=== PATIENT | male | born 1945 | race Caucasian/White ===

== ENCOUNTER 2020-04-29 19:42 | Inpatient (IN) | payer OTHER, MEDICAID ==
--- NOTE | 2020-04-29 20:47 | RAD REPORT ---
EXAM DESCRIPTION: RAD - Chest Single View - 04/29/2020 8:36 pm CLINICAL HISTORY: CHEST PAIN COMPARISON: None TECHNIQUE: AP portable chest image was obtained 04/29/2020 8:36 pm . FINDINGS: No acute lung parenchymal process seen. Patient has significant right hemidiaphragm elevat ion. No failure or volume overload suspected. Heart and vasculature are normal. No measurable pleural effusion and no pneumothorax. No acute bony abnormality seen. No acute aortic findings suspected. IMPRESSION: No acute cardiopulmonary process.
[2020-04-29 21:00] LABS: Protime INR 1.03
[2020-04-29 21:04] LABS: Absolute Lymphocytes (CBC) 0.9 K/uL (0.7-4.9); Basophils % 0.4 % (0-1.3); Hematocrit 44.2 % (39.6-49.0); Lymphocytes % 11.5 % (15.3-44.8); MPV 7.9 fL (7.6-11.3); RBC Red Blood Cell Count 4.42 M/uL (4.33-5.43)
[2020-04-29 21:16] LABS: ALT/SGPT 15 U/L (12-78); AST/SGOT 10 U/L (15-37); Albumin 3.2 g/dL (3.4-5.0); Alkaline Phosphatase 81 U/L (45-117); BUN Blood Urea Nitrogen 17 mg/dL (7-18); Bicarbonate 32 mmol/L (21-32); Bilirubin Direct < 0.1 mg/dL (0-0.2); Bilirubin Total 0.3 mg/dL (0.2-1.0); Glucose Level 199 mg/dL (74-106); Magnesium 1.6 mg/dL (1.8-2.4); NT PRO-BNP 208 pg/mL (<125); Potassium 3.8 mmol/L (3.5-5.1); Protein, Total 7.7 g/dL (6.4-8.2); Sodium Level 138 mmol/L (136-145); Troponin (Emerg Dept Use Only) 0.05 ng/mL (0.0-0.045)
--- NOTE | 2020-04-29 21:39 | ER ---
Nurse's Notes [facility] Name: Hany Marcano Age: 75 yrs Sex: Male : 1945 Arrival Date: 04/29/2020 Time: 19:44 Bed 27 Private MD: Diagnosis: Chest pain, unspecified Presentation: 04/29 19:42 Chief complaint: EMS states: that he was watching a porn movie and started to have fc chest pain. Once show was over he became anxious. Then approx 10 minutes later the pain was gone. Denies any shortness of breath, nausea or vomiting. Was given Nitro x 3 by nurse at [facility]. Currently having no pain to chest. Does having chronic pain to right hip due to arthritis. Coronavirus screen: Client denies travel out of the [place] in the last 14 days. Ebola Screen: Patient negative for fever greater than or equal to 101.5 degrees Fahrenheit, and additional compatible Ebola Virus Disease symptoms Patient denies exposure to infectious person. Patient denies travel to an Ebola-affected area in the 21 days before illness onset. Initial Sepsis Screen: Does the patient meet any 2 criteria? HR > 90 bpm. No. Patient's initial sepsis screen is negative. Does the patient have a suspected source of infection? No. Patient's initial sepsis screen is negative. Risk Assessment: Do you want to hurt yourself or someone else? Patient reports no desire to harm self or others. Onset of symptoms was April 29, 2020 at 18:30. Care prior to arrival: Medication(s) given: ASA, 81 mg, x 4, IV initiated. 20 GA, in the left hand. 19:42 Method Of Arrival: EMS: [facility] 19:42 Acuity: BREANNA 3 fc Historical: - Allergies: 20:26 No Known Allergies; fc - Home Meds: 20:39 allopurinol 100 mg Oral tab 1 tab once daily [Active]; amlodipine 10 mg tab 1 tab once fc daily [Active]; aspirin 81 mg Oral TbEC 1 tab once daily [Active]; calcium with Vitamin D [Active]; cyanocobalamin (vitamin B-12) 1,000 mcg/mL injection soln 1 mL q 2 weeks [Active]; Humalog Sub-Q Sliding scale ac and hs [Active]; isosorbide mononitrate 120 mg Oral Tb24 1 tab once daily [Active]; Lantus 100 unit/mL Sub-Q soln 24 unit nightly [Active]; Lasix 40 mg Oral tab 1 tab once daily [Active]; lisinopril 40 mg Oral tab 1 tab nightly [Active]; lovastatin 40 mg Oral tab 1 tab nightly [Active]; magnesium oxide 400 mg Oral cap twice a day [Active]; metformin 1,000 mg Oral TG24 1 tab 2 times per day [Active]; metoprolol tartrate 25 mg Oral tab 1 tab 2 times per day [Active]; MVI daily [Active]; nitroglycerin 0.4 mg SL subl 1 tab every 5 minutes [Active]; omeprazole 40 mg Oral cpDR 1 cap once daily [Active]; pioglitazone 30 mg oral tab 1 tab once daily [Active]; Plavix 75 mg Oral tab 1 tab once daily [Active]; Silvadene 1 % Topical crea once daily [Active]; trazodone 50 mg Oral tab 1 tab nightly [Active]; Vitamin D Oral 50,000 unit weekly [Active]; - PMHx: 20:26 CHF; Diabetes - IDDM; allergic rhinitis; GERD; Dementia; chest pain; CAD; Angina; fc insomnia; Gout; Hyperlipidemia; Depression; - PSHx: 20:26 left fem pop; fc - Immunization history:: Last tetanus immunization: unknown, Flu vaccine is not up to date. - Social history:: Smoking status: Patient/guardian denies using tobacco, but has a distant history of tobacco abuse, Patient/guardian denies using alcohol, street drugs. Screenin:42 Abuse screen: Denies threats or abuse. Nutritional screening: No deficits noted. fc Tuberculosis screening: No symptoms or risk factors identified. Fall Risk No fall in past 12 months (0 pts). Secondary diagnosis (15 points) impaired mobility, IV access (20 points). Ambulatory Aid- None/Bed Rest/Nurse Assist (0 pts). Gait- Impaired (20 pts.). Mental Status- Overestimates/Forgets Limitations (15 pts.). Total Peoples Fall Scale indicates High Risk Score (45 or more points). Fall prevention measures have been instituted. Side Rails Up X 2 Placed Close to Nursing Station Frequent Obs/Assessments Occuring As available patient and family educated on Fall Prevention Program and Strategies. Assessment: 20:00 General: Appears in no apparent distress. comfortable, Behavior is calm, cooperative, ss Denies fever, feeling ill, fatigue, chills. Pain: Complains of pain in R hip Pain does not radiate. Pain currently is 5 out of 10 on a pain scale. Quality of pain is described as aching, Pain began years ago. Is continuous, chronic, Aggravated by laying flat. Neuro: Level of Consciousness is awake, alert, obeys commands, Oriented to person, place, time, situation, Project Controls Specialist are equal bilaterally Speech is normal. Cardiovascular: Capillary refill is sluggish in bilateral toes. Respiratory: Airway is patent Respiratory effort is even, unlabored. GI: Patient currently denies diarrhea, nausea, vomiting. : No signs and/or symptoms were reported regarding the genitourinary system. EENT: Nares are clear Oral mucosa is moist. Derm: dry, hard scaly skin noted to bilateral lower extremities. Musculoskeletal: Range of motion: limited in left wrist, left hip, left knee, left ankle, right hip, right knee and right ankle PT reports that limited ROM is due to polio and arthritis. 21:00 Reassessment: Patient appears in no apparent distress at this time. Patient and/or ss family updated on plan of care and expected duration. Pain level reassessed. Patient is alert, oriented x 3, equal unlabored respirations, skin warm/dry/pink. 22:10 Reassessment: Patient appears in no apparent distress at this time. Pt cleaned of ss urinary incontinence with total assist. Sacral decubitus noted. Pt reports he has been battling this wound for some time. Patient denies pain at this time. 22:26 Reassessment: Report given to TYE Easley. Vital Signs: 19:42 BP 154 / 83; Pulse 105; Resp 20; Temp 97.8; Pulse Ox 97% ; Weight 145.15 kg; Height 6 fc ft. 5 in. (195.58 cm); Pain 5/10; 22:11 BP 164 / 84; Pulse 104; Resp 18; Pulse Ox 98% on R/A; Pain 0/10; ss 19:42 Body Mass Index 37.95 (145.15 kg, 195.58 cm) ED Course: 19:42 Arm band placed on Patient placed in an exam room, on a stretcher. fc 19:42 Patient has correct armband on for positive identification. Bed in low position. Call fc light in reach. Side rails up X2. mine wedge sawyer on. Pulse ox on. NIBP on. 19:42 Maintain EMS IV. Dressing intact. Good blood return noted. Site clean \T\ dry. Gauge \T\ fc site: 20 gauge to left hand. 19:44 Patient arrived in ED. cl3 19:50 Sebastián Randle PA is PHCP. cp 19:50 Kolton Rouse MD is Attending Physician. cp 20:16 Triage completed. fc 20:36 XRAY Chest (1 view) In Process Unspecified. EDMS 20:40 Yudy Caro, TYE is Primary Nurse. ss 21:38 Kalyan Adkins PA is Hospitalizing Provider. cp 22:10 No provider procedures requiring assistance completed. Patient admitted, IV remains in ss place. Patient maintains SpO2 saturation greater than 95% on room air. Administered Medications: 22:09 Drug: Metoprolol 25 mg Route: PO; ss 23:20 Follow up: Response: No adverse reaction ss 22:09 Drug: Lovenox 120 mg {Note: 80 mg to RL abdomen and 40 mg to LL abd.} Route: Sub-Q; Site: abdomen; 23:20 Follow up: Response: No adverse reaction ss 22:09 Drug: Magnesium Sulfate 1 grams Route: IVPB; Infused Over: 1 hrs; Site: left hand; ss 22:09 Follow up: IV Status: Infusion continued upon admission ss Outcome: 21:00 Admitted to [facility] accompanied by [facility], via stretcher, with chart, Report called to TYE Easley 21:39 Decision to Hospitalize by Provider. cp 22:10 Condition: good ss 22:10 Instructed on the need for admit. 23:20 Patient left the ED. Signatures: Dispatcher [employer] EDWA Veronica Dave RN RN Yudy Caro RN RN Sebastián Randle PA PA cp Lewis, Charde cl3 Corrections: (The following items were deleted from the chart) 20:20 19:42 Care prior to arrival: Medication(s) given: ASA, 81 mg, x 2, IV initiated. 20 GA, fc in the left hand,
--- NOTE | 2020-04-29 21:39 | EDPHYS ---
Physician Documentation [facility] Name: Hany Marcano Age: 75 yrs Sex: Male : 1945 Arrival Date: 04/29/2020 Time: 19:44 Bed 27 Private MD: ED Physician Kolton Rouse HPI: 04/29 19:55 This 75 yrs old Male presents to ER via Unassigned with complaints of Chest Pain. cp 19:55 The patient or guardian reports chest pain that is located primarily in the anterior cp chest wall. 19:55 Onset: suddenly. The pain does not radiate. cp 19:55 Duration: The patient or guardian reports a single episode, that is now resolved. cp Patient reports he was watching an adult movie with roommate when he had sudden onset chest pain. Patient was given nitro times 3 and aspirin by EMS. Patient reports chest pain is now resolved. Historical: - Allergies: 20:26 No Known Allergies; fc - Home Meds: 20:39 allopurinol 100 mg Oral tab 1 tab once daily [Active]; amlodipine 10 mg tab 1 tab once fc daily [Active]; aspirin 81 mg Oral TbEC 1 tab once daily [Active]; calcium with Vitamin D [Active]; cyanocobalamin (vitamin B-12) 1,000 mcg/mL injection soln 1 mL q 2 weeks [Active]; Humalog Sub-Q Sliding scale ac and hs [Active]; isosorbide mononitrate 120 mg Oral Tb24 1 tab once daily [Active]; Lantus 100 unit/mL Sub-Q soln 24 unit nightly [Active]; Lasix 40 mg Oral tab 1 tab once daily [Active]; lisinopril 40 mg Oral tab 1 tab nightly [Active]; lovastatin 40 mg Oral tab 1 tab nightly [Active]; magnesium oxide 400 mg Oral cap twice a day [Active]; metformin 1,000 mg Oral TG24 1 tab 2 times per day [Active]; metoprolol tartrate 25 mg Oral tab 1 tab 2 times per day [Active]; MVI daily [Active]; nitroglycerin 0.4 mg SL subl 1 tab every 5 minutes [Active]; omeprazole 40 mg Oral cpDR 1 cap once daily [Active]; pioglitazone 30 mg oral tab 1 tab once daily [Active]; Plavix 75 mg Oral tab 1 tab once daily [Active]; Silvadene 1 % Topical crea once daily [Active]; trazodone 50 mg Oral tab 1 tab nightly [Active]; Vitamin D Oral 50,000 unit weekly [Active]; - PMHx: 20:26 CHF; Diabetes - IDDM; allergic rhinitis; GERD; Dementia; chest pain; CAD; Angina; fc insomnia; Gout; Hyperlipidemia; Depression; - PSHx: 20:26 left fem pop; fc - Immunization history:: Last tetanus immunization: unknown, Flu vaccine is not up to date. - Social history:: Smoking status: Patient/guardian denies using tobacco, but has a distant history of tobacco abuse, Patient/guardian denies using alcohol, street drugs. ROS: 20:05 Cardiovascular: Positive for chest pain, edema. cp 20:05 Eyes: Negative for injury, pain, redness, and discharge. cp 20:05 Constitutional: Negative for body aches, fever, poor PO intake. 20:05 Neck: Negative for pain with movement, pain at rest, stiffness. 20:05 Respiratory: Negative for cough, shortness of breath, wheezing. 20:05 Abdomen/GI: Negative for abdominal pain, nausea, vomiting, and diarrhea. 20:05 Back: Negative for radiated pain. 20:05 Neuro: Negative for altered mental status, headache, syncope, weakness. 20:05 All other systems are negative. Exam: 20:10 Constitutional: The patient appears in no acute distress, alert, awake, comfortable, cp non-diaphoretic, non-toxic, well developed, well nourished, obese. 20:10 Head/Face: Normocephalic, atraumatic. cp 20:10 Eyes: Periorbital structures: appear normal, Pupils: equal, round, and reactive to light and accomodation, Extraocular movements: intact throughout, Conjunctiva: normal, no exudate, no injection, Sclera: no appreciated abnormality, Lids and lashes: appear normal, bilaterally. 20:10 ENT: External ear(s): are unremarkable, Nose: is normal, Mouth: Lips: moist, Oral mucosa: moist, Posterior pharynx: Airway: no evidence of obstruction, patent. 20:10 Neck: ROM/movement: is normal, is supple, without pain, no range of motions limitations. 20:10 Chest/axilla: Inspection: normal, Palpation: is normal, no crepitus, no tenderness. 20:10 Cardiovascular: Rate: tachycardic, Rhythm: regular, JVD: is not appreciated. 20:10 Respiratory: the patient does not display signs of respiratory distress, Respirations: normal, no use of accessory muscles, no retractions, labored breathing, is not present, Breath sounds: are clear throughout, no decreased breath sounds. 20:10 Abdomen/GI: Inspection: abdomen appears normal, Palpation: abdomen is soft and non-tender, in all quadrants. 20:10 Back: pain, is absent, ROM is normal. 20:10 Neuro: Orientation: to person, place \T\ time. Mentation: is normal, Cerebellar function: is grossly normal, Motor: moves all fours, strength is normal. 20:15 ECG was reviewed by the Attending Physician. Vital Signs: 19:42 BP 154 / 83; Pulse 105; Resp 20; Temp 97.8; Pulse Ox 97% ; Weight 145.15 kg; Height 6 fc ft. 5 in. (195.58 cm); Pain 5/10; 22:11 BP 164 / 84; Pulse 104; Resp 18; Pulse Ox 98% on R/A; Pain 0/10; ss 19:42 Body Mass Index 37.95 (145.15 kg, 195.58 cm) fc MDM: 19:54 Patient medically screened. cp 21:34 The patient was not given aspirin in the Emergency Department. Administered by EMS. cp Data reviewed: vital signs, nurses notes, lab test result(s), EKG, radiologic studies, plain films, I have discussed the patient's presentation/case with the attending Emergency Department Physician;. Test interpretation: by ED physician or midlevel provider: ECG, chest xray negative for infiltrates. 21:35 Physician consultation: Kalyan FARLEY was called at 21:36, was contacted at 21:36, regarding admission, to the telemetry unit. patient's condition, and will see patient in ED, shortly. 04/29 19:55 Order name: Basic Metabolic Panel; Complete Time: 21:26 04/29 19:55 Order name: CBC with Diff; Complete Time: 21:10 cp 04/29 21:11 Interpretation: Normal except: RDW 15.9; JUAN FRANCISCO% 81.3; LYM% 11.5. cp 10/06 19:55 Order name: LFT's; Complete Time: 21:26 cp 04/29 19:55 Order name: Magnesium; Complete Time: 21:26 cp 04/29 21:26 Interpretation: Abnormal: MG 1.6. cp 04/29 19:55 Order name: NT PRO-BNP; Complete Time: 21:26 cp 04/29 19:55 Order name: PT-INR; Complete Time: 21:10 cp 04/29 19:55 Order name: Troponin (emerg Dept Use Only); Complete Time: 21:26 cp 04/29 19:55 Order name: XRAY Chest (1 view); Complete Time: 21:10 cp 04/29 19:55 Order name: EKG; Complete Time: 19:56 cp 04/29 19:55 Order name: Cardiac monitoring; Complete Time: 20:30 cp 04/29 22:03 Order name: CONS Physician Consult EDMS 04/29 19:55 Order name: EKG - Nurse/Tech; Complete Time: 20:31 cp 04/29 19:55 Order name: IV Saline Lock; Complete Time: 20:31 cp 04/29 19:55 Order name: Labs collected and sent; Complete Time: 20:40 cp 04/29 19:55 Order name: O2 Per Protocol; Complete Time: 20:31 cp 04/29 19:55 Order name: O2 Sat Monitoring; Complete Time: 20:31 cp EC:15 Rate is 105 beats/min. Rhythm is regular. LA interval is prolonged at 174 msec. QRS cp interval is prolonged at 144 msec. QT interval is normal. T waves are Inverted in leads aVR, V2. Interpreted by me. Reviewed by me. Administered Medications: 22:09 Drug: Metoprolol 25 mg Route: PO; ss 23:20 Follow up: Response: No adverse reaction ss 22:09 Drug: Lovenox 120 mg {Note: 80 mg to RL abdomen and 40 mg to LL abd.} Route: Sub-Q; ss Site: abdomen; 23:20 Follow up: Response: No adverse reaction ss 22:09 Drug: Magnesium Sulfate 1 grams Route: IVPB; Infused Over: 1 hrs; Site: left hand; ss 22:09 Follow up: IV Status: Infusion continued upon admission ss Disposition: 04/30 00:41 Co-signature as Attending Physician, Kolton Rouse MD. pkl Disposition: 04/29/20 21:39 Hospitalization ordered by Kalyan Adkins for Observation. Preliminary diagnosis is Chest pain, unspecified. - Bed requested for Telemetry/MedSurg (observation). - Status is Observation. ss - Condition is Stable. - Problem is new. - Symptoms are resolved. Signatures: Dispatcher [employer] EDMS Kolton Rouse MD MD pkl Chretien, Felicia, RN RN Yudy Caro RN RN Sebastián Randle PA PA cp Garcia, Cindy, RN RN cg Corrections: (The following items were deleted from the chart) 04/29 22:07 21:39 Hospitalization Ordered by Kalyan AFRLEY for Observation. Preliminary cg diagnosis is Chest pain, unspecified. Bed requested for Telemetry/MedSurg (observation). Status is Observation. Condition is Stable. Problem is new. Symptoms are resolved. cp 23:20 22:07 04/29/2020 21:39 Hospitalization Ordered by Kalyan FARLEY for Observation. ss Preliminary diagnosis is Chest pain, unspecified. Bed requested for Telemetry/MedSurg (observation). Status is Observation. Condition is Stable. Problem is new. Symptoms are resolved. cg
[2020-04-29] MEDS ORDERED: METOPROLOL TAR 25 MG TAB ONE (22:05)
[2020-04-29] MEDS ORDERED: ENOXAPARIN 80 MG/0.8 ML SQ ONE (22:06)
[2020-04-29] MEDS ORDERED: MAGNESIUM SULFATE 1 gm IVPB 1 GM/100 ML BAG IV ONE (22:06)
[2020-04-29] MEDS ORDERED: ENOXAPARIN 40 MG/0.4 ML SQ ONE (22:06)
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
[2020-04-29 23:48] VITALS: BMI 38.7
[2020-04-30] MEDS: NA CHLORIDE 0.9% 1,000 ML IV SCH ×2 (00:36→19:00)
[2020-04-30 01:18] LABS: Urine Appearance CLEAR; Urine Bilirubin NEGATIVE (NEG); Urine Blood NEGATIVE (NEG); Urine Color YELLOW; Urine Glucose 1+ (NEG); Urine Microscopic Reflex NO UMIC; Urine Protein NEGATIVE (NEG); Urine Urobilinogen 0.2 mg/dL (0.2-1.0)
[2020-04-30 03:52] LABS: Protime INR 1.1
[2020-04-30 03:53] LABS: Absolute Lymphocytes (CBC) 1.3 K/uL (0.7-4.9); Basophils % 0.6 % (0-1.3); Hematocrit 40.6 % (39.6-49.0); Lymphocytes % 16.8 % (15.3-44.8); MPV 8.1 fL (7.6-11.3); RBC Red Blood Cell Count 4.05 M/uL (4.33-5.43)
[2020-04-30 04:04] LABS: BUN Blood Urea Nitrogen 15 mg/dL (7-18); Bicarbonate 31 mmol/L (21-32); Glucose Level 152 mg/dL (74-106); HDL Cholesterol 44 mg/dL (40-60); LDL Cholesterol, Calculated 80 (<130); Magnesium 1.8 mg/dL (1.8-2.4); Potassium 3.8 mmol/L (3.5-5.1); Sodium Level 138 mmol/L (136-145)
[2020-04-30] MEDS ORDERED: MAGNESIUM SULFATE 1 gm IVPB 1 GM/100 ML BAG IV ONE (05:20)
[2020-04-30] MEDS: INSULIN -REGULAR HUMAN 50 UNIT/0.5 ML ML SQ SCH ×4 (07:30→21:00)
[2020-04-30] MEDS ORDERED: PNEUMOCOCCAL VACCINE 0.5 ML IMVAC ONE (09:00)
[2020-04-30] MEDS ORDERED: KCL 20 MEQ/100 mL IVPB 20 MEQ/100 ML BAG IV SCH (09:00)
[2020-04-30] MEDS ORDERED: INFLUENZA VACCINE (for 3y+) 0.5 ML DOSE IMVAC ONE (09:00)
[2020-04-30] MEDS: CLOPIDOGREL 75 MG TABLET PO SCH (09:42)
[2020-04-30] MEDS: Enoxaparin 120 MG/0.8 ML SYR SQ SCH ×2 (09:42→20:40)
[2020-04-30] MEDS: ASPIRIN 81 MG CHEWABLE TABLET PO SCH (09:42)
[2020-04-30] MEDS: HYDRALAZINE HCL 20 MG/ML VIAL IV PRN (12:43)
[2020-05-01] MEDS ORDERED: MELATONIN 5 MG TABLET PO ONE (00:17)
--- NOTE | 2020-05-01 05:30 | EKG ---
Test Date: 2020-04-29 Test Time: 20:02:46 Computer Security Coordinator: WILLIAM MEASUREMENT RESULTS: Intervals: Rate: 105 LA: 174 QRSD: 144 QT: 384 QTc: 507 [place]: P: 63 LA: 174 QRS: 51 T: 34 INTERPRETIVE STATEMENTS: Sinus tachycardia with premature atrial complexes Right bundle branch block Abnormal ECG No previous ECG available for comparison Electronically Signed On 05-01-20 05:28:50 CDT by [place]
[2020-05-01] MEDS: CLOPIDOGREL 75 MG TABLET PO SCH (06:08)
[2020-05-01] MEDS: ASPIRIN 81 MG CHEWABLE TABLET PO SCH (06:09)
[2020-05-01 07:09] LABS: BUN Blood Urea Nitrogen 15 mg/dL (7-18); Bicarbonate 30 mmol/L (21-32); Glucose Level 145 mg/dL (74-106); Potassium 3.9 mmol/L (3.5-5.1); Sodium Level 136 mmol/L (136-145)
[2020-05-01] MEDS: INSULIN -REGULAR HUMAN 50 UNIT/0.5 ML ML SQ SCH ×4 (07:30→20:28)
--- NOTE | 2020-05-01 07:33 | ECHO ---
HEIGHT: 6 ft 5 in WEIGHT: 327 lb 2 oz DATE OF STUDY: 04/30/[address]: Kalyan Adkins 2-DIMENSIONAL: YES M.MODE: YES DOPPLER: YES COLOR FLOW: YES TDS: PORTABLE: DEFINITY: BUBBLE STUDY: DIAGNOSIS: NON-ST ELEVATION MYOCARDIAL INFARCTION CARDIAC HISTORY: CATHERIZATION: SURGERY: PROSTHETIC VALVE: PACEMAKER: MEASUREMENTS (cm) DIASTOLIC (NORMALS) SYSTOLIC (NORMALS) IVSd 1.3 (0.6-1.2) LA Diam 4.2 (1.9-4.0) LVEF 64% LVIDd 4.0 (3.5-5.7) LVIDs 2.6 (2.0-3.5) %FS 34% LVPWd 13.3 (0.6-1.2) Ao Diam 3.1 (2.0-3.7) 2 DIMENSIONAL ASSESSMENT: RIGHT ATRIUM: NORMAL LEFT ATRIUM: DILATED RIGHT VENTRICLE: NORMAL LEFT VENTRICLE: NORMAL TRICUSPID VALVE: NORMAL MITRAL VALVE: NORMAL PULMONIC VALVE: NORMAL AORTIC VALVE: SCLEROSIS PERICARDIAL EFFUSION: NONE AORTIC ROOT: NORMAL LEFT VENTRICULAR WALL MOTION: NORMAL DOPPLER/COLOR FLOW: MILD MITRAL TRICUSPID REGURGITATION. COMMENTS: NORMAL LEFT VENTRICULAR SIZE AND FUNCTION. LEFT ATRIAL ENLARGEMENT. AORTIC SCLEROSIS. MILD TRICUPSID REGURGITATION. TECHNOLOGIST: HARI NEVES
[2020-05-01] MEDS: HYDRALAZINE HCL 20 MG/ML VIAL IV PRN (08:52)
--- NOTE | 2020-05-01 08:56 | P.PN ---
Subjective Date of Service: 04/30/20 HE PATIENT STATES HIS CHEST PAIN IS BETTER. STILL OCCURS OCCASIONALLY. SCHEDULE FOR HEART CATHETERIZATION IN THE MORNING. Review of Systems 10-point ROS is otherwise unremarkable Physical Examination - Vital Signs Temperature: 97.6 F Blood Pressure: 149/94 Pulse: 81 Respirations: 18 Pulse Ox (%): 98 - Physical Exam General: Alert, In no apparent distress, Oriented x3 Respiratory: Clear to auscultation bilaterally, Normal air movement Cardiovascular: Regular rate/rhythm, Normal S1 S2, Systolic murmur Gastrointestinal: Normal bowel sounds, Soft and benign, Non-distended, No tenderness Musculoskeletal: No clubbing, No swelling, No tenderness Neurological: Sensation intact, Cranial nerves 3-12 intact - Studies Laboratory Data (last 24 hrs) 04/30/20 09:35: Troponin I 0.12 H Microbiology Data (last 24 hrs): 04/30/20 00:30 Nasopharnyx Coronavirus COVID-19 PCR - Final Medications List Reviewed: Yes Assessment & Plan - Problems (Diagnosis) (1) Coronary artery disease Status: Acute (2) Non-STEMI (non-ST elevated myocardial infarction) Status: Acute (3) Angina at rest Status: Acute (4) Obesity (BMI 30-39.9) Status: Acute (5) Type 2 diabetes mellitus Status: Acute (6) Congestive heart failure Status: Acute (7) Peripheral arterial disease Status: Acute - Plan 1. Serial troponins and EKG reveals some mild elevation in troponins; EKG with right bundle branch block. No acute ST elevation changes 2. Cardiology consultation appreciated. Cardiac catheterization scheduled for in the morning 3. Echocardiogram in a.m. 4. Anti-platelet therapy, anti coagulation, beta-michelle, statin, and O2 as needed 5. IV morphine for pain 6. Nitro p.r.n. 7. Strict blood sugar control 8. GI and DVT prophylaxis Discharge Plan: Home Plan to discharge in: Greater than 2 days - Advance Directives Does patient have a Living Will: No Does patient have a Durable POA for Healthcare: No - Code Status/Comfort Care Code Status Assessed: Yes Code Status: Full Code Critical Care: No Time Spent Managing PTS Care (In Minutes): 35
--- NOTE | 2020-05-01 08:56 | P.PN ---
Subjective Date of Service: 05/01/20 Chief Complaint: NSTEMI With patient's heart catheterization required angioplasty and stent of the left circumflex. Patient is doing well. If he does well tonight then discharge to long term in a.m. Review of Systems 10-point ROS is otherwise unremarkable Physical Examination - Vital Signs Temperature: 97.6 F Blood Pressure: 149/94 Pulse: 81 Respirations: 18 Pulse Ox (%): 98 - Physical Exam General: Alert, In no apparent distress, Oriented x2 Respiratory: Clear to auscultation bilaterally, Normal air movement Cardiovascular: Regular rate/rhythm, Normal S1 S2, Systolic murmur Gastrointestinal: Normal bowel sounds, Soft and benign, Non-distended, No tenderness Musculoskeletal: No clubbing, No swelling, No tenderness Neurological: Sensation intact, Cranial nerves 3-12 intact - Studies Laboratory Data (last 24 hrs) 04/30/20 09:35: Troponin I 0.12 H Microbiology Data (last 24 hrs): 04/30/20 00:30 Nasopharnyx Coronavirus COVID-19 PCR - Final Medications List Reviewed: Yes Assessment & Plan - Problems (Diagnosis) (1) Coronary artery disease Status: Acute (2) Non-STEMI (non-ST elevated myocardial infarction) Status: Acute (3) Angina at rest Status: Acute (4) Obesity (BMI 30-39.9) Status: Acute (5) Type 2 diabetes mellitus Status: Acute (6) Congestive heart failure Status: Acute (7) Peripheral arterial disease Status: Acute - Plan 1. Status post stent placement. Continue with anti-platelet therapy. Outpatient Cardiology follow-up. 2. Cardiology consultation appreciated. 3. Echocardiogram was unremarkable 4. Anti-platelet therapy, anti coagulation, beta-michelle, statin, and O2 as needed 5. IV morphine for pain 6. Nitro p.r.n. 7. Strict blood sugar control 8. GI and DVT prophylaxis Anticipate discharge to long term in a.m. Discharge Plan: Shelter Plan to discharge in: 24 Hours - Advance Directives Does patient have a Living Will: No Does patient have a Durable POA for Healthcare: No - Code Status/Comfort Care Code Status Assessed: Yes Code Status: Full Code Critical Care: No Time Spent Managing PTS Care (In Minutes): 35
--- NOTE | 2020-05-01 10:40 | CON ---
Date of Consultation: 04/30/2020 Reason For Consultation: Admitted on 04/30/[address] Ramos for non-ST elevation myocardial infarcti on. I saw the patient on 04/30/2020. History Of Present Illness: Mr. Marcano is a 75-year-old white male. He has a past medical history of congestive heart failure, diabetes, gastroesophageal reflux disease, dementia, coronary artery dis ease, gout, hyperlipidemia, depression, peripheral arterial disease, status post left femoral-poplite al. He came in with chest pain and ruled in for non-ST elevation myocardial infarction. The patient did not have any chest pain when I saw him. His chest pain was substernal, pressure, but did not ra diate. He denied PND, orthopnea, pedal edema, palpitations, syncope. Denied fever or chills. Past Medical History: As stated earlier. Allergies: NONE. Review of Systems: Negative. Social History: Negative. Family History: Noncontributory. Medications: At home include allopurinol, amlodipine, aspirin, insulin, Imdur, Lasix, lisinopril, lo vastatin, metformin, metoprolol, and Prilosec. Physical Examination: Vital Signs: Blood pressure was 154/83, his pulse was 100, afebrile, respiratory rate sinus rhythm. HEENT: Negative. Neck: Supple with no bruit, lymphadenopathy, JVD, or thyromegaly. Chest: Clear to auscultation and percussion. Cardiac: Revealed a regular rhythm and rate without any murmurs, gallops, or rubs. Abdomen: Benign. Extremities: Revealed no clubbing, cyanosis, or edema. Diagnostic Data: Showed a creatinine of 0.68. His CBC was normal. His troponin was 0.10 and 0.22. Impression And Plan: This is a patient with history of previous coronary artery disease with symptom s suggestive of coronary artery disease worsening with a positive troponin consistent with non-ST cristal vation myocardial infarction. We will plan a left heart catheterization tomorrow with possible inter vention. The patient understands the risk and the benefits of the procedure and he agrees to proceed . His other problems include diabetes, hypertension, history of congestive heart failure. An echoca rdiogram is pending. His other problems include slight dementia, gastroesophageal reflux disease, de pression, gout, insomnia, and allergic rhinitis. He also has a history of peripheral arterial diseas e, status post left femoral-popliteal. He is not having any claudication at this point. We will see what the catheterization shows and follow him after that. XAVIER/EVERETT Voice ID: [id number] Report ID: [id number]
[2020-05-01] MEDS ORDERED: HEPA 1000U/500MLS 2,000 UNIT/1,000 ML BAG IV ONE (14:12)
[2020-05-01] MEDS ORDERED: NICARDIPINE HCL 25 MG/10 ML IV ONE (14:13)
[2020-05-01] MEDS ORDERED: ATROPINE SULF 1 MG/10 ML SYR IV ONE (14:13)
[2020-05-01] MEDS ORDERED: NITROGLYCERIN 100 MCG/ML SYR (for cath lab use only) IV ONE (14:13)
[2020-05-01] MEDS ORDERED: HEPARIN 5000 UNIT/ML 1 ML VIAL ONE (14:13)
[2020-05-01] MEDS ORDERED: FENTANYL CITR 100 MCG/2 ML ONE (14:13)
[2020-05-01] MEDS ORDERED: MIDAZOLAM HCL 2 MG/2 ML INJ ONE (14:13)
[2020-05-01] MEDS ORDERED: NA CHLORIDE 0.9% 500 ML ONE (14:31)
[2020-05-01] MEDS: NA CHLORIDE 0.9% 1,000 ML IV SCH (15:00)
[2020-05-01] MEDS ORDERED: METOPROLOL TARTRATE 5 MG/5 ML INJ IV ONE (15:06)
[2020-05-01] MEDS ORDERED: HEPARIN 10,000 UNIT/10 ML VIAL IV ONE ×2 (15:17→15:19)
[2020-05-01] MEDS ORDERED: CLOPIDOGREL 75 MG TABLET ONE (16:06)
--- OUTSIDE RECORDS SUMMARY | 2020-05-01 17:00 | XMS REPORT | Continuity of Care Document ---
:1945 Author Organization [facility] t Address [address] [place] [address] Care Team Providers Name Role Phone Echo CESAR Primary Care Physician Unavailable ADRIAN HENRY M.D. Attending Clinician Unavailable ADRIAN HENRY M.D. Admitting Clinician Unavailable Advance Directives Directive Decision Effective Date Termination Date Comments Sour ce Yes N/A [facility] Problems Condition Condition Condition Status Onset Resolution Last Treating Co mments Source Name Details Category Date Date Treatment Clinician Date Problem Condition NURA U [facility] Chest pain Problem M[facility]INA TU S - [facility] Obesity Problem [facility] - [facility] Hypertensi Problem MIGUELINA TU on S - [facility] Diabetes Problem [facility] mellitus S - [facility] Chest wall Problem MIGUELINA TU pain S - [facility] Allergies, Adverse Reactions, Alerts Allergy Allergy Status Severity Reaction(s) Onset Inactive Treating Comm ents Source Name Type Date Date Clinician NO KNOWN Allergy Active [facility] th Social History Social Habit Start Date Stop Date Quantity Comments Source Sex Assigned At [birth year] Male [facility] 00:00:00 00:00:00 [place] Smoking Status Start Date Stop Date Source Ex-smoker (finding) 2019-09-12 11:40:00 2019-09-12 11:40:[facility] Medications Ordered Filled Start Stop Current Ordering Indication Dosage Frequency Signature Comments Components Source Medication Medication Date Date Medication? Clinician (SIG) Name Name Ibuprofen 2020-0 No 800mg CHRISTU (Motrin) 2-18 S - [facility] 800 Mg TAB 18:39: Lynette 00 Acetaminoph No 650mg [facility]STU en S - St. (Tylenol) Elizabe 325 Mg TAB th Allopurinol No 300mg [facility]RI[facility] (Zyloprim) S - St. 300 Mg TAB Elizabe th Amlodipine No 10mg [facility] Besylate S - St. (Norvasc) Elizabe 10 Mg TAB th Artificial No 2[drp] [facility]STU Tears S - St. (Refresh Elizabe Tears Oph th Soln) 15 Ml DROPS Aspirin No 81mg [facility]STU (Aspirin S - St. Chewable) Elizabe 81 Mg CHEW th Benzonatate No 100mg CH[facility]U (Tessalon) S - St. 100 Mg CAP Elizabe th Calcium/Vit No 600mg CHRISTU hill D S - St. (Calcium Elizabe 600 + Vit D th 400 Tablet) 600 [place] [address] [facility]RISTU angelina S - St. (Vitamin Elizabe D3) th (Vitamin D (D3)) 5,000 Units CAP Clopidogrel No 75mg [facility]U Bisulfate S - St. (Plavix) 75 Elizabe Mg TAB th Cyanocobala No 1000 [facility]RI[facility]U min S - St[facility] (Vitamin Elizabe B-12 Inj) th 1,000 Mcg/Ml SOLN Fluticasone No 1 [facility] Propionate S - St. (Flonase Elizabe 0.05% John th Spr) 16 Gm INHA Furosemide No 60mg CHRISTU (Lasix) 20 S - St. Mg TAB Elizabe th Furosemide No 40mg CHRISTU (Lasix) 40 S - St. Mg TABLET Elizabe th Insulin No 28 CH[facility]U Glargine S - St. (Lantus Elizabe U-100) 100 th Unit/1 Ml SOLN Insulin No 1 [facility] Lispro S - St. (Humalog Elizabe Kwikpen th U-100) 100 Unit/1 Ml INSULN.PEN Isosorbide No 240mg CH[facility]STU Mononitrate S - St. (Imdur) 120 Elizabe Mg TABCR th Lisinopril No 40mg [facility] (Zestril) S - St. 40 Mg TAB Elizabe th Lovastatin No 40mg [facility] (Altoprev) S - St. 40 Mg TABSR Elizabe th Magnesium No 500mg [facility] Oxide S - [facility] Metformin No 1000mg [facility]U Hcl S - St. (Glucophage Elizabe ) 1,000 Mg th TAB Metoprolol No 50mg [facility]U Tartrate S - St. (Lopressor) Elizabe 50 Mg TAB th Multivitami No 1 CHRISTU ns S - [facility] Therapeutic Elizabe (Theragener th ix, Theragran) 1 Tab TAB Nitroglycer No .4mg CHRISTU in S - St. (Nitrostat) Elizabe 0.4 Mg SUBL th Omeprazole No 20mg [facility] (Prilosec) S - St. 20 Mg CPDR Elizabe th Ondansetron No 4mg CHRISTU Hcl S - St. (Zofran) 4 Elizabe Mg TAB th Pioglitazon No 30mg CHRISTU e Hcl S - St. (Actos) 30 Elizabe Mg TAB th Polyethylen No 1 CH[facility]ST[facility] e Glycol S - St. 3350 Elizabe (Miralax) th 17 Gm POWD.PACK Trazodone No 50mg CHRISTU Hcl S - St. (Desyrel) Elizabe 50 Mg TAB th Vital Signs Vital Name Observation Time Observation Value Comments Source Body Temperature 2019-09-12 11:32:00 98.3 [degF] [facility] Heart Rate 2019-09-12 11:32:00 80 /min [facility] Respiratory rate 2019-09-12 11:32:00 18 /min [facility] BP Systolic 2019-09-12 11:32:00 164 mm[Hg] [facility] BP Diastolic 2019-09-12 11:32:00 78 mm[Hg] [facility] Weight 2019-09-12 00:15:00 335 [lb_av] [facility] BMI (Body Mass 2019-09-12 00:15:00 39.7 kg/m2 [facility] Index) [place] Body Temperature 2019-09-11 21:35:00 98.0 [degF] [facility] Heart Rate 2019-09-11 21:35:00 90 /min [facility] [place] Respiratory rate 2019-09-11 21:35:00 20 /min [facility] [place] BP Systolic 2019-09-11 21:35:00 160 mm[Hg] [facility] [place] BP Diastolic 2019-09-11 21:35:00 70 mm[Hg] [facility] [place] Heart Rate 2019-09-11 20:42:00 90 /min [facility] Respiratory rate 2019-09-11 20:42:00 20 /min [facility] BP Systolic 2019-09-11 20:42:00 160 mm[Hg] [facility] BP Diastolic 2019-09-11 20:42:00 70 mm[Hg] [facility]. Mary Procedures Procedure Date / Time Performed Performing Clinician [facility] e X-ray of chest, [facility] 2019-09-12 00:00:00 [facility] [place]my ECG 2019-09-12 00:00:00 [facility] - S t. (electrocardiogram) Delmy ECG 2019-09-11 00:00:00 [facility] - S t. (electrocardiogram) Delmy X-ray of chest, [facility] 2019-09-11 00:00:00 [facility] Plan of Care Planned Activity Planned Date Details Comments Source Goal Patient referral [code = [facility] [id number] ] Instructions Chest Pain That Is Not [facility] Caused by the Heart (DC) Instructions Heart Healthy Diet [facility] Elizabeth Instructions Preventing Falls in the [facility] Older Adult Delmy Instructions High Blood Pressure (DC) [facility] Elizabeth Instructions Heart Disease in [facility] Diabetics (DC) Delmy Instructions Going Home on Blood [facility] Delmy Encounters Start End Encounter Admission Attending Care Care Encounter Source Date/Time Date/Time Type Type Clinicians Facility Department ID 2019-09-11 2019-09-12 Discharged BETTIE RYAN [id number] [facility] 23:29:00 17:26:[address] [facility] (obs) Delmy murdock 2019-09-11 2019-09-11 Departed BETTIE RYAN [id number] [place] 17:34:00 22:45:00 Emergency TELIZ [facility] [address] Room [place] 2017-10-14 2017-10-14 Emergency E [facility] [id number] Medical 02:47:00 02:47:00 [facility] 2017-09-01 2017-09-01 Inpatient E [facility] [id number] Medical 23:54:00 23:54:00 [facility] Results Test Description Test Time Test Comments Results Result Comments Source Morphology 2020-01-07 13:18:33 Test Item Value Reference Range Interpretation Comme nts RBC Morph (test code = RBC Morph) As Indicated Normal A Anisocyte (test code = Anisocyte) 1+ A Hypochromia (test code = Hypochromia) 1+ A Microcyte (test code = Microcyte) 2+ A Differential Comment (test code = Differential See Comment Slide reviewed Comment) Plt Estimation (test code = Plt Estimation) Decreased Normal A XR Chest 1 View [id number] 11:25:11Patient: NITO MCKEON Date/Time01/07/2020 11:00 CDTReason for ExamCoughReportClinical dictation: Chest pain, cough and congestionX-ray chest one view frontalIn comparison to prior chest x-ray dated 09/20/2019 the heart remains within normal limits in size. Pulmonary vascularity is normal. There are no pulmonary consolidations or pleural effusions. Asymmetrically elevated right hemidiaphragm and left lung base scarring/atelectasis is again noted. Overlying cardiac monitoring leads are again identified.IMPRESSION:1. No active cardiopulmonary process. No significant interval change Final Dictated by: MD Hooks Gustavo MDictatedDT/TM: 01/07/2020 11:24 amSigned by: MD Hooks Gustavo MSigned (Electronic Signature): 01/07/2020 11:25 amComprehensive Metabolic [id number] 11:14:08 Test Item Value Reference Range Interpretation Comments Sodium Level (test code = 137 mmol/L 136-145 Sodium Level) Potassium Level (test code = 3.8 mmol/L 3.5-5.1 Potassium Level) Chloride Level (test code = 101 mmol/L 98-107 Chloride Level) CO2 (test code = CO2) 30 mmol/L 21-32 Anion Gap (test code = Anion 6 mmol/L 7-16 L Gap) BUN (test code = BUN) 15 mg/dL 7-18 Creatinine Level (test code = 0.8 mg/dL 0.7-1.3 Creatinine Level) Glucose Level (test code = 184 mg/dL 74-106 H Glucose Level) Calcium Level (test code = 9.3 mg/dL 8.5-10.1 Calcium Level) Alk Phos (test code = Alk Phos) 76 IntlUnit/L 45-122 Bilirubin Total (test code = 0.4 mg/dL 0.2-1.0 Bilirubin Total) Albumin Level (test code = 3.3 g/dL 3.4-5.0 L Albumin Level) Protein Total (test code = 7.5 g/dL 6.4-8.2 Protein Total) ALT (test code = ALT) 14 IntlUnit/L 12-78 AST (test code = AST) 14 IntlUnit/L 10-34 Comprehensive Metabolic [id number] 11:14:08 Test Item Value Reference Range Interpretation Comments Sodium Level (test code = 137 mmol/L 136-145 Sodium Level) Potassium Level (test code 3.8 mmol/L 3.5-5.1 = Potassium Level) Chloride Level (test code 101 mmol/L 98-107 = Chloride Level) CO2 (test code = CO2) 30 mmol/L 21-32 Anion Gap (test code = 6 mmol/L 7-16 L Anion Gap) BUN (test code = BUN) 15 mg/dL 7-18 Creatinine Level (test 0.8 mg/dL 0.7-1.3 code = Creatinine Level) Glucose Level (test code = 184 mg/dL 74-106 H Glucose Level) Calcium Level (test code = 9.3 mg/dL 8.5-10.1 Calcium Level) Alk Phos (test code = Alk 76 IntlUnit/L 45-122 Phos) Bilirubin Total (test code 0.4 mg/dL 0.2-1.0 = Bilirubin Total) Albumin Level (test code = 3.3 g/dL 3.4-5.0 L Albumin Level) Protein Total (test code = 7.5 g/dL 6.4-8.2 Protein Total) ALT (test code = ALT) 14 IntlUnit/L 12-78 AST (test code = AST) 14 IntlUnit/L 10-34 eGFR AA (test code = eGFR >60 mL/min/1.73 m2 N AA) Comprehensive Metabolic [id number] 11:14:08 Test Item Value Reference Range Interpretation Comments Sodium Level (test code = 137 mmol/L 136-145 Sodium Level) Potassium Level (test code 3.8 mmol/L 3.5-5.1 = Potassium Level) Chloride Level (test code 101 mmol/L 98-107 = Chloride Level) CO2 (test code = CO2) 30 mmol/L 21-32 Anion Gap (test code = 6 mmol/L 7-16 L Anion Gap) BUN (test code = BUN) 15 mg/dL 7-18 Creatinine Level (test 0.8 mg/dL 0.7-1.3 code = Creatinine Level) Glucose Level (test code = 184 mg/dL 74-106 H Glucose Level) Calcium Level (test code = 9.3 mg/dL 8.5-10.1 Calcium Level) Alk Phos (test code = Alk 76 IntlUnit/L 45-122 Phos) Bilirubin Total (test code 0.4 mg/dL 0.2-1.0 = Bilirubin Total) Albumin Level (test code = 3.3 g/dL 3.4-5.0 L Albumin Level) Protein Total (test code = 7.5 g/dL 6.4-8.2 Protein Total) ALT (test code = ALT) 14 IntlUnit/L 12-78 AST (test code = AST) 14 IntlUnit/L 10-34 eGFR AA (test code = eGFR >60 mL/min/1.73 m2 N AA) eGFR Non-AA (test code = >60 mL/min/1.73 m2 N eGFR Non-AA) POC Troponin [id number] 10:50:29 Test Item Value Reference Range Interpretation Comments Troponin I, POC 0.00 ng/mL 0.00-0.08 0.6-1.9 ng/m l may indicate (test code = Myocardial Whit ge2.0 ng/ml Troponin I, POC) is the diag nostic cutoff for Myocardial Damage. When diagnosing AMI, look for the serial rise and fall of Troponi Fina conditions resu lting in myocardial cell damage can potentiallyincr ease cardiac Troponin I leve ls. These conditions incl ude, butare not limited to: angina, unstable angina , congestive heart faillure, myocarditis, cardiac surgery , or invasive testin g.Serial sampling as jeanine ropriate is recommended to detect the temporalrise an d fall of troponin levels .For diagnostic purp oses, the Troponin I resu lts should be used inconju nction with other informati on such as EKG, CKMB, clinicalobserva tions, symptons, etc. Complete Blood Count with [id number] 10:47:17 Test Item Value Reference Range Interpretation Comments WBC (test code = WBC) 8.5 x10 4.8-10.8 RBC (test code = RBC) 3.68 x10 4.60-6.20 L Hgb (test code = Hgb) 12.4 g/dL 14.0-18.0 L Hct (test code = Hct) 38.6 % 38.0-52.0 MCV (test code = MCV) 104.9 fL 80.0-95.0 H RDW (test code = RDW) 14.9 % 11.5-14.5 N MCHC (test code = MCHC) 32.1 g/dL 31.0-36.0 MCH (test code = MCH) 33.7 pg 26.0-32.0 H Platelets (test code = 133 x10 140-440 L Platelets) MPV (test code = MPV) 10.9 fL 7.5-11.2 Slide Review (test code Smear N Resu lt created by = Slide Review) GL_SET_SLIDE _REVIEW_A UTO GL_JVH_XN_R FLX GL_JVH_XN_RFLX Pos Count XN (test code A N = Pos Count XN) Automated [id number] 10:47:17 Test Item Value Reference Range Interpretation Comments Neutro Auto (test code = Neutro Auto) 82.7 % N Lymph Auto (test code = Lymph Auto) 10.5 % N Becker Auto (test code = Becker Auto) 4.9 % N Eos, Auto (test code = Eos, Auto) 1.1 % N Basophil Auto (test code = Basophil 0.4 % N Auto) Neutro Absolute (test code = Neutro 7.0 x10 2.7-7.3 Absolute) Lymph Absolute (test code = Lymph 0.9 x10 0.8-3.5 Absolute) Becker Absolute (test code = Becker 0.4 x10 0.3-0.9 Absolute) Eos Absolute (test code = Eos 0.1 x10 0.0-0.3 Absolute) Baso Absolute (test code = Baso 0.0 x10 0.0-0.1 Absolute) IG [id number] 10:47:17 Test Item Value Reference Range Interpretation Comments IG (test code = IG) 0 % 0-5 IG Abs (test code = IG Abs) 0 x10 N POC [id number] 11:45:11 Test Item Value Reference Range Interpretation Comments Glucose POC (test 171 mg/dL 74-106 H POC Glucos e used on code = Glucose POC) critical ly ill patients is considered " off-label use" and has no t been cleared or appr rosa elena by the FDA. Altern ative testing methods should be considered i f the patient is crit ically ill. POC [id number] 06:07:12 Test Item Value Reference Range Interpretation Comments Glucose POC (test 114 mg/dL 74-106 H POC Glucos e used on code = Glucose POC) critical ly ill patients is considered " off-label use" and has no t been cleared or appr rosa elena by the FDA. Altern ative testing methods should be considered i f the patient is crit ically ill. POC [id number] 20:17:26 Test Item Value Reference Range Interpretation Comments Glucose POC (test 166 mg/dL 74-106 H POC Glucos e used on code = Glucose POC) critical ly ill patients is considered " off-label use" and has no t been cleared or appr rosa elena by the FDA. Altern ative testing methods should be considered i f the patient is crit ically ill. POC [id number] 16:41:29 Test Item Value Reference Range Interpretation Comments Glucose POC (test 134 mg/dL 74-106 H POC Glucos e used on code = Glucose POC) critical ly ill patients is considered " off-label use" and has no t been cleared or appr rosa elena by the FDA. Altern ative testing methods should be considered i f the patient is crit ically ill. POC [id number] 16:14:59 Test Item Value Reference Range Interpretation Comments Glucose POC (test 111 mg/dL 74-106 H POC Glucos e used on code = Glucose POC) critical ly ill patients is considered " off-label use" and has no t been cleared or appr rosa elena by the FDA. Altern ative testing methods should be considered i f the patient is crit ically ill. POC [id number] 06:02:12 Test Item Value Reference Range Interpretation Comments Glucose POC (test 113 mg/dL 74-106 H POC Glucos e used on code = Glucose POC) critical ly ill patients is considered " off-label use" and has no t been cleared or appr rosa elena by the FDA. Altern ative testing methods should be considered i f the patient is crit ically ill. POC [id number] 19:50:12 Test Item Value Reference Range Interpretation Comments Glucose POC (test 196 mg/dL 74-106 H POC Glucos e used on code = Glucose POC) critical ly ill patients is considered " off-label use" and has no t been cleared or appr rosa elena by the FDA. Altern ative testing methods should be considered i f the patient is crit ically ill. POC [id number] 17:11:12 Test Item Value Reference Range Interpretation Comments Glucose POC (test 141 mg/dL 74-106 H POC Glucos e used on code = Glucose POC) critical ly ill patients is considered " off-label use" and has no t been cleared or appr rosa elena by the FDA. Altern ative testing methods should be considered i f the patient is crit ically ill. POC [id number] 14:17:31 Test Item Value Reference Range Interpretation Comments Glucose POC (test 123 mg/dL 74-106 H POC Glucos e used on code = Glucose POC) critical ly ill patients is considered " off-label use" and has no t been cleared or appr rosa elena by the FDA. Altern ative testing methods should be considered i f the patient is crit ically ill. XR Chest 1 View [id number] 07:16:53Patient: NITO MCKEON Date/Time09/20/2019 20:05 CSTReason for ExamChest painReportChest single viewHISTORY: Mid chest painCOMPARISON: 08/31/2019TECHNIQUE: Portable AP view providedFINDINGS: Heart size and vascular markings within normal limits.Asymmetric elevation of the right hemidiaphragm unchanged. Linear atelectasis suspected in the left lung base. Bony thorax unchanged where visualized.IMPRESSION: No active cardiopulmonary process. Final Dictated by: MD Joana, Sheridanctated DT/TM: 09/21/2019 7:16 amSigned by: MD Joana, Nan (Electronic Signature): 09/21/2019 7:16 am Troponin [id number] 04:24:36 Test Item Value Reference Range Interpretation Comments Troponin-I (test 6.540 ng/mL 0.010-0.040 ctrb chip v an code = Troponin-I) 09/21/19 04:24:30 MANAGING JEWELER/lrj Magnesium [id number] 04:12:15 Test Item Value Reference Range Interpretation Comments Magnesium Level (test code = 1.3 mg/dL 1.6-2.6 L Magnesium Level) Troponin [id number] 03:12:34 Test Item Value Reference Range Interpretation Comments Troponin-I (test 5.590 ng/mL 0.010-0.040 ctrb chip v an code = Troponin-I) 09/21/19 03:12:28 MANAGING JEWELER/lrj Troponin [id number] 01:01:50 Test Item Value Reference Range Interpretation Comments Troponin-I (test 2.490 ng/mL 0.010-0.040 cteb chip v an code = Troponin-I) 09/21/19 01:01:44 MANAGING JEWELER/lrj Troponin [id number] 21:34:15 Test Item Value Reference Range Interpretation Comments Troponin-I (test 0.133 ng/mL 0.010-0.040 ctrb chip v an code = Troponin-I) 09/20/19 21:34:09 MANAGING JEWELER/lrj Comprehensive Metabolic [id number] 21:11:01 Test Item Value Reference Range Interpretation Comments Sodium Level (test code = 136 mmol/L 136-145 Sodium Level) Potassium Level (test code = 4.1 mmol/L 3.5-5.1 Potassium Level) Chloride Level (test code = 99 mmol/L 98-107 Chloride Level) CO2 (test code = CO2) 28 mmol/L 21-32 Anion Gap (test code = Anion 9 mmol/L 7-16 Gap) BUN (test code = BUN) 20 mg/dL 7-18 H Creatinine Level (test code = 0.8 mg/dL 0.7-1.3 Creatinine Level) Glucose Level (test code = 170 mg/dL 74-106 H Glucose Level) Calcium Level (test code = 8.8 mg/dL 8.5-10.1 Calcium Level) Alk Phos (test code = Alk Phos) 75 IntlUnit/L 45-122 Bilirubin Total (test code = 0.3 mg/dL 0.2-1.0 Bilirubin Total) Albumin Level (test code = 3.5 g/dL 3.4-5.0 Albumin Level) Protein Total (test code = 7.7 g/dL 6.4-8.2 Protein Total) ALT (test code = ALT) 16 IntlUnit/L 12-78 AST (test code = AST) 15 IntlUnit/L 10-34 Creatine [id number] 21:11:01 Test Item Value Reference Range Interpretation Comments CK (test code = CK) 66 IntlUnit/L 39-308 Comprehensive Metabolic [id number] 21:11:01 Test Item Value Reference Range Interpretation Comments Sodium Level (test code = 136 mmol/L 136-145 Sodium Level) Potassium Level (test code 4.1 mmol/L 3.5-5.1 = Potassium Level) Chloride Level (test code 99 mmol/L 98-107 = Chloride Level) CO2 (test code = CO2) 28 mmol/L 21-32 Anion Gap (test code = 9 mmol/L 7-16 Anion Gap) BUN (test code = BUN) 20 mg/dL 7-18 H Creatinine Level (test 0.8 mg/dL 0.7-1.3 code = Creatinine Level) Glucose Level (test code = 170 mg/dL 74-106 H Glucose Level) Calcium Level (test code = 8.8 mg/dL 8.5-10.1 Calcium Level) Alk Phos (test code = Alk 75 IntlUnit/L 45-122 Phos) Bilirubin Total (test code 0.3 mg/dL 0.2-1.0 = Bilirubin Total) Albumin Level (test code = 3.5 g/dL 3.4-5.0 Albumin Level) Protein Total (test code = 7.7 g/dL 6.4-8.2 Protein Total) ALT (test code = ALT) 16 IntlUnit/L 12-78 AST (test code = AST) 15 IntlUnit/L 10-34 eGFR AA (test code = eGFR >60 mL/min/1.73 m2 N AA) Pro B Natriuretic [id number] 21:11:01 Test Item Value Reference Range Interpretation Comments NT-proBNP (test 237 pg/mL 0-125 H < 300 pg/ml - heart code = NT-proBNP) failure un likelyAge less than 50 years, > 450 pg/ml - heart f ailure lilkelyAge 50 - 75 years, > 900 pg/ml - h eart failure likelyA ge greater than 75 years, > 1800 pg/ml - heart f ailure likely Comprehensive Metabolic [id number] 21:11:01 Test Item Value Reference Range Interpretation Comments Sodium Level (test code = 136 mmol/L 136-145 Sodium Level) Potassium Level (test code 4.1 mmol/L 3.5-5.1 = Potassium Level) Chloride Level (test code 99 mmol/L 98-107 = Chloride Level) CO2 (test code = CO2) 28 mmol/L 21-32 Anion Gap (test code = 9 mmol/L 7-16 Anion Gap) BUN (test code = BUN) 20 mg/dL 7-18 H Creatinine Level (test 0.8 mg/dL 0.7-1.3 code = Creatinine Level) Glucose Level (test code = 170 mg/dL 74-106 H Glucose Level) Calcium Level (test code = 8.8 mg/dL 8.5-10.1 Calcium Level) Alk Phos (test code = Alk 75 IntlUnit/L 45-122 Phos) Bilirubin Total (test code 0.3 mg/dL 0.2-1.0 = Bilirubin Total) Albumin Level (test code = 3.5 g/dL 3.4-5.0 Albumin Level) Protein Total (test code = 7.7 g/dL 6.4-8.2 Protein Total) ALT (test code = ALT) 16 IntlUnit/L 12-78 AST (test code = AST) 15 IntlUnit/L 10-34 eGFR AA (test code = eGFR >60 mL/min/1.73 m2 N AA) eGFR Non-AA (test code = >60 mL/min/1.73 m2 N eGFR Non-AA) Prothrombin Time and [id number] 20:56:02 Test Item Value Reference Range Interpretation Comments Prothrombin Time (test code = 10.5 seconds 9.2-12.0 Prothrombin Time) INR (test code = INR) 1.0 ratio 0.9-1.2 D-Dimer [id number] 20:56:02 Test Item Value Reference Range Interpretation Comments D Dimer, 2.16 mg/L FEU .19-.50 H The D-Dimer as say is (Quant.) (test intended for use as an code = D Dimer, aid in the d iagnosis of (Quant.)) Deep Vein Thrombosis(DVT) or Pulmonary Embol ism(PE) except in patie nts with the following: *Therapeutic do se anticoagulant t herapy for >24 hours *Fibrinolytic t herapy within previous 7 days *Trauma or perry rgery within previous 4 weeks *Disseminate d malignancies *Aortic aneurysm *S epsis, severe infectio ns, pneumonia, javier re skin infections *Cirrhosis * A cu t-off value of <0.5 m g/L FEU makes a diagnos is of DVT or PEunlikely. Urinalysis [id number] 20:50:42 Test Item Value Reference Range Interpretation Comments UA WBC (test code = UA WBC) 0-5 /HPF 0-5 UA RBC (test code = UA RBC) 0-4 /HPF 0-4 UA Bacteria (test code = UA Negative /HPF Negative Bacteria) UA Squam Epithelial (test code 0-20 /LPF 0-20 = UA Squam Epithelial) UA Hyal Cast (test code = UA 1-6 /LPF 1-6 Hyal Cast) Urinalysis with Culture, if [id number] 20:50:42 Test Item Value Reference Range Interpretation Comments UA Color (test code = UA Yellow Yellow Color) UA Appear (test code = Cloudy Clear A UA Appear) UA pH (test code = UA 8.0 pH) UA Spec Grav (test code 1.011 SGU 1.005-1.030 = UA Spec Grav) UA Glucose (test code = 1+ Negative A UA Glucose) UA Bili (test code = UA Negative Negative Bili) UA Ketones (test code = Trace Negative A UA Ketones) UA Blood (test code = UA Negative Negative Blood) UA Protein (test code = Negative Negative UA Protein) UA Urobilinogen (test 0.2 EU/dL >0.2 code = UA Urobilinogen) UA Nitrite (test code = Negative Negative UA Nitrite) UA Leuk Est (test code = Negative Negative UA Leuk Est) UA Micro Ind? (test code Indicated Not Indicated A Re sult created by = UA Micro Ind?) rule GL_SET_UA_MICRO _IND Complete Blood Count with [id number] 20:42:05 Test Item Value Reference Range Interpretation Comments WBC (test code = WBC) 7.9 x10 4.8-10.8 RBC (test code = RBC) 3.64 x10 4.60-6.20 L Hgb (test code = Hgb) 12.7 g/dL 14.0-18.0 L Hct (test code = Hct) 40.0 % 38.0-52.0 MCV (test code = MCV) 109.8 fL 80.0-95.0 H RDW (test code = RDW) 16.0 % 11.5-14.5 H MCHC (test code = MCHC) 31.7 g/dL 31.0-36.0 MCH (test code = MCH) 34.8 pg 26.0-32.0 H Platelets (test code = Platelets) 255 x10 140-440 MPV (test code = MPV) 7.7 fL 7.5-11.2 Slide Review (test code = Slide Auto Review) Automated Cwggszezqwrz9058-70-59 20:42:05 Test Item Value Reference Range Interpretation Comments Neutro Auto (test code = Neutro Auto) 87.4 % N Lymph Auto (test code = Lymph Auto) 7.4 % N Becker Auto (test code = Becker Auto) 4.1 % N Eos, Auto (test code = Eos, Auto) 0.4 % N Basophil Auto (test code = Basophil 0.7 % N Auto) Neutro Absolute (test code = Neutro 6.9 x10 2.7-7.3 Absolute) Lymph Absolute (test code = Lymph 0.6 x10 0.8-3.5 L Absolute) Becker Absolute (test code = Becker 0.3 x10 0.3-0.9 Absolute) Eos Absolute (test code = Eos 0.0 x10 0.0-0.3 Absolute) Baso Absolute (test code = Baso 0.1 x10 0.0-0.1 Absolute) Capillary whole blood glucose measurement by glucometer (mass/volume)2019-09-12 16:54:00 Test Item Value Reference Range Interpretation Comments Bedside Glucose (test code = 130 mg/dL 96400-1) [facility] ElizabethAutomated blood leukocyte count (number/volume) 2019-09-12 06:05:00 Test Item Value Reference Range Interpretation Comments White Blood Count (test code = 6.4 10*3/uL 6690-2) [facility]. ElizabethBlood erythrocytes automated count (number/volume) 2019-09-12 06:05:00 Test Item Value Reference Range Interpretation Comments Red Blood Count (test code = 3.40 10*6/uL 789-8) [facility] ElizabethBlood hemoglobin measurement (mass/volume)2019-09-12 06:05:00 Test Item Value Reference Range Interpretation Comments Hemoglobin (test code = 718-7) 11.4 g/dL [facility] ElizabethAutomated blood hematocrit (volume fraction)2019-09-12 06:05:00 Test Item Value Reference Range Interpretation Comments Hematocrit (test code = 4544-3) 37.2 % [facility] - . ElizabethAutomated erythrocyte mean corpuscular volume (MCV) vtdbfmilhjq2159-58-55 06:05:00 Test Item Value Reference Range Interpretation Comments Mean Corpuscular Volume (test code = 109 fL 787-2) [facility]. ElizabethAutomated erythrocyte mean corpuscular hemoglobin (mass per erythrocyte)2019-09-12 06:05:00 Test Item Value Reference Range Interpretation Comments Mean Corpuscular Hemoglobin (test 33.5 pg code = 785-6) [facility]. ElizabethAutomated erythrocyte mean corpuscular hemoglobin concentration measurement (mass/qqr1006-20-84 06:05:00 Test Item Value Reference Range Interpretation Comments Mean Corpuscular Hemoglobin Concent 30.6 g/dL (test code = 786-4) [facility]. ElizabethAutomated erythrocyte distribution width kiwle3378-58-70 06:05:00 Test Item Value Reference Range Interpretation Comments Red Cell Distribution Width (test code 14.5 % = 788-0) [facility]. ElizabethAutomated blood platelet count (count/volume)2019-09-12 06:05:00 Test Item Value Reference Range Interpretation Comments Platelet Count (test code = 232 10*3/uL 777-3) [facility]. ElizabethAutomated blood platelet mean volume measurement 2019-09-12 06:05:00 Test Item Value Reference Range Interpretation Comments Mean Platelet Volume (test code = 9.6 07800-7) [facility]. ElizabethAutomated blood neutrophil count as percentage of total rozwtwspkb7171-98-37 06:05:00 Test Item Value Reference Range Interpretation Comments Neutrophils (%) (Auto) (test code = 70 % 770-8) [facility]. ElizabethAutomated blood immature granulocyte count as percentage of total ejpeuotxmc6046-30-37 06:05:00 Test Item Value Reference Range Interpretation Comments Immature Granulocyte % (Auto) (test 1 % code = 63487-2) [facility]. ElizabethAutomated blood lymphocyte count as percentage of total oplzsuhlcc4984-23-00 06:05:00 Test Item Value Reference Range Interpretation Comments Lymphocytes (%) (Auto) (test code = 18 % 736-9) [facility]. ElizabethAutomated blood monocyte count as percentage of total diaibeagbc5322-46-94 06:05:00 Test Item Value Reference Range Interpretation Comments Monocytes (%) (Auto) (test code = 9 % 5905-5) [facility]. ElizabethAutomated blood eosinophil count as percentage of total pfpuyvuofm1874-04-62 06:05:00 Test Item Value Reference Range Interpretation Comments Eosinophils (%) (Auto) (test code = 2 % 713-8) [facility] ElizabethAutomated blood basophil count as percentage of total qbxtynsuzf7132-99-49 06:05:00 Test Item Value Reference Range Interpretation Comments Basophils (%) (Auto) (test code = 1 % 706-2) [facility] ElizabethAutomated blood nucleated erythrocyte count as percentage of total ucqayekuay7381-66-23 06:05:00 Test Item Value Reference Range Interpretation Comments Nucleated Red Blood Cells % (test code 0.0 % = 50997-5) [facility] ElizabethAutomated blood neutrophil count (number/volume) 2019-09-12 06:05:00 Test Item Value Reference Range Interpretation Comments Neutrophils # (Auto) (test code = 4.5 10*3/uL 751-8) [facility]Autom[facility] blood immature granulocyte count as percentage of total atlyojjgcg6528-18-84 06:05:00 Test Item Value Reference Range Interpretation Comments Immature Granulocyte # (Auto) 0.0 10*3/uL (test code = 14222-3) [facility] ElizabethAutomated blood lymphocyte count (number/volume) 2019-09-12 06:05:00 Test Item Value Reference Range Interpretation Comments Lymphocytes # (Auto) (test code = 1.2 10*3/uL 731-0) [facility] count (number/volume) 2019-09-12 06:05:00 Test Item Value Reference Range Interpretation Comments Monocytes # (Auto) (test code = 0.6 10*3/uL 742-7) [facility] ElibethAutomated blood eosinophil yvqnh1090-41-38 06:05:00 Test Item Value Reference Range Interpretation Comments Eosinophils # (Auto) (test code = 0.1 10*3/uL 711-2) [facility]. ElizabethAutomated blood basophil count (number/volume)2019-09-12 06:05:00 Test Item Value Reference Range Interpretation Comments Basophils # (Auto) (test code = 0.0 10*3/uL 704-7) [facility] ElizabethAutomated blood nucleated erythrocyte count (count/volume)2019-09-12 06:05:00 Test Item Value Reference Range Interpretation Comments Nucleated Red Blood Cells # 0.00 10*3/uL (test code = 771-6) [facility] ElizabethService comment [id number] 06:05:00 Test Item Value Reference Range Interpretation Comments Manual Differential (test code Scan RBC Morph = 8265-1) [facility] ElizabethBlood anisocytosis detection by light microscopy 2019-09-12 06:05:00 Test Item Value Reference Range Interpretation Comments Anisocytosis (test code = 702-1) 2+ [facility] ElizabethBlood macrocytes detection by light kxcscvhbxq1670-29-35 06:05:00 Test Item Value Reference Range Interpretation Comments Macrocytosis (test code = 738-5) 2+ [facility] ElizabethSerum or plasma sodium measurement (moles/volume) 2019-09-12 06:05:00 Test Item Value Reference Range Interpretation Comments Sodium Level (test code = 2951-2) 137 mmol/L [facility] ElizabethSerum or plasma potassium measurement (moles/volume) 2019-09-12 06:05:00 Test Item Value Reference Range Interpretation Comments Potassium Level (test code = 4.1 mmol/L 2823-3) [facility] ElizabethSerum or plasma chloride measurement (moles/volume) 2019-09-12 06:05:00 Test Item Value Reference Range Interpretation Comments Chloride Level (test code = 2075-0) 99 mmol/L [facility] ElizabethSerum or plasma total carbon dioxide measurement (moles/volume)2019-09-12 06:05:00 Test Item Value Reference Range Interpretation Comments Carbon Dioxide Level (test code = 27 mmol/L 2027-9) [facility] ElizabethSerum or plasma anion gap determination (moles/volume) 2019-09-12 06:05:00 Test Item Value Reference Range Interpretation Comments Anion Gap (test code = 05051-2) 15 [facility] ElizabethSerum or plasma urea nitrogen measurement (mass/volume) 2019-09-12 06:05:00 Test Item Value Reference Range Interpretation Comments Blood Urea Nitrogen (test code = 17 mg/dL 3094-0) [facility] ElizabethSerum or plasma creatinine measurement (mass/volume) 2019-09-12 06:05:00 Test Item Value Reference Range Interpretation Comments Creatinine (test code = 2160-0) 0.7 mg/dL [facility] [id number] 06:05:00 Test Item Value Reference Range Interpretation Comments Estimat Glomerular Filtration Rate 118 (test code = 23163-3) [facility]. [facility] Island[facility]um or plasma glucose measurement (mass/volume) 2019-09-12 06:05:00 Test Item Value Reference Range Interpretation Comments Glucose Level (test code = 2345-7) 134 mg/dL [facility]. [facility]Mem[facility] Islanderum or plasma calcium measurement (mass/volume) 2019-09-12 06:05:00 Test Item Value Reference Range Interpretation Comments Calcium Level (test code = 78762-1) 8.8 mg/dL [facility]. [facility]ibeMem[facility] Islanderum or plasma total bilirubin measurement (mass/volume)2019-09-12 06:05:00 Test Item Value Reference Range Interpretation Comments Total Bilirubin (test code = 0.4 mg/dL 1975-2) [facility]. [facility] or plasma aspartate aminotransferase measurement (enzymatic activity/volume)2019-09-12 06:05:00 Test Item Value Reference Range Interpretation Comments Aspartate Amino Transf (AST/SGOT) (test 9 U/L code = 1920-8) [facility]. [facility] or plasma alanine aminotransferase measurement (enzymatic activity/volume)2019-09-12 06:05:00 Test Item Value Reference Range Interpretation Comments Alanine Aminotransferase (ALT/SGPT) 8 U/L (test code = 1742-6) [facility]. [facility]Mem[facility] Islanderum or plasma protein measurement (mass/volume) 2019-09-12 06:05:00 Test Item Value Reference Range Interpretation Comments Total Protein (test code = 2885-2) 6.8 g/dL [facility]. [facility]abeMem[facility] Islanderum or plasma albumin measurement (mass/volume) 2019-09-12 06:05:00 Test Item Value Reference Range Interpretation Comments Albumin (test code = 1751-7) 3.5 g/dL [facility]. [facility] Islanderum or plasma alkaline phosphatase measurement (enzymatic activity/volume)2019-09-12 06:05:00 Test Item Value Reference Range Interpretation Comments Alkaline Phosphatase (test code = 59 U/L 6768-6) [facility] plasma cardiac troponin I measurement (mass/volume)2019-09-12 06:05:00 Test Item Value Reference Range Interpretation Comments Troponin I (test code = 91671-0) 0.01 ng/mL [facility]Venous whole blood sodium measurement (moles/volume) 2019-09-11 18:12:00 Test Item Value Reference Range Interpretation Comments Bedside Sodium (test code = 136 mmol/L 10054-7) [facility] whole blood potassium measurement (moles/volume) 2019-09-11 18:12:00 Test Item Value Reference Range Interpretation Comments Bedside Potassium (test code = 4.5 mmol/L 50932-2) [facility] whole blood chloride measurement (moles/volume) 2019-09-11 18:12:00 Test Item Value Reference Range Interpretation Comments Bedside Chloride (test code = 99 mmol/L 17313-2) [facility] whole blood total carbon dioxide measurement (moles/volume)2019-09-11 18:12:00 Test Item Value Reference Range Interpretation Comments Bedside Total CO2 (test code = 32.0 mmol/L 2026-1) [facility] whole blood urea nitrogen (BUN) measurement (mass/volume)2019-09-11 18:12:00 Test Item Value Reference Range Interpretation Comments Bedside Blood Urea Nitrogen (test 18 mg/dL code = 48689-9) [facility] creatinine measurement (mass/volume)2019-09-11 18:12:00 Test Item Value Reference Range Interpretation Comments Bedside Creatinine (test code = 0.5 mg/dL 92226-9) [facility] whole blood glucose measurement (mass/volume) 2019-09-11 18:12:00 Test Item Value Reference Range Interpretation Comments Bedside Glucose (test code = 136 mg/dL 03124-0) [facility] blood ionized calcium measurement (moles/volume) 2019-09-11 18:12:00 Test Item Value Reference Range Interpretation Comments Bedside Whole Blood Ionized 0.99 mmol/L Calcium (test code = 1994-3) [facility] anion [id number] 18:12:00 Test Item Value Reference Range Interpretation Comments Bedside Anion Gap (test code = 46204-7) 10 [facility]. LynetteGFR estimate [id number] 18:12:00 Test Item Value Reference Range Interpretation Comments Estimat Glomerular Filtration Rate 174 (test code = 53430-0) [facility] (mass/volume)2019-09-11 18:12:00 Test Item Value Reference Range Interpretation Comments Bedside Hemoglobin (test code = 13.3 g/dL 31690-3) [facility] blood hematocrit (volume fraction)2019-09-11 18:12:00 Test Item Value Reference Range Interpretation Comments Bedside Hematocrit (test code = 39.0 % 83770-6) [facility] whole blood sodium measurement (moles/volume) 2019-09-11 18:12:00 Test Item Value Reference Range Interpretation Comments Bedside Sodium (test code = 136 mmol/L 35197-9) [facility] potassium measurement (moles/volume) 2019-09-11 18:12:00 Test Item Value Reference Range Interpretation Comments Bedside Potassium (test code = 4.5 mmol/L 18700-3) [facility] Centerous whole blood chloride measurement (moles/volume) 2019-09-11 18:12:00 Test Item Value Reference Range Interpretation Comments Bedside Chloride (test code = 99 mmol/L 25730-0) [facility] blood total carbon dioxide measurement (moles/volume)2019-09-11 18:12:00 Test Item Value Reference Range Interpretation Comments Bedside Total CO2 (test code = 32.0 mmol/L 7-1) [facility] ElizabeVenous whole blood urea nitrogen (BUN) measurement (mass/volume)2019-09-11 18:12:00 Test Item Value Reference Range Interpretation Comments Bedside Blood Urea Nitrogen (test 18 mg/dL code = 88144-8) [facility] (mass/volume)2019-09-11 18:12:00 Test Item Value Reference Range Interpretation Comments Bedside Creatinine (test code = 0.5 mg/dL 93418-2) [facility] glucose measurement (mass/volume) 2019-09-11 18:12:00 Test Item Value Reference Range Interpretation Comments Bedside Glucose (test code = 136 mg/dL 90201-8) [facility] ionized calcium measurement (moles/volume) 2019-09-11 18:12:00 Test Item Value Reference Range Interpretation Comments Bedside Whole Blood Ionized 0.99 mmol/L Calcium (test code = 1994-3) [facility] CenterBlood anion [id number] 18:12:00 Test Item Value Reference Range Interpretation Comments Bedside Anion Gap (test code = 81798-1) [address] [facility] [facility] HospitalthGFR estimate [id number] 18:12:00 Test Item Value Reference Range Interpretation Comments Estimat Glomerular Filtration Rate 174 (test code = 90873-3) [facility] blood hemoglobin measurement (mass/volume) 2019-09-11 18:12:00 Test Item Value Reference Range Interpretation Comments Bedside Hemoglobin (test code = 13.3 g/dL 83897-9) [facility] blood hematocrit (volume fraction)2019-09-11 18:12:00 Test Item Value Reference Range Interpretation Comments Bedside Hematocrit (test code = 39.0 % 74926-8) [facility] blood cardiac troponin I measurement (mass/volume) 2019-09-11 18:11:00 Test Item Value Reference Range Interpretation Comments Bedside Troponin I (test code = 0.01 ng/mL 91247-5) [facility] blood cardiac troponin I measurement (mass/volume) 2019-09-11 18:11:00 Test Item Value Reference Range Interpretation Comments Bedside Troponin I (test code = 0.01 ng/mL 46571-1) [facility] CenterAutom[facility] blood leukocyte count (number/volume) 2019-09-11 18:05:00 Test Item Value Reference Range Interpretation Comments White Blood Count (test code = 6.0 10*3/uL 6690-2) [facility] erythrocytes automated count (number/volume)2019-09-11 18:05:00 Test Item Value Reference Range Interpretation Comments Red Blood Count (test code = 3.56 10*6/uL 789-8) [facility] (mass/volume)2019-09-11 18:05:00 Test Item Value Reference Range Interpretation Comments Hemoglobin (test code = 718-7) 12.2 g/dL [facility] MaryAutomated blood hematocrit (volume fraction)2019-09-11 18:05:00 Test Item Value Reference Range Interpretation Comments Hematocrit (test code = 4544-3) 37.1 % [facility] MaryAutomated erythrocyte mean corpuscular volume (MCV) [id number] 18:05:00 Test Item Value Reference Range Interpretation Comments Mean Corpuscular Volume (test code = 104.2 fL 787-2) [facility] MaryAutomated erythrocyte mean corpuscular hemoglobin (mass per erythrocyte)2019-09-11 18:05:00 Test Item Value Reference Range Interpretation Comments Mean Corpuscular Hemoglobin (test 34.3 pg code = 785-6) [facility] MaryAutomated erythrocyte mean corpuscular hemoglobin concentration measurement (mass/[id number] 18:05:00 Test Item Value Reference Range Interpretation Comments Mean Corpuscular Hemoglobin Concent 32.9 g/dL (test code = 786-4) [facility] MaryAutomated erythrocyte distribution width [id number] 18:05:00 Test Item Value Reference Range Interpretation Comments Red Cell Distribution Width (test code 14.3 % = 788-0) [facility] blood platelet count (count/volume)2019-09-11 18:05:00 Test Item Value Reference Range Interpretation Comments Platelet Count (test code = 263 10*3/uL 777-3) [facility]Autom[facility] blood platelet mean volume [id number] 18:05:00 Test Item Value Reference Range Interpretation Comments Mean Platelet Volume (test code = 9.6 fL 41377-3) [facility]Autom[facility] blood neutrophil count as percentage of total jwnsrslczq1631-01-69 18:05:00 Test Item Value Reference Range Interpretation Comments Neutrophils (%) (Auto) (test code = 73 % 770-8) [facility]Autom[facility] blood lymphocyte count as percentage of total lyfxsndqcs4773-87-70 18:05:00 Test Item Value Reference Range Interpretation Comments Lymphocytes (%) (Auto) (test code = 18 % 736-9) [facility] monocyte count as percentage of total cphoupyvye2015-02-32 18:05:00 Test Item Value Reference Range Interpretation Comments Monocytes (%) (Auto) (test code = 7 % 5905-5) [facility] CenterAutom[facility] blood eosinophil count as percentage of total fttkjcmgnj0988-49-02 18:05:00 Test Item Value Reference Range Interpretation Comments Eosinophils (%) (Auto) (test code = 2 % 713-8) [facility] CenterAutom[facility] blood basophil count as percentage of total cwywgxbhnn2468-86-74 18:05:00 Test Item Value Reference Range Interpretation Comments Basophils (%) (Auto) (test code = 0 % 706-2) [facility] CenterAutom[facility] neutrophil count (number/volume)2019-09-11 18:05:00 Test Item Value Reference Range Interpretation Comments Neutrophils # (Auto) (test code = 4.4 10*3/uL 751-8) [facility] CenterAutom[facility] blood lymphocyte count (number/volume)2019-09-11 18:05:00 Test Item Value Reference Range Interpretation Comments Lymphocytes # (Auto) (test code = 1.1 10*3/uL 731-0) [facility] CenterBlood monocytes automated count (number/volume)2019-09-11 18:05:00 Test Item Value Reference Range Interpretation Comments Monocytes # (Auto) (test code = 0.4 10*3/uL 742-7) [facility] CenterAutom[facility] blood eosinophil [id number] 18:05:00 Test Item Value Reference Range Interpretation Comments Eosinophils # (Auto) (test code = 0.1 10*3/uL 711-2) [facility] CenterAutom[facility] blood basophil count (number/volume)2019-09-11 18:05:00 Test Item Value Reference Range Interpretation Comments Basophils # (Auto) (test code = 0.0 10*3/uL 704-7) [facility] CenterService comment [id number] 18:05:00 Test Item Value Reference Range Interpretation Comments Manual Differential (test code = Not Ind 8265-1) [facility] CenterRes[facility] Culture w/ Gram [id number] 12:11:08 Test Item Value Reference Range Interpretation Comments Final Report (test Normal Respiratory Pooja. code = Final Report) Gram Stain Report Gram Positive Cocci Rare (test code = Gram White Blood Cells Stain Report) POC [id number] 20:22:24 Test Item Value Reference Range Interpretation Comments Glucose POC (test 194 mg/dL 74-106 H POC Glucos e used on code = Glucose POC) critical ly ill patients is considered " off-label use" and has no t been cleared or appr rosa elena by the FDA. Altern ative testing methods should be considered i f the patient is crit ically ill. POC [id number] 17:03:13 Test Item Value Reference Range Interpretation Comments Glucose POC (test 219 mg/dL 74-106 H POC Glucos e used on code = Glucose POC) critical ly ill patients is considered " off-label use" and has no t been cleared or appr rosa elena by the FDA. Altern ative testing methods should be considered i f the patient is crit ically ill. XR Chest 1 View [id number] 15:13:52Patient: NITO MCKEON Date/Time08/31/201915:05 CSTReason for ExamHypoxiaReportEXAM: Chest, 1 View at 1453.TECHNIQUE: AP semiupright view.COMPARISON: Chest x-ray 08/30/2019HISTORY: HypoxiaFINDINGS: Cardiac size and pulmonary vascularity are within normal limits for AP technique. No infiltrate or pleural effusion is seen.IMPRESSION: No acute appearing cardiopulmonary changes are seen when compared with prior study 08/30/2019. Final Dicta giovana by: MD Savannah, SamerDictated DT/TM: 08/31/2019 3:13 pmSigned by: MD Savannah, SamerSigned (Electronic Signature): 08/31/2019 3:13 pmPOC Glucose 2019-08-31 14:09:47 Test Item Value Reference Range Interpretation Comments Glucose POC (test 324 mg/dL 74-106 H POC Glucos e used on code = Glucose POC) critical ly ill patients is considered " off-label use" and has no t been cleared or appr rosa elena by the FDA. Altern ative testing methods should be considered i f the patient is crit ically ill. Respiratory Culture w/ Gram [id number] 09:44:49Normal Respiratory Pooja.POC [id number] 06:13:35 Test Item Value Reference Range Interpretation Comments Glucose POC (test 129 mg/dL 74-106 H POC Glucos e used on code = Glucose POC) critical ly ill patients is considered " off-label use" and has no t been cleared or appr rosa elena by the FDA. Altern ative testing methods should be considered i f the patient is crit ically ill. POC [id number] 22:29:51 Test Item Value Reference Range Interpretation Comments Glucose POC (test 210 mg/dL 74-106 H POC Glucos e used on code = Glucose POC) critical ly ill patients is considered " off-label use" and has no t been cleared or appr rosa elena by the FDA. Altern ative testing methods should be considered i f the patient is crit ically ill. POC [id number] 13:35:41 Test Item Value Reference Range Interpretation Comments Glucose POC (test 162 mg/dL 74-106 H POC Glucos e used on code = Glucose POC) critical ly ill patients is considered " off-label use" and has no t been cleared or appr rosa elena by the FDA. Altern ative testing methods should be considered i f the patient is crit ically ill. XR Chest 1 View [id number] 07:25:12Patient: NITO MCKEON Date/Time08/30/201907:11 CSTReason for ExamCongestionReportClinical indication: Congestion, dyspneaChest one viewIn comparison to prior chest x-ray dated 08/26/2019 elevated right hemidiaphragm and mild compression atelectasis changes of the right lower lobe are again noted. The heart is within normal limits in size. Pulmonary vascularity is normal.IMPRESSION:1. Elevated right hemidiaphragm with mild compression atelectasis of the right lung base again noted. Final Dictated by: MD Hooks Gustavo MDictatedDT/TM: 08/30/2019 7:24 amSigned by: MD Hooks Gustavo MSigned (Electronic Signature): 08/30/20197:25 amPOC [id number] 05:48:11 Test Item Value Reference Range Interpretation Comments Glucose POC (test 128 mg/dL 74-106 H POC Glucos e used on code = Glucose POC) critical ly ill patients is considered " off-label use" and has no t been cleared or appr rosa elena by the FDA. Altern ative testing methods should be considered i f the patient is crit ically ill. POC [id number] 23:52:47 Test Item Value Reference Range Interpretation Comments Glucose POC (test 221 mg/dL 74-106 H POC Glucos e used on code = Glucose POC) critical ly ill patients is considered " off-label use" and has no t been cleared or appr rosa elena by the FDA. Altern ative testing methods should be considered i f the patient is crit ically ill. POC [id number] 17:28:32 Test Item Value Reference Range Interpretation Comments Glucose POC (test 151 mg/dL 74-106 H POC Glucos e used on code = Glucose POC) critical ly ill patients is considered " off-label use" and has no t been cleared or appr rosa elena by the FDA. Altern ative testing methods should be considered i f the patient is crit ically ill. POC [id number] 12:33:23 Test Item Value Reference Range Interpretation Comments Glucose POC (test 229 mg/dL 74-106 H POC Glucos e used on code = Glucose POC) critical ly ill patients is considered " off-label use" and has no t been cleared or appr rosa elena by the FDA. Altern ative testing methods should be considered i f the patient is crit ically ill. POC [id number] 06:54:08 Test Item Value Reference Range Interpretation Comments Glucose POC (test 157 mg/dL 74-106 H POC Glucos e used on code = Glucose POC) critical ly ill patients is considered " off-label use" and has no t been cleared or appr rosa elena by the FDA. Altern ative testing methods should be considered i f the patient is crit ically ill. POC [id number] 22:26:48 Test Item Value Reference Range Interpretation Comments Glucose POC (test 200 mg/dL 74-106 H POC Glucos e used on code = Glucose POC) critical ly ill patients is considered " off-label use" and has no t been cleared or appr rosa elena by the FDA. Altern ative testing methods should be considered i f the patient is crit ically ill. POC [id number] 17:44:30 Test Item Value Reference Range Interpretation Comments Glucose POC (test 179 mg/dL 74-106 H POC Glucos e used on code = Glucose POC) critical ly ill patients is considered " off-label use" and has no t been cleared or appr rosa elena by the FDA. Altern ative testing methods should be considered i f the patient is crit ically ill. POC [id number] 12:52:21 Test Item Value Reference Range Interpretation Comments Glucose POC (test 131 mg/dL 74-106 H POC Glucos e used on code = Glucose POC) critical ly ill patients is considered " off-label use" and has no t been cleared or appr rosa elena by the FDA. Altern ative testing methods should be considered i f the patient is crit ically ill. Basic Metabolic [id number] 07:13:09 Test Item Value Reference Range Interpretation Comments Sodium Level (test code = Sodium 135 mmol/L 136-145 L Level) Potassium Level (test code = 3.4 mmol/L 3.5-5.1 L Potassium Level) Chloride Level (test code = 96 mmol/L 98-107 L Chloride Level) CO2 (test code = CO2) 32 mmol/L 21-32 Anion Gap (test code = Anion Gap) 7 mmol/L 7-16 BUN (test code = BUN) 14 mg/dL 7-18 Creatinine Level (test code = 0.8 mg/dL 0.7-1.3 Creatinine Level) Glucose Level (test code = Glucose 118 mg/dL 74-106 H Level) Calcium Level (test code = Calcium 8.1 mg/dL 8.5-10.1 L Level) Basic Metabolic [id number] 07:13:09 Test Item Value Reference Range Interpretation Comments Sodium Level (test code = 135 mmol/L 136-145 L Sodium Level) Potassium Level (test code 3.4 mmol/L 3.5-5.1 L = Potassium Level) Chloride Level (test code 96 mmol/L 98-107 L = Chloride Level) CO2 (test code = CO2) 32 mmol/L 21-32 Anion Gap (test code = 7 mmol/L 7-16 Anion Gap) BUN (test code = BUN) 14 mg/dL 7-18 Creatinine Level (test 0.8 mg/dL 0.7-1.3 code = Creatinine Level) Glucose Level (test code = 118 mg/dL 74-106 H Glucose Level) Calcium Level (test code = 8.1 mg/dL 8.5-10.1 L Calcium Level) eGFR AA (test code = eGFR >60 mL/min/1.73 m2 N AA) Basic Metabolic [id number] 07:13:09 Test Item Value Reference Range Interpretation Comments Sodium Level (test code = 135 mmol/L 136-145 L Sodium Level) Potassium Level (test code 3.4 mmol/L 3.5-5.1 L = Potassium Level) Chloride Level (test code 96 mmol/L 98-107 L = Chloride Level) CO2 (test code = CO2) 32 mmol/L 21-32 Anion Gap (test code = 7 mmol/L 7-16 Anion Gap) BUN (test code = BUN) 14 mg/dL 7-18 Creatinine Level (test 0.8 mg/dL 0.7-1.3 code = Creatinine Level) Glucose Level (test code = 118 mg/dL 74-106 H Glucose Level) Calcium Level (test code = 8.1 mg/dL 8.5-10.1 L Calcium Level) eGFR AA (test code = eGFR >60 mL/min/1.73 m2 N AA) eGFR Non-AA (test code = >60 mL/min/1.73 m2 N eGFR Non-AA) Complete Blood Count with [id number] 06:56:57 Test Item Value Reference Range Interpretation Comments WBC (test code = WBC) 4.0 x10 4.8-10.8 L RBC (test code = RBC) 3.29 x10 4.60-6.20 L Hgb (test code = Hgb) 11.3 g/dL 14.0-18.0 L Hct (test code = Hct) 34.1 % 38.0-52.0 L MCV (test code = MCV) 103.8 fL 80.0-95.0 H RDW (test code = RDW) 15.4 % 11.5-14.5 H MCHC (test code = MCHC) 33.2 g/dL 31.0-36.0 MCH (test code = MCH) 34.5 pg 26.0-32.0 H Platelets (test code = 211 x10 140-440 Platelets) MPV (test code = MPV) 7.7 fL 7.5-11.2 Slide Review (test code Auto N Resu lt created by = Slide Review) GL_SET_SLIDE _REVIEW_A UTO Automated [id number] 06:56:57 Test Item Value Reference Range Interpretation Comments Neutro Auto (test code = Neutro Auto) 65.8 % N Lymph Auto (test code = Lymph Auto) 21.6 % N Becker Auto (test code = Becker Auto) 12.0 % N Eos, Auto (test code = Eos, Auto) 0.2 % N Basophil Auto (test code = Basophil 0.4 % N Auto) Neutro Absolute (test code = Neutro 2.6 x10 2.7-7.3 L Absolute) Lymph Absolute (test code = Lymph 0.9 x10 0.8-3.5 Absolute) Becker Absolute (test code = Becker 0.5 x10 0.3-0.9 Absolute) Eos Absolute (test code = Eos 0.0 x10 0.0-0.3 Absolute) Baso Absolute (test code = Baso 0.0 x10 0.0-0.1 Absolute) POC [id number] 05:55:21 Test Item Value Reference Range Interpretation Comments Glucose POC (test 118 mg/dL 74-106 H POC Glucos e used on code = Glucose POC) critical ly ill patients is considered " off-label use" and has no t been cleared or appr rosa elena by the FDA. Altern ative testing methods should be considered i f the patient is crit ically ill. POC [id number] 05:55:18 Test Item Value Reference Range Interpretation Comments Glucose POC (test 167 mg/dL 74-106 H POC Glucos e used on code = Glucose POC) critical ly ill patients is considered " off-label use" and has no t been cleared or appr rosa elena by the FDA. Altern ative testing methods should be considered i f the patient is crit ically ill. POC [id number] 12:26:55 Test Item Value Reference Range Interpretation Comments Glucose POC (test 163 mg/dL 74-106 H POC Glucos e used on code = Glucose POC) critical ly ill patients is considered " off-label use" and has no t been cleared or appr rosa elena by the FDA. Altern ative testing methods should be considered i f the patient is crit ically ill. POC [id number] 08:34:03 Test Item Value Reference Range Interpretation Comments Glucose POC (test 131 mg/dL 74-106 H POC Glucos e used on code = Glucose POC) critical ly ill patients is considered " off-label use" and has no t been cleared or appr rosa elena by the FDA. Altern ative testing methods should be considered i f the patient is crit ically ill. Throat Culture Strep [id number] 07:39:56Streptococcus Group A screen negativeLactic Acid, Plasma (Venous)2019-08-26 23:57:09 Test Item Value Reference Range Interpretation Comments Lactic Acid, Plasma (Venous) (test 1.5 mmol/L 0.4-2.0 code = Lactic Acid, Plasma (Venous)) CT Angio [id number] 18:37:21Patient: NITO MCKEON Date/Time08/26/201918:14 CSTReason for ExamDyspneaReportCTA CHEST WITH 3-D AND MULTIPLANAR ARE REFORMATS:CLINICAL HISTORY: Dyspnea. Cough. Chest pain for 2 days. Diabetes.Radiation dose lowering techniques were used withautomated exposure control, adjusting the mA according to patient's size.COMPARISON: Previous CTA chests dated April 20, 2019, and March 10, 2019. One view chest dated August 26, 2019.Serial images were started superior to the thoracic inlet and extended inferiorly below the diaphragm during therapid infusion of 100 mL of Omnipaque 350. No intraluminal filling defects were identified to suggest pulmonary emboli. Thoracic aorta is normal in caliber. There is no aneurysm or dissection. Small subcarinal lymph nodes are noted measuring less than 1 cm in diameter. There are prominent coronary artery calcifications. The right basilar atelectasis and or infiltrate with left basilar atelectasis. Elevation of the right hemidiaphragm is noted. There are no pleural effusions. There is hepatic steatosis. Adrenal glands are normal in contour.IMPRESSION:1. No pulmonary emboli.2. Right basilar atelectasis and or infiltrate with left basilar atelectasis.3. Prominent coronary artery calcifications. Final Dictated by: MD James Arthur LDictated DT/TM: 08/26/2019 6:26 pmSigned by: MD James Arthur LSigned (Electronic Signature): 08/26/2019 6:37 pmPOC G3+ [id number] 13:35:54 Test Item Value Reference Range Interpretation Comments pH Art (test code = pH Art) 7.43 pH units 7.35-7.45 pCO2 Art (test code = pCO2 Art) 52.2 mmHg 35.0-45.0 pO2 Art (test code = pO2 Art) 90.0 mmHg 85.0-100.0 O2 Sat Art (test code = O2 Sat 97.0 % 92.0-98.5 Art) HCO3 Art (test code = HCO3 Art) 34.9 mmol/L 22.0-26.0 H FIO2% (test code = FIO2%) 28.0 % N Base Excess Arterial (test code 11 mmol/L -2-2 H = Base Excess Arterial) Robert's Test (test code = Pass Pass Robert's Test) Del Sys (test code = Del Sys) Nasal Can N Flow (LPM) (test code = Flow 2.0 N (LPM)) Performing Site (test code = R Radial N Performing Site) Influenza A [id number] 12:53:57 Test Item Value Reference Range Interpretation Comments Influenza A Ag (test Positive Negative CTRB/PI PER LING code = Influenza A Ag) RN/08/26/2019 12:53:54 MANAGING JEWELER/STChildren tend to shed virus more abundantly and for longer period o f time than adults. Th erefore, testing specime ns from adults will oft en yield lower sensitivi ty than testing specime ns from children. Influenza B [id number] 12:53:57 Test Item Value Reference Range Interpretation Comments Influenza B Ag (test Negative Negative Childre n tend to shed code = Influenza B Ag) virus more abundantly and for longer period of time than ad ults. Therefore, test ing specimens from adults will often yiel d lower sensitivity tootie n testing specime ns from children. Streptococcus A Screen Rapid w/ Reflex [id number] 12:52:06 Test Item Value Reference Range Interpretation Comments Strep A Scn (test code = Strep A Negative Negative Scn) Prothrombin Time and [id number] 11:56:42 Test Item Value Reference Range Interpretation Comments Prothrombin Time (test code = 10.9 seconds 9.2-12.0 Prothrombin Time) INR (test code = INR) 1.0 ratio 0.9-1.2 Partial Thromboplastin [id number] 11:56:42 Test Item Value Reference Range Interpretation Comments Partial Thromboplastin 33.6 seconds 24.0-35.0 APTT Heparin Time (test code = Therapeuti c Range: Partial Thromboplastin 47.9- 80.4 seconds Time) D-Dimer [id number] 11:56:42 Test Item Value Reference Range Interpretation Comments D Dimer, .73 mg/L FEU .19-.50 H The D-Dimer ass ay is (Quant.) (test intended for use as an code = D Dimer, aid in the d iagnosis of (Quant.)) Deep Vein Throm bosis(DVT) or Pulmonary Em bolism(PE) except in patie nts with the following: *Therapeutic do se anticoagulant t herapy for >24 hours *Fibrinolytic t herapy within previous 7 days *Trauma or bassam wilfredo within previous 4 weeks *Disseminated malignancies *Aortic aneurysm *S epsis, severe infectio ns, pneumonia, javier re skin infections *Cirrhosis * A cut-off value of <0.5 m g/L FEU makes a diagnos is of DVT or PEunlikely. [id number] 11:55:52 Test Item Value Reference Range Interpretation Comments RBC Morph (test code = RBC As Indicated Normal A Morph) Anisocyte (test code = 1+ A Anisocyte) Hypochromia (test code = 1+ A Hypochromia) Macrocyte (test code = 2+ A Macrocyte) Differential Comment (test See Comment S lide reviewed code = Differential Comment) Plt Estimation (test code Normal Normal = Plt Estimation) Comprehensive Metabolic [id number] 11:46:11 Test Item Value Reference Range Interpretation Comments Sodium Level (test code = 134 mmol/L 136-145 L Sodium Level) Potassium Level (test code = 3.9 mmol/L 3.5-5.1 Potassium Level) Chloride Level (test code = 95 mmol/L 98-107 L Chloride Level) CO2 (test code = CO2) 34 mmol/L 21-32 H Anion Gap (test code = Anion 5 mmol/L 7-16 L Gap) BUN (test code = BUN) 16 mg/dL 7-18 Creatinine Level (test code = 0.7 mg/dL 0.7-1.3 Creatinine Level) Glucose Level (test code = 111 mg/dL 74-106 H Glucose Level) Calcium Level (test code = 8.5 mg/dL 8.5-10.1 Calcium Level) Alk Phos (test code = Alk Phos) 62 IntlUnit/L 45-122 Bilirubin Total (test code = 0.3 mg/dL 0.2-1.0 Bilirubin Total) Albumin Level (test code = 3.0 g/dL 3.4-5.0 L Albumin Level) Protein Total (test code = 6.8 g/dL 6.4-8.2 Protein Total) ALT (test code = ALT) 14 IntlUnit/L 12-78 AST (test code = AST) 18 IntlUnit/L 10-34 Pro B Natriuretic [id number] 11:46:11 Test Item Value Reference Range Interpretation Comments NT-proBNP (test 547 pg/mL 0-125 H < 300 pg/ml - heart code = NT-proBNP) failure un likelyAge less than 50 years, > 450 pg/ml - heart f ailure lilkelyAge 50 - 75 years, > 900 pg/ml - h eart failure likelyA ge greater than 75 years, > 1800 pg/ml - heart f ailure likely Comprehensive Metabolic [id number] 11:46:11 Test Item Value Reference Range Interpretation Comments Sodium Level (test code = 134 mmol/L 136-145 L Sodium Level) Potassium Level (test code 3.9 mmol/L 3.5-5.1 = Potassium Level) Chloride Level (test code 95 mmol/L 98-107 L = Chloride Level) CO2 (test code = CO2) 34 mmol/L 21-32 H Anion Gap (test code = 5 mmol/L 7-16 L Anion Gap) BUN (test code = BUN) 16 mg/dL 7-18 Creatinine Level (test 0.7 mg/dL 0.7-1.3 code = Creatinine Level) Glucose Level (test code = 111 mg/dL 74-106 H Glucose Level) Calcium Level (test code = 8.5 mg/dL 8.5-10.1 Calcium Level) Alk Phos (test code = Alk 62 IntlUnit/L 45-122 Phos) Bilirubin Total (test code 0.3 mg/dL 0.2-1.0 = Bilirubin Total) Albumin Level (test code = 3.0 g/dL 3.4-5.0 L Albumin Level) Protein Total (test code = 6.8 g/dL 6.4-8.2 Protein Total) ALT (test code = ALT) 14 IntlUnit/L 12-78 AST (test code = AST) 18 IntlUnit/L 10-34 eGFR AA (test code = eGFR >60 mL/min/1.73 m2 N AA) Comprehensive Metabolic [id number] 11:46:11 Test Item Value Reference Range Interpretation Comments Sodium Level (test code = 134 mmol/L 136-145 L Sodium Level) Potassium Level (test code 3.9 mmol/L 3.5-5.1 = Potassium Level) Chloride Level (test code 95 mmol/L 98-107 L = Chloride Level) CO2 (test code = CO2) 34 mmol/L 21-32 H Anion Gap (test code = 5 mmol/L 7-16 L Anion Gap) BUN (test code = BUN) 16 mg/dL 7-18 Creatinine Level (test 0.7 mg/dL 0.7-1.3 code = Creatinine Level) Glucose Level (test code = 111 mg/dL 74-106 H Glucose Level) Calcium Level (test code = 8.5 mg/dL 8.5-10.1 Calcium Level) Alk Phos (test code = Alk 62 IntlUnit/L 45-122 Phos) Bilirubin Total (test code 0.3 mg/dL 0.2-1.0 = Bilirubin Total) Albumin Level (test code = 3.0 g/dL 3.4-5.0 L Albumin Level) Protein Total (test code = 6.8 g/dL 6.4-8.2 Protein Total) ALT (test code = ALT) 14 IntlUnit/L 12-78 AST (test code = AST) 18 IntlUnit/L 10-34 eGFR AA (test code = eGFR >60 mL/min/1.73 m2 N AA) eGFR Non-AA (test code = >60 mL/min/1.73 m2 N eGFR Non-AA) Complete Blood Count with [id number] 11:36:29 Test Item Value Reference Range Interpretation Comments WBC (test code = WBC) 3.4 x10 4.8-10.8 L RBC (test code = RBC) 3.33 x10 4.60-6.20 L Hgb (test code = Hgb) 11.6 g/dL 14.0-18.0 L Hct (test code = Hct) 35.2 % 38.0-52.0 L MCV (test code = MCV) 105.9 fL 80.0-95.0 H MCHC (test code = MCHC) 33.0 g/dL 31.0-36.0 RDW (test code = RDW) 15.4 % 11.5-14.5 H MCH (test code = MCH) 34.9 pg 26.0-32.0 H Platelets (test code = Platelets) 220 x10 140-440 MPV (test code = MPV) 7.5 fL 7.5-11.2 Slide Review (test code = Slide Smear N Review) Automated [id number] 11:36:29 Test Item Value Reference Range Interpretation Comments Neutro Auto (test code = Neutro Auto) 68.0 % N Lymph Auto (test code = Lymph Auto) 19.0 % N Becker Auto (test code = Becker Auto) 12.1 % N Eos, Auto (test code = Eos, Auto) 0.2 % N Basophil Auto (test code = Basophil 0.7 % N Auto) Neutro Absolute (test code = Neutro 2.3 x10 2.7-7.3 L Absolute) Lymph Absolute (test code = Lymph 0.6 x10 0.8-3.5 L Absolute) Becker Absolute (test code = Becker 0.4 x10 0.3-0.9 Absolute) Eos Absolute (test code = Eos 0.0 x10 0.0-0.3 Absolute) Baso Absolute (test code = Baso 0.0 x10 0.0-0.1 Absolute) POC Troponin [id number] 11:26:15 Test Item Value Reference Range Interpretation Comments Troponin I, POC 0.00 ng/mL 0.00-0.08 0.6-1.9 ng/m l may indicate (test code = Myocardial Whit ge2.0 ng/ml Troponin I, POC) is the diag nostic cutoff for Myocardial Damage. When diagnosing AMI, look for the serial rise and fall of Troponi Fina conditions resu lting in myocardial cell damage can potentiallyincr ease cardiac Troponin I leve ls. These conditions incl ude, butare not limited to: angina, unstable angina , congestive heart faillure, myocarditis, cardiac surgery , or invasive testin g.Serial sampling as jeanine ropriate is recommended to detect the temporalrise an d fall of troponin levels .For diagnostic purp oses, the Troponin I resu lts should be used inconju nction with other informati on such as EKG, CKMB, clinicalobserva tions, symptons, etc. XR Chest 1 View [id number] 11:16:48Patient: NITO MCKEON Date/Time08/26/201910:56 CSTReason for ExamChest painReportCHEST SINGLE VIEW: 1051 HOURS.COMPARISON: 10 August 2019.CLINICAL INFORMATION: Chest pain. Hypertension. Shortness of breath. Cough.Cardiac size is top normal to mildly enlarged accentuated by hypoinflation of the lungs. No pleural fluid or pulmonary infiltrates are identified. Elevation right hemidiaphragm is noted. The bony architecture appears intact, where adequately seen.IMPRESSION:1. No radiographic findings of acute cardiopulmonary disease. FinalDictated by: MD James Arthur LDictated DT/TM: 08/26/2019 11:15 amSigned by: MD James Arthur LSigned (Electronic Signature): 08/26/2019 11:16 [id number] 02:38:32 Test Item Value Reference Range Interpretation Comments RBC Morph (test code = RBC As Indicated Normal A Morph) Anisocyte (test code = 1+ A Anisocyte) Plt Estimation (test code = Plt Normal Normal Estimation) Prothrombin Time and [id number] 00:36:47 Test Item Value Reference Range Interpretation Comments Prothrombin Time (test code = 11.1 seconds 9.2-12.0 Prothrombin Time) INR (test code = INR) 1.1 ratio 0.9-1.2 Partial Thromboplastin [id number] 00:36:47 Test Item Value Reference Range Interpretation Comments Partial Thromboplastin 29.0 seconds 24.0-35.0 APTT Heparin Time (test code = Therapeuti c Range: Partial Thromboplastin 47.9- 80.4 seconds Time) Complete Blood Count with [id number] 00:27:34 Test Item Value Reference Range Interpretation Comments WBC (test code = WBC) 9.0 x10 4.8-10.8 RBC (test code = RBC) 3.63 x10 4.60-6.20 L Hgb (test code = Hgb) 12.4 g/dL 14.0-18.0 L MCV (test code = MCV) 105.3 fL 80.0-95.0 H Hct (test code = Hct) 38.2 % 38.0-52.0 MCHC (test code = MCHC) 32.4 g/dL 31.0-36.0 RDW (test code = RDW) 15.6 % 11.5-14.5 H MCH (test code = MCH) 34.1 pg 26.0-32.0 H Platelets (test code = 290 x10 140-440 Platelets) MPV (test code = MPV) 7.6 fL 7.5-11.2 Slide Review (test code = Smear N Sl angel reviewed Slide Review) Automated [id number] 00:27:34 Test Item Value Reference Range Interpretation Comments Neutro Auto (test code = Neutro Auto) 71.1 % N Lymph Auto (test code = Lymph Auto) 16.1 % N Becker Auto (test code = Becker Auto) 11.2 % N Eos, Auto (test code = Eos, Auto) 0.9 % N Basophil Auto (test code = Basophil 0.7 % N Auto) Neutro Absolute (test code = Neutro 6.4 x10 2.7-7.3 Absolute) Lymph Absolute (test code = Lymph 1.4 x10 0.8-3.5 Absolute) Becker Absolute (test code = Becker 1.0 x10 0.3-0.9 H Absolute) Eos Absolute (test code = Eos 0.1 x10 0.0-0.3 Absolute) Baso Absolute (test code = Baso 0.1 x10 0.0-0.1 Absolute) POC [id number] 11:40:15 Test Item Value Reference Range Interpretation Comments Glucose POC (test 135 mg/dL 74-106 H POC Glucos e used on code = Glucose POC) critical ly ill patients is considered " off-label use" and has no t been cleared or appr rosa elena by the FDA. Altern ative testing methods should be considered i f the patient is crit ically ill. [id number] 09:29:49 Test Item Value Reference Range Interpretation Comments RBC Morph (test code = RBC As Indicated Normal A Morph) Anisocyte (test code = 1+ A Anisocyte) Hypochromia (test code = 1+ A Hypochromia) Macrocyte (test code = 1+ A Macrocyte) Differential Comment (test See Comment S lide reviewed code = Differential Comment) Plt Estimation (test code Normal Normal = Plt Estimation) Basic Metabolic [id number] 08:32:12 Test Item Value Reference Range Interpretation Comments Sodium Level (test code = 136 mmol/L 136-145 Sodium Level) Potassium Level (test code 4.2 mmol/L 3.5-5.1 = Potassium Level) Chloride Level (test code 101 mmol/L 98-107 = Chloride Level) CO2 (test code = CO2) 29 mmol/L 21-32 Anion Gap (test code = 6 mmol/L 7-16 L Anion Gap) BUN (test code = BUN) 27 mg/dL 7-18 H Creatinine Level (test 0.7 mg/dL 0.7-1.3 code = Creatinine Level) Glucose Level (test code = 133 mg/dL 74-106 H Glucose Level) Calcium Level (test code = 9.0 mg/dL 8.5-10.1 Calcium Level) eGFR AA (test code = eGFR >60 mL/min/1.73 m2 N AA) Basic Metabolic [id number] 08:32:12 Test Item Value Reference Range Interpretation Comments Sodium Level (test code = 136 mmol/L 136-145 Sodium Level) Potassium Level (test code 4.2 mmol/L 3.5-5.1 = Potassium Level) Chloride Level (test code 101 mmol/L 98-107 = Chloride Level) CO2 (test code = CO2) 29 mmol/L 21-32 Anion Gap (test code = 6 mmol/L 7-16 L Anion Gap) BUN (test code = BUN) 27 mg/dL 7-18 H Creatinine Level (test 0.7 mg/dL 0.7-1.3 code = Creatinine Level) Glucose Level (test code = 133 mg/dL 74-106 H Glucose Level) Calcium Level (test code = 9.0 mg/dL 8.5-10.1 Calcium Level) eGFR AA (test code = eGFR >60 mL/min/1.73 m2 N AA) eGFR Non-AA (test code = >60 mL/min/1.73 m2 N eGFR Non-AA) Basic Metabolic [id number] 08:32:12 Test Item Value Reference Range Interpretation Comments Sodium Level (test code = 136 mmol/L 136-145 Sodium Level) Potassium Level (test code 4.2 mmol/L 3.5-5.1 = Potassium Level) Chloride Level (test code 101 mmol/L 98-107 = Chloride Level) CO2 (test code = CO2) 29 mmol/L 21-32 Anion Gap (test code = 6 mmol/L 7-16 L Anion Gap) BUN (test code = BUN) 27 mg/dL 7-18 H Creatinine Level (test 0.7 mg/dL 0.7-1.3 code = Creatinine Level) Glucose Level (test code = 133 mg/dL 74-106 H Glucose Level) Calcium Level (test code = 9.0 mg/dL 8.5-10.1 Calcium Level) eGFR AA (test code = eGFR >60 mL/min/1.73 m2 N AA) eGFR Non-AA (test code = >60 mL/min/1.73 m2 N eGFR Non-AA) Complete Blood Count with [id number] 08:20:27 Test Item Value Reference Range Interpretation Comments WBC (test code = WBC) 7.2 x10 4.8-10.8 RBC (test code = RBC) 3.69 x10 4.60-6.20 L Hgb (test code = Hgb) 13.1 g/dL 14.0-18.0 L Hct (test code = Hct) 39.0 % 38.0-52.0 MCV (test code = MCV) 105.7 fL 80.0-95.0 H MCHC (test code = MCHC) 33.5 g/dL 31.0-36.0 RDW (test code = RDW) 15.1 % 11.5-14.5 H MCH (test code = MCH) 35.4 pg 26.0-32.0 H Platelets (test code = Platelets) 279 x10 140-440 MPV (test code = MPV) 8.0 fL 7.5-11.2 Slide Review (test code = Slide Smear N Review) Automated [id number] 08:20:27 Test Item Value Reference Range Interpretation Comments Neutro Auto (test code = Neutro Auto) 69.2 % N Lymph Auto (test code = Lymph Auto) 21.7 % N Becker Auto (test code = Becker Auto) 7.0 % N Eos, Auto (test code = Eos, Auto) 1.3 % N Basophil Auto (test code = Basophil 0.8 % N Auto) Neutro Absolute (test code = Neutro 5.0 x10 2.7-7.3 Absolute) Lymph Absolute (test code = Lymph 1.6 x10 0.8-3.5 Absolute) Becker Absolute (test code = Becker 0.5 x10 0.3-0.9 Absolute) Eos Absolute (test code = Eos 0.1 x10 0.0-0.3 Absolute) Baso Absolute (test code = Baso 0.1 x10 0.0-0.1 Absolute) POC [id number] 05:11:33 Test Item Value Reference Range Interpretation Comments Glucose POC (test 128 mg/dL 74-106 H POC Glucos e used on code = Glucose POC) critical ly ill patients is considered " off-label use" and has no t been cleared or appr rosa elena by the FDA. Altern ative testing methods should be considered i f the patient is crit ically ill. POC [id number] 21:57:36 Test Item Value Reference Range Interpretation Comments Glucose POC (test 135 mg/dL 74-106 H POC Glucos e used on code = Glucose POC) critical ly ill patients is considered " off-label use" and has no t been cleared or appr rosa elena by the FDA. Altern ative testing methods should be considered i f the patient is crit ically ill. POC [id number] 20:03:51 Test Item Value Reference Range Interpretation Comments Glucose POC (test 170 mg/dL 74-106 H POC Glucos e used on code = Glucose POC) critical ly ill patients is considered " off-label use" and has no t been cleared or appr rosa elena by the FDA. Altern ative testing methods should be considered i f the patient is crit ically ill. POC [id number] 11:56:43 Test Item Value Reference Range Interpretation Comments Glucose POC (test 167 mg/dL 74-106 H POC Glucos e used on code = Glucose POC) critical ly ill patients is considered " off-label use" and has no t been cleared or appr rosa elena by the FDA. Altern ative testing methods should be considered i f the patient is crit ically ill. POC [id number] 04:13:09 Test Item Value Reference Range Interpretation Comments Glucose POC (test 134 mg/dL 74-106 H POC Glucos e used on code = Glucose POC) critical ly ill patients is considered " off-label use" and has no t been cleared or appr rosa elena by the FDA. Altern ative testing methods should be considered i f the patient is crit ically ill. POC [id number] 20:37:07 Test Item Value Reference Range Interpretation Comments Glucose POC (test 165 mg/dL 74-106 H POC Glucos e used on code = Glucose POC) critical ly ill patients is considered " off-label use" and has no t been cleared or appr rosa elena by the FDA. Altern ative testing methods should be considered i f the patient is crit ically ill. POC [id number] 16:43:17 Test Item Value Reference Range Interpretation Comments Glucose POC (test 153 mg/dL 74-106 H POC Glucos e used on code = Glucose POC) critical ly ill patients is considered " off-label use" and has no t been cleared or appr rosa elena by the FDA. Altern ative testing methods should be considered i f the patient is crit ically ill. POC [id number] 11:49:57 Test Item Value Reference Range Interpretation Comments Glucose POC (test 153 mg/dL 74-106 H POC Glucos e used on code = Glucose POC) critical ly ill patients is considered " off-label use" and has no t been cleared or appr rosa elena by the FDA. Altern ative testing methods should be considered i f the patient is crit ically ill. POC [id number] 04:36:57 Test Item Value Reference Range Interpretation Comments Glucose POC (test 138 mg/dL 74-106 H POC Glucos e used on code = Glucose POC) critical ly ill patients is considered " off-label use" and has no t been cleared or appr rosa elena by the FDA. Altern ative testing methods should be considered i f the patient is crit ically ill. POC [id number] 21:01:31 Test Item Value Reference Range Interpretation Comments Glucose POC (test 192 mg/dL 74-106 H POC Glucos e used on code = Glucose POC) critical ly ill patients is considered " off-label use" and has no t been cleared or appr rosa elena by the FDA. Altern ative testing methods should be considered i f the patient is crit ically ill. POC Troponin [id number] 01:17:37 Test Item Value Reference Range Interpretation Comments Troponin I, POC 0.13 ng/mL 0.00-0.08 0.6-1.9 ng/m l may indicate (test code = Myocardial Whit ge2.0 ng/ml Troponin I, POC) is the diag nostic cutoff for Myocardial Damage. When diagnosing AMI, look for the serial rise and fall of Troponi Fina conditions resu lting in myocardial cell damage can potentiallyincr ease cardiac Troponin I leve ls. These conditions incl ude, butare not limited to: angina, unstable angina , congestive heart faillure, myocarditis, cardiac surgery , or invasive testin g.Serial sampling as jeanine ropriate is recommended to detect the temporalrise an d fall of troponin levels .For diagnostic purp oses, the Troponin I resu lts should be used inconju nction with other informati on such as EKG, CKMB, clinicalobserva tions, symptons, etc. Troponin [id number] 00:55:06 Test Item Value Reference Range Interpretation Comments Troponin-I (test 0.160 ng/mL 0.010-0.040 CTRB Manfred PENG,RN/ER code = Troponin-I) 08/11/2019 00:54:57 MANAGING [employer] BY JEANNE [id number] 20:35:23 Test Item Value Reference Range Interpretation Comments RBC Morph (test code = RBC As Indicated Normal A Morph) Anisocyte (test code = 1+ A Anisocyte) Plt Estimation (test code = Plt Normal Normal Estimation) Creatine [id number] 20:35:18 Test Item Value Reference Range Interpretation Comments CK (test code = CK) 44 IntlUnit/L 39-308 Creatine Kinase MB [id number] 20:35:18 Test Item Value Reference Range Interpretation Comments CKMB (test code = CKMB) <1.0 ng/mL 0.5-3.6 CKMB % (test code = CKMB %) <2.3 % 0.0-5.0 Comprehensive Metabolic [id number] 20:35:17 Test Item Value Reference Range Interpretation Comments Sodium Level (test code = 139 mmol/L 136-145 Sodium Level) Potassium Level (test code 3.8 mmol/L 3.5-5.1 = Potassium Level) Chloride Level (test code 100 mmol/L 98-107 = Chloride Level) CO2 (test code = CO2) 31 mmol/L 21-32 Anion Gap (test code = 8 mmol/L 7-16 Anion Gap) BUN (test code = BUN) 16 mg/dL 7-18 Creatinine Level (test 0.7 mg/dL 0.7-1.3 code = Creatinine Level) Glucose Level (test code = 166 mg/dL 74-106 H Glucose Level) Calcium Level (test code = 9.0 mg/dL 8.5-10.1 Calcium Level) Alk Phos (test code = Alk 90 IntlUnit/L 45-122 Phos) Bilirubin Total (test code 0.4 mg/dL 0.2-1.0 = Bilirubin Total) Albumin Level (test code = 3.5 g/dL 3.4-5.0 Albumin Level) Protein Total (test code = 7.8 g/dL 6.4-8.2 Protein Total) ALT (test code = ALT) 13 IntlUnit/L 12-78 AST (test code = AST) 9 IntlUnit/L 10-34 L eGFR AA (test code = eGFR >60 mL/min/1.73 m2 N AA) Comprehensive Metabolic [id number] 20:35:17 Test Item Value Reference Range Interpretation Comments Sodium Level (test code = 139 mmol/L 136-145 Sodium Level) Potassium Level (test code 3.8 mmol/L 3.5-5.1 = Potassium Level) Chloride Level (test code 100 mmol/L 98-107 = Chloride Level) CO2 (test code = CO2) 31 mmol/L 21-32 Anion Gap (test code = 8 mmol/L 7-16 Anion Gap) BUN (test code = BUN) 16 mg/dL 7-18 Creatinine Level (test 0.7 mg/dL 0.7-1.3 code = Creatinine Level) Glucose Level (test code = 166 mg/dL 74-106 H Glucose Level) Calcium Level (test code = 9.0 mg/dL 8.5-10.1 Calcium Level) Alk Phos (test code = Alk 90 IntlUnit/L 45-122 Phos) Bilirubin Total (test code 0.4 mg/dL 0.2-1.0 = Bilirubin Total) Albumin Level (test code = 3.5 g/dL 3.4-5.0 Albumin Level) Protein Total (test code = 7.8 g/dL 6.4-8.2 Protein Total) ALT (test code = ALT) 13 IntlUnit/L 12-78 AST (test code = AST) 9 IntlUnit/L 10-34 L eGFR AA (test code = eGFR >60 mL/min/1.73 m2 N AA) Comprehensive Metabolic [id number] 20:35:17 Test Item Value Reference Range Interpretation Comments Sodium Level (test code = 139 mmol/L 136-145 Sodium Level) Potassium Level (test code 3.8 mmol/L 3.5-5.1 = Potassium Level) Chloride Level (test code 100 mmol/L 98-107 = Chloride Level) CO2 (test code = CO2) 31 mmol/L 21-32 Anion Gap (test code = 8 mmol/L 7-16 Anion Gap) BUN (test code = BUN) 16 mg/dL 7-18 Creatinine Level (test 0.7 mg/dL 0.7-1.3 code = Creatinine Level) Glucose Level (test code = 166 mg/dL 74-106 H Glucose Level) Calcium Level (test code = 9.0 mg/dL 8.5-10.1 Calcium Level) Alk Phos (test code = Alk 90 IntlUnit/L 45-122 Phos) Bilirubin Total (test code 0.4 mg/dL 0.2-1.0 = Bilirubin Total) Albumin Level (test code = 3.5 g/dL 3.4-5.0 Albumin Level) Protein Total (test code = 7.8 g/dL 6.4-8.2 Protein Total) ALT (test code = ALT) 13 IntlUnit/L 12-78 AST (test code = AST) 9 IntlUnit/L 10-34 L eGFR AA (test code = eGFR >60 mL/min/1.73 m2 N AA) eGFR Non-AA (test code = >60 mL/min/1.73 m2 N eGFR Non-AA) Lipase [id number] 20:34:45 Test Item Value Reference Range Interpretation Comments Lipase Level (test code = 81 IntlUnit/L 73-393 Lipase Level) Complete Blood Count with [id number] 20:11:46 Test Item Value Reference Range Interpretation Comments WBC (test code = WBC) 7.6 x10 4.8-10.8 RBC (test code = RBC) 3.72 x10 4.60-6.20 L Hgb (test code = Hgb) 13.2 g/dL 14.0-18.0 L MCV (test code = MCV) 106.6 fL 80.0-95.0 H Hct (test code = Hct) 39.7 % 38.0-52.0 MCHC (test code = MCHC) 33.2 g/dL 31.0-36.0 RDW (test code = RDW) 15.4 % 11.5-14.5 H MCH (test code = MCH) 35.4 pg 26.0-32.0 H Platelets (test code = Platelets) 268 x10 140-440 MPV (test code = MPV) 7.7 fL 7.5-11.2 Slide Review (test code = Slide Smear N Review) Automated [id number] 20:11:46 Test Item Value Reference Range Interpretation Comments Neutro Auto (test code = Neutro Auto) 81.6 % N Lymph Auto (test code = Lymph Auto) 13.0 % N Becker Auto (test code = Becker Auto) 4.1 % N Eos, Auto (test code = Eos, Auto) 0.9 % N Basophil Auto (test code = Basophil 0.4 % N Auto) Neutro Absolute (test code = Neutro 6.2 x10 2.7-7.3 Absolute) Lymph Absolute (test code = Lymph 1.0 x10 0.8-3.5 Absolute) Becker Absolute (test code = Becker 0.3 x10 0.3-0.9 Absolute) Eos Absolute (test code = Eos 0.1 x10 0.0-0.3 Absolute) Baso Absolute (test code = Baso 0.0 x10 0.0-0.1 Absolute) POC Troponin [id number] 20:09:11 Test Item Value Reference Range Interpretation Comments Troponin I, POC 0.00 ng/mL 0.00-0.08 0.6-1.9 ng/m l may indicate (test code = Myocardial Whit ge2.0 ng/ml Troponin I, POC) is the diag nostic cutoff for Myocardial Damage. When diagnosing AMI, look for the serial rise and fall of Troponi Fina conditions resu lting in myocardial cell damage can potentiallyincr ease cardiac Troponin I leve ls. These conditions incl ude, butare not limited to: angina, unstable angina , congestive heart faillure, myocarditis, cardiac surgery , or invasive testin g.Serial sampling as jeanine ropriate is recommended to detect the temporalrise an d fall of troponin levels .For diagnostic purp oses, the Troponin I resu lts should be used inconju nction with other informati on such as EKG, CKMB, clinicalobserva tions, symptons, etc. XR Chest 1 View [id number] 19:51:28Patient: NITO MCKEON Date/Time08/10/2019 19:40 CSTReason for ExamChest painReportXR CHEST 1 VIEW FRONTALDIAGNOSIS: Chest painThe heart and mediastinum are stable. No consolidation or pleural fluid is evident. The right hemidiaphragm remains elevated.IMPRESSION: No active disease and no change since 04/20/2019. Final Dictated by:MD Ricky, Evan Alexandra DT/TM: 08/10/2019 7:50 pmSigned by: MD García Michael JackSigned(Electronic Signature): 08/10/2019 7:51 pmPOC [id number] 15:53:03 Test Item Value Reference Range Interpretation Comments Glucose POC (test 144 mg/dL 74-106 H POC Glucos e used on code = Glucose POC) critical ly ill patients is considered " off-label use" and has no t been cleared or appr rosa elena by the FDA. Altern ative testing methods should be considered i f the patient is crit ically ill. POC [id number] 11:06:10 Test Item Value Reference Range Interpretation Comments Glucose POC (test 167 mg/dL 74-106 H POC Glucos e used on code = Glucose POC) critical ly ill patients is considered " off-label use" and has no t been cleared or appr rosa elena by the FDA. Altern ative testing methods should be considered i f the patient is crit ically ill. POC [id number] 05:14:51 Test Item Value Reference Range Interpretation Comments Glucose POC (test 156 mg/dL 74-106 H POC Glucos e used on code = Glucose POC) critical ly ill patients is considered " off-label use" and has no t been cleared or appr rosa elena by the FDA. Altern ative testing methods should be considered i f the patient is crit ically ill. POC [id number] 21:48:46 Test Item Value Reference Range Interpretation Comments Glucose POC (test 203 mg/dL 74-106 H POC Glucos e used on code = Glucose POC) critical ly ill patients is considered " off-label use" and has no t been cleared or appr rosa elena by the FDA. Altern ative testing methods should be considered i f the patient is crit ically ill. POC [id number] 21:48:44 Test Item Value Reference Range Interpretation Comments Glucose POC (test 158 mg/dL 74-106 H POC Glucos e used on code = Glucose POC) critical ly ill patients is considered " off-label use" and has no t been cleared or appr rosa elena by the FDA. Altern ative testing methods should be considered i f the patient is crit ically ill. POC [id number] 21:48:40 Test Item Value Reference Range Interpretation Comments Glucose POC (test 139 mg/dL 74-106 H POC Glucos e used on code = Glucose POC) critical ly ill patients is considered " off-label use" and has no t been cleared or appr rosa elena by the FDA. Altern ative testing methods should be considered i f the patient is crit ically ill. Basic Metabolic [id number] 07:44:09 Test Item Value Reference Range Interpretation Comments Sodium Level (test code = Sodium 137 mmol/L 136-145 Level) Potassium Level (test code = 3.6 mmol/L 3.5-5.1 Potassium Level) Chloride Level (test code = 100 mmol/L 98-107 Chloride Level) CO2 (test code = CO2) 30 mmol/L 21-32 Anion Gap (test code = Anion Gap) 7 mmol/L 7-16 BUN (test code = BUN) 12 mg/dL 7-18 Creatinine Level (test code = 0.6 mg/dL 0.7-1.3 L Creatinine Level) Glucose Level (test code = Glucose 130 mg/dL 74-106 H Level) Calcium Level (test code = Calcium 8.5 mg/dL 8.5-10.1 Level) Basic Metabolic [id number] 07:44:09 Test Item Value Reference Range Interpretation Comments Sodium Level (test code = 137 mmol/L 136-145 Sodium Level) Potassium Level (test code 3.6 mmol/L 3.5-5.1 = Potassium Level) Chloride Level (test code 100 mmol/L 98-107 = Chloride Level) CO2 (test code = CO2) 30 mmol/L 21-32 Anion Gap (test code = 7 mmol/L 7-16 Anion Gap) BUN (test code = BUN) 12 mg/dL 7-18 Creatinine Level (test 0.6 mg/dL 0.7-1.3 L code = Creatinine Level) Glucose Level (test code = 130 mg/dL 74-106 H Glucose Level) Calcium Level (test code = 8.5 mg/dL 8.5-10.1 Calcium Level) eGFR AA (test code = eGFR >60 mL/min/1.73 m2 N AA) Basic Metabolic [id number] 07:44:09 Test Item Value Reference Range Interpretation Comments Sodium Level (test code = 137 mmol/L 136-145 Sodium Level) Potassium Level (test code 3.6 mmol/L 3.5-5.1 = Potassium Level) Chloride Level (test code 100 mmol/L 98-107 = Chloride Level) CO2 (test code = CO2) 30 mmol/L 21-32 Anion Gap (test code = 7 mmol/L 7-16 Anion Gap) BUN (test code = BUN) 12 mg/dL 7-18 Creatinine Level (test 0.6 mg/dL 0.7-1.3 L code = Creatinine Level) Glucose Level (test code = 130 mg/dL 74-106 H Glucose Level) Calcium Level (test code = 8.5 mg/dL 8.5-10.1 Calcium Level) eGFR AA (test code = eGFR >60 mL/min/1.73 m2 N AA) eGFR Non-AA (test code = >60 mL/min/1.73 m2 N eGFR Non-AA) Complete Blood Count with [id number] 07:03:53 Test Item Value Reference Range Interpretation Comments WBC (test code = WBC) 6.4 x10 4.8-10.8 RBC (test code = RBC) 4.00 x10 4.60-6.20 L Hgb (test code = Hgb) 13.1 g/dL 14.0-18.0 L Hct (test code = Hct) 40.1 % 38.0-52.0 MCV (test code = MCV) 100.3 fL 80.0-95.0 H RDW (test code = RDW) 17.2 % 11.5-14.5 H MCHC (test code = MCHC) 32.5 g/dL 31.0-36.0 MCH (test code = MCH) 32.7 pg 26.0-32.0 H Platelets (test code = 248 x10 140-440 Platelets) MPV (test code = MPV) 7.7 fL 7.5-11.2 Slide Review (test code Auto N Resu lt created by = Slide Review) GL_SET_SLIDE _REVIEW_A UTO Automated [id number] 07:03:53 Test Item Value Reference Range Interpretation Comments Neutro Auto (test code = Neutro Auto) 70.7 % N Lymph Auto (test code = Lymph Auto) 18.5 % N Becker Auto (test code = Becker Auto) 6.7 % N Eos, Auto (test code = Eos, Auto) 3.3 % N Basophil Auto (test code = Basophil 0.8 % N Auto) Neutro Absolute (test code = Neutro 4.5 x10 2.7-7.3 Absolute) Lymph Absolute (test code = Lymph 1.2 x10 0.8-3.5 Absolute) Becker Absolute (test code = Becker 0.4 x10 0.3-0.9 Absolute) Eos Absolute (test code = Eos 0.2 x10 0.0-0.3 Absolute) Baso Absolute (test code = Baso 0.0 x10 0.0-0.1 Absolute) POC [id number] 05:46:14 Test Item Value Reference Range Interpretation Comments Glucose POC (test 144 mg/dL 74-106 H POC Glucos e used on code = Glucose POC) critical ly ill patients is considered " off-label use" and has no t been cleared or appr rosa elena by the FDA. Altern ative testing methods should be considered i f the patient is crit ically ill. POC [id number] 22:56:56 Test Item Value Reference Range Interpretation Comments Glucose POC (test 198 mg/dL 74-106 H POC Glucos e used on code = Glucose POC) critical ly ill patients is considered " off-label use" and has no t been cleared or appr rosa elena by the FDA. Altern ative testing methods should be considered i f the patient is crit ically ill. POC [id number] 19:19:36 Test Item Value Reference Range Interpretation Comments Glucose POC (test 145 mg/dL 74-106 H POC Glucos e used on code = Glucose POC) critical ly ill patients is considered " off-label use" and has no t been cleared or appr rosa elena by the FDA. Altern ative testing methods should be considered i f the patient is crit ically ill. POC [id number] 19:19:24 Test Item Value Reference Range Interpretation Comments Glucose POC (test 228 mg/dL 74-106 H POC Glucos e used on code = Glucose POC) critical ly ill patients is considered " off-label use" and has no t been cleared or appr rosa elena by the FDA. Altern ative testing methods should be considered i f the patient is crit ically ill. POC [id number] 19:19:23 Test Item Value Reference Range Interpretation Comments Glucose POC (test 143 mg/dL 74-106 H POC Glucos e used on code = Glucose POC) critical ly ill patients is considered " off-label use" and has no t been cleared or appr rosa elena by the FDA. Altern ative testing methods should be considered i f the patient is crit ically ill. Comprehensive Metabolic [id number] 08:12:19 Test Item Value Reference Range Interpretation Comments Sodium Level (test code = 137 mmol/L 136-145 Sodium Level) Potassium Level (test code = 4.2 mmol/L 3.5-5.1 Potassium Level) Chloride Level (test code = 103 mmol/L 98-107 Chloride Level) CO2 (test code = CO2) 24 mmol/L 21-32 Anion Gap (test code = Anion 10 mmol/L 7-16 Gap) BUN (test code = BUN) 15 mg/dL 7-18 Creatinine Level (test code = 0.6 mg/dL 0.7-1.3 L Creatinine Level) Glucose Level (test code = 132 mg/dL 74-106 H Glucose Level) Calcium Level (test code = 8.5 mg/dL 8.5-10.1 Calcium Level) Alk Phos (test code = Alk Phos) 68 IntlUnit/L 45-122 Bilirubin Total (test code = 0.5 mg/dL 0.2-1.0 Bilirubin Total) Albumin Level (test code = 3.2 g/dL 3.4-5.0 L Albumin Level) Protein Total (test code = 6.8 g/dL 6.4-8.2 Protein Total) ALT (test code = ALT) 17 IntlUnit/L 12-78 AST (test code = AST) 23 IntlUnit/L 10-34 Comprehensive Metabolic [id number] 08:12:19 Test Item Value Reference Range Interpretation Comments Sodium Level (test code = 137 mmol/L 136-145 Sodium Level) Potassium Level (test code 4.2 mmol/L 3.5-5.1 = Potassium Level) Chloride Level (test code 103 mmol/L 98-107 = Chloride Level) CO2 (test code = CO2) 24 mmol/L 21-32 Anion Gap (test code = 10 mmol/L 7-16 Anion Gap) BUN (test code = BUN) 15 mg/dL 7-18 Creatinine Level (test 0.6 mg/dL 0.7-1.3 L code = Creatinine Level) Glucose Level (test code = 132 mg/dL 74-106 H Glucose Level) Calcium Level (test code = 8.5 mg/dL 8.5-10.1 Calcium Level) Alk Phos (test code = Alk 68 IntlUnit/L 45-122 Phos) Bilirubin Total (test code 0.5 mg/dL 0.2-1.0 = Bilirubin Total) Albumin Level (test code = 3.2 g/dL 3.4-5.0 L Albumin Level) Protein Total (test code = 6.8 g/dL 6.4-8.2 Protein Total) ALT (test code = ALT) 17 IntlUnit/L 12-78 AST (test code = AST) 23 IntlUnit/L 10-34 eGFR AA (test code = eGFR >60 mL/min/1.73 m2 N AA) Creatine [id number] 08:12:19 Test Item Value Reference Range Interpretation Comments CK (test code = CK) 81 IntlUnit/L 39-308 Comprehensive Metabolic [id number] 08:12:19 Test Item Value Reference Range Interpretation Comments Sodium Level (test code = 137 mmol/L 136-145 Sodium Level) Potassium Level (test code 4.2 mmol/L 3.5-5.1 = Potassium Level) Chloride Level (test code 103 mmol/L 98-107 = Chloride Level) CO2 (test code = CO2) 24 mmol/L 21-32 Anion Gap (test code = 10 mmol/L 7-16 Anion Gap) BUN (test code = BUN) 15 mg/dL 7-18 Creatinine Level (test 0.6 mg/dL 0.7-1.3 L code = Creatinine Level) Glucose Level (test code = 132 mg/dL 74-106 H Glucose Level) Calcium Level (test code = 8.5 mg/dL 8.5-10.1 Calcium Level) Alk Phos (test code = Alk 68 IntlUnit/L 45-122 Phos) Bilirubin Total (test code 0.5 mg/dL 0.2-1.0 = Bilirubin Total) Albumin Level (test code = 3.2 g/dL 3.4-5.0 L Albumin Level) Protein Total (test code = 6.8 g/dL 6.4-8.2 Protein Total) ALT (test code = ALT) 17 IntlUnit/L 12-78 AST (test code = AST) 23 IntlUnit/L 10-34 eGFR AA (test code = eGFR >60 mL/min/1.73 m2 N AA) eGFR Non-AA (test code = >60 mL/min/1.73 m2 N eGFR Non-AA) Complete Blood Count with [id number] 07:14:37 Test Item Value Reference Range Interpretation Comments WBC (test code = WBC) 8.3 x10 4.8-10.8 RBC (test code = RBC) 4.00 x10 4.60-6.20 L Hgb (test code = Hgb) 13.6 g/dL 14.0-18.0 L Hct (test code = Hct) 41.7 % 38.0-52.0 MCV (test code = MCV) 104.3 fL 80.0-95.0 H RDW (test code = RDW) 17.3 % 11.5-14.5 H MCHC (test code = MCHC) 32.6 g/dL 31.0-36.0 MCH (test code = MCH) 33.9 pg 26.0-32.0 H Platelets (test code = 200 x10 140-440 Platelets) MPV (test code = MPV) 8.3 fL 7.5-11.2 Slide Review (test code Auto N Resu lt created by = Slide Review) GL_SET_SLIDE _REVIEW_A UTO Automated [id number] 07:14:37 Test Item Value Reference Range Interpretation Comments Neutro Auto (test code = Neutro Auto) 71.0 % N Lymph Auto (test code = Lymph Auto) 17.5 % N Becker Auto (test code = Becker Auto) 7.8 % N Eos, Auto (test code = Eos, Auto) 3.0 % N Basophil Auto (test code = Basophil 0.7 % N Auto) Neutro Absolute (test code = Neutro 5.9 x10 2.7-7.3 Absolute) Lymph Absolute (test code = Lymph 1.4 x10 0.8-3.5 Absolute) Becker Absolute (test code = Becker 0.6 x10 0.3-0.9 Absolute) Eos Absolute (test code = Eos 0.2 x10 0.0-0.3 Absolute) Baso Absolute (test code = Baso 0.1 x10 0.0-0.1 Absolute) Troponin [id number] 22:56:40 Test Item Value Reference Range Interpretation Comments Troponin-I (test 0.302 ng/mL 0.010-0.040 CTRB KARLY V JIL,RN/ER code = Troponin-I) 04/20/2019 22:56:35 CDT BY JEANNE POC Troponin [id number] 15:54:28 Test Item Value Reference Range Interpretation Comments Troponin I, POC 0.22 ng/mL 0.00-0.08 0.6-1.9 ng/m l may indicate (test code = Myocardial Whit ge2.0 ng/ml Troponin I, POC) is the diag nostic cutoff for Myocardial Damage. When diagnosing AMI, look for the serial rise and fall of Troponi Fina conditions resu lting in myocardial cell damage can potentiallyincr ease cardiac Troponin I leve ls. These conditions incl ude, butare not limited to: angina, unstable angina , congestive heart faillure, myocarditis, cardiac surgery , or invasive testin g.Serial sampling as jeanine ropriate is recommended to detect the temporalrise an d fall of troponin levels .For diagnostic purp oses, the Troponin I resu lts should be used inconju nction with other informati on such as EKG, CKMB, clinicalobserva tions, symptons, etc. CT Angio [id number] 13:24:30Patient: NITO MCKEON Date/Time04/20/2019 12:40 CDTReason for ExamChest painReportCTA CHEST:HISTORY: Chest painCOMPARISON: CTA of 03/10/2019 an d chest x-ray done earlier todayMultiple thin sections were obtained through the chest during rapid intravenous administration of 100 mL of Omnipaque 350 contrast material. Two-dimensional and three-dimensional reconstructions were performed. Radiation dose reduction was achieved by automatic exposure control, adjusting the mA according to the patient's size.No filling defects are demonstrated in the pulmonary arteries. The thoracic aorta shows no significant abnormality. No evidence of an aortic dissection or aneurysm is observed.No masses or enlarged lymph nodes are seen in the mediastinum or the pulmonary danna.Mild atelectasis is again noted at the right lower lobe. No other infiltrates are seen in the lungs.IMPRESSION:1. No evidence of pulmonary emboli.2. Mild atelectasis at the right lower lobe. Final Dictated by: MD Josse, Simone Harris DT/TM: 04/20/2019 1:09 pmSignedby: MD Josse, Simone Bealigned (Electronic Signature): 04/20/2019 1:24 pmPOC Glucose 2019-04-20 13:05:50 Test Item Value Reference Range Interpretation Comments Glucose POC (test 128 mg/dL 74-106 H POC Glucos e used on code = Glucose POC) critical ly ill patients is considered " off-label use" and has no t been cleared or appr rosa elena by the FDA. Altern ative testing methods should be considered i f the patient is crit ically ill. [id number] 12:01:44 Test Item Value Reference Range Interpretation Comments RBC Morph (test code = RBC As Indicated Normal A Morph) Anisocyte (test code = 1+ A Anisocyte) Plt Estimation (test code = Plt Normal Normal Estimation) Complete Blood Count with [id number] 11:57:15 Test Item Value Reference Range Interpretation Comments WBC (test code = WBC) 9.9 x10 4.8-10.8 RBC (test code = RBC) 3.98 x10 4.60-6.20 L Hgb (test code = Hgb) 13.7 g/dL 14.0-18.0 L Hct (test code = Hct) 41.0 % 38.0-52.0 MCV (test code = MCV) 102.9 fL 80.0-95.0 H RDW (test code = RDW) 16.9 % 11.5-14.5 H MCHC (test code = MCHC) 33.4 g/dL 31.0-36.0 MCH (test code = MCH) 34.3 pg 26.0-32.0 H Platelets (test code = Platelets) 198 x10 140-440 MPV (test code = MPV) 8.2 fL 7.5-11.2 Slide Review (test code = Slide Smear N Review) Automated [id number] 11:57:15 Test Item Value Reference Range Interpretation Comments Neutro Auto (test code = Neutro Auto) 80.5 % N Lymph Auto (test code = Lymph Auto) 12.9 % N Becker Auto (test code = Becker Auto) 4.1 % N Eos, Auto (test code = Eos, Auto) 1.8 % N Basophil Auto (test code = Basophil 0.7 % N Auto) Neutro Absolute (test code = Neutro 8.0 x10 2.7-7.3 H Absolute) Lymph Absolute (test code = Lymph 1.3 x10 0.8-3.5 Absolute) Becker Absolute (test code = Becker 0.4 x10 0.3-0.9 Absolute) Eos Absolute (test code = Eos 0.2 x10 0.0-0.3 Absolute) Baso Absolute (test code = Baso 0.1 x10 0.0-0.1 Absolute) Pro B Natriuretic [id number] 10:14:38 Test Item Value Reference Range Interpretation Comments NT-proBNP (test 167 pg/mL 0-125 H < 300 pg/ml - heart code = NT-proBNP) failure un likelyAge less than 50 years, > 450 pg/ml - heart f ailure lilkelyAge 50 - 75 years, > 900 pg/ml - h eart failure likelyA ge greater than 75 years, > 1800 pg/ml - heart f ailure likely Creatine [id number] 10:14:13 Test Item Value Reference Range Interpretation Comments CK (test code = CK) 81 IntlUnit/L 39-308 Creatine Kinase MB [id number] 10:14:13 Test Item Value Reference Range Interpretation Comments CKMB (test code = CKMB) <1.0 ng/mL 0.5-3.6 CKMB % (test code = CKMB %) <1.2 % 0.0-5.0 Comprehensive Metabolic [id number] 10:10:18 Test Item Value Reference Range Interpretation Comments Sodium Level (test code 137 mmol/L 136-145 = Sodium Level) Potassium Level (test 4.4 mmol/L 3.5-5.1 SLIGHT HEMOLYSIS code = Potassium Level) Chloride Level (test 102 mmol/L 98-107 code = Chloride Level) CO2 (test code = CO2) 26 mmol/L 21-32 Anion Gap (test code = 9 mmol/L 7-16 Anion Gap) BUN (test code = BUN) 17 mg/dL 7-18 Creatinine Level (test 0.6 mg/dL 0.7-1.3 L code = Creatinine Level) Glucose Level (test 168 mg/dL 74-106 H code = Glucose Level) Calcium Level (test 8.7 mg/dL 8.5-10.1 code = Calcium Level) Alk Phos (test code = 70 IntlUnit/L 45-122 Alk Phos) Bilirubin Total (test 0.4 mg/dL 0.2-1.0 code = Bilirubin Total) Albumin Level (test 3.0 g/dL 3.4-5.0 L code = Albumin Level) Protein Total (test 6.5 g/dL 6.4-8.2 code = Protein Total) ALT (test code = ALT) 17 IntlUnit/L 12-78 AST (test code = AST) 24 IntlUnit/L 10-34 Comprehensive Metabolic [id number] 10:10:18 Test Item Value Reference Range Interpretation Comments Sodium Level (test 137 mmol/L 136-145 code = Sodium Level) Potassium Level (test 4.4 mmol/L 3.5-5.1 SLIGHT HEMOLYSIS code = Potassium Level) Chloride Level (test 102 mmol/L 98-107 code = Chloride Level) CO2 (test code = CO2) 26 mmol/L 21-32 Anion Gap (test code 9 mmol/L 7-16 = Anion Gap) BUN (test code = BUN) 17 mg/dL 7-18 Creatinine Level 0.6 mg/dL 0.7-1.3 L (test code = Creatinine Level) Glucose Level (test 168 mg/dL 74-106 H code = Glucose Level) Calcium Level (test 8.7 mg/dL 8.5-10.1 code = Calcium Level) Alk Phos (test code = 70 IntlUnit/L 45-122 Alk Phos) Bilirubin Total (test 0.4 mg/dL 0.2-1.0 code = Bilirubin Total) Albumin Level (test 3.0 g/dL 3.4-5.0 L code = Albumin Level) Protein Total (test 6.5 g/dL 6.4-8.2 code = Protein Total) ALT (test code = ALT) 17 IntlUnit/L 12-78 AST (test code = AST) 24 IntlUnit/L 10-34 eGFR AA (test code = >60 mL/min/1.73 N eGFR AA) m2 Comprehensive Metabolic [id number] 10:10:18 Test Item Value Reference Range Interpretation Comments Sodium Level (test 137 mmol/L 136-145 code = Sodium Level) Potassium Level (test 4.4 mmol/L 3.5-5.1 SLIGHT HEMOLYSIS code = Potassium Level) Chloride Level (test 102 mmol/L 98-107 code = Chloride Level) CO2 (test code = CO2) 26 mmol/L 21-32 Anion Gap (test code 9 mmol/L 7-16 = Anion Gap) BUN (test code = BUN) 17 mg/dL 7-18 Creatinine Level 0.6 mg/dL 0.7-1.3 L (test code = Creatinine Level) Glucose Level (test 168 mg/dL 74-106 H code = Glucose Level) Calcium Level (test 8.7 mg/dL 8.5-10.1 code = Calcium Level) Alk Phos (test code = 70 IntlUnit/L 45-122 Alk Phos) Bilirubin Total (test 0.4 mg/dL 0.2-1.0 code = Bilirubin Total) Albumin Level (test 3.0 g/dL 3.4-5.0 L code = Albumin Level) Protein Total (test 6.5 g/dL 6.4-8.2 code = Protein Total) ALT (test code = ALT) 17 IntlUnit/L 12-78 AST (test code = AST) 24 IntlUnit/L 10-34 eGFR AA (test code = >60 mL/min/1.73 N eGFR AA) m2 eGFR Non-AA (test >60 mL/min/1.73 N code = eGFR Non-AA) m2 POC Troponin [id number] 09:53:00 Test Item Value Reference Range Interpretation Comments Troponin I, POC 0.24 ng/mL 0.00-0.08 0.6-1.9 ng/m l may indicate (test code = Myocardial Whit ge2.0 ng/ml Troponin I, POC) is the diag nostic cutoff for Myocardial Damage. When diagnosing AMI, look for the serial rise and fall of Troponi Fina conditions resu lting in myocardial cell damage can potentiallyincr ease cardiac Troponin I matty ls. These conditions incl ude, butare not limited to: angina, unstable angina , congestive heart faillure, myocarditis, cardiac surgery , or invasive testin g.Serial sampling as jeanine ropriate is recommended to detect the temporalrise an d fall of troponin levels .For diagnostic purp oses, the Troponin I resu lts should be used inconju nction with other informati on such as EKG, CKMB, clinicalobserva tions, symptons, etc. Prothrombin Time and [id number] 09:52:09 Test Item Value Reference Range Interpretation Comments Prothrombin Time (test code = 10.6 seconds 9.2-12.0 Prothrombin Time) INR (test code = INR) 1.0 ratio 0.9-1.2 Partial Thromboplastin [id number] 09:52:09 Test Item Value Reference Range Interpretation Comments Partial Thromboplastin 22.0 seconds 24.0-35.0 L APTT Heparin Time (test code = Therapeuti c Range: Partial Thromboplastin 47.9- 80.4 seconds Time) D-Dimer [id number] 09:52:09 Test Item Value Reference Range Interpretation Comments D Dimer, 1.11 mg/L FEU .19-.50 H The D-Dimer as say is (Quant.) (test intended for use as an code = D Dimer, aid in the d iagnosis of (Quant.)) Deep Vein Thrombosis(DVT) or Pulmonary Embol ism(PE) except in patie nts with the following: *Therapeutic do se anticoagulant t herapy for >24 hours *Fibrinolytic t herapy within previous 7 days *Trauma or perry rgery within previous 4 weeks *Disseminate d malignancies *Aortic aneurysm *S epsis, severe infectio ns, pneumonia, javier re skin infections *Cirrhosis * A cu t-off value of <0.5 m g/L FEU makes a diagnos is of DVT or PEunlikely. XR Chest 1 View [id number] 08:59:22Patient: NITO MCKEON Date/Time04/20/2019 08:53 CDTReason for ExamChest painReportCHEST SINGLE VIEW:HISTORY: Chest pain, shortness of breathCOMPARISON: 03/10/2019The cardiomediastinal structures show no significant abnormality.No new infiltrates are seen in the lungs. There is elevation of the right hemidiaphragm. Subsegmental atelectasis is noted at the left costophrenic angle.The bony architecture appears intact, where adequately seen.IMPRESSION:1. Subsegmental atelectasis at the left lung base.2. Mild elevation of the right hemidiaphragm, unchanged. Final Dictated by: MD Loaiza Ramon JulioDictated DT/TM: 04/20/2019 8:58 amSigned by: MD Loaiza Ramon JulioSigned (Electronic Signature): 04/20/2019 8:59 amHemoglobin A1c [id number] 10:10:56 7.0 Prediabetes: 5.7 - 6.4 Diabetes: >6.4 Glycemic control for adults with diabetes: <7.0Performed At: [facility] [id number] MD Ph:[phone] Glucose 2019-03-12 13:46:07 Test Item Value Reference Range Interpretation Comments Glucose POC (test 173 mg/dL 74-106 H POC Glucos e used on code = Glucose POC) critical ly ill patients is considered " off-label use" and has no t been cleared or appr rosa elena by the FDA. Altern ative testing methods should be considered i f the patient is crit ically ill. Lipid [id number] 07:04:11 Test Item Value Reference Range Interpretation Comments Cholesterol Total (test code = 135 mg/dL 0-200 Cholesterol Total) Triglycerides (test code = 129 mg/dL 2-150 Triglycerides) HDL (test code = HDL) 40 mg/dL 45-65 L Chol/HDL (test code = Chol/HDL) 3 ratio 0-5 Lipid [id number] 07:04:11 Test Item Value Reference Range Interpretation Comments Cholesterol Total (test 135 mg/dL 0-200 code = Cholesterol Total) Triglycerides (test 129 mg/dL 2-150 code = Triglycerides) HDL (test code = HDL) 40 mg/dL 45-65 L LDL (test code = LDL) 69 mg/dL 1-99 The eq uation being used in this calculation is LDL = (Chol - HDL) - (Trig / 5) Chol/HDL (test code = 3 ratio 0-5 Chol/HDL) POC [id number] 05:56:59 Test Item Value Reference Range Interpretation Comments Glucose POC (test 140 mg/dL 74-106 H POC Glucos e used on code = Glucose POC) critical ly ill patients is considered " off-label use" and has no t been cleared or appr rosa elena by the FDA. Altern ative testing methods should be considered i f the patient is crit ically ill. POC [id number] 20:55:24 Test Item Value Reference Range Interpretation Comments Glucose POC (test 132 mg/dL 74-106 H POC Glucos e used on code = Glucose POC) critical ly ill patients is considered " off-label use" and has no t been cleared or appr rosa elena by the FDA. Altern ative testing methods should be considered i f the patient is crit ically ill. POC [id number] 16:08:50 Test Item Value Reference Range Interpretation Comments Glucose POC (test 168 mg/dL 74-106 H POC Glucos e used on code = Glucose POC) critical ly ill patients is considered " off-label use" and has no t been cleared or appr rosa elena by the FDA. Altern ative testing methods should be considered i f the patient is crit ically ill. POC [id number] 10:29:45 Test Item Value Reference Range Interpretation Comments Glucose POC (test 141 mg/dL 74-106 H POC Glucos e used on code = Glucose POC) critical ly ill patients is considered " off-label use" and has no t been cleared or appr rosa elena by the FDA. Altern ative testing methods should be considered i f the patient is crit ically ill. Urine [id number] 09:19:47 Test Item Value Reference Range Interpretation Comments ORGANISM (test code = Providencia stuartii ORGANISM) Amikacin (test code = S Amik) Ampicillin (test code = R Amp) Ampicillin/Sulbactam R (test code = Amp/Sul) Cefazolin (test code = R Cefaz) Cefepime (test code = S Cefep) Cefoxitin (test code = S Cefox) Ceftazidime (test code = S Ceftaz) Ceftriaxone (test code = S Ceftri) Ciprofloxacin (test code R = Cipro) Gentamicin (test code = R Gent) Levofloxacin (test code R = Levo) Meropenem (test code = S Rodrigue) Nitrofurantoin (test R code = Nitro) Piperacillin/Tazobactam S (test code = Pip/Raji) Tobramycin (test code = R Tobra) Trimethoprim/Sulfa (test S code = SXT) Final Report (test code >=100,000 cfu/ml = Final Report) Providencia stuartii C Urine Added by [id number]_RFLXComprehensive Metabolic [id number] 07:17:12 Test Item Value Reference Range Interpretation Comments Sodium Level (test code = 138 mmol/L 136-145 Sodium Level) Potassium Level (test code = 4.2 mmol/L 3.5-5.1 Potassium Level) Chloride Level (test code = 99 mmol/L 98-107 Chloride Level) CO2 (test code = CO2) 32 mmol/L 21-32 Anion Gap (test code = Anion 7 mmol/L 7-16 Gap) BUN (test code = BUN) 18 mg/dL 7-18 Creatinine Level (test code = 0.6 mg/dL 0.7-1.3 L Creatinine Level) Glucose Level (test code = 131 mg/dL 74-106 H Glucose Level) Calcium Level (test code = 8.2 mg/dL 8.5-10.1 L Calcium Level) Alk Phos (test code = Alk Phos) 62 IntlUnit/L 45-122 Bilirubin Total (test code = 0.3 mg/dL 0.2-1.0 Bilirubin Total) Albumin Level (test code = 2.7 g/dL 3.4-5.0 L Albumin Level) Protein Total (test code = 5.9 g/dL 6.4-8.2 L Protein Total) ALT (test code = ALT) 14 IntlUnit/L 12-78 AST (test code = AST) 10 IntlUnit/L 10-34 Comprehensive Metabolic [id number] 07:17:12 Test Item Value Reference Range Interpretation Comments Sodium Level (test code = 138 mmol/L 136-145 Sodium Level) Potassium Level (test code 4.2 mmol/L 3.5-5.1 = Potassium Level) Chloride Level (test code 99 mmol/L 98-107 = Chloride Level) CO2 (test code = CO2) 32 mmol/L 21-32 Anion Gap (test code = 7 mmol/L 7-16 Anion Gap) BUN (test code = BUN) 18 mg/dL 7-18 Creatinine Level (test 0.6 mg/dL 0.7-1.3 L code = Creatinine Level) Glucose Level (test code = 131 mg/dL 74-106 H Glucose Level) Calcium Level (test code = 8.2 mg/dL 8.5-10.1 L Calcium Level) Alk Phos (test code = Alk 62 IntlUnit/L 45-122 Phos) Bilirubin Total (test code 0.3 mg/dL 0.2-1.0 = Bilirubin Total) Albumin Level (test code = 2.7 g/dL 3.4-5.0 L Albumin Level) Protein Total (test code = 5.9 g/dL 6.4-8.2 L Protein Total) ALT (test code = ALT) 14 IntlUnit/L 12-78 AST (test code = AST) 10 IntlUnit/L 10-34 eGFR AA (test code = eGFR >60 mL/min/1.73 m2 N AA) Comprehensive Metabolic [id number] 07:17:12 Test Item Value Reference Range Interpretation Comments Sodium Level (test code = 138 mmol/L 136-145 Sodium Level) Potassium Level (test code 4.2 mmol/L 3.5-5.1 = Potassium Level) Chloride Level (test code 99 mmol/L 98-107 = Chloride Level) CO2 (test code = CO2) 32 mmol/L 21-32 Anion Gap (test code = 7 mmol/L 7-16 Anion Gap) BUN (test code = BUN) 18 mg/dL 7-18 Creatinine Level (test 0.6 mg/dL 0.7-1.3 L code = Creatinine Level) Glucose Level (test code = 131 mg/dL 74-106 H Glucose Level) Calcium Level (test code = 8.2 mg/dL 8.5-10.1 L Calcium Level) Alk Phos (test code = Alk 62 IntlUnit/L 45-122 Phos) Bilirubin Total (test code 0.3 mg/dL 0.2-1.0 = Bilirubin Total) Albumin Level (test code = 2.7 g/dL 3.4-5.0 L Albumin Level) Protein Total (test code = 5.9 g/dL 6.4-8.2 L Protein Total) ALT (test code = ALT) 14 IntlUnit/L 12-78 AST (test code = AST) 10 IntlUnit/L 10-34 eGFR AA (test code = eGFR >60 mL/min/1.73 m2 N AA) eGFR Non-AA (test code = >60 mL/min/1.73 m2 N eGFR Non-AA) Complete Blood Count with [id number] 06:44:43 Test Item Value Reference Range Interpretation Comments WBC (test code = WBC) 7.0 x10 4.8-10.8 RBC (test code = RBC) 3.84 x10 4.60-6.20 L Hgb (test code = Hgb) 12.6 g/dL 14.0-18.0 L Hct (test code = Hct) 38.4 % 38.0-52.0 MCV (test code = MCV) 99.9 fL 80.0-95.0 H MCHC (test code = MCHC) 32.9 g/dL 31.0-36.0 RDW (test code = RDW) 16.7 % 11.5-14.5 H MCH (test code = MCH) 32.9 pg 26.0-32.0 H Platelets (test code = 249 x10 140-440 Platelets) MPV (test code = MPV) 8.3 fL 7.5-11.2 Slide Review (test code Auto N Resu lt created by = Slide Review) GL_SET_SLIDE _REVIEW_A UTO Automated [id number] 06:44:43 Test Item Value Reference Range Interpretation Comments Neutro Auto (test code = Neutro Auto) 73.3 % N Lymph Auto (test code = Lymph Auto) 15.9 % N Becker Auto (test code = Becker Auto) 8.1 % N Eos, Auto (test code = Eos, Auto) 2.1 % N Basophil Auto (test code = Basophil 0.6 % N Auto) Neutro Absolute (test code = Neutro 5.1 x10 2.7-7.3 Absolute) Lymph Absolute (test code = Lymph 1.1 x10 0.8-3.5 Absolute) Becker Absolute (test code = Becker 0.6 x10 0.3-0.9 Absolute) Eos Absolute (test code = Eos 0.1 x10 0.0-0.3 Absolute) Baso Absolute (test code = Baso 0.0 x10 0.0-0.1 Absolute) POC [id number] 05:49:49 Test Item Value Reference Range Interpretation Comments Glucose POC (test 129 mg/dL 74-106 H POC Glucos e used on code = Glucose POC) critical ly ill patients is considered " off-label use" and has no t been cleared or appr rosa elena by the FDA. Altern ative testing methods should be considered i f the patient is crit ically ill. Troponin [id number] 16:59:39 Test Item Value Reference Range Interpretation Comments Troponin-I (test 0.467 ng/mL 0.010-0.040 DENILSONB/ERIN KILGORE code = Troponin-I) RN/2 019 16:59:35 CDT/ST CT Angio [id number] 15:03:22Patient: NITO MCKEON Date/Time03/10/2019 14:46 CDTReason for ExamChest painReportCTA CHEST WITH 3-D AND MULTIPLANAR REFORMATS:CLINICAL HISTOR Y: Chest pain.Radiation dose lowering techniques were used with automated exposure control, adjusting the mA according to patient's size.COMPARISON: One view chest dated March 10, 2019.Serial images were started superior to the thoracic inlet and extended inferiorly below the diaphragm during the rapid infusion of 100 mL of Omnipaque 300. Multiplanar are reformats were obtained. No intraluminal filling defects were identified to suggest pulmonary emboli. The thoracic aorta is normal in caliber. There is no aneurysm, or dissection. No abnormal size nodes are seen within the danna, or within the mediastinum. There are coronary artery calcifications. No pulmonary nodules are identified. Right basilaratelectasis is noted. Mild cardiac enlargement is identified. There are no pericardial effusions. Images were extended inferiorly below the diaphragm. Adrenal glands are normal in contour.IMPRESSION:1.No pulmonary emboli.2. Right basilar atelectasis.3. Coronary artery calcifications. Final Dictated by: MD James Arthur LDictated DT/TM: 03/10/2019 2:59 pmSigned by: MD James Arthur LSigned (Electronic Signature): 03/10/2019 3:03 pmPOC Troponin I 2019-03-10 14:06:15 Test Item Value Reference Range Interpretation Comments Troponin I, POC 0.31 ng/mL 0.00-0.08 0.6-1.9 ng/m l may indicate (test code = Myocardial Whit ge2.0 ng/ml Troponin I, POC) is the diag nostic cutoff for Myocardial Damage. When diagnosing AMI, look for the serial rise and fall of Troponi Fina conditions resu lting in myocardial cell damage can potentiallyincr ease cardiac Troponin I leve ls. These conditions incl ude, butare not limited to: angina, unstable angina , congestive heart faillure, myocarditis, cardiac surgery , or invasive testin g.Serial sampling as jeanine ropriate is recommended to detect the temporalrise an d fall of troponin levels .For diagnostic purp oses, the Troponin I resu lts should be used inconju nction with other informati on such as EKG, CKMB, clinicalobserva tions, symptons, etc. Lipase [id number] 11:47:20 Test Item Value Reference Range Interpretation Comments Lipase Level (test code = 95 IntlUnit/L 73-393 Lipase Level) Comprehensive Metabolic [id number] 11:46:17 Test Item Value Reference Range Interpretation Comments Sodium Level (test code = 137 mmol/L 136-145 Sodium Level) Potassium Level (test code = 4.1 mmol/L 3.5-5.1 Potassium Level) Chloride Level (test code = 98 mmol/L 98-107 Chloride Level) CO2 (test code = CO2) 31 mmol/L 21-32 Anion Gap (test code = Anion 8 mmol/L 7-16 Gap) BUN (test code = BUN) 16 mg/dL 7-18 Creatinine Level (test code = 0.6 mg/dL 0.7-1.3 L Creatinine Level) Glucose Level (test code = 185 mg/dL 74-106 H Glucose Level) Calcium Level (test code = 8.5 mg/dL 8.5-10.1 Calcium Level) Alk Phos (test code = Alk Phos) 69 IntlUnit/L 45-122 Bilirubin Total (test code = 0.2 mg/dL 0.2-1.0 Bilirubin Total) Albumin Level (test code = 2.9 g/dL 3.4-5.0 L Albumin Level) Protein Total (test code = 6.5 g/dL 6.4-8.2 Protein Total) ALT (test code = ALT) 15 IntlUnit/L 12-78 AST (test code = AST) 12 IntlUnit/L 10-34 Creatine [id number] 11:46:17 Test Item Value Reference Range Interpretation Comments CK (test code = CK) 34 IntlUnit/L 39-308 L Comprehensive Metabolic [id number] 11:46:17 Test Item Value Reference Range Interpretation Comments Sodium Level (test code = 137 mmol/L 136-145 Sodium Level) Potassium Level (test code 4.1 mmol/L 3.5-5.1 = Potassium Level) Chloride Level (test code 98 mmol/L 98-107 = Chloride Level) CO2 (test code = CO2) 31 mmol/L 21-32 Anion Gap (test code = 8 mmol/L 7-16 Anion Gap) BUN (test code = BUN) 16 mg/dL 7-18 Creatinine Level (test 0.6 mg/dL 0.7-1.3 L code = Creatinine Level) Glucose Level (test code = 185 mg/dL 74-106 H Glucose Level) Calcium Level (test code = 8.5 mg/dL 8.5-10.1 Calcium Level) Alk Phos (test code = Alk 69 IntlUnit/L 45-122 Phos) Bilirubin Total (test code 0.2 mg/dL 0.2-1.0 = Bilirubin Total) Albumin Level (test code = 2.9 g/dL 3.4-5.0 L Albumin Level) Protein Total (test code = 6.5 g/dL 6.4-8.2 Protein Total) ALT (test code = ALT) 15 IntlUnit/L 12-78 AST (test code = AST) 12 IntlUnit/L 10-34 eGFR AA (test code = eGFR >60 mL/min/1.73 m2 N AA) Creatine Kinase MB [id number] 11:46:17 Test Item Value Reference Range Interpretation Comments CKMB (test code = CKMB) <1.0 ng/mL 0.5-3.6 CKMB % (test code = CKMB %) <2.9 % 0.0-5.0 Comprehensive Metabolic [id number] 11:46:17 Test Item Value Reference Range Interpretation Comments Sodium Level (test code = 137 mmol/L 136-145 Sodium Level) Potassium Level (test code 4.1 mmol/L 3.5-5.1 = Potassium Level) Chloride Level (test code 98 mmol/L 98-107 = Chloride Level) CO2 (test code = CO2) 31 mmol/L 21-32 Anion Gap (test code = 8 mmol/L 7-16 Anion Gap) BUN (test code = BUN) 16 mg/dL 7-18 Creatinine Level (test 0.6 mg/dL 0.7-1.3 L code = Creatinine Level) Glucose Level (test code = 185 mg/dL 74-106 H Glucose Level) Calcium Level (test code = 8.5 mg/dL 8.5-10.1 Calcium Level) Alk Phos (test code = Alk 69 IntlUnit/L 45-122 Phos) Bilirubin Total (test code 0.2 mg/dL 0.2-1.0 = Bilirubin Total) Albumin Level (test code = 2.9 g/dL 3.4-5.0 L Albumin Level) Protein Total (test code = 6.5 g/dL 6.4-8.2 Protein Total) ALT (test code = ALT) 15 IntlUnit/L 12-78 AST (test code = AST) 12 IntlUnit/L 10-34 eGFR AA (test code = eGFR >60 mL/min/1.73 m2 N AA) eGFR Non-AA (test code = >60 mL/min/1.73 m2 N eGFR Non-AA) Pro B Natriuretic [id number] 11:43:17 Test Item Value Reference Range Interpretation Comments NT-proBNP (test 309 pg/mL 0-125 H < 300 pg/ml - heart code = NT-proBNP) failure un likelyAge less than 50 years, > 450 pg/ml - heart f ailure lilkelyAge 50 - 75 years, > 900 pg/ml - h eart failure likelyA ge greater than 75 years, > 1800 pg/ml - heart f ailure likely D-Dimer [id number] 11:26:15 Test Item Value Reference Range Interpretation Comments D Dimer, .96 mg/L FEU .19-.50 H The D-Dimer ass ay is (Quant.) (test intended for use as an code = D Dimer, aid in the d iagnosis of (Quant.)) Deep Vein Throm bosis(DVT) or Pulmonary Em bolism(PE) except in patie nts with the following: *Therapeutic do se anticoagulant t herapy for >24 hours *Fibrinolytic t herapy within previous 7 days *Trauma or bassam wilfredo within previous 4 weeks *Disseminated malignancies *Aortic aneurysm *S epsis, severe infectio ns, pneumonia, javier re skin infections *Cirrhosis * A cut-off value of <0.5 m g/L FEU makes a diagnos is of DVT or PEunlikely. Complete Blood Count with [id number] 11:20:22 Test Item Value Reference Range Interpretation Comments WBC (test code = WBC) 8.9 x10 4.8-10.8 RBC (test code = RBC) 4.13 x10 4.60-6.20 L Hgb (test code = Hgb) 13.8 g/dL 14.0-18.0 L Hct (test code = Hct) 41.4 % 38.0-52.0 MCV (test code = MCV) 100.3 fL 80.0-95.0 H MCHC (test code = MCHC) 33.3 g/dL 31.0-36.0 RDW (test code = RDW) 16.6 % 11.5-14.5 H MCH (test code = MCH) 33.4 pg 26.0-32.0 H Platelets (test code = 253 x10 140-440 Platelets) MPV (test code = MPV) 7.9 fL 7.5-11.2 Slide Review (test code Auto N Resu lt created by = Slide Review) GL_SET_SLIDE _REVIEW_A UTO Automated [id number] 11:20:22 Test Item Value Reference Range Interpretation Comments Neutro Auto (test code = Neutro Auto) 84.0 % N Lymph Auto (test code = Lymph Auto) 9.2 % N Becker Auto (test code = Becker Auto) 5.3 % N Eos, Auto (test code = Eos, Auto) 1.0 % N Basophil Auto (test code = Basophil 0.5 % N Auto) Neutro Absolute (test code = Neutro 7.5 x10 2.7-7.3 H Absolute) Lymph Absolute (test code = Lymph 0.8 x10 0.8-3.5 Absolute) Becker Absolute (test code = Becker 0.5 x10 0.3-0.9 Absolute) Eos Absolute (test code = Eos 0.1 x10 0.0-0.3 Absolute) Baso Absolute (test code = Baso 0.0 x10 0.0-0.1 Absolute) Urinalysis [id number] 11:18:53 Test Item Value Reference Range Interpretation Comments UA WBC (test code = UA WBC) >100 /HPF 0-5 A UA RBC (test code = UA RBC) 0-4 /HPF 0-4 UA Bacteria (test code = UA 3+ /HPF Negative A Bacteria) UA Squam Epithelial (test code = UA 0-20 /LPF 0-20 Squam Epithelial) UA Hyal Cast (test code = UA Hyal 1-6 /LPF 1-6 Cast) Urinalysis with Culture, if [id number] 11:18:52 Test Item Value Reference Range Interpretation Comments UA Color (test code = UA Yellow Yellow Color) UA Appear (test code = Cloudy Clear A UA Appear) UA pH (test code = UA 5.0 pH) UA Spec Grav (test code 1.018 SGU 1.005-1.030 = UA Spec Grav) UA Glucose (test code = 1+ Negative A UA Glucose) UA Bili (test code = UA Negative Negative Bili) UA Ketones (test code = Negative Negative UA Ketones) UA Blood (test code = UA Trace Negative A Blood) UA Protein (test code = Negative Negative UA Protein) UA Urobilinogen (test 0.2 EU/dL >0.2 code = UA Urobilinogen) UA Nitrite (test code = Positive Negative A UA Nitrite) UA Leuk Est (test code = 3+ Negative A UA Leuk Est) UA Micro Ind? (test code Indicated Not Indicated A Re sult created by = UA Micro Ind?) rule GL_SET_UA_MICRO _IND POC Troponin [id number] 10:53:21 Test Item Value Reference Range Interpretation Comments Troponin I, POC 0.15 ng/mL 0.00-0.08 0.6-1.9 ng/m l may indicate (test code = Myocardial Whit ge2.0 ng/ml Troponin I, POC) is the diag nostic cutoff for Myocardial Damage. When diagnosing AMI, look for the serial rise and fall of Troponi Fina conditions resu lting in myocardial cell damage can potentiallyincr ease cardiac Troponin I leve ls. These conditions incl ude, butare not limited to: angina, unstable angina , congestive heart faillure, myocarditis, cardiac surgery , or invasive testin g.Serial sampling as jeanine ropriate is recommended to detect the temporalrise an d fall of troponin levels .For diagnostic purp oses, the Troponin I resu lts should be used inconju nction with other informati on such as EKG, CKMB, clinicalobserva tions, symptons, etc. XR Chest 1 View [id number] 10:02:21Patient: NITO MCKEON Date/Time03/10/2019 09:51 CDTReason for ExamChest painReportPORTABLE AP CHEST: 0943 HOURS.CLINICAL HISTORY: Chest pain.Diabetes and hypertension. Shortness of breath.COMPARISON: February 16, 2019.The cardiac silhouette sizeand pulmonary vascularity are normal. No infiltrates and no pleural effusions are identified. Bibasilar atelectasis. Elevated right hemidiaphragm is noted unchanged. There are osteoarthritic changes within both shoulders.IMPRESSION:1. No radiographic findings of acute cardiopulmonary disease and no interval change is noted from February 16, 2019. Final Dictated by: MD James Arthur LDictated DT/TM: 03/10/2019 10:00 amSigned by: MD James Arthur LSigned (Electronic Signature): 03/10/201910:02 amWound Culture w/ Gram [id number] 19:48:51 Test Item Value Reference Range Interpretation Comments Final Report (test See culture # code = Final Report) [id number] Gram Stain Report Many Gram Negative (test code = Gram Bacilli Many Gram Stain Report) Positive Cocci POC [id number] 11:05:31 Test Item Value Reference Range Interpretation Comments Glucose POC (test 248 mg/dL 74-106 H POC Glucos e used on code = Glucose POC) critical ly ill patients is considered " off-label use" and has no t been cleared or appr rosa elena by the FDA. Altern ative testing methods should be considered i f the patient is crit ically ill. POC [id number] 05:48:38 Test Item Value Reference Range Interpretation Comments Glucose POC (test 195 mg/dL 74-106 H POC Glucos e used on code = Glucose POC) critical ly ill patients is considered " off-label use" and has no t been cleared or appr rosa elena by the FDA. Altern ative testing methods should be considered i f the patient is crit ically ill. POC [id number] 21:28:20 Test Item Value Reference Range Interpretation Comments Glucose POC (test 230 mg/dL 74-106 H POC Glucos e used on code = Glucose POC) critical ly ill patients is considered " off-label use" and has no t been cleared or appr rosa elena by the FDA. Altern ative testing methods should be considered i f the patient is crit ically ill. Clostridium difficile [id number] 18:18:24 Test Item Value Reference Range Interpretation Comments CDIFF PCR (test NEGATIVE Negative Error 5006 P ost-run code = CDIFF PCR) analysis e rror Error 5006: [Toxin B] probe check failed. Probe c heck value of 470 for read ing number 1 was above the m aximum of 282 [id number] 5006 Post-run a nalysis error Error 500 6: [Toxin B] probe check joel led. Probe check value of 503 for reading number 3 was above the maximum of 282 [id number] POC [id number] 17:00:07 Test Item Value Reference Range Interpretation Comments Glucose POC (test 192 mg/dL 74-106 H POC Glucos e used on code = Glucose POC) critical ly ill patients is considered " off-label use" and has no t been cleared or appr rosa elena by the FDA. Altern ative testing methods should be considered i f the patient is crit ically ill. Wound Culture w/ Gram [id number] 13:52:35 Test Item Value Reference Range Interpretation Comments ORGANISM (test code = Staphylococcus ORGANISM) simulans Ciprofloxacin (test code S = Cipro) Gentamicin (test code = S Gent) Levofloxacin (test code S = Levo) Nitrofurantoin (test S code = Nitro) Trimethoprim/Sulfa (test S code = SXT) Benzylpenicillin (test R code = Kishor) Clindamycin (test code = R Clinda) Erythromycin (test code I = Eryth) Linezolid (test code = S Linez) Moxifloxacin (test code S = Moxi) Oxacillin (test code = S Ox) Rifampin (test code = S Rif) Tetracycline (test code S = Tetra) Vancomycin (test code = S Vanc) ORGANISM (test code = Proteus mirabilis ORGANISM2) Amikacin (test code = S Amik) Ampicillin (test code = S Amp) Ampicillin/Sulbactam S (test code = Amp/Sul) Cefazolin (test code = S Cefaz) Cefepime (test code = S Cefep) Cefoxitin (test code = S Cefox) Ceftazidime (test code = S Ceftaz) Ceftriaxone (test code = S Ceftri) Ciprofloxacin (test code S = Cipro) Gentamicin (test code = S Gent) Levofloxacin (test code S = Levo) Meropenem (test code = S Rodrigue) Nitrofurantoin (test R code = Nitro) Piperacillin/Tazobactam S (test code = Pip/Raji) Tobramycin (test code = S Tobra) Trimethoprim/Sulfa (test S code = SXT) Final Report (test code Heavy growth = Final Report) Staphylococcus simulans Heavy growth Proteus mirabilis Gram Stain Report (test Many Gram Positive code = Gram Stain Cocci Many Gram Report) Negative Bacilli POC [id number] 12:56:36 Test Item Value Reference Range Interpretation Comments Glucose POC (test 196 mg/dL 74-106 H POC Glucos e used on code = Glucose POC) critical ly ill patients is considered " off-label use" and has no t been cleared or appr rosa elena by the FDA. Altern ative testing methods should be considered i f the patient is crit ically ill. POC [id number] 09:05:17 Test Item Value Reference Range Interpretation Comments Glucose POC (test 258 mg/dL 74-106 H POC Glucos e used on code = Glucose POC) critical ly ill patients is considered " off-label use" and has no t been cleared or appr rosa elena by the FDA. Altern ative testing methods should be considered i f the patient is crit ically ill. Vancomycin Level [id number] 07:12:17 Test Item Value Reference Range Interpretation Comments Vanco Tr (test code = Vanco Tr) 8.1 mcg/mL 10.0-20.0 L POC [id number] 00:54:01 Test Item Value Reference Range Interpretation Comments Glucose POC (test 227 mg/dL 74-106 H POC Glucos e used on code = Glucose POC) critical ly ill patients is considered " off-label use" and has no t been cleared or appr rosa elena by the FDA. Altern ative testing methods should be considered i f the patient is crit ically ill. Wound Culture w/ Gram [id number] 04:35:47 Test Item Value Reference Range Interpretation Comments ORGANISM (test code = Staphylococcus aureus ORGANISM) Ciprofloxacin (test code R = Cipro) Gentamicin (test code = S Gent) Levofloxacin (test code I = Levo) Nitrofurantoin (test S code = Nitro) Trimethoprim/Sulfa (test R code = SXT) Benzylpenicillin (test R code = Kishor) Clindamycin (test code = S Clinda) Erythromycin (test code R = Eryth) Linezolid (test code = S Linez) Moxifloxacin (test code S = Moxi) Oxacillin (test code = S Ox) Rifampin (test code = S Rif) Tetracycline (test code S = Tetra) Vancomycin (test code = S Vanc) Final Report (test code Heavy growth = Final Report) Staphylococcus aureus Gram Stain Report (test Many Gram Positive code = Gram Stain Cocci Report) RT CALFWound Culture w/ Gram [id number] 04:33:46 Test Item Value Reference Range Interpretation Comments ORGANISM (test code = Staphylococcus ORGANISM) simulans Ciprofloxacin (test code S = Cipro) Gentamicin (test code = S Gent) Levofloxacin (test code S = Levo) Nitrofurantoin (test S code = Nitro) Trimethoprim/Sulfa (test S code = SXT) Benzylpenicillin (test R code = Kishor) Clindamycin (test code = R Clinda) Erythromycin (test code I = Eryth) Linezolid (test code = S Linez) Moxifloxacin (test code S = Moxi) Oxacillin (test code = S Ox) Rifampin (test code = S Rif) Tetracycline (test code S = Tetra) Vancomycin (test code = S Vanc) ORGANISM (test code = Proteus mirabilis ORGANISM2) Amikacin (test code = S Amik) Ampicillin (test code = S Amp) Ampicillin/Sulbactam S (test code = Amp/Sul) Cefazolin (test code = S Cefaz) Cefepime (test code = S Cefep) Cefoxitin (test code = S Cefox) Ceftazidime (test code = S Ceftaz) Ceftriaxone (test code = S Ceftri) Ciprofloxacin (test code S = Cipro) Gentamicin (test code = S Gent) Levofloxacin (test code S = Levo) Meropenem (test code = S Rodrigue) Nitrofurantoin (test R code = Nitro) Piperacillin/Tazobactam S (test code = Pip/Raji) Tobramycin (test code = S Tobra) Trimethoprim/Sulfa (test S code = SXT) Final Report (test code Heavy growth = Final Report) Staphylococcus simulans Heavy growth Proteus mirabilis POC [id number] 21:25:36 Test Item Value Reference Range Interpretation Comments Glucose POC (test 275 mg/dL 74-106 H POC Glucos e used on code = Glucose POC) critical ly ill patients is considered " off-label use" and has no t been cleared or appr rosa elena by the FDA. Altern ative testing methods should be considered i f the patient is crit ically ill. Wound Culture w/ Gram [id number] 23:57:56See culture # [id number] Urinalysis with Culture, if [id number] 17:21:15 Test Item Value Reference Range Interpretation Comments UA Color (test code = Yellow Yellow UA Color) UA Appear (test code = Clear Clear UA Appear) UA pH (test code = UA 7.0 pH) UA Spec Grav (test 1.009 SGU 1.005-1.030 code = UA Spec Grav) UA Glucose (test code 3+ Negative A = UA Glucose) UA Bili (test code = Negative Negative UA Bili) UA Ketones (test code Trace Negative A = UA Ketones) UA Blood (test code = Negative Negative UA Blood) UA Protein (test code Negative Negative = UA Protein) UA Urobilinogen (test 0.2 EU/dL >0.2 code = UA Urobilinogen) UA Nitrite (test code Negative Negative = UA Nitrite) UA Leuk Est (test code Negative Negative = UA Leuk Est) UA Micro Ind? (test Not Indicated Not Indicated Result created by code = UA Micro Ind?) rule GL_SET_UA_MICRO _IN D Comprehensive Metabolic [id number] 11:25:10 Test Item Value Reference Range Interpretation Comments Sodium Level (test code = 133 mmol/L 136-145 L Sodium Level) Potassium Level (test code = 3.3 mmol/L 3.5-5.1 L Potassium Level) Chloride Level (test code = 98 mmol/L 98-107 Chloride Level) CO2 (test code = CO2) 27 mmol/L 21-32 Anion Gap (test code = Anion 8 mmol/L 7-16 Gap) BUN (test code = BUN) 14 mg/dL 7-18 Creatinine Level (test code = 0.7 mg/dL 0.7-1.3 Creatinine Level) Glucose Level (test code = 156 mg/dL 74-106 H Glucose Level) Calcium Level (test code = 8.9 mg/dL 8.5-10.1 Calcium Level) Alk Phos (test code = Alk Phos) 62 IntlUnit/L 45-122 Bilirubin Total (test code = 0.4 mg/dL 0.2-1.0 Bilirubin Total) Albumin Level (test code = 3.2 g/dL 3.4-5.0 L Albumin Level) Protein Total (test code = 7.7 g/dL 6.4-8.2 Protein Total) ALT (test code = ALT) 12 IntlUnit/L 12-78 AST (test code = AST) 16 IntlUnit/L 10-34 Comprehensive Metabolic [id number] 11:25:10 Test Item Value Reference Range Interpretation Comments Sodium Level (test code = 133 mmol/L 136-145 L Sodium Level) Potassium Level (test code 3.3 mmol/L 3.5-5.1 L = Potassium Level) Chloride Level (test code 98 mmol/L 98-107 = Chloride Level) CO2 (test code = CO2) 27 mmol/L 21-32 Anion Gap (test code = 8 mmol/L 7-16 Anion Gap) BUN (test code = BUN) 14 mg/dL 7-18 Creatinine Level (test 0.7 mg/dL 0.7-1.3 code = Creatinine Level) Glucose Level (test code = 156 mg/dL 74-106 H Glucose Level) Calcium Level (test code = 8.9 mg/dL 8.5-10.1 Calcium Level) Alk Phos (test code = Alk 62 IntlUnit/L 45-122 Phos) Bilirubin Total (test code 0.4 mg/dL 0.2-1.0 = Bilirubin Total) Albumin Level (test code = 3.2 g/dL 3.4-5.0 L Albumin Level) Protein Total (test code = 7.7 g/dL 6.4-8.2 Protein Total) ALT (test code = ALT) 12 IntlUnit/L 12-78 AST (test code = AST) 16 IntlUnit/L 10-34 eGFR AA (test code = eGFR >60 mL/min/1.73 m2 N AA) Comprehensive Metabolic [id number] 11:25:10 Test Item Value Reference Range Interpretation Comments Sodium Level (test code = 133 mmol/L 136-145 L Sodium Level) Potassium Level (test code 3.3 mmol/L 3.5-5.1 L = Potassium Level) Chloride Level (test code 98 mmol/L 98-107 = Chloride Level) CO2 (test code = CO2) 27 mmol/L 21-32 Anion Gap (test code = 8 mmol/L 7-16 Anion Gap) BUN (test code = BUN) 14 mg/dL 7-18 Creatinine Level (test 0.7 mg/dL 0.7-1.3 code = Creatinine Level) Glucose Level (test code = 156 mg/dL 74-106 H Glucose Level) Calcium Level (test code = 8.9 mg/dL 8.5-10.1 Calcium Level) Alk Phos (test code = Alk 62 IntlUnit/L 45-122 Phos) Bilirubin Total (test code 0.4 mg/dL 0.2-1.0 = Bilirubin Total) Albumin Level (test code = 3.2 g/dL 3.4-5.0 L Albumin Level) Protein Total (test code = 7.7 g/dL 6.4-8.2 Protein Total) ALT (test code = ALT) 12 IntlUnit/L 12-78 AST (test code = AST) 16 IntlUnit/L 10-34 eGFR AA (test code = eGFR >60 mL/min/1.73 m2 N AA) eGFR Non-AA (test code = >60 mL/min/1.73 m2 N eGFR Non-AA) Complete Blood Count with [id number] 11:02:24 Test Item Value Reference Range Interpretation Comments WBC (test code = WBC) 5.7 x10 4.8-10.8 RBC (test code = RBC) 4.25 x10 4.60-6.20 L Hgb (test code = Hgb) 13.9 g/dL 14.0-18.0 L Hct (test code = Hct) 42.5 % 38.0-52.0 MCV (test code = MCV) 99.9 fL 80.0-95.0 H RDW (test code = RDW) 15.4 % 11.5-14.5 H MCHC (test code = MCHC) 32.8 g/dL 31.0-36.0 MCH (test code = MCH) 32.7 pg 26.0-32.0 H Platelets (test code = Platelets) 267 x10 140-440 MPV (test code = MPV) 7.4 fL 7.5-11.2 L Slide Review (test code = Slide Auto Review) Automated [id number] 11:02:24 Test Item Value Reference Range Interpretation Comments Neutro Auto (test code = Neutro Auto) 71.7 % N Lymph Auto (test code = Lymph Auto) 16.8 % N Becker Auto (test code = Becker Auto) 10.2 % N Eos, Auto (test code = Eos, Auto) 0.7 % N Basophil Auto (test code = Basophil 0.6 % N Auto) Neutro Absolute (test code = Neutro 4.1 x10 2.7-7.3 Absolute) Lymph Absolute (test code = Lymph 1.0 x10 0.8-3.5 Absolute) Becker Absolute (test code = Becker 0.6 x10 0.3-0.9 Absolute) Eos Absolute (test code = Eos 0.0 x10 0.0-0.3 Absolute) Baso Absolute (test code = Baso 0.0 x10 0.0-0.1 Absolute) XR Chest 1 View [id number] 10:52:34Patient: NITO MCKEON Date/Time01/17/2019 10:42 CDTReason for ExamChest painReportCHEST SINGLE VIEW: 1034 hours.COMPARISON: October 14, 2017.CLINICAL INFORMATION: Chest pain. Cellulitis.Cardiomediastinal structures are within normal limits. Nopleural fluid or pulmonary infiltrates are identified. There is elevation of the right hemidiaphragm. Osteoarthritic changes are seen within both shoulders.IMPRESSION:1. No radiographic findings of acute cardiopulmonary disease. Final Dictated by: MD James Arthur LDictated DT/TM: 01/17/2019 10:51 amSigned by: MD James Arthur LSigned (Electronic Signature): 01/17/2019 10:52 amXR CHEST 1 [id number] 05:45:24XR CHEST 1 VIEWDIAGNOSIS: Cough and shortness of breathThe heart and mediastinum are stable. A possible left lower lobe opacityhas developed since 03/28/2013. This could represent atelectasis and/orpneumonia. The remainder the chest is clear.IMPRESSION: Possible left lower lobe opacity developing since 03/28/2013.CT SPINE, LUMBAR WO [id number] 07:21:51History: Fall 2 days ago with right hip pain and limited range of motionCT scan of the lumbar spineMultiplanar reformatted images of the lumbar spine were obtained.There is a mild to moderate rotatory levoscoliosis. Moderate tosignificant diffuse endplate osteophytic spurring is demonstrated withmultilevel bridging osteophytes. Moderate to significant multilevelintervertebral disc space narrowing with vacuum disc effects are noted.No acute subluxations or fractures are noted. Moderate to significantnarrowing, sclerosis and hypertrophic spurring of the interarticularfacets more pronounced from the L3 through the S1 levels isdemonstrated. Multilevel posterior central disc bulging, ligamentumflavum hy pertrophy and associated lateral recess stenosis and centralcanal stenosis is identified more pronounced at the L3-4 and the L4-5levels. Extensive atheromatous plaque formation noted throughout thevisualized abdominal aorta and iliac arteries.IMPRESSION:1. No gross evidence of acute trauma2. Moderate to severe spondyloarthropathy changes3. Mild to moderate rotatory levoscoliosis4. Multilevel posterior central disc bulging, foraminal stenosis andcentral canal stenosis more pronounced at the L3-4 and L4-5 levels.Recommendation: Follow-up MRI scan of the lumbar spine may be helpfulfor further evaluationThe preliminary findings were faxed to the emergency room by Dr. Young 2024 hours.Radiation dose lowering techniques were used with automated exposurecontrol, adjusting the mA according to patient's size.XR HIP 2+V, UNI.WTRUMSAK-[id number] 05:18:48 XR HIP 2+V, UNI.COMPLETE-RIGHTDIAGNOSIS: Right hip injury in a fallSevere osteoarthritis is present.No fracture or dislocation is seen.Vascular calcifications are evident.IMPRESSION: Osteoarthritis right hip.The radiographic findings were faxed to the ER at [address] Glaser.XR PELVIS 1-2 [id number] 05:17:44XR PELVIS 1-2 VIEWSDIAGNOSIS: Pelvic injury in a fallNo pelvic fracture is seen. Osteoarthritis is noted in each hip and thelumbar spine. Extensive vascular calcifications are evident.IMPRESSION: Osteoarthritis bilateral hips.CT SPINE, CERVICAL WO [id number] 19:48:14Information: Fall 2 days ago with neck painCT scan of the cervical spine without contrastMultiplanarreformatted images of the cervical spine were obtainedwithout intravenous contrastThere is a mild rotatory dextroscoliosis and straightening of thecervical lordosis. There are no acute fractures, masses or subluxations.There is moderate intervertebral disc space narrowing with endplateosteophytic spurring and sclerosis noted from the C3-7 levels. There ismild narrowing, sclerosis and hypertrophic spurring of theinterarticular facets. No intracanal lesions are noted. The paraspinalsoft tissues are unremarkable. Nodular density within the left maxillarysinus consistent with a retention cyst is demonstrated. Diffuse carotidartery calcifications are noted.IMPRESSION:1. No evidence of acute trauma2. Moderate spondyloarthropathy changes3. Dextroscoliosis and straightening of the cervical lordosis consistentwith musculoskeletal spasm.Radiation dose lowering techniques were used with automated exposurecontrol, adjusting the mA according to patient's size.CT HEAD OR BRAIN WO [id number] 19:46:10Information: Fall 2 days ago with complaints of neck pain, headache.CT scan of the brain without contrastMultiplanar reformatted images of the head were obtained withoutintravenous contrastNo acute intracranial hemorrhage, gross masses, mass effects, midlineshifts or extra-axial collections are noted.There is mild diffuseprominence of the cortical sulci and the ventricular system. There areno focal bony calvarial abnormalities. Nodular density within the leftmaxillary sinus consistent with a retention cyst is noted.IMPRESSION:1. No evidence of acute intracranial trauma2. Mild age-appropriate generalized atrophy3. Left maxillary sinus retention cystRadiation dose lowering techniques were used accor ding to Li.
[2020-05-02] MEDS: INSULIN -REGULAR HUMAN 50 UNIT/0.5 ML ML SQ SCH ×2 (07:30→12:06)
[2020-05-02] MEDS: CLOPIDOGREL 75 MG TABLET PO SCH (08:14)
[2020-05-02] MEDS: ASPIRIN 81 MG CHEWABLE TABLET PO SCH (08:14)
[2020-05-02] MEDS ORDERED: MEDIHONEY 44 ML TOPICAL TUBE TOP SCH (09:00)
[2020-05-02] MEDS ORDERED: Enoxaparin 120 MG/0.8 ML SYR SQ SCH (09:00)
[2020-05-02] MEDS: NA CHLORIDE 0.9% 1,000 ML IV SCH (11:00)
[2020-05-02 14:01] VITALS: O2SAT 97
--- NOTE | 2020-05-03 21:16 | PN ---
Subjective: Mr. Marcano had an angioplasty and stent yesterday of the circumflex by Dr. Harrison. He had come in with a non-ST elevation myocardial infarction. He was found to have a completely occlude d LAD with collaterals from the RCA and the circumflex system. Overnight, he did very well. He delmar ined in sinus rhythm. Has no chest pain. No specific complaint. Objective: His examination revealed an adequate radial pulse without any hematoma after the catheter ization insertion site. Chest: Clear. Cardiac: Normal. Abdomen: Benign. Extremities: Revealed no clubbing, cyanosis, or edema. Assessment/plan: Mr. Marcano is status post circumflex stent, significant coronary artery disease. He can go home today with his home medication that does include aspirin, Lipitor, beta-michelle, and P lavix. We will see him in the office in 2 weeks. XAVIER/EVERETT Voice ID: [id number] Report ID: [id number]
[2020-05-04 14:51] VITALS: BP 149/94; TEMP 97.6
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
== END 2020-05-02 14:51 | DRG 246 ==
LOC: ER 19:42 → ERHOLD 22:01 → 2ND 22:27 → OBSVTOIN 04-30 10:45
PROVIDERS: ADMIT Hospitalist; ATTEND Hospitalist
PROC: 027034Z Dilation of Coronary Artery, One Artery with Drug-eluting Intraluminal Device, Percutaneous Approach (ICD-10-PCS; principal; 2020-05-01)
PROC: 4A023N7 Measurement of Cardiac Sampling and Pressure, Left Heart, Percutaneous Approach (ICD-10-PCS; 2020-05-01)
PROC: B2111ZZ Fluoroscopy of Multiple Coronary Arteries using Low Osmolar Contrast (ICD-10-PCS; 2020-05-01)
DX: I21.4 Non-ST elevation (NSTEMI) myocardial infarction (principal); I50.33 Acute on chronic diastolic (congestive) heart failure; K21.9 Gastro-esophageal reflux disease without esophagitis; E78.5 Hyperlipidemia, unspecified; I25.119 Atherosclerotic heart disease of native coronary artery with unspecified angina pectoris; E11.51 Type 2 diabetes mellitus with diabetic peripheral angiopathy without gangrene; E11.65 Type 2 diabetes mellitus with hyperglycemia; I11.0 Hypertensive heart disease with heart failure; E66.9 Obesity, unspecified; Z68.38 Body mass index [BMI] 38.0-38.9, adult; Z79.899 Other long term (current) drug therapy; Z79.4 Long term (current) use of insulin; Z79.02 Long term (current) use of antithrombotics/antiplatelets; Z79.82 Long term (current) use of aspirin; Z20.828 Contact with and (suspected) exposure to other viral communicable diseases
CPT/HCPCS: 36415; 71045; 80048; 80061; 80076; 81003; 82947; 83735; 83880; 84484; 85025; 85347; 85610; 85730; 93005; 93306; 93454; 96372; 96374; 99251; 99285; C1725; C1893; C9600; G0378; J0360; J1644; J1650; J2250; J3010; J3475; J3480; J7030; J7040; U0002; U0003

== ENCOUNTER 2021-01-11 13:33 | Observation (INO) | payer OTHER, MEDICAID ==
--- OUTSIDE RECORDS SUMMARY | 2021-01-11 13:39 | XMS REPORT | Continuity of Care Document ---
:1945 Author Organization [facility] t Address [address] [place] [address] Care Team Providers Name Role Phone Echo CESAR Primary Care Physician Unavailable ADRIAN HENRY M.D. Attending Clinician Unavailable ADRIAN HENRY M.D. Admitting Clinician Unavailable Advance Directives Directive Decision Effective Date Termination Date Comments Sour ce Yes N/A [facility] deedee Problems Condition Condition Condition Status Onset Resolution Last Treating Co mments Source Name Details Category Date Date Treatment Clinician Date Problem Condition NURA U S - [place] Chest pain Problem [facility] Obesity Problem [facility] Hypertensi Problem MIGUELINA TU on S [facility] Diabetes Problem [facility] mellitus S [facility] Chest wall Problem MIGUELINA TU pain S [facility] [place] Allergies, Adverse Reactions, Alerts Allergy Allergy Status Severity Reaction(s) Onset Inactive Treating Comm ents Source Name Type Date Date Clinician NO KNOWN Allergy Active [facility] ALLERGY to 2-[address] [facility] 00:00: Elizabe e 00 th Social History Social Habit Start Date Stop Date Quantity Comments Source Sex Assigned At 1945 [address] 00:00:00 00:00:00 [place] Smoking Status Start Date Stop Date Source Ex-smoker (finding) 2019-09-12 11:40:00 2019-09-12 11:40:00 [facility] [place] Medications Ordered Filled Start Stop Current Ordering Indication Dosage Frequency Signature Comments Components Source Medication Medication Date Date Medication? Clinician (SIG) Name Name Ibuprofen No 800mg CHRISTU (Motrin) 2-18 S - [facility] 800 Mg TAB 18:39: Lynette 00 Acetaminoph No 650mg [facility] en S St[facility] (Tylenol) Eliz[place] 325 Mg TAB th Allopurinol No 300mg [facility]RISTU (Zyloprim) S St. 300 Mg TAB Elizabe th Amlodipine No 10mg [facility] Besylate S St. (Norvasc) Elizabe 10 Mg TAB th Artificial No 2[drp] [facility] Tears S St. (Refresh Elizabe Tears Oph th Soln) 15 Ml DROPS Aspirin No 81mg CHRISTU (Aspirin S St. Chewable) Elizabe 81 Mg CHEW th Benzonatate No 100mg CHRISTU (Tessalon) S St. 100 Mg CAP Elizabe th Calcium/Vit No 600mg [facility]RI[facility]U hill D S St. (Calcium Elizabe 600 + Vit D th 400 Tablet) 600 [place] [address] (Vitamin Elizabe D3) th (Vitamin D (D3)) 5,000 Units CAP Clopidogrel No 75mg [facility] Bisulfate S St[facility] (Plavix) 75 Elizabe Mg TAB th Cyanocobala No [address] (Vitamin Elizabe B-12 Inj) th 1,000 Mcg/Ml SOLN Fluticasone No [address] (Flonase Elizabe 0.05% John th Spr) 16 Gm INHA Furosemide No 60mg [facility]U (Lasix) [address] Mg TAB Eliz[place] th Furosemide No 40mg [facility] (Lasix) [address] Mg TABLET Elizabe th Insulin No [address] (Lantus Elizabe U-100) 100 th Unit/1 Ml SOLN Insulin No [address] (Humalog Elizabe Kwikpen th U-100) 100 Unit/1 Ml INSULN.PEN Isosorbide No 240mg [facility] Mononitrate S St. (Imdur) 120 Elizabe Mg TABCR th Lisinopril No 40mg [facility]U (Zestril) S St. 40 Mg TAB Eliz[place] th Lovastatin No 40mg [facility]ST[facility] (Altoprev) S St. 40 Mg TABSR Elizabe th Magnesium No 500mg [facility] Oxide S [facility] [place] th Metformin No 1000mg [facility] Hcl S [facility]. (Glucophage Elizabe ) 1,000 Mg th TAB Metoprolol No 50mg [facility] Tartrate S St. (Lopressor) Elizabe 50 Mg TAB th Multivitami No [address] Therapeutic Elizabe (Theragener th ix, Theragran) 1 Tab TAB Nitroglycer No .4mg [facility]RI[facility] in S St[facility] (Nitrostat) Elizabe 0.4 Mg SUBL th Omeprazole No 20mg [facility]RI[facility]U (Prilosec) S St. 20 Mg CPDR Elizabe th Ondansetron No 4mg [facility] Hcl S St[facility] (Zofran) 4 Elizabe Mg TAB th Pioglitazon No 30mg [facility]U e Hcl S St. (Actos) 30 Elizabe Mg TAB th Polyethylen No [address] 3350 Eliz[place] (Miralax) th 17 Gm POWD.PACK Trazodone No 50mg [facility] Hcl S St[facility] (Desyrel) Elizabe 50 Mg TAB th Vital Signs Vital Name Observation Time Observation Value Comments Source Body Temperature 2019-09-12 11:32:00 98.3 [degF] [facility] Heart Rate 2019-09-12 11:32:00 80 /min [facility] Respiratory rate 2019-09-12 11:32:00 18 /min [facility] BP Systolic 2019-09-12 11:32:00 164 mm[Hg] [facility] BP Diastolic 2019-09-12 11:32:00 78 mm[Hg] [facility] Weight 2019-09-12 00:15:00 335 [lb_av] [facility] BMI (Body Mass 2019-09-12 00:15:00 39.7 kg/m2 [facility] [place] Body Temperature 2019-09-11 21:35:00 98.0 [degF] [facility] Heart Rate 2019-09-11 21:35:00 90 /min [facility] Respiratory rate 2019-09-11 21:35:00 20 /min [facility] [place] BP Systolic 2019-09-11 21:35:00 160 mm[Hg] [facility] [place] BP Diastolic 2019-09-11 21:35:00 70 mm[Hg] [facility] [place] Heart Rate 2019-09-11 20:42:00 90 /min [facility] [place] Respiratory rate 2019-09-11 20:42:00 20 /min [facility] [place] BP Systolic 2019-09-11 20:42:00 160 mm[Hg] [facility] [place] BP Diastolic 2019-09-11 20:42:00 70 mm[Hg] [facility] [place] Procedures Procedure Date / Time Performed Performing Clinician [facility] e X-ray of chest, single 2019-09-12 00:00:[address] [facility] [address] view [place] ECG 2019-09-12 00:00:[address] (electrocardiogram) [place] ECG 2019-09-11 00:00:[address] (electrocardiogram) [place] X-ray of chest, [facility] 2019-09-11 00:00:[address] [facility] [address] [facility] [place] Plan of Care Planned Activity Planned Date Details Comments Source Goal Patient referral [code = [facility] [place] [id number] ] Instructions Chest Pain That Is Not [facility] [place] Caused by the Heart (DC) Instructions Heart Healthy Diet [facility] Instructions Preventing Falls in the [facility] Older Adult Instructions High Blood Pressure (DC) [facility] Instructions Heart Disease in [facility] Diabetics (DC) Instructions [facility] Encounters Start End Encounter Admission Attending Care Care Encounter Source Date/Time Date/Time Type Type Clinicians Facility Department ID 2019-09-11 2019-09-12 Discharged BETTIE RYAN [id number] [facility] 23:29:00 17:26:[address] (obs) [place] Elizab e 2019-09-11 2019-09-11 Departed BETTIE RYAN [id number] [facility] 17:34:00 22:45:00 Emergency T[facility] [place] [address] Room Elizabe 2017-10-14 2017-10-14 Emergency E [facility] [id number] Medical 02:47:00 02:47:00 [facility] 2017-09-01 2017-09-01 Inpatient E [facility] [id number] Medical 23:54:00 23:54:00 [facility] Results Test Description Test Time Test Comments [...] Decreased Normal A XR Chest 1 View [id number] 11:25:11Patient: NITO MCKEON Date/Time01/07/2020 11:00 CDTReason for [...] MSigned (Electronic Signature): 01/07/2020 11:25 amComprehensive Metabolic [id number] 11:14:08 Test Item Value Reference Range Interpretation [...] = AST) 14 IntlUnit/L 10-34 Comprehensive Metabolic [id number] 11:14:08 Test Item Value Reference Range Interpretation [...] >60 mL/min/1.73 m2 N AA) Comprehensive Metabolic [id number] 11:14:08 Test Item Value Reference Range Interpretation [...] mL/min/1.73 m2 N eGFR Non-AA) POC Troponin [id number] 10:50:29 Test Item Value Reference Range Interpretation [...] tions, symptons, etc. Complete Blood Count with [id number] 10:47:17 Test Item Value Reference Range Interpretation [...] A N = Pos Count XN) Automated [id number] 10:47:17 Test Item Value Reference Range Interpretation Comments Neutro Auto (test code = Neutro Auto) 82.7 % N Lymph Auto (test code = Lymph Auto) 10.5 % N Walker Auto (test code = Walker Auto) 4.9 % N Eos, Auto (test code = Eos, Auto) 1.1 % N Basophil Auto (test code = Basophil 0.4 % N Auto) Neutro Absolute (test code = Neutro 7.0 x10 2.7-7.3 Absolute) Lymph Absolute (test code = Lymph 0.9 x10 0.8-3.5 Absolute) Walker Absolute (test code = Walker 0.4 x10 0.3-0.9 Absolute) Eos Absolute (test code = Eos 0.1 x10 0.0-0.3 Absolute) Baso Absolute (test code = Baso 0.0 x10 0.0-0.1 Absolute) IG [id number] 10:47:17 Test Item Value Reference Range Interpretation Comments IG (test code = IG) 0 % 0-5 IG Abs (test code = IG Abs) 0 x10 N POC [id number] 11:45:11 Test Item Value Reference Range Interpretation Comments Glucose POC (test 171 mg/dL 74-106 H POC Glucos e used on code = Glucose POC) critical ly ill patients is considered " off-label use" and has no t been cleared or appr rosa elena by the FDA. Altern ative testing methods should be considered i f the patient is crit ically ill. POC [id number] 06:07:12 Test Item Value Reference Range Interpretation Comments Glucose POC (test 114 mg/dL 74-106 H POC Glucos e used on code = Glucose POC) critical ly ill patients is considered " off-label use" and has no t been cleared or appr rosa elena by the FDA. Altern ative testing methods should be considered i f the patient is crit ically ill. POC [id number] 20:17:26 Test Item Value Reference Range Interpretation Comments Glucose POC (test 166 mg/dL 74-106 H POC Glucos e used on code = Glucose POC) critical ly ill patients is considered " off-label use" and has no t been cleared or appr rosa elena by the FDA. Altern ative testing methods should be considered i f the patient is crit ically ill. POC [id number] 16:41:29 Test Item Value Reference Range Interpretation Comments Glucose POC (test 134 mg/dL 74-106 H POC Glucos e used on code = Glucose POC) critical ly ill patients is considered " off-label use" and has no t been cleared or appr rosa elena by the FDA. Altern ative testing methods should be considered i f the patient is crit ically ill. POC [id number] 16:14:59 Test Item Value Reference Range Interpretation Comments Glucose POC (test 111 mg/dL 74-106 H POC Glucos e used on code = Glucose POC) critical ly ill patients is considered " off-label use" and has no t been cleared or appr rosa elena by the FDA. Altern ative testing methods should be considered i f the patient is crit ically ill. POC [id number] 06:02:12 Test Item Value Reference Range Interpretation Comments Glucose POC (test 113 mg/dL 74-106 H POC Glucos e used on code = Glucose POC) critical ly ill patients is considered " off-label use" and has no t been cleared or appr rosa elena by the FDA. Altern ative testing methods should be considered i f the patient is crit ically ill. POC [id number] 19:50:12 Test Item Value Reference Range Interpretation Comments Glucose POC (test 196 mg/dL 74-106 H POC Glucos e used on code = Glucose POC) critical ly ill patients is considered " off-label use" and has no t been cleared or appr rosa elena by the FDA. Altern ative testing methods should be considered i f the patient is crit ically ill. POC [id number] 17:11:12 Test Item Value Reference Range Interpretation Comments Glucose POC (test 141 mg/dL 74-106 H POC Glucos e used on code = Glucose POC) critical ly ill patients is considered " off-label use" and has no t been cleared or appr rosa elena by the FDA. Altern ative testing methods should be considered i f the patient is crit ically ill. POC [id number] 14:17:31 Test Item Value Reference Range Interpretation [...] crit ically ill. XR Chest 1 View [id number] 07:16:53Patient: NITO MCKEON Date/Time09/20/2019 20:05 CSTReason for ExamChest painReportChest single viewHISTORY: Mid chest painCOMPARISON: 08/31/2019TECHNIQUE: Portable AP view providedFINDINGS: Heart size and vascular markings within normal limits.Asymmetric elevation of the right hemidiaphragm unchanged. Linear atelectasis suspected in the left lung base. Bony thorax unchanged where visualized.IMPRESSION: No active cardiopulmonary process. Final Dictated by: MD Joana, Renay DT/TM: 09/21/2019 7:16 amSigned by: MD Joana, Nan (Electronic Signature): 09/21/2019 7:16 am Troponin [id number] 04:24:36 Test Item Value Reference Range Interpretation Comments Troponin-I (test 6.540 ng/mL 0.010-0.040 ctrb chip v an code = Troponin-I) 09/21/19 04:24:30 DENTIST/lrj Magnesium [id number] 04:12:15 Test Item Value Reference Range Interpretation Comments Magnesium Level (test code = 1.3 mg/dL 1.6-2.6 L Magnesium Level) Troponin [id number] 03:12:34 Test Item Value Reference Range Interpretation Comments Troponin-I (test 5.590 ng/mL 0.010-0.040 ctrb chip v an code = Troponin-I) 09/21/19 03:12:28 DENTIST/lrj Troponin [id number] 01:01:50 Test Item Value Reference Range Interpretation Comments Troponin-I (test 2.490 ng/mL 0.010-0.040 cteb chip v an code = Troponin-I) 09/21/19 01:01:44 DENTIST/lrj Troponin [id number] 21:34:15 Test Item Value Reference Range Interpretation Comments Troponin-I (test 0.133 ng/mL 0.010-0.040 ctrb chip v an code = Troponin-I) 09/20/19 21:34:09 DENTIST/lrj Comprehensive Metabolic [id number] 21:11:01 Test Item Value Reference Range Interpretation [...] code = AST) 15 IntlUnit/L 10-34 Creatine [id number] 21:11:01 Test Item Value Reference Range Interpretation Comments CK (test code = CK) 66 IntlUnit/L 39-308 Comprehensive Metabolic [id number] 21:11:01 Test Item Value Reference Range Interpretation [...] mL/min/1.73 m2 N AA) Pro B Natriuretic [id number] 21:11:01 Test Item Value Reference Range Interpretation [...] - heart f ailure likely Comprehensive Metabolic [id number] 21:11:01 Test Item Value Reference Range Interpretation [...] m2 N eGFR Non-AA) Prothrombin Time and [id number] 20:56:02 Test Item Value Reference Range Interpretation Comments Prothrombin Time (test code = 10.5 seconds 9.2-12.0 Prothrombin Time) INR (test code = INR) 1.0 ratio 0.9-1.2 D-Dimer [id number] 20:56:02 Test Item Value Reference Range Interpretation [...] diagnos is of DVT or PEunlikely. Urinalysis [id number] 20:50:42 Test Item Value Reference Range Interpretation [...] 1-6 Hyal Cast) Urinalysis with Culture, if [id number] 20:50:42 Test Item Value Reference Range Interpretation [...] rule GL_SET_UA_MICRO _IND Complete Blood Count with [id number] 20:42:05 Test Item Value Reference Range Interpretation [...] (test code = Slide Auto Review) Automated [id number] 20:42:05 Test Item Value Reference Range Interpretation Comments Neutro Auto (test code = Neutro Auto) 87.4 % N Lymph Auto (test code = Lymph Auto) 7.4 % N Walker Auto (test code = Walker Auto) 4.1 % N Eos, Auto (test code = Eos, Auto) 0.4 % N Basophil Auto (test code = Basophil 0.7 % N Auto) Neutro Absolute (test code = Neutro 6.9 x10 2.7-7.3 Absolute) Lymph Absolute (test code = Lymph 0.6 x10 0.8-3.5 L Absolute) Walker Absolute (test code = Walker 0.3 x10 0.3-0.9 Absolute) Eos Absolute (test code = Eos 0.0 x10 0.0-0.3 Absolute) Baso Absolute (test code = Baso 0.1 x10 0.0-0.1 Absolute) Capillary whole blood glucose measurement by glucometer (mass/volume)2019-09-12 16:54:00 Test Item Value Reference Range Interpretation Comments Bedside Glucose (test code = 130 mg/dL 28653-9) [facility] or plasma aspartate aminotransferase measurement (enzymatic activity/volume)2019-09-12 06:05:00 Test Item Value Reference Range Interpretation Comments Aspartate Amino Transf (AST/SGOT) (test 9 U/L code = 1920-8) [facility]abe[facility] Hospital[facility] or plasma alanine aminotransferase measurement (enzymatic activity/volume)2019-09-12 06:05:00 Test Item Value Reference Range Interpretation Comments Alanine Aminotransferase (ALT/SGPT) 8 U/L (test code = 1742-6) [facility] ElizabethSerum or plasma protein measurement (mass/volume) 2019-09-12 06:05:00 Test Item Value Reference Range Interpretation Comments Total Protein (test code = 2885-2) 6.8 g/dL [facility]abe[facility] Hospitalerum or plasma albumin measurement (mass/volume) 2019-09-12 06:05:00 Test Item Value Reference Range Interpretation Comments Albumin (test code = 1751-7) 3.5 g/dL [facility] or plasma alkaline phosphatase measurement (enzymatic activity/volume)2019-09-12 06:05:00 Test Item Value Reference Range Interpretation Comments Alkaline Phosphatase (test code = 59 U/L 6768-6) [facility]sburg[facility] Hospitalerum or plasma cardiac troponin I measurement (mass/volume)2019-09-12 06:05:00 Test Item Value Reference Range Interpretation Comments Troponin I (test code = 86553-4) 0.01 ng/mL [facility] leukocyte count (number/volume)2019-09-12 06:05:00 Test Item Value Reference Range Interpretation Comments White Blood Count (test code = 6.4 10*3/uL 6690-2) [facility] erythrocytes automated count (number/volume) 2019-09-12 06:05:00 Test Item Value Reference Range Interpretation Comments Red Blood Count (test code = 3.40 10*6/uL 789-8) [facility] hemoglobin measurement (mass/volume)2019-09-12 06:05:00 Test Item Value Reference Range Interpretation Comments Hemoglobin (test code = 718-7) 11.4 g/dL [facility] ElizabethAutom[facility] blood hematocrit (volume fraction)2019-09-12 06:05:00 Test Item Value Reference Range Interpretation Comments Hematocrit (test code = 4544-3) 37.2 % [facility] Elizabeth[facility] erythrocyte mean corpuscular volume (MCV) [id number] 06:05:00 Test Item Value Reference Range Interpretation Comments Mean Corpuscular Volume (test code = 109 fL 787-2) [facility] Elizabeth[facility] erythrocyte mean corpuscular hemoglobin (mass per erythrocyte)2019-09-12 06:05:00 Test Item Value Reference Range Interpretation Comments Mean Corpuscular Hemoglobin (test 33.5 pg code = 785-6) [facility] Elizabeth[facility] erythrocyte mean corpuscular hemoglobin concentration measurement (mass/wvh1486-14-39 06:05:00 Test Item Value Reference Range Interpretation Comments Mean Corpuscular Hemoglobin Concent 30.6 g/dL (test code = 786-4) [facility] Elizabeth[facility] erythrocyte distribution width [id number] 06:05:00 Test Item Value Reference Range Interpretation Comments Red Cell Distribution Width (test code 14.5 % = 788-0) [facility] ElizabethAutom[facility] blood platelet count (count/volume)2019-09-12 06:05:00 Test Item Value Reference Range Interpretation Comments Platelet Count (test code = 232 10*3/uL 777-3) [facility] ElizabethAutom[facility] blood platelet mean volume [id number] 06:05:00 Test Item Value Reference Range Interpretation Comments Mean Platelet Volume (test code = 9.6 46390-4) [facility] ElizabethAutom[facility] blood neutrophil count as percentage of total cnjolvxfyb4785-56-86 06:05:00 Test Item Value Reference Range Interpretation Comments Neutrophils (%) (Auto) (test code = 70 % 770-8) [facility] ElizabethAutom[facility] blood immature granulocyte count as percentage of total pmovxhbzwo9655-99-05 06:05:00 Test Item Value Reference Range Interpretation Comments Immature Granulocyte % (Auto) (test 1 % code = 36739-7) [facility] ElizabethAutom[facility] blood lymphocyte count as percentage of total rtaatycwzd3045-88-84 06:05:00 Test Item Value Reference Range Interpretation Comments Lymphocytes (%) (Auto) (test code = 18 % 736-9) [facility] ElizabethAutom[facility] blood monocyte count as percentage of total awhkiegwqn0125-56-92 06:05:00 Test Item Value Reference Range Interpretation Comments Monocytes (%) (Auto) (test code = 9 % 5905-5) [facility] ElizabethAutom[facility] blood eosinophil count as percentage of total btqugbjjrl5164-90-03 06:05:00 Test Item Value Reference Range Interpretation Comments Eosinophils (%) (Auto) (test code = 2 % 713-8) [facility] ElizabethAutom[facility] blood basophil count as percentage of total amlanafcex8632-30-24 06:05:00 Test Item Value Reference Range Interpretation Comments Basophils (%) (Auto) (test code = 1 % 706-2) [facility] ElizabethAutomated blood nucleated erythrocyte count as percentage of total qdplepomks6013-45-22 06:05:00 Test Item Value Reference Range Interpretation Comments Nucleated Red Blood Cells % (test code 0.0 % = 50276-9) [facility] ElizabethAutom[facility] blood neutrophil count (number/volume)2019-09-12 06:05:00 Test Item Value Reference Range Interpretation Comments Neutrophils # (Auto) (test code = 4.5 10*3/uL 751-8) [facility] ElizabethAutomated blood immature granulocyte count as percentage of total ktoakartue4097-61-13 06:05:00 Test Item Value Reference Range Interpretation Comments Immature Granulocyte # (Auto) 0.0 10*3/uL (test code = 17549-4) [facility] ElizabethAutomated blood lymphocyte count (number/volume)2019-09-12 06:05:00 Test Item Value Reference Range Interpretation Comments Lymphocytes # (Auto) (test code = 1.2 10*3/uL 731-0) [facility] ElizabethBlood monocytes automated count (number/volume)2019-09-12 06:05:00 Test Item Value Reference Range Interpretation Comments Monocytes # (Auto) (test code = 0.6 10*3/uL 742-7) [facility] ElizabethAutomated blood eosinophil [id number] 06:05:00 Test Item Value Reference Range Interpretation Comments Eosinophils # (Auto) (test code = 0.1 10*3/uL 711-2) [facility] ElizabethAutomated blood basophil count (number/volume)2019-09-12 06:05:00 Test Item Value Reference Range Interpretation Comments Basophils # (Auto) (test code = 0.0 10*3/uL 704-7) [facility] ElicarolinebethAutomated blood nucleated erythrocyte count (count/volume) 2019-09-12 06:05:00 Test Item Value Reference Range Interpretation Comments Nucleated Red Blood Cells # 0.00 10*3/uL (test code = 771-6) [facility] ElizabethService comment [id number] 06:05:00 Test Item Value Reference Range Interpretation Comments Manual Differential (test code Scan RBC Morph = 8265-1) [facility] ElizabethBlood anisocytosis detection by light [id number] 06:05:00 Test Item Value Reference Range Interpretation Comments Anisocytosis (test code = 702-1) 2+ [facility] ElizabethBlood macrocytes detection by light nhrojcegvy5644-54-99 06:05:00 Test Item Value Reference Range Interpretation Comments Macrocytosis (test code = 738-5) 2+ [facility] ElizabethSerum or plasma sodium measurement (moles/volume) 2019-09-12 06:05:00 Test Item Value Reference Range Interpretation Comments Sodium Level (test code = 2951-2) 137 mmol/L [facility] ElizabethSerum or plasma potassium measurement (moles/volume) 2019-09-12 06:05:00 Test Item Value Reference Range Interpretation Comments Potassium Level (test code = 4.1 mmol/L 2823-3) [facility] ElicarolinebethSerum or plasma chloride measurement (moles/volume) 2019-09-12 06:05:00 Test Item Value Reference Range Interpretation Comments Chloride Level (test code = 2075-0) 99 mmol/L [facility] ElizabethSerum or plasma total carbon dioxide measurement (moles/volume)2019-09-12 06:05:00 Test Item Value Reference Range Interpretation Comments Carbon Dioxide Level (test code = 27 mmol/L 2028-03) [facility] Elizabeth[facility]um or plasma anion gap determination (moles/volume) 2019-09-12 06:05:00 Test Item Value Reference Range Interpretation Comments Anion Gap (test code = 96011-6) [address] [facility] [address] ElizabethSerum or plasma urea nitrogen measurement (mass/volume) 2019-09-12 06:05:00 Test Item Value Reference Range Interpretation Comments Blood Urea Nitrogen (test code = 17 mg/dL 3094-0) [facility]ynbeC[facility] Hospitalerum or plasma creatinine measurement (mass/volume) 2019-09-12 06:05:00 Test Item Value Reference Range Interpretation Comments Creatinine (test code = 2160-0) 0.7 mg/dL [facility]. [facility]GFR estimate [id number] 06:05:00 Test Item Value Reference Range Interpretation Comments Estimat Glomerular Filtration Rate 118 (test code = 36854-8) [facility] DaysizabethSerum or plasma glucose measurement (mass/volume) 2019-09-12 06:05:00 Test Item Value Reference Range Interpretation Comments Glucose Level (test code = 2345-7) 134 mg/dL [facility] CarolynbethSerum or plasma calcium measurement (mass/volume) 2019-09-12 06:05:00 Test Item Value Reference Range Interpretation Comments Calcium Level (test code = 84856-3) 8.8 mg/dL [facility] ElizabethSerum or plasma total bilirubin measurement (mass/volume) 2019-09-12 06:05:00 Test Item Value Reference Range Interpretation Comments Total Bilirubin (test code = 0.4 mg/dL 1974-) [facility] DaysizabethVenous whole blood sodium measurement (moles/volume) 2019-09-11 18:12:00 Test Item Value Reference Range Interpretation Comments Bedside Sodium (test code = 136 mmol/L 76707-8) [facility] CarolynbeVenous whole blood potassium measurement (moles/volume) 2019-09-11 18:12:00 Test Item Value Reference Range Interpretation Comments Bedside Potassium (test code = 4.5 mmol/L 75342-9) [facility] ElizabeVenous whole blood chloride measurement (moles/volume) 2019-09-11 18:12:00 Test Item Value Reference Range Interpretation Comments Bedside Chloride (test code = 99 mmol/L 01958-6) [facility]abeVenous whole blood total carbon dioxide measurement (moles/volume)2019-09-11 18:12:00 Test Item Value Reference Range Interpretation Comments Bedside Total CO2 (test code = 32.0 mmol/L 2026-1) [facility] CitieszabeVenous whole blood urea nitrogen (BUN) measurement (mass/volume)2019-09-11 18:12:00 Test Item Value Reference Range Interpretation Comments Bedside Blood Urea Nitrogen (test 18 mg/dL code = 45578-5) [facility]. PernellBlood creatinine measurement (mass/volume)2019-09-11 18:12:00 Test Item Value Reference Range Interpretation Comments Bedside Creatinine (test code = 0.5 mg/dL 34719-5) [facility] CitiesharperVenous whole blood glucose measurement (mass/volume) 2019-09-11 18:12:00 Test Item Value Reference Range Interpretation Comments Bedside Glucose (test code = 136 mg/dL 34500-7) [facility]. [facility] blood ionized calcium measurement (moles/volume) 2019-09-11 18:12:00 Test Item Value Reference Range Interpretation Comments Bedside Whole Blood Ionized 0.99 mmol/L Calcium (test code = 1994-3) [facility]. PernellBlood anion [id number] 18:12:00 Test Item Value Reference Range Interpretation Comments Bedside Anion Gap (test code = 71037-0) [address] [facility] [address] [facility] for childrenGFR estimate [id number] 18:12:00 Test Item Value Reference Range Interpretation Comments Estimat Glomerular Filtration Rate 174 (test code = 17724-2) [facility]. [place]sburgbeVenous blood hemoglobin measurement (mass/volume) 2019-09-11 18:12:00 Test Item Value Reference Range Interpretation Comments Bedside Hemoglobin (test code = 13.3 g/dL 31097-8) [facility] blood hematocrit (volume fraction)2019-09-11 18:12:00 Test Item Value Reference Range Interpretation Comments Bedside Hematocrit (test code = 39.0 % 06731-7) [facility] whole blood sodium measurement (moles/volume) 2019-09-11 18:12:00 Test Item Value Reference Range Interpretation Comments Bedside Sodium (test code = 136 mmol/L 22836-0) [facility] whole blood potassium measurement (moles/volume) 2019-09-11 18:12:00 Test Item Value Reference Range Interpretation Comments Bedside Potassium (test code = 4.5 mmol/L 73744-5) [facility] whole blood chloride measurement (moles/volume) 2019-09-11 18:12:00 Test Item Value Reference Range Interpretation Comments Bedside Chloride (test code = 99 mmol/L 60208-6) [facility] whole blood total carbon dioxide measurement (moles/volume)2019-09-11 18:12:00 Test Item Value Reference Range Interpretation Comments Bedside Total CO2 (test code = 32.0 mmol/L 2026-1) [facility] whole blood urea nitrogen (BUN) measurement (mass/volume)2019-09-11 18:12:00 Test Item Value Reference Range Interpretation Comments Bedside Blood Urea Nitrogen (test 18 mg/dL code = 96144-7) [facility] (mass/volume)2019-09-11 18:12:00 Test Item Value Reference Range Interpretation Comments Bedside Creatinine (test code = 0.5 mg/dL 62572-0) [facility] whole blood glucose measurement (mass/volume) 2019-09-11 18:12:00 Test Item Value Reference Range Interpretation Comments Bedside Glucose (test code = 136 mg/dL 40456-4) [facility] blood ionized calcium measurement (moles/volume) 2019-09-11 18:12:00 Test Item Value Reference Range Interpretation Comments Bedside Whole Blood Ionized 0.99 mmol/L Calcium (test code = 1994-3) [facility] LynetteBlood anion [id number] 18:12:00 Test Item Value Reference Range Interpretation Comments Bedside Anion Gap (test code = 14736-6) 10 [facility] - . MaryGFR estimate [id number] 18:12:00 Test Item Value Reference Range Interpretation Comments Estimat Glomerular Filtration Rate 174 (test code = 25804-4) [facility]. [facility] HospitalVen[facility] blood hemoglobin measurement (mass/volume)2019-09-11 18:12:00 Test Item Value Reference Range Interpretation Comments Bedside Hemoglobin (test code = 13.3 g/dL 80163-1) [facility] - . [facility] HospitalVenous blood hematocrit (volume fraction)2019-09-11 18:12:00 Test Item Value Reference Range Interpretation Comments Bedside Hematocrit (test code = 39.0 % 77672-5) [facility]. [facility] cardiac troponin I measurement (mass/volume) 2019-09-11 18:11:00 Test Item Value Reference Range Interpretation Comments Bedside Troponin I (test code = 0.01 ng/mL 29119-9) [facility]. Elizabethole blood cardiac troponin I measurement (mass/volume) 2019-09-11 18:11:00 Test Item Value Reference Range Interpretation Comments Bedside Troponin I (test code = 0.01 ng/mL 08444-1) [facility] leukocyte count (number/volume)2019-09-11 18:05:00 Test Item Value Reference Range Interpretation Comments White Blood Count (test code = 6.0 10*3/uL 6690-2) [facility]. [facility] automated count (number/volume)2019-09-11 18:05:00 Test Item Value Reference Range Interpretation Comments Red Blood Count (test code = 3.56 10*6/uL 789-8) [facility] - . [facility] HospitalBlood hemoglobin measurement (mass/volume)2019-09-11 18:05:00 Test Item Value Reference Range Interpretation Comments Hemoglobin (test code = 718-7) 12.2 g/dL [facility]. [facility] HospitalAutomated blood hematocrit (volume fraction)2019-09-11 18:05:00 Test Item Value Reference Range Interpretation Comments Hematocrit (test code = 4544-3) 37.1 % [facility] - . [facility] HospitalAutomated erythrocyte mean corpuscular volume (MCV) [id number] 18:05:00 Test Item Value Reference Range Interpretation Comments Mean Corpuscular Volume (test code = 104.2 fL 787-2) [facility] - . MaryAutomated erythrocyte mean corpuscular hemoglobin (mass per erythrocyte)2019-09-11 18:05:00 Test Item Value Reference Range Interpretation Comments Mean Corpuscular Hemoglobin (test 34.3 pg code = 785-6) [facility] - . MaryAutomated erythrocyte mean corpuscular hemoglobin concentration measurement (mass/[id number] 18:05:00 Test Item Value Reference Range Interpretation Comments Mean Corpuscular Hemoglobin Concent 32.9 g/dL (test code = 786-4) [facility] - . [facility] HospitalAutomated erythrocyte distribution width [id number] 18:05:00 Test Item Value Reference Range Interpretation Comments Red Cell Distribution Width (test code 14.3 % = 788-0) [facility] - [place] blood platelet count (count/volume)2019-09-11 18:05:00 Test Item Value Reference Range Interpretation Comments Platelet Count (test code = 263 10*3/uL 777-3) [facility] - . [facility] HospitalAutomated blood platelet mean volume [id number] 18:05:00 Test Item Value Reference Range Interpretation Comments Mean Platelet Volume (test code = 9.6 fL 19744-3) [facility] - . [facility] HospitalAutomated blood neutrophil count as percentage of total juaegkfmfh0243-33-53 18:05:00 Test Item Value Reference Range Interpretation Comments Neutrophils (%) (Auto) (test code = 73 % 770-8) [facility] - . [facility] HospitalAutomated blood lymphocyte count as percentage of total ywxlfmfzbd5699-10-05 18:05:00 Test Item Value Reference Range Interpretation Comments Lymphocytes (%) (Auto) (test code = 18 % 736-9) [facility] - . [facility] HospitalAutomated blood monocyte count as percentage of total kwqyyuczhq3221-11-81 18:05:00 Test Item Value Reference Range Interpretation Comments Monocytes (%) (Auto) (test code = 7 % 5905-5) [facility] - . [facility] HospitalAutomated blood eosinophil count as percentage of total ghkptlrcqe2032-94-69 18:05:00 Test Item Value Reference Range Interpretation Comments Eosinophils (%) (Auto) (test code = 2 % 713-8) [facility] bas[facility] count as percentage of total korfdtsnoe8094-39-71 18:05:00 Test Item Value Reference Range Interpretation Comments Basophils (%) (Auto) (test code = 0 % 706-2) [facility] neutrophil count (number/volume)2019-09-11 18:05:00 Test Item Value Reference Range Interpretation Comments Neutrophils # (Auto) (test code = 4.4 10*3/uL 751-8) [facility] count (number/volume)2019-09-11 18:05:00 Test Item Value Reference Range Interpretation Comments Lymphocytes # (Auto) (test code = 1.1 10*3/uL 731-0) [facility] Center[facility] monocytes automated count (number/volume)2019-09-11 18:05:00 Test Item Value Reference Range Interpretation Comments Monocytes # (Auto) (test code = 0.4 10*3/uL 742-7) [facility] eosinophil [id number] 18:05:00 Test Item Value Reference Range Interpretation Comments Eosinophils # (Auto) (test code = 0.1 10*3/uL 711-2) [facility] basophil count (number/volume)2019-09-11 18:05:00 Test Item Value Reference Range Interpretation Comments Basophils # (Auto) (test code = 0.0 10*3/uL 704-7) [facility] CenterService comment [id number] 18:05:00 Test Item Value Reference Range Interpretation Comments Manual Differential (test code = Not Ind 8265-1) [facility] CenterRes[facility] Culture w/ Gram [id number] 12:11:08 Test Item Value Reference Range Interpretation Comments Final Report (test Normal Respiratory Pooja. code = Final Report) Gram Stain Report Gram Positive Cocci Rare (test code = Gram White Blood Cells Stain Report) POC [id number] 20:22:24 Test Item Value Reference Range Interpretation Comments Glucose POC (test 194 mg/dL 74-106 H POC Glucos e used on code = Glucose POC) critical ly ill patients is considered " off-label use" and has no t been cleared or appr rosa elena by the FDA. Altern ative testing methods should be considered i f the patient is crit ically ill. POC [id number] 17:03:13 Test Item Value Reference Range Interpretation [...] crit ically ill. XR Chest 1 View [id number] 15:13:52Patient: NITO MCKEON Date/Time08/31/201915:05 CSTReason for ExamHypoxiaReportEXAM: [...] crit ically ill. Respiratory Culture w/ Gram [id number] 09:44:49Normal Respiratory Pooja.POC [id number] 06:13:35 Test Item Value Reference Range Interpretation Comments Glucose POC (test 129 mg/dL 74-106 H POC Glucos e used on code = Glucose POC) critical ly ill patients is considered " off-label use" and has no t been cleared or appr rosa elena by the FDA. Altern ative testing methods should be considered i f the patient is crit ically ill. POC [id number] 22:29:51 Test Item Value Reference Range Interpretation Comments Glucose POC (test 210 mg/dL 74-106 H POC Glucos e used on code = Glucose POC) critical ly ill patients is considered " off-label use" and has no t been cleared or appr rosa elena by the FDA. Altern ative testing methods should be considered i f the patient is crit ically ill. POC [id number] 13:35:41 Test Item Value Reference Range Interpretation [...] crit ically ill. XR Chest 1 View [id number] 07:25:12Patient: NITO MCKEON Date/Time08/30/201907:11 CSTReason for ExamCongestionReportClinical [...] Hooks Gustavo MSigned (Electronic Signature): 08/30/20197:25 amPOC [id number] 05:48:11 Test Item Value Reference Range Interpretation Comments Glucose POC (test 128 mg/dL 74-106 H POC Glucos e used on code = Glucose POC) critical ly ill patients is considered " off-label use" and has no t been cleared or appr rosa elena by the FDA. Altern ative testing methods should be considered i f the patient is crit ically ill. POC [id number] 23:52:47 Test Item Value Reference Range Interpretation Comments Glucose POC (test 221 mg/dL 74-106 H POC Glucos e used on code = Glucose POC) critical ly ill patients is considered " off-label use" and has no t been cleared or appr rosa elena by the FDA. Altern ative testing methods should be considered i f the patient is crit ically ill. POC [id number] 17:28:32 Test Item Value Reference Range Interpretation Comments Glucose POC (test 151 mg/dL 74-106 H POC Glucos e used on code = Glucose POC) critical ly ill patients is considered " off-label use" and has no t been cleared or appr rosa elena by the FDA. Altern ative testing methods should be considered i f the patient is crit ically ill. POC [id number] 12:33:23 Test Item Value Reference Range Interpretation Comments Glucose POC (test 229 mg/dL 74-106 H POC Glucos e used on code = Glucose POC) critical ly ill patients is considered " off-label use" and has no t been cleared or appr rosa elena by the FDA. Altern ative testing methods should be considered i f the patient is crit ically ill. POC [id number] 06:54:08 Test Item Value Reference Range Interpretation Comments Glucose POC (test 157 mg/dL 74-106 H POC Glucos e used on code = Glucose POC) critical ly ill patients is considered " off-label use" and has no t been cleared or appr rosa elena by the FDA. Altern ative testing methods should be considered i f the patient is crit ically ill. POC [id number] 22:26:48 Test Item Value Reference Range Interpretation Comments Glucose POC (test 200 mg/dL 74-106 H POC Glucos e used on code = Glucose POC) critical ly ill patients is considered " off-label use" and has no t been cleared or appr rosa elena by the FDA. Altern ative testing methods should be considered i f the patient is crit ically ill. POC [id number] 17:44:30 Test Item Value Reference Range Interpretation Comments Glucose POC (test 179 mg/dL 74-106 H POC Glucos e used on code = Glucose POC) critical ly ill patients is considered " off-label use" and has no t been cleared or appr rosa elena by the FDA. Altern ative testing methods should be considered i f the patient is crit ically ill. POC [id number] 12:52:21 Test Item Value Reference Range Interpretation Comments Glucose POC (test 131 mg/dL 74-106 H POC Glucos e used on code = Glucose POC) critical ly ill patients is considered " off-label use" and has no t been cleared or appr rosa elena by the FDA. Altern ative testing methods should be considered i f the patient is crit ically ill. Basic Metabolic [id number] 07:13:09 Test Item Value Reference Range Interpretation [...] 8.1 mg/dL 8.5-10.1 L Level) Basic Metabolic [id number] 07:13:09 Test Item Value Reference Range Interpretation [...] >60 mL/min/1.73 m2 N AA) Basic Metabolic [id number] 07:13:09 Test Item Value Reference Range Interpretation [...] N eGFR Non-AA) Complete Blood Count with [id number] 06:56:57 Test Item Value Reference Range Interpretation [...] = Slide Review) GL_SET_SLIDE _REVIEW_A UTO Automated [id number] 06:56:57 Test Item Value Reference Range Interpretation Comments Neutro Auto (test code = Neutro Auto) 65.8 % N Lymph Auto (test code = Lymph Auto) 21.6 % N Walker Auto (test code = Walker Auto) 12.0 % N Eos, Auto (test code = Eos, Auto) 0.2 % N Basophil Auto (test code = Basophil 0.4 % N Auto) Neutro Absolute (test code = Neutro 2.6 x10 2.7-7.3 L Absolute) Lymph Absolute (test code = Lymph 0.9 x10 0.8-3.5 Absolute) Walker Absolute (test code = Walker 0.5 x10 0.3-0.9 Absolute) Eos Absolute (test code = Eos 0.0 x10 0.0-0.3 Absolute) Baso Absolute (test code = Baso 0.0 x10 0.0-0.1 Absolute) POC [id number] 05:55:21 Test Item Value Reference Range Interpretation Comments Glucose POC (test 118 mg/dL 74-106 H POC Glucos e used on code = Glucose POC) critical ly ill patients is considered " off-label use" and has no t been cleared or appr rosa elena by the FDA. Altern ative testing methods should be considered i f the patient is crit ically ill. POC [id number] 05:55:18 Test Item Value Reference Range Interpretation Comments Glucose POC (test 167 mg/dL 74-106 H POC Glucos e used on code = Glucose POC) critical ly ill patients is considered " off-label use" and has no t been cleared or appr rosa elena by the FDA. Altern ative testing methods should be considered i f the patient is crit ically ill. POC [id number] 12:26:55 Test Item Value Reference Range Interpretation Comments Glucose POC (test 163 mg/dL 74-106 H POC Glucos e used on code = Glucose POC) critical ly ill patients is considered " off-label use" and has no t been cleared or appr rosa elena by the FDA. Altern ative testing methods should be considered i f the patient is crit ically ill. POC [id number] 08:34:03 Test Item Value Reference Range Interpretation [...] is crit ically ill. Throat Culture Strep [id number] 07:39:56Streptococcus Group A screen negativeLactic Acid, Plasma (Venous)2019-08-26 23:57:09 Test Item Value Reference Range Interpretation Comments Lactic Acid, Plasma (Venous) (test 1.5 mmol/L 0.4-2.0 code = Lactic Acid, Plasma (Venous)) CT Angio [id number] 18:37:21Patient: NITO MCKEON Date/Time08/26/201918:14 CSTReason for ExamDyspneaReportCTA [...] LSigned (Electronic Signature): 08/26/2019 6:37 pmPOC G3+ [id number] 13:35:54 Test Item Value Reference Range Interpretation [...] R Radial N Performing Site) Influenza A [id number] 12:53:57 Test Item Value Reference Range Interpretation Comments Influenza A Ag (test Positive Negative CTRB/PI PER LING code = Influenza A Ag) RN/08/26/2019 12:53:54 DENTIST/STChildren tend to shed virus more abundantly and for longer period o f time than adults. Th erefore, testing specime ns from adults will oft en yield lower sensitivi ty than testing specime ns from children. Influenza B [id number] 12:53:57 Test Item Value Reference Range Interpretation Comments Influenza B Ag (test Negative Negative Childre n tend to shed code = Influenza B Ag) virus more abundantly and for longer period of time than ad ults. Therefore, test ing specimens from adults will often yiel d lower sensitivity tootie n testing specime ns from children. Streptococcus A Screen Rapid w/ Reflex [id number] 12:52:06 Test Item Value Reference Range Interpretation Comments Strep A Scn (test code = Strep A Negative Negative Scn) Prothrombin Time and [id number] 11:56:42 Test Item Value Reference Range Interpretation Comments Prothrombin Time (test code = 10.9 seconds 9.2-12.0 Prothrombin Time) INR (test code = INR) 1.0 ratio 0.9-1.2 Partial Thromboplastin [id number] 11:56:42 Test Item Value Reference Range Interpretation Comments Partial Thromboplastin 33.6 seconds 24.0-35.0 APTT Heparin Time (test code = Therapeuti c Range: Partial Thromboplastin 47.9- 80.4 seconds Time) D-Dimer [id number] 11:56:42 Test Item Value Reference Range Interpretation [...] a diagnos is of DVT or PEunlikely. [id number] 11:55:52 Test Item Value Reference Range Interpretation Comments RBC Morph (test code = RBC As Indicated Normal A Morph) Anisocyte (test code = 1+ A Anisocyte) Hypochromia (test code = 1+ A Hypochromia) Macrocyte (test code = 2+ A Macrocyte) Differential Comment (test See Comment S lide reviewed code = Differential Comment) Plt Estimation (test code Normal Normal = Plt Estimation) Comprehensive Metabolic [id number] 11:46:11 Test Item Value Reference Range Interpretation [...] AST) 18 IntlUnit/L 10-34 Pro B Natriuretic [id number] 11:46:11 Test Item Value Reference Range Interpretation [...] - heart f ailure likely Comprehensive Metabolic [id number] 11:46:11 Test Item Value Reference Range Interpretation [...] >60 mL/min/1.73 m2 N AA) Comprehensive Metabolic [id number] 11:46:11 Test Item Value Reference Range Interpretation [...] N eGFR Non-AA) Complete Blood Count with Rgjyrydjwzyw4041-18-04 11:36:29 Test Item Value Reference Range Interpretation [...] code = Slide Smear N Review) Automated [id number] 11:36:29 Test Item Value Reference Range Interpretation Comments Neutro Auto (test code = Neutro Auto) 68.0 % N Lymph Auto (test code = Lymph Auto) 19.0 % N Walker Auto (test code = Walker Auto) 12.1 % N Eos, Auto (test code = Eos, Auto) 0.2 % N Basophil Auto (test code = Basophil 0.7 % N Auto) Neutro Absolute (test code = Neutro 2.3 x10 2.7-7.3 L Absolute) Lymph Absolute (test code = Lymph 0.6 x10 0.8-3.5 L Absolute) Walker Absolute (test code = Walker 0.4 x10 0.3-0.9 Absolute) Eos Absolute (test code = Eos 0.0 x10 0.0-0.3 Absolute) Baso Absolute (test code = Baso 0.0 x10 0.0-0.1 Absolute) POC Troponin [id number] 11:26:15 Test Item Value Reference Range Interpretation [...] tions, symptons, etc. XR Chest 1 View [id number] 11:16:48Patient: NITO MCKEON Date/Time08/26/201910:56 CSTReason for ExamChest [...] James Arthur LSigned (Electronic Signature): 08/26/2019 11:16 dtWiptthnmlj2515-88-54 02:38:32 Test Item Value Reference Range Interpretation Comments RBC Morph (test code = RBC As Indicated Normal A Morph) Anisocyte (test code = 1+ A Anisocyte) Plt Estimation (test code = Plt Normal Normal Estimation) Prothrombin Time and [id number] 00:36:47 Test Item Value Reference Range Interpretation Comments Prothrombin Time (test code = 11.1 seconds 9.2-12.0 Prothrombin Time) INR (test code = INR) 1.1 ratio 0.9-1.2 Partial Thromboplastin [id number] 00:36:47 Test Item Value Reference Range Interpretation Comments Partial Thromboplastin 29.0 seconds 24.0-35.0 APTT Heparin Time (test code = Therapeuti c Range: Partial Thromboplastin 47.9- 80.4 seconds Time) Complete Blood Count with [id number] 00:27:34 Test Item Value Reference Range Interpretation [...] N Sl angel reviewed Slide Review) Automated [id number] 00:27:34 Test Item Value Reference Range Interpretation Comments Neutro Auto (test code = Neutro Auto) 71.1 % N Lymph Auto (test code = Lymph Auto) 16.1 % N Walker Auto (test code = Walker Auto) 11.2 % N Eos, Auto (test code = Eos, Auto) 0.9 % N Basophil Auto (test code = Basophil 0.7 % N Auto) Neutro Absolute (test code = Neutro 6.4 x10 2.7-7.3 Absolute) Lymph Absolute (test code = Lymph 1.4 x10 0.8-3.5 Absolute) Walker Absolute (test code = Walker 1.0 x10 0.3-0.9 H Absolute) Eos Absolute (test code = Eos 0.1 x10 0.0-0.3 Absolute) Baso Absolute (test code = Baso 0.1 x10 0.0-0.1 Absolute) POC [id number] 11:40:15 Test Item Value Reference Range Interpretation Comments Glucose POC (test 135 mg/dL 74-106 H POC Glucos e used on code = Glucose POC) critical ly ill patients is considered " off-label use" and has no t been cleared or appr rosa elena by the FDA. Altern ative testing methods should be considered i f the patient is crit ically ill. [id number] 09:29:49 Test Item Value Reference Range Interpretation Comments RBC Morph (test code = RBC As Indicated Normal A Morph) Anisocyte (test code = 1+ A Anisocyte) Hypochromia (test code = 1+ A Hypochromia) Macrocyte (test code = 1+ A Macrocyte) Differential Comment (test See Comment S lide reviewed code = Differential Comment) Plt Estimation (test code Normal Normal = Plt Estimation) Basic Metabolic [id number] 08:32:12 Test Item Value Reference Range Interpretation [...] >60 mL/min/1.73 m2 N AA) Basic Metabolic [id number] 08:32:12 Test Item Value Reference Range Interpretation [...] mL/min/1.73 m2 N eGFR Non-AA) Basic Metabolic [id number] 08:32:12 Test Item Value Reference Range Interpretation [...] N eGFR Non-AA) Complete Blood Count with Mtttybfsxwbd4194-98-82 08:20:27 Test Item Value Reference Range Interpretation [...] code = Slide Smear N Review) Automated Ggoiuepusnoo3207-12-26 08:20:27 Test Item Value Reference Range Interpretation Comments Neutro Auto (test code = Neutro Auto) 69.2 % N Lymph Auto (test code = Lymph Auto) 21.7 % N Walker Auto (test code = Walker Auto) 7.0 % N Eos, Auto (test code = Eos, Auto) 1.3 % N Basophil Auto (test code = Basophil 0.8 % N Auto) Neutro Absolute (test code = Neutro 5.0 x10 2.7-7.3 Absolute) Lymph Absolute (test code = Lymph 1.6 x10 0.8-3.5 Absolute) Walker Absolute (test code = Walker 0.5 x10 0.3-0.9 Absolute) Eos Absolute (test code = Eos 0.1 x10 0.0-0.3 Absolute) Baso Absolute (test code = Baso 0.1 x10 0.0-0.1 Absolute) POC [id number] 05:11:33 Test Item Value Reference Range Interpretation Comments Glucose POC (test 128 mg/dL 74-106 H POC Glucos e used on code = Glucose POC) critical ly ill patients is considered " off-label use" and has no t been cleared or appr rosa elena by the FDA. Altern ative testing methods should be considered i f the patient is crit ically ill. POC [id number] 21:57:36 Test Item Value Reference Range Interpretation Comments Glucose POC (test 135 mg/dL 74-106 H POC Glucos e used on code = Glucose POC) critical ly ill patients is considered " off-label use" and has no t been cleared or appr rosa leena by the FDA. Altern ative testing methods should be considered i f the patient is crit ically ill. POC [id number] 20:03:51 Test Item Value Reference Range Interpretation Comments Glucose POC (test 170 mg/dL 74-106 H POC Glucos e used on code = Glucose POC) critical ly ill patients is considered " off-label use" and has no t been cleared or appr rosa elena by the FDA. Altern ative testing methods should be considered i f the patient is crit ically ill. POC [id number] 11:56:43 Test Item Value Reference Range Interpretation Comments Glucose POC (test 167 mg/dL 74-106 H POC Glucos e used on code = Glucose POC) critical ly ill patients is considered " off-label use" and has no t been cleared or appr rosa elena by the FDA. Altern ative testing methods should be considered i f the patient is crit ically ill. POC [id number] 04:13:09 Test Item Value Reference Range Interpretation Comments Glucose POC (test 134 mg/dL 74-106 H POC Glucos e used on code = Glucose POC) critical ly ill patients is considered " off-label use" and has no t been cleared or appr rosa elena by the FDA. Altern ative testing methods should be considered i f the patient is crit ically ill. POC [id number] 20:37:07 Test Item Value Reference Range Interpretation Comments Glucose POC (test 165 mg/dL 74-106 H POC Glucos e used on code = Glucose POC) critical ly ill patients is considered " off-label use" and has no t been cleared or appr rosa elena by the FDA. Altern ative testing methods should be considered i f the patient is crit ically ill. POC [id number] 16:43:17 Test Item Value Reference Range Interpretation Comments Glucose POC (test 153 mg/dL 74-106 H POC Glucos e used on code = Glucose POC) critical ly ill patients is considered " off-label use" and has no t been cleared or appr rosa elena by the FDA. Altern ative testing methods should be considered i f the patient is crit ically ill. POC [id number] 11:49:57 Test Item Value Reference Range Interpretation Comments Glucose POC (test 153 mg/dL 74-106 H POC Glucos e used on code = Glucose POC) critical ly ill patients is considered " off-label use" and has no t been cleared or appr rosa elena by the FDA. Altern ative testing methods should be considered i f the patient is crit ically ill. POC [id number] 04:36:57 Test Item Value Reference Range Interpretation Comments Glucose POC (test 138 mg/dL 74-106 H POC Glucos e used on code = Glucose POC) critical ly ill patients is considered " off-label use" and has no t been cleared or appr rosa elena by the FDA. Altern ative testing methods should be considered i f the patient is crit ically ill. POC [id number] 21:01:31 Test Item Value Reference Range Interpretation Comments Glucose POC (test 192 mg/dL 74-106 H POC Glucos e used on code = Glucose POC) critical ly ill patients is considered " off-label use" and has no t been cleared or appr rosa elena by the FDA. Altern ative testing methods should be considered i f the patient is crit ically ill. POC Troponin [id number] 01:17:37 Test Item Value Reference Range Interpretation [...] EKG, CKMB, clinicalobserva tions, symptons, etc. Troponin [id number] 00:55:06 Test Item Value Reference Range Interpretation Comments Troponin-I (test 0.160 ng/mL 0.010-0.040 CTRB Manfred PENGRN/ER code = Troponin-I) 08/11/2019 00:54:57 DENTIST BY JEANNE Wrfhfrfzrw6503-04-31 20:35:23 Test Item Value Reference Range Interpretation Comments RBC Morph (test code = RBC As Indicated Normal A Morph) Anisocyte (test code = 1+ A Anisocyte) Plt Estimation (test code = Plt Normal Normal Estimation) Creatine [id number] 20:35:18 Test Item Value Reference Range Interpretation Comments CK (test code = CK) 44 IntlUnit/L 39-308 Creatine Kinase MB [id number] 20:35:18 Test Item Value Reference Range Interpretation Comments CKMB (test code = CKMB) <1.0 ng/mL 0.5-3.6 CKMB % (test code = CKMB %) <2.3 % 0.0-5.0 Comprehensive Metabolic [id number] 20:35:17 Test Item Value Reference Range Interpretation [...] >60 mL/min/1.73 m2 N AA) Comprehensive Metabolic [id number] 20:35:17 Test Item Value Reference Range Interpretation [...] >60 mL/min/1.73 m2 N AA) Comprehensive Metabolic [id number] 20:35:17 Test Item Value Reference Range Interpretation [...] >60 mL/min/1.73 m2 N eGFR Non-AA) Lipase [id number] 20:34:45 Test Item Value Reference Range Interpretation Comments Lipase Level (test code = 81 IntlUnit/L 73-393 Lipase Level) Complete Blood Count with Nwwhfwbwtbur5835-44-65 20:11:46 Test Item Value Reference Range Interpretation [...] code = Slide Smear N Review) Automated Zhrrypnvjvit0158-40-29 20:11:46 Test Item Value Reference Range Interpretation Comments Neutro Auto (test code = Neutro Auto) 81.6 % N Lymph Auto (test code = Lymph Auto) 13.0 % N Walker Auto (test code = Walker Auto) 4.1 % N Eos, Auto (test code = Eos, Auto) 0.9 % N Basophil Auto (test code = Basophil 0.4 % N Auto) Neutro Absolute (test code = Neutro 6.2 x10 2.7-7.3 Absolute) Lymph Absolute (test code = Lymph 1.0 x10 0.8-3.5 Absolute) Walker Absolute (test code = Walker 0.3 x10 0.3-0.9 Absolute) Eos Absolute (test code = Eos 0.1 x10 0.0-0.3 Absolute) Baso Absolute (test code = Baso 0.0 x10 0.0-0.1 Absolute) POC Troponin [id number] 20:09:11 Test Item Value Reference Range Interpretation [...] tions, symptons, etc. XR Chest 1 View [id number] 19:51:28Patient: NITO MCKEON Date/Time08/10/2019 19:40 CSTReason for ExamChest painReportXR CHEST 1 VIEW FRONTALDIAGNOSIS: Chest painThe heart and mediastinum are stable. No consolidation or pleural fluid is evident. The right hemidiaphragm remains elevated.IMPRESSION: No active disease and no change since 04/20/2019. Final Dictated by:MD García Michael JackDictated DT/TM: 08/10/2019 7:50 pmSigned by: MD García Michael JackSigned(Electronic Signature): 08/10/2019 7:51 pmPOC [id number] 15:53:03 Test Item Value Reference Range Interpretation Comments Glucose POC (test 144 mg/dL 74-106 H POC Glucos e used on code = Glucose POC) critical ly ill patients is considered " off-label use" and has no t been cleared or appr rosa elena by the FDA. Altern ative testing methods should be considered i f the patient is crit ically ill. POC [id number] 11:06:10 Test Item Value Reference Range Interpretation Comments Glucose POC (test 167 mg/dL 74-106 H POC Glucos e used on code = Glucose POC) critical ly ill patients is considered " off-label use" and has no t been cleared or appr rosa elena by the FDA. Altern ative testing methods should be considered i f the patient is crit ically ill. POC [id number] 05:14:51 Test Item Value Reference Range Interpretation Comments Glucose POC (test 156 mg/dL 74-106 H POC Glucos e used on code = Glucose POC) critical ly ill patients is considered " off-label use" and has no t been cleared or appr rosa elena by the FDA. Altern ative testing methods should be considered i f the patient is crit ically ill. POC [id number] 21:48:46 Test Item Value Reference Range Interpretation Comments Glucose POC (test 203 mg/dL 74-106 H POC Glucos e used on code = Glucose POC) critical ly ill patients is considered " off-label use" and has no t been cleared or appr rosa elena by the FDA. Altern ative testing methods should be considered i f the patient is crit ically ill. POC [id number] 21:48:44 Test Item Value Reference Range Interpretation Comments Glucose POC (test 158 mg/dL 74-106 H POC Glucos e used on code = Glucose POC) critical ly ill patients is considered " off-label use" and has no t been cleared or appr rosa elena by the FDA. Altern ative testing methods should be considered i f the patient is crit ically ill. POC [id number] 21:48:40 Test Item Value Reference Range Interpretation Comments Glucose POC (test 139 mg/dL 74-106 H POC Glucos e used on code = Glucose POC) critical ly ill patients is considered " off-label use" and has no t been cleared or appr rosa elena by the FDA. Altern ative testing methods should be considered i f the patient is crit ically ill. Basic Metabolic [id number] 07:44:09 Test Item Value Reference Range Interpretation [...] Calcium 8.5 mg/dL 8.5-10.1 Level) Basic Metabolic [id number] 07:44:09 Test Item Value Reference Range Interpretation [...] >60 mL/min/1.73 m2 N AA) Basic Metabolic [id number] 07:44:09 Test Item Value Reference Range Interpretation [...] N eGFR Non-AA) Complete Blood Count with [id number] 07:03:53 Test Item Value Reference Range Interpretation [...] = Slide Review) GL_SET_SLIDE _REVIEW_A UTO Automated Iyqorkbbkmgi1564-58-96 07:03:53 Test Item Value Reference Range Interpretation Comments Neutro Auto (test code = Neutro Auto) 70.7 % N Lymph Auto (test code = Lymph Auto) 18.5 % N Walker Auto (test code = Walker Auto) 6.7 % N Eos, Auto (test code = Eos, Auto) 3.3 % N Basophil Auto (test code = Basophil 0.8 % N Auto) Neutro Absolute (test code = Neutro 4.5 x10 2.7-7.3 Absolute) Lymph Absolute (test code = Lymph 1.2 x10 0.8-3.5 Absolute) Walker Absolute (test code = Walker 0.4 x10 0.3-0.9 Absolute) Eos Absolute (test code = Eos 0.2 x10 0.0-0.3 Absolute) Baso Absolute (test code = Baso 0.0 x10 0.0-0.1 Absolute) POC [id number] 05:46:14 Test Item Value Reference Range Interpretation Comments Glucose POC (test 144 mg/dL 74-106 H POC Glucos e used on code = Glucose POC) critical ly ill patients is considered " off-label use" and has no t been cleared or appr rosa elena by the FDA. Altern ative testing methods should be considered i f the patient is crit ically ill. POC [id number] 22:56:56 Test Item Value Reference Range Interpretation Comments Glucose POC (test 198 mg/dL 74-106 H POC Glucos e used on code = Glucose POC) critical ly ill patients is considered " off-label use" and has no t been cleared or appr rosa elena by the FDA. Altern ative testing methods should be considered i f the patient is crit ically ill. POC [id number] 19:19:36 Test Item Value Reference Range Interpretation Comments Glucose POC (test 145 mg/dL 74-106 H POC Glucos e used on code = Glucose POC) critical ly ill patients is considered " off-label use" and has no t been cleared or appr rosa elena by the FDA. Altern ative testing methods should be considered i f the patient is crit ically ill. POC [id number] 19:19:24 Test Item Value Reference Range Interpretation Comments Glucose POC (test 228 mg/dL 74-106 H POC Glucos e used on code = Glucose POC) critical ly ill patients is considered " off-label use" and has no t been cleared or appr rosa elena by the FDA. Altern ative testing methods should be considered i f the patient is crit ically ill. POC [id number] 19:19:23 Test Item Value Reference Range Interpretation Comments Glucose POC (test 143 mg/dL 74-106 H POC Glucos e used on code = Glucose POC) critical ly ill patients is considered " off-label use" and has no t been cleared or appr rosa elena by the FDA. Altern ative testing methods should be considered i f the patient is crit ically ill. Comprehensive Metabolic [id number] 08:12:19 Test Item Value Reference Range Interpretation [...] = AST) 23 IntlUnit/L 10-34 Comprehensive Metabolic [id number] 08:12:19 Test Item Value Reference Range Interpretation [...] eGFR >60 mL/min/1.73 m2 N AA) Creatine [id number] 08:12:19 Test Item Value Reference Range Interpretation Comments CK (test code = CK) 81 IntlUnit/L 39-308 Comprehensive Metabolic [id number] 08:12:19 Test Item Value Reference Range Interpretation [...] N eGFR Non-AA) Complete Blood Count with Rvavskcehkrw9718-12-33 07:14:37 Test Item Value Reference Range Interpretation [...] = Slide Review) GL_SET_SLIDE _REVIEW_A UTO Automated [id number] 07:14:37 Test Item Value Reference Range Interpretation Comments Neutro Auto (test code = Neutro Auto) 71.0 % N Lymph Auto (test code = Lymph Auto) 17.5 % N Walker Auto (test code = Walker Auto) 7.8 % N Eos, Auto (test code = Eos, Auto) 3.0 % N Basophil Auto (test code = Basophil 0.7 % N Auto) Neutro Absolute (test code = Neutro 5.9 x10 2.7-7.3 Absolute) Lymph Absolute (test code = Lymph 1.4 x10 0.8-3.5 Absolute) Walker Absolute (test code = Walker 0.6 x10 0.3-0.9 Absolute) Eos Absolute (test code = Eos 0.2 x10 0.0-0.3 Absolute) Baso Absolute (test code = Baso 0.1 x10 0.0-0.1 Absolute) Troponin [id number] 22:56:40 Test Item Value Reference Range Interpretation Comments Troponin-I (test 0.302 ng/mL 0.010-0.040 CTRB KARLY V JIL,RN/ER code = Troponin-I) 04/20/2019 22:56:35 CDT BY JEANNE POC Troponin [id number] 15:54:28 Test Item Value Reference Range Interpretation [...] CKMB, clinicalobserva tions, symptons, etc. CT Angio [id number] 13:24:30Patient: NITO MCKEON Date/Time04/20/2019 12:40 CDTReason for [...] Simone Harris DT/TM: 04/20/2019 1:09 pmSignedby: MD Loaiza Ramon JulioSigned (Electronic Signature): 04/20/2019 1:24 pmPOC Glucose 2019-04-20 [...] f the patient is crit ically ill. [id number] 12:01:44 Test Item Value Reference Range Interpretation Comments RBC Morph (test code = RBC As Indicated Normal A Morph) Anisocyte (test code = 1+ A Anisocyte) Plt Estimation (test code = Plt Normal Normal Estimation) Complete Blood Count with Rsfdkddefwzo2483-91-22 11:57:15 Test Item Value Reference Range Interpretation [...] code = Slide Smear N Review) Automated Nflaaboewwiu6080-63-76 11:57:15 Test Item Value Reference Range Interpretation Comments Neutro Auto (test code = Neutro Auto) 80.5 % N Lymph Auto (test code = Lymph Auto) 12.9 % N Walker Auto (test code = Walker Auto) 4.1 % N Eos, Auto (test code = Eos, Auto) 1.8 % N Basophil Auto (test code = Basophil 0.7 % N Auto) Neutro Absolute (test code = Neutro 8.0 x10 2.7-7.3 H Absolute) Lymph Absolute (test code = Lymph 1.3 x10 0.8-3.5 Absolute) Walker Absolute (test code = Walker 0.4 x10 0.3-0.9 Absolute) Eos Absolute (test code = Eos 0.2 x10 0.0-0.3 Absolute) Baso Absolute (test code = Baso 0.1 x10 0.0-0.1 Absolute) Pro B Natriuretic [id number] 10:14:38 Test Item Value Reference Range Interpretation Comments NT-proBNP (test 167 pg/mL 0-125 H < 300 pg/ml - heart code = NT-proBNP) failure un likelyAge less than 50 years, > 450 pg/ml - heart f ailure lilkelyAge 50 - 75 years, > 900 pg/ml - h eart failure likelyA ge greater than 75 years, > 1800 pg/ml - heart f ailure likely Creatine [id number] 10:14:13 Test Item Value Reference Range Interpretation Comments CK (test code = CK) 81 IntlUnit/L 39-308 Creatine Kinase MB [id number] 10:14:13 Test Item Value Reference Range Interpretation Comments CKMB (test code = CKMB) <1.0 ng/mL 0.5-3.6 CKMB % (test code = CKMB %) <1.2 % 0.0-5.0 Comprehensive Metabolic [id number] 10:10:18 Test Item Value Reference Range Interpretation [...] AST (test code = AST) 24 IntlUnit/L 1034 Comprehensive Metabolic [id number] 10:10:18 Test Item Value Reference Range Interpretation [...] BUN (test code = BUN) 17 mg/dL 18 Creatinine Level 0.6 mg/dL 0.7-1.3 L (test [...] ALT (test code = ALT) 17 IntlUnit/L 78 AST (test code = AST) 24 IntlUnit/L 34 eGFR AA (test code = >60 mL/min/1.73 N eGFR AA) m2 Comprehensive Metabolic [id number] 10:10:18 Test Item Value Reference Range Interpretation [...] code = eGFR Non-AA) m2 POC Troponin [id number] 09:53:00 Test Item Value Reference Range Interpretation [...] clinicalobserva tions, symptons, etc. Prothrombin Time and [id number] 09:52:09 Test Item Value Reference Range Interpretation Comments Prothrombin Time (test code = 10.6 seconds 9.2-12.0 Prothrombin Time) INR (test code = INR) 1.0 ratio 0.9-1.2 Partial Thromboplastin [id number] 09:52:09 Test Item Value Reference Range Interpretation Comments Partial Thromboplastin 22.0 seconds 24.0-35.0 L APTT Heparin Time (test code = Therapeuti c Range: Partial Thromboplastin 47.9- 80.4 seconds Time) D-Dimer [id number] 09:52:09 Test Item Value Reference Range Interpretation [...] DVT or PEunlikely. XR Chest 1 View [id number] 08:59:22Patient: NITO MCKEON Date/Time04/20/2019 08:53 CDTReason for [...] JulioSigned (Electronic Signature): 04/20/2019 8:59 amHemoglobin A1c [id number] 10:10:56 7.0 Prediabetes: 5.7 - 6.4 Diabetes: >6.4 Glycemic control for adults with diabetes: <7.0Performed At: [facility] [address], [place] [id number] MD Ph:[phone] Glucose 2019-03-12 13:46:07 Test Item Value Reference [...] the patient is crit ically ill. Lipid [id number] 07:04:11 Test Item Value Reference Range Interpretation Comments Cholesterol Total (test code = 135 mg/dL 0-200 Cholesterol Total) Triglycerides (test code = 129 mg/dL 2-150 Triglycerides) HDL (test code = HDL) 40 mg/dL 45-65 L Chol/HDL (test code = Chol/HDL) 3 ratio 0-5 Lipid [id number] 07:04:11 Test Item Value Reference Range Interpretation [...] code = 3 ratio 0-5 Chol/HDL) POC [id number] 05:56:59 Test Item Value Reference Range Interpretation Comments Glucose POC (test 140 mg/dL 74-106 H POC Glucos e used on code = Glucose POC) critical ly ill patients is considered " off-label use" and has no t been cleared or appr rosa elena by the FDA. Altern ative testing methods should be considered i f the patient is crit ically ill. POC Rcayoik6407-66-27 20:55:24 Test Item Value Reference Range Interpretation Comments Glucose POC (test 132 mg/dL 74-106 H POC Glucos e used on code = Glucose POC) critical ly ill patients is considered " off-label use" and has no t been cleared or appr rosa elena by the FDA. Altern ative testing methods should be considered i f the patient is crit ically ill. POC [id number] 16:08:50 Test Item Value Reference Range Interpretation Comments Glucose POC (test 168 mg/dL 74-106 H POC Glucos e used on code = Glucose POC) critical ly ill patients is considered " off-label use" and has no t been cleared or appr rosa elena by the FDA. Altern ative testing methods should be considered i f the patient is crit ically ill. POC [id number] 10:29:45 Test Item Value Reference Range Interpretation Comments Glucose POC (test 141 mg/dL 74-106 H POC Glucos e used on code = Glucose POC) critical ly ill patients is considered " off-label use" and has no t been cleared or appr rosa elena by the FDA. Altern ative testing methods should be considered i f the patient is crit ically ill. Urine [id number] 09:19:47 Test Item Value Reference Range Interpretation [...] stuartii C Urine Added by GL_SET_CULT_RFLXComprehensive Metabolic [id number] 07:17:12 Test Item Value Reference Range Interpretation [...] = AST) 10 IntlUnit/L 10-34 Comprehensive Metabolic [id number] 07:17:12 Test Item Value Reference Range Interpretation [...] >60 mL/min/1.73 m2 N AA) Comprehensive Metabolic [id number] 07:17:12 Test Item Value Reference Range Interpretation [...] N eGFR Non-AA) Complete Blood Count with Qlqytkxgyiyf3763-74-89 06:44:43 Test Item Value Reference Range Interpretation [...] = Slide Review) GL_SET_SLIDE _REVIEW_A UTO Automated Dtbdapglidtn8676-69-07 06:44:43 Test Item Value Reference Range Interpretation Comments Neutro Auto (test code = Neutro Auto) 73.3 % N Lymph Auto (test code = Lymph Auto) 15.9 % N Walker Auto (test code = Walker Auto) 8.1 % N Eos, Auto (test code = Eos, Auto) 2.1 % N Basophil Auto (test code = Basophil 0.6 % N Auto) Neutro Absolute (test code = Neutro 5.1 x10 2.7-7.3 Absolute) Lymph Absolute (test code = Lymph 1.1 x10 0.8-3.5 Absolute) Walker Absolute (test code = Walker 0.6 x10 0.3-0.9 Absolute) Eos Absolute (test code = Eos 0.1 x10 0.0-0.3 Absolute) Baso Absolute (test code = Baso 0.0 x10 0.0-0.1 Absolute) POC [id number] 05:49:49 Test Item Value Reference Range Interpretation Comments Glucose POC (test 129 mg/dL 74-106 H POC Glucos e used on code = Glucose POC) critical ly ill patients is considered " off-label use" and has no t been cleared or appr rosa elena by the FDA. Altern ative testing methods should be considered i f the patient is crit ically ill. Troponin [id number] 16:59:39 Test Item Value Reference Range Interpretation Comments Troponin-I (test 0.467 ng/mL 0.010-0.040 CTRB/ERIN KILGORE code = Troponin-I) RN/03/10/2 019 16:59:35 CDT/ST CT Angio Vkpvq5600-47-84 15:03:22Patient: NITO MCKEON Date/Time03/10/2019 14:46 CDTReason for [...] EKG, CKMB, clinicalobserva tions, symptons, etc. Lipase [id number] 11:47:20 Test Item Value Reference Range Interpretation Comments Lipase Level (test code = 95 IntlUnit/L 73-393 Lipase Level) Comprehensive Metabolic [id number] 11:46:17 Test Item Value Reference Range Interpretation [...] code = AST) 12 IntlUnit/L 10-34 Creatine [id number] 11:46:17 Test Item Value Reference Range Interpretation Comments CK (test code = CK) 34 IntlUnit/L 39-308 L Comprehensive Metabolic Tpghp2019-30-70 11:46:17 Test Item Value Reference Range Interpretation [...] mL/min/1.73 m2 N AA) Creatine Kinase MB [id number] 11:46:17 Test Item Value Reference Range Interpretation Comments CKMB (test code = CKMB) <1.0 ng/mL 0.5-3.6 CKMB % (test code = CKMB %) <2.9 % 0.0-5.0 Comprehensive Metabolic [id number] 11:46:17 Test Item Value Reference Range Interpretation [...] m2 N eGFR Non-AA) Pro B Natriuretic [id number] 11:43:17 Test Item Value Reference Range Interpretation Comments NT-proBNP (test 309 pg/mL 0-125 H < 300 pg/ml - heart code = NT-proBNP) failure un likelyAge less than 50 years, > 450 pg/ml - heart f ailure lilkelyAge 50 - 75 years, > 900 pg/ml - h eart failure likelyA ge greater than 75 years, > 1800 pg/ml - heart f ailure likely D-Dimer [id number] 11:26:15 Test Item Value Reference Range Interpretation [...] DVT or PEunlikely. Complete Blood Count with [id number] 11:20:22 Test Item Value Reference Range Interpretation [...] = Slide Review) GL_SET_SLIDE _REVIEW_A UTO Automated [id number] 11:20:22 Test Item Value Reference Range Interpretation Comments Neutro Auto (test code = Neutro Auto) 84.0 % N Lymph Auto (test code = Lymph Auto) 9.2 % N Walker Auto (test code = Walker Auto) 5.3 % N Eos, Auto (test code = Eos, Auto) 1.0 % N Basophil Auto (test code = Basophil 0.5 % N Auto) Neutro Absolute (test code = Neutro 7.5 x10 2.7-7.3 H Absolute) Lymph Absolute (test code = Lymph 0.8 x10 0.8-3.5 Absolute) Walker Absolute (test code = Walker 0.5 x10 0.3-0.9 Absolute) Eos Absolute (test code = Eos 0.1 x10 0.0-0.3 Absolute) Baso Absolute (test code = Baso 0.0 x10 0.0-0.1 Absolute) Urinalysis [id number] 11:18:53 Test Item Value Reference Range Interpretation [...] /LPF 1-6 Cast) Urinalysis with Culture, if [id number] 11:18:52 Test Item Value Reference Range Interpretation [...] Micro Ind?) rule GL_SET_UA_MICRO _IND POC Troponin [id number] 10:53:21 Test Item Value Reference Range Interpretation [...] tions, symptons, etc. XR Chest 1 View [id number] 10:02:21Patient: NITO MCKEON Date/Time03/10/2019 09:51 CDTReason for [...] (Electronic Signature): 03/10/201910:02 amWound Culture w/ Gram [id number] 19:48:51 Test Item Value Reference Range Interpretation Comments Final Report (test See culture # code = Final Report) [id number] Gram Stain Report Many Gram Negative (test code = Gram Bacilli Many Gram Stain Report) Positive Cocci POC [id number] 11:05:31 Test Item Value Reference Range Interpretation Comments Glucose POC (test 248 mg/dL 74-106 H POC Glucos e used on code = Glucose POC) critical ly ill patients is considered " off-label use" and has no t been cleared or appr rosa elena by the FDA. Altern ative testing methods should be considered i f the patient is crit ically ill. POC [id number] 05:48:38 Test Item Value Reference Range Interpretation Comments Glucose POC (test 195 mg/dL 74-106 H POC Glucos e used on code = Glucose POC) critical ly ill patients is considered " off-label use" and has no t been cleared or appr rosa elena by the FDA. Altern ative testing methods should be considered i f the patient is crit ically ill. POC [id number] 21:28:20 Test Item Value Reference Range Interpretation Comments Glucose POC (test 230 mg/dL 74-106 H POC Glucos e used on code = Glucose POC) critical ly ill patients is considered " off-label use" and has no t been cleared or appr rosa elena by the FDA. Altern ative testing methods should be considered i f the patient is crit ically ill. Clostridium difficile [id number] 18:18:24 Test Item Value Reference Range Interpretation Comments CDIFF PCR (test NEGATIVE Negative Error 5006 P ost-run code = CDIFF PCR) analysis e rror Error 5006: [Toxin B] probe check failed. Probe c heck value of 470 for read ing number 1 was above the m aximum of 282 [id number] 5006 Post-run a nalysis error Error 500 6: [Toxin B] probe check joel led. Probe check value of 503 for reading number 3 was above the maximum of 282 [id number] POC [id number] 17:00:07 Test Item Value Reference Range Interpretation [...] crit ically ill. Wound Culture w/ Gram [id number] 13:52:35 Test Item Value Reference Range Interpretation [...] Cocci Many Gram Report) Negative Bacilli POC [id number] 12:56:36 Test Item Value Reference Range Interpretation Comments Glucose POC (test 196 mg/dL 74-106 H POC Glucos e used on code = Glucose POC) critical ly ill patients is considered " off-label use" and has no t been cleared or appr rosa elena by the FDA. Altern ative testing methods should be considered i f the patient is crit ically ill. POC [id number] 09:05:17 Test Item Value Reference Range Interpretation Comments Glucose POC (test 258 mg/dL 74-106 H POC Glucos e used on code = Glucose POC) critical ly ill patients is considered " off-label use" and has no t been cleared or appr rosa elena by the FDA. Altern ative testing methods should be considered i f the patient is crit ically ill. Vancomycin Level [id number] 07:12:17 Test Item Value Reference Range Interpretation Comments Vanco Tr (test code = Vanco Tr) 8.1 mcg/mL 10.0-20.0 L POC [id number] 00:54:01 Test Item Value Reference Range Interpretation [...] crit ically ill. Wound Culture w/ Gram [id number] 04:35:47 Test Item Value Reference Range Interpretation Comments ORGANISM (test code = Staphylococcus aureus ORGANISM) Ciprofloxacin (test code R = Cipro) Gentamicin (test code = S Gent) Levofloxacin (test code I = Levo) Nitrofurantoin (test S code = Nitro) Trimethoprim/Sulfa (test R code = SXT) Benzylpenicillin (test R code = Kisohr) Clindamycin (test code = S Clinda) Erythromycin [...] Cocci Report) RT CALFWound Culture w/ Gram [id number] 04:33:46 Test Item Value Reference Range Interpretation [...] Staphylococcus simulans Heavy growth Proteus mirabilis POC [id number] 21:25:36 Test Item Value Reference Range Interpretation [...] crit ically ill. Wound Culture w/ Gram [id number] 23:57:56See culture # [id number] Urinalysis with Culture, if [id number] 17:21:15 Test Item Value Reference Range Interpretation [...] Ind?) rule GL_SET_UA_MICRO _IN D Comprehensive Metabolic [id number] 11:25:10 Test Item Value Reference Range Interpretation [...] = AST) 16 IntlUnit/L 10-34 Comprehensive Metabolic [id number] 11:25:10 Test Item Value Reference Range Interpretation [...] >60 mL/min/1.73 m2 N AA) Comprehensive Metabolic [id number] 11:25:10 Test Item Value Reference Range Interpretation [...] ALT (test code = ALT) 12 IntlUnit/L -78 AST (test code = AST) 16 IntlUnit/L 10-34 eGFR AA (test code = eGFR >60 mL/min/1.73 m2 N AA) eGFR Non-AA (test code = >60 mL/min/1.73 m2 N eGFR Non-AA) Complete Blood Count with [id number] 11:02:24 Test Item Value Reference Range Interpretation [...] (test code = Slide Auto Review) Automated [id number] 11:02:24 Test Item Value Reference Range Interpretation Comments Neutro Auto (test code = Neutro Auto) 71.7 % N Lymph Auto (test code = Lymph Auto) 16.8 % N Walker Auto (test code = Walker Auto) 10.2 % N Eos, Auto (test code = Eos, Auto) 0.7 % N Basophil Auto (test code = Basophil 0.6 % N Auto) Neutro Absolute (test code = Neutro 4.1 x10 2.7-7.3 Absolute) Lymph Absolute (test code = Lymph 1.0 x10 0.8-3.5 Absolute) Walker Absolute (test code = Walker 0.6 x10 0.3-0.9 Absolute) Eos Absolute (test code = Eos 0.0 x10 0.0-0.3 Absolute) Baso Absolute (test code = Baso 0.0 x10 0.0-0.1 Absolute) XR Chest 1 View [id number] 10:52:34Patient: NITO MCKEON Date/Time01/17/2019 10:42 CDTReason for [...] (Electronic Signature): 01/17/2019 10:52 amXR CHEST 1 [id number] 05:45:24XR CHEST 1 VIEWDIAGNOSIS: Cough and shortness of breathThe heart and mediastinum are stable. A possible left lower lobe opacityhas developed since 03/28/2013. This could represent atelectasis and/orpneumonia. The remainder the chest is clear.IMPRESSION: Possible left lower lobe opacity developing since 03/28/2013.CT SPINE, LUMBAR WO [id number] 07:21:51History: Fall 2 days ago with right [...] to the emergency room by Dr. Young 2023 hours.Radiation dose lowering techniques were used with automated exposurecontrol, adjusting the mA according to patient's size.XR HIP 2+V, UNI.PIRSKMNY-[id number] 05:18:48 XR HIP 2+V, UNI.COMPLETE-RIGHTDIAGNOSIS: Right hip injury in a fallSevere osteoarthritis is present.No fracture or dislocation is seen.Vascular calcifications are evident.IMPRESSION: Osteoarthritis right hip.The radiographic findings were faxed to the ER at [address] Glaser.XR PELVIS 1-2 [id number] 05:17:44XR PELVIS 1-2 VIEWSDIAGNOSIS: Pelvic injury in a fallNo pelvic fracture is seen. Osteoarthritis is noted in each hip and thelumbar spine. Extensive vascular calcifications are evident.IMPRESSION: Osteoarthritis bilateral hips.CT SPINE, CERVICAL WO [id number] 19:48:14Information: Fall 2 days ago with neck [...] to patient's size.CT HEAD OR BRAIN WO [id number] 19:46:10Information: Fall 2 days ago with complaints [...]
[2021-01-11 14:40] LABS: Absolute Lymphocytes (CBC) 1.4 K/uL (0.7-4.9); Hematocrit 40.9 % (39.6-49.0); Lymphocytes % 13.5 % (15.3-44.8); MPV 7.7 fL (7.6-11.3); RBC Red Blood Cell Count 4.09 M/uL (4.33-5.43)
[2021-01-11 14:46] LABS: Protime INR 1.01
[2021-01-11 14:57] LABS: ALT/SGPT 14 U/L (12-78); AST/SGOT 10 U/L (15-37); Albumin 3.2 g/dL (3.4-5.0); Alkaline Phosphatase 81 U/L (45-117); BUN Blood Urea Nitrogen 13 mg/dL (7-18); Bicarbonate 32 mmol/L (21-32); Bilirubin Direct < 0.1 mg/dL (0-0.2); Bilirubin Total 0.3 mg/dL (0.2-1.0); Glucose Level 211 mg/dL (74-106); Magnesium 1.5 mg/dL (1.8-2.4); NT PRO-BNP 138 pg/mL (<125); Potassium 3.4 mmol/L (3.5-5.1); Protein, Total 7.7 g/dL (6.4-8.2); Sodium Level 135 mmol/L (136-145); Troponin (Emerg Dept Use Only) < 0.02 ng/mL (0.0-0.045)
--- NOTE | 2021-01-11 15:10 | RAD REPORT ---
EXAM DESCRIPTION: RAD - Chest Single View - 01/11/2021 2:31 pm CLINICAL HISTORY: CONGESTION, chest pain COMPARISON: April 2020 TECHNIQUE: AP portable chest image was obtained 01/11/2021 2:31 pm . FINDINGS: Lung volumes are low. Significant right hemidiaphragm elevation is again noted. No periphe ral mass or consolidation. Heart, vasculature and lung markings are similar to comparison. Trachea is midline. No measurable pleural effusion and no pneumothorax. No acute bony abnormality seen. No acut e aortic findings suspected. IMPRESSION: No acute cardiopulmonary process. Chest exam is limited but not clearly different from comparison.
--- NOTE | 2021-01-11 16:22 | EDPHYS ---
Physician Documentation [facility] Name: Hany Marcano Age: 75 yrs Sex: Male : 1945 Arrival Date: 01/11/2021 Time: 13:44 Bed 4 Private MD: ED Physician Americo Montana HPI: 01/11 14:45 This 75 yrs old Male presents to ER via EMS with complaints of Chest Pain. ma2 14:45 The patient or guardian reports chest pain that is located primarily in the substernal ma2 area. Onset: gradually, 2 day(s) ago. Associated signs and symptoms: Pertinent negatives: cough, dizziness, lower extremity pain, lightheadedness. Severity of pain: At its worst the pain was mild in the emergency department the pain is unchanged. The patient has not experienced similar symptoms in the past. Historical: - Allergies: 13:48 No Known Allergies; hb - Home Meds: 13:48 allopurinol 100 mg Oral tab 1 tab once daily [Active]; amlodipine 10 mg tab 1 tab once hb daily [Active]; aspirin 81 mg Oral TbEC 1 tab once daily [Active]; calcium with Vitamin D [Active]; cyanocobalamin (vitamin B-12) 1,000 mcg/mL injection soln 1 mL Q 2 WEEKS [Active]; isosorbide mononitrate 120 mg Oral Tb24 1 tab once daily [Active]; Lantus 100 unit/mL Sub-Q soln 24 unit nightly [Active]; Lasix 40 mg Oral tab 1 tab once daily [Active]; lisinopril 40 mg Oral tab 1 tab nightly [Active]; lovastatin 40 mg Oral tab 1 tab nightly [Active]; Humalog Sub-Q Sliding scale ac and hs [Active]; magnesium oxide 400 mg Oral cap twice a day [Active]; metformin 1,000 mg Oral TG24 1 tab 2 times per day [Active]; metoprolol tartrate 25 mg Oral tab 1 tab 2 times per day [Active]; MVI daily [Active]; omeprazole 40 mg Oral cpDR 1 cap once daily [Active]; pioglitazone 30 mg Oral tab 1 tab once daily [Active]; Plavix 75 mg Oral tab 1 tab once daily [Active]; Silvadene 1 % Topical crea once daily [Active]; trazodone 50 mg Oral tab 1 tab nightly [Active]; Vitamin D Oral 66394 unit WEEKLY [Active]; nitroglycerin 0.4 mg SL subl 1 tab every 5 minutes [Active]; - PMHx: 13:48 Angina; CAD; chest pain; CHF; Dementia; Depression; Diabetes - IDDM; GERD; Gout; hb Hyperlipidemia; insomnia; Allergic rhinitis; - PSHx: 13:48 left fem pop; hb - Immunization history:: Adult Immunizations up to date. - Social history:: Smoking status: Patient denies any tobacco usage or history of. - Family history:: not pertinent. ROS: 14:45 Constitutional: Negative for fever, chills, and weight loss. ma2 14:45 All other systems are negative. Exam: 14:45 Constitutional: This is a well developed, well nourished patient who is awake, alert, ma2 and in no acute distress. Head/Face: Normocephalic, atraumatic. Eyes: Pupils equal round and reactive to light, extra-ocular motions intact. Lids and lashes normal. Conjunctiva and sclera are non-icteric and not injected. Cornea within normal limits. Periorbital areas with no swelling, redness, or edema. ENT: Nares patent. No nasal discharge, no septal abnormalities noted. Tympanic membranes are normal and external auditory canals are clear. Oropharynx with no redness, swelling, or masses, exudates, or evidence of obstruction, uvula midline. Mucous membranes moist. Neck: Trachea midline, no thyromegaly or masses palpated, and no cervical lymphadenopathy. Supple, full range of motion without nuchal rigidity, or vertebral point tenderness. No Meningismus. Chest/axilla: Normal chest wall appearance and motion. Nontender with no deformity. No lesions are appreciated. Cardiovascular: Regular rate and rhythm with a normal S1 and S2. No gallops, murmurs, or rubs. Normal PMI, no JVD. No pulse deficits. Respiratory: Lungs have equal breath sounds bilaterally, clear to auscultation and percussion. No rales, rhonchi or wheezes noted. No increased work of breathing, no retractions or nasal flaring. Abdomen/GI: Soft, non-tender, with normal bowel sounds. No distension or tympany. No guarding or rebound. No evidence of tenderness throughout. Back: No spinal tenderness. No costovertebral tenderness. Full range of motion. Skin: Warm, dry with normal turgor. Normal color with no rashes, no lesions, and no evidence of cellulitis. MS/ Extremity: Pulses equal, no cyanosis. Neurovascular intact. Full, normal range of motion. Neuro: Awake and alert, GCS 15, oriented to person, place, time, and situation. Cranial nerves II-XII grossly intact. Motor strength 5/5 in all extremities. Sensory grossly intact. Cerebellar exam normal. Normal gait. Vital Signs: 13:44 BP 123 / 64; Pulse 83; Resp 25; Temp 97.3; Pulse Ox 97% on R/A; hb 16:11 BP 135 / 78; Pulse 96; Resp 18; Pulse Ox 97% on 2 lpm NC; ss 17:43 BP 149 / 87; Pulse 95; Resp 21; Pulse Ox 97% on 2 lpm NC; hb 18:47 BP 140 / 71; Pulse 77; Resp 22; Pulse Ox 97% on 2 lpm NC; hb 20:00 BP 117 / 59; Pulse 95; Resp 24; Pulse Ox 96% on 2 lpm NC; jb4 MDM: 13:45 Patient medically screened. ma2 14:46 Differential diagnosis: chest wall pain, esophagitis, gastritis, gastroesophageal ma2 reflux disease (GERD). 15:51 Data reviewed: vital signs, nurses notes. Counseling: I had a detailed discussion with ma2 the patient and/or guardian regarding: the historical points, exam findings, and any diagnostic results supporting the discharge/admit diagnosis, the presence of at least one elevated blood pressure reading (>120/80) during this emergency department visit. 16:21 The patient was not given aspirin in the Emergency Department. Administered by EMS. ma2 Response to treatment: the patient's symptoms have markedly improved after treatment. 01/11 13:45 Order name: Basic Metabolic Panel; Complete Time: 15: [facility] 01/11 13:45 Order name: CBC with Diff; Complete Time: 15: [facility] 01/11 13:45 Order name: LFT's; Complete Time: 15:31 [facility] 01/11 13:45 Order name: Magnesium; Complete Time: 15: [facility] 01/11 13:45 Order name: NT PRO-BNP; Complete Time: 15: [facility] 01/11 13:45 Order name: PT-INR; Complete Time: 15:31 va2 01/11 13:45 Order name: Troponin (emerg Dept Use Only); Complete Time: 15:31 va2 01/11 17:26 Order name: Lipid Profile [facility] 01/11 17:26 Order name: Lipid Profile [facility] 01/11 17:26 Order name: Troponin I [facility] 01/11 17:26 Order name: Troponin I [facility] 01/11 17:26 Order name: Troponin I [facility] 01/11 13:45 Order name: XRAY Chest (1 view); Complete Time: 15:31 va2 01/11 13:45 Order name: EKG; Complete Time: 13:46 va2 01/11 13:45 Order name: Cardiac monitoring; Complete Time: 13:48 [facility] 01/11 13:45 Order name: EKG - Nurse/Tech; Complete Time: 14:11 va2 01/11 13:45 Order name: IV Saline Lock; Complete Time: 14:11 [facility] 01/11 13:45 Order name: Labs collected and sent; Complete Time: 14:11 [facility] 01/11 13:45 Order name: O2 Per Protocol; Complete Time: 13:48 va2 01/11 13:45 Order name: O2 Sat Monitoring; Complete Time: 13:48 [facility] 01/11 17:27 Order name: CONS Physician Consult [facility] 01/11 17:27 Order name: Heart Healthy [facility] 01/11 17:27 Order name: Echo with Doppler [facility] 01/11 17:27 Order name: EKG Electrocardiogram [facility] 01/11 17:27 Order name: EKG Electrocardiogram [facility] 01/11 18:10 Order name: SARS-COV-2 RT PCR EDTN Administered Medications: No medications were administered Disposition: 01/11/21 16:21 Hospitalization ordered by Americo Ramos for Observation. Preliminary diagnosis is Other chest pain. - Bed requested for Telemetry/MedSurg (observation). - Status is Observation. jb4 - Condition is Stable. - Problem is new. - Symptoms are unchanged. Signatures: Dispatcher [employer] EDTN Teagan Means RN RN Vielka Man RN RN Viral Rangel RN RN jb4 Americo [place] MD MD ma2 Corrections: (The following items were deleted from the chart) 16:59 16:58 CORONAVIRUS+MR.LAB.BRZ ordered. EDMS EDMS 17:17 16:55 CORONAVIRUS+MR.LAB.BRZ ordered. EDMS EDMS 18:39 16:21 Hospitalization Ordered by Americo Ramos MD for Observation. Preliminary dw diagnosis is Other chest pain. Bed requested for Telemetry/MedSurg (observation). Status is Observation. Condition is Stable. Problem is new. Symptoms are unchanged. ma2 20:11 18:39 01/11/2021 16:21 Hospitalization Ordered by Americo Ramos MD for Observation. jb4 Preliminary diagnosis is Other chest pain. Bed requested for Telemetry/MedSurg (observation). Status is Observation. Condition is Stable. Problem is new. Symptoms are unchanged. dw
--- NOTE | 2021-01-11 16:22 | ER ---
Nurse's Notes [facility] Christine Name: Hany Marcano Age: 75 yrs Sex: Male : 1945 Arrival Date: 01/11/2021 Time: 13:44 Bed 4 Private MD: Diagnosis: Other chest pain Presentation: 01/11 13:44 Chief complaint: EMS states: Chest pain x 4 days. CP improved after nitro x1 and ASA. hb Coronavirus screen: At this time, the client does not indicate any symptoms associated with coronavirus-19. Ebola Screen: No symptoms or risks identified at this time. Initial Sepsis Screen: Does the patient meet any 2 criteria? No. Patient's initial sepsis screen is negative. Does the patient have a suspected source of infection? No. Patient's initial sepsis screen is negative. Risk Assessment: Do you want to hurt yourself or someone else? Patient reports no desire to harm self or others. Onset of symptoms was January 08, 2021. 13:44 Acuity: BREANNA 3 hb 13:44 Method Of Arrival: EMS: [facility] Historical: - Allergies: 13:48 No Known Allergies; hb - Home Meds: 13:48 allopurinol 100 mg Oral tab 1 tab once daily [Active]; amlodipine 10 mg tab 1 tab once hb daily [Active]; aspirin 81 mg Oral TbEC 1 tab once daily [Active]; calcium with Vitamin D [Active]; cyanocobalamin (vitamin B-12) 1,000 mcg/mL injection soln 1 mL Q 2 WEEKS [Active]; isosorbide mononitrate 120 mg Oral Tb24 1 tab once daily [Active]; Lantus 100 unit/mL Sub-Q soln 24 unit nightly [Active]; Lasix 40 mg Oral tab 1 tab once daily [Active]; lisinopril 40 mg Oral tab 1 tab nightly [Active]; lovastatin 40 mg Oral tab 1 tab nightly [Active]; Humalog Sub-Q Sliding scale ac and hs [Active]; magnesium oxide 400 mg Oral cap twice a day [Active]; metformin 1,000 mg Oral TG24 1 tab 2 times per day [Active]; metoprolol tartrate 25 mg Oral tab 1 tab 2 times per day [Active]; MVI daily [Active]; omeprazole 40 mg Oral cpDR 1 cap once daily [Active]; pioglitazone 30 mg Oral tab 1 tab once daily [Active]; Plavix 75 mg Oral tab 1 tab once daily [Active]; Silvadene 1 % Topical crea once daily [Active]; trazodone 50 mg Oral tab 1 tab nightly [Active]; Vitamin D Oral 52427 unit WEEKLY [Active]; nitroglycerin 0.4 mg SL subl 1 tab every 5 minutes [Active]; - PMHx: 13:48 Angina; CAD; chest pain; CHF; Dementia; Depression; Diabetes - IDDM; GERD; Gout; hb Hyperlipidemia; insomnia; Allergic rhinitis; - PSHx: 13:48 left fem pop; hb - Immunization history:: Adult Immunizations up to date. - Social history:: Smoking status: Patient denies any tobacco usage or history of. - Family history:: not pertinent. Screenin:46 Abuse screen: Denies threats or abuse. Denies injuries from another. Nutritional hb screening: No deficits noted. Tuberculosis screening: No symptoms or risk factors identified. Fall Risk Total Peoples Fall Scale indicates Low Risk Score (25-44 pts). Fall prevention measures have been instituted. Side Rails Up X 2 Frequent Obs/Assesments occuring As available Patient and Family Educated on Fall Prevention Program and strategies. Assessment: 14:10 General: Appears in no apparent distress. Behavior is calm, cooperative. Pain: Pain hb currently is 0 out of 10 on a pain scale. at worst was 8 out of 10 on a pain scale. Neuro: Level of Consciousness is awake, alert, obeys commands, Oriented to person, place, time, situation. Cardiovascular: Patient's skin is warm and dry. Rhythm is regular. Respiratory: Respiratory effort is even, unlabored, Respiratory pattern is regular, symmetrical. GI: No signs and/or symptoms were reported involving the gastrointestinal system. : No signs and/or symptoms were reported regarding the genitourinary system. EENT: No signs and/or symptoms were reported regarding the EENT system. Derm: Skin is pink, warm \T\ dry. Musculoskeletal: No signs and/or symptoms reported regarding the musculoskeletal system. 15:19 Reassessment: Patient appears in no apparent distress at this time. Patient and/or hb family updated on plan of care and expected duration. Pain level reassessed. Patient is alert, oriented x 3, equal unlabored respirations, skin warm/dry/pink. 16:05 Reassessment: Pt moved to larger hospital bed for comfort. hb 16:15 Reassessment: Patient appears in no apparent distress at this time. Patient and/or hb family updated on plan of care and expected duration. Pain level reassessed. Patient is alert, oriented x 3, equal unlabored respirations, skin warm/dry/pink. 17:43 Reassessment: Patient appears in no apparent distress at this time. Patient and/or hb family updated on plan of care and expected duration. Pain level reassessed. Patient is alert, oriented x 3, equal unlabored respirations, skin warm/dry/pink. 18:47 Reassessment: Patient appears in no apparent distress at this time. Patient and/or hb family updated on plan of care and expected duration. Pain level reassessed. Patient is alert, oriented x 3, equal unlabored respirations, skin warm/dry/pink. 19:05 Reassessment: Patient appears in no apparent distress at this time. Patient and/or jb4 family updated on plan of care and expected duration. Pain level reassessed. Patient is alert, oriented x 3, equal unlabored respirations, skin warm/dry/pink. 19:30 Reassessment: Report given to TYE Hay. jb4 20:09 Reassessment: Patient appears in no apparent distress at this time. Patient and/or jb4 family updated on plan of care and expected duration. Pain level reassessed. Patient is alert, oriented x 3, equal unlabored respirations, skin warm/dry/pink. Vital Signs: 13:44 BP 123 / 64; Pulse 83; Resp 25; Temp 97.3; Pulse Ox 97% on R/A; hb 16:11 BP 135 / 78; Pulse 96; Resp 18; Pulse Ox 97% on 2 lpm NC; ss 17:43 BP 149 / 87; Pulse 95; Resp 21; Pulse Ox 97% on 2 lpm NC; hb 18:47 BP 140 / 71; Pulse 77; Resp 22; Pulse Ox 97% on 2 lpm NC; hb 20:00 BP 117 / 59; Pulse 95; Resp 24; Pulse Ox 96% on 2 lpm NC; jb4 ED Course: 13:44 Patient arrived in ED. hb 13:45 Americo Montana MD is Attending Physician. ma2 13:46 Triage completed. hb 13:46 Arm band placed on. hb 13:48 Patient has correct armband on for positive identification. Bed in low position. Call light in reach. Side rails up X2. sewer builder on. Pulse ox on. NIBP on. 13:48 Patient maintains SpO2 saturation greater than 95% on room air. hb 14:02 Inserted saline lock: 24 gauge in right hand, using aseptic technique. Blood collected. hb 14:09 Vielka Man, RN is Primary Nurse. hb 14:32 XRAY Chest (1 view) In Process Unspecified. EDMS 16:21 Americo Ramos MD is Hospitalizing Provider. ma 19:19 Primary Nurse role handed off by Vielka Man RN mw2 20:00 No provider procedures requiring assistance completed. Patient admitted, IV remains in jb4 place. Administered Medications: No medications were administered Outcome: 16:21 Decision to Hospitalize by Provider. ma2 20:00 Admitted to Med/surg accompanied by tech, via stretcher, room 216, with oxygen, with jb4 chart, Report called to TYE Hay 20:00 Condition: stable 20:00 Discharge instructions given to patient, Instructed on the need for admit, Demonstrated understanding of instructions. 20:11 Patient left the ED. jb4 Signatures: Dispatcher [employer] EDVT Yudy Caro RN RN Vielka Man, Viral Perdomo RN, RN RN jb4 Americo Montana MD MD tn2 Nimo Baker mw2
[2021-01-11] MEDS ORDERED: ALPRAZOLAM 0.25 MG TABLET PO PRN (17:17)
[2021-01-11] MEDS ORDERED: MORPHINE 4 MG/ML SYR IV PRN (17:17)
[2021-01-11] MEDS ORDERED: ACETAMINOPHEN 500 MG TAB PO PRN (17:17)
[2021-01-11 20:28] VITALS: O2SAT 96
[2021-01-11] MEDS ORDERED: METOPROLOL TAR 50 MG TAB PO SCH (21:00)
[2021-01-11] MEDS ORDERED: D50W 25 GM/50 ML SYRINGE IV PRN ×2 (22:57→22:58)
[2021-01-11] MEDS ORDERED: INSULIN GLARGINE 100 UNITS/ML SQ ONE (22:57)
[2021-01-11] MEDS ORDERED: GLUCAGON 1 MG/VIAL IM PRN ×2 (22:57→22:58)
[2021-01-11] MEDS ORDERED: ALBUTEROL INHALER 60 PUFF/8 GM IH PRN (22:58)
--- NOTE | 2021-01-12 02:08 | P.HP ---
Certification for Inpatient Patient admitted to: Observation With expected LOS: <2 Midnights Patient will require the following post-hospital care: None Practitioner: I am a practitioner with admitting privileges, knowledge of patient current condition, hospital course, and medical plan of care. Services: Services provided to patient in accordance with Admission requirements found in Title 42 Section 412.3 of the Code of Federal Regulations Patient History Date of Service: 01/11/21 Reason for admission: Chest pain rule out acute coronary syndrome History of Present Illness: Patient is a 75-year-old gentleman who presents to the hospital with chest discomfort. We admitted him about a year ago with similar complaints. At that time he was found have mildly elevated troponins. Patient had a left heart catheterization which revealed multivessel disease and patient had a stent placed in the left circumflex. Patient has been doing well since then. Patient denies having a stress test. Patient will be admitted to be ruled out for acute coronary syndrome. We will Consult Cardiology. Allergies No Known Allergies Allergy (Unverified 04/29/20 23:08) Home Medications: Allopurinol 1 tab PO DAILY 04/30/20 Amlodipine [Norvasc*] 10 mg PO DAILY 04/30/20 Aspirin [Aspirin EC 81 MG] 1 tab PO DAILY 04/30/20 Calcium Carbonate [Tums] 2 tab PO DAILY 04/30/20 Clopidogrel Bisulfate [Plavix*] 75 mg PO DAILY 04/30/20 Ergocalciferol (Vitamin D2) [Vitamin D2] 1 cap PO SEECOM 04/30/20 Furosemide [Lasix] 40 mg PO BID 04/30/20 Insulin Glargine,Hum.rec.anlog [Lantus] 24 units SQ BEDTIME 04/30/20 Isosorbide Mononitrate [Isosorbide Mononitrate ER] 1 tab PO DAILY 04/30/20 Lovastatin 40 mg PO BEDTIME 04/30/20 Metformin HCl 1 tab PO BIDWM 04/30/20 Metoprolol Tartrate 25 mg PO BID 04/30/20 Nitroglycerin 0.4 mg SL DAILYPRN PRN 04/30/20 Polyethyl Gly 3350 [Glycolax*] 17 gm PO Q48H 04/30/20 Trazodone [Desyrel*] 50 mg PO BEDTIME 04/30/20 glucagon HCL [Glucagon HCl] 1 mg IM PRN 04/30/20 lisinopriL [Lisinopril] 40 mg PO BEDTIME 04/30/20 Acetaminophen 650 mg PO Q8HP PRN 01/11/21 Albuterol Sulfate [Proair Digihaler] 2 puff IH Q4HP PRN 01/11/21 Ascorbic Acid [Vitamin C] 500 mg PO DAILY 01/11/21 Calcium Carbonate/Vitamin D3 [Calcium 600 + Vit D 400 Tablet] 1 each PO DAILY 01/11/21 Cyanocobalamin (Vitamin B-12) [B-12] 1,000 mcg PO DAILY 01/11/21 Dextran 70/Hypromellose [Artificial Tears Drops] 2 gtt EACH EYE TID 01/11/21 Dextrose [Glucose Gel] 1 dose PO PRN 01/11/21 Docusate [Colace Cap] 100 mg PO DAILY 01/11/21 Mag Hydrox/Al Hydrox/Simeth [Antacid Liquid] 30 ml PO Q8HP PRN 01/11/21 Menthol [Biofreeze] 1 appl TP Q12H 01/11/21 Pantoprazole Sodium [Protonix] 20 mg PO 1100 01/11/21 Tramadol HCl [Ultram] 50 mg PO TID 01/11/21 Trolamine Salicylate/Aloe Vera [Aspercreme 10% Cream] 1 appl TP BIDP PRN 01/11/21 Zinc 50 mg PO DAILY 01/11/21 - Past Medical/Surgical History Has patient received pneumonia vaccine in the past: No Diabetic: Yes -: Diabetes mellitus -: CHF -: GERD -: CAD with chronic angina -: Hyperlipidemia -: Depression -: Left fem-pop -: Left heart catheterization with left circumflex stent Psychosocial/ Personal History: halfway resident-[facility] - Family History Father Medical History: Cancer Mother Medical History: Heart disease - Social History Smoking Status: Former smoker Alcohol use: No CD- Drugs: No Caffeine use: Yes Place of Residence: [facility] Review of Systems 10-point ROS is otherwise unremarkable Physical Examination - Vital Signs Temperature: 97.1 F Blood Pressure: 118/63 Pulse: 82 Respirations: 20 Pulse Ox (%): 96 - Physical Exam General: Alert, In no apparent distress, Oriented x3 HEENT: Atraumatic, PERRLA, Mucous membr. moist/pink, EOMI, Sclerae nonicteric Neck: Supple, 2+ carotid pulse no bruit, No LAD, Without JVD or thyroid abnormality Respiratory: Clear to auscultation bilaterally, Normal air movement Cardiovascular: Regular rate/rhythm, Normal S1 S2, Systolic murmur Gastrointestinal: Normal bowel sounds, Soft and benign, Non-distended, No tenderness Musculoskeletal: No clubbing, No tenderness, Swelling Integumentary: No rashes Neurological: Normal speech, Normal tone, Sensation intact, Cranial nerves 3-12 intact, Normal affect, Abnormal gait, Abnormal strength Lymphatics: No axilla or inguinal lymphadenopathy - Studies Laboratory Data (last 24 hrs) 01/11/21 14:00: PT 11.6, INR 1.01 01/11/21 14:00: WBC 10.00, Hgb 13.5 L, Hct 40.9, Plt Count 338 01/11/21 14:00: Sodium 135 L, Potassium 3.4 L, BUN 13, Creatinine 0.78, Glucose 211 H, Magnesium 1.5 L, Total Bilirubin 0.3, AST 10 L, ALT 14, Alkaline Phosphatase 81 Assessment & Plan - Problems (Diagnosis) (1) Chest pain, rule out acute myocardial infarction Current Visit: Yes Status: Acute (2) Congestive heart failure Current Visit: No Status: Acute (3) Coronary artery disease Current Visit: No Status: Acute (4) Obesity (BMI 30-39.9) Current Visit: No Status: Acute (5) Peripheral arterial disease Current Visit: No Status: Acute (6) Type 2 diabetes mellitus Current Visit: No Status: Acute - Plan 1. Serial troponins and EKG 2. Cardiology consultation 3. Echocardiogram and possible stress test pending cardiology evaluation 4. Anti-platelet therapy, anti coagulation, beta-michelle, statin, and O2 as needed 5. IV morphine for pain 6. Nitro p.r.n. 7. Strict blood pressure and blood sugar control 8. GI and DVT prophylaxis Discharge Plan: [facility] Plan to discharge in: 24 Hours - Advance Directives Does patient have a Living Will: No Does patient have a Durable POA for Healthcare: No - Code Status/Comfort Care Code Status Assessed: Yes Code Status: Full Code Critical Care: No Time Spent Managing PTS Care (In Minutes): 45
--- NOTE | 2021-01-12 05:54 | P.DS ---
Admission Date: 01/11/21 Discharge Date: 01/12/21 Primary Care Provider: [facility] Disposition: TRANSFER TO SENIOR CARE Discharge Condition: GOOD Reason for Admission: Chest pain rule out acute coronary syndrome Consultations: Cardiology-Dr. Hughes Procedures: COVID: Negative CXR: COMPARISON: April 2020 TECHNIQUE: AP portable chest image was obtained 01/11/2021 2:31 pm . FINDINGS: Lung volumes are low. Significant right hemidiaphragm elevation is again noted. No peripheral mass or consolidation. Heart, vasculature and lung markings are similar to comparison. Trachea is midline. No measurable pleural effusion and no pneumothorax. No acute bony abnormality seen. No acute aortic findings suspected. IMPRESSION: No acute cardiopulmonary process. Chest exam is limited but not clearly different from comparison. Cardiac Stress Test: Not able to be performed due to his obesity Medical problem List: Chest pain, atypical Chronic diastolic CHF CAD with prior heart catheterization 05/13/2020 with stent to the circumflex with noted occluded LAD with collaterals noted from the RCA and circumflex Hyperlipidemia Diabetes mellitus type 2 PVD GERD Obesity, BMI greater than 30 Brief History of Present Illness: 75-year-old male presented to the emergency room with chest pain. Patient with history of heart catheterization last year in April 2020. Patient had angioplasty and stent placed of the circumflex. Completely occluded LAD with collaterals from RCA and circumflex system noted. Patient was admitted for further evaluation and treatment. Hospital Course: Patient presented with chest pain. Patient with prior heart catheterization in April 2020 with angioplasty and stent placed to the circumflex. It was also noted at that time that he had a completely occluded LAD with collaterals from the RCA and circumflex system. Echo done at that time showed normal ejection fraction. Overnight patient did well. No chest pain noted. Cardiac enzymes unremarkable. Cardiology was consulted. Cardiology recommended cardiac stress test to further evaluate but this could not be performed due to his obesity. Cardiology recommended to follow-up as an outpatient. At discharge patient will continue with current medications of aspirin 81 mg daily, Plavix 25 mg daily, metoprolol 25 mg 1 pill twice daily, Norvasc 10 mg daily, lisinopril 40 mg daily, Lasix 40 mg 1 pill twice daily, and lovastatin 40 mg daily. Patient may take nitroglycerin as needed for chest pain. Recommend follow-up with cardiology as an outpatient in 1 to 2 weeks to follow-up his hospitalization. Patient will return back to the [facility]. Recommend follow-up with PCP in 1 to 2 weeks to follow-up hospitalization. Patient with hypertension, chronic diastolic CHF, hyperlipidemia and PVD. Echocardiogram 05/13/2020 showed normal ejection fraction. As mentioned above patient will continue with metoprolol 25 mg 1 pill twice daily, Norvasc 10 mg daily, and lisinopril 40 mg daily. Recommend to maintain blood pressure less than 130/80. Further adjustment can be done by snf physician. For her CHF patient will continue with a 1500 cc/day fluid restriction and low-salt diet. Recommend to monitor weight daily. Patient will continue with Lasix 40 mg 1 pill twice daily. Further adjustment in medication may be required. This can be done with the help of cardiology or his PCP. As mentioned above patient will continue with lovastatin 40 mg daily. Patient with GERD. At discharge patient will continue with Protonix 20 mg daily. Patient with diabetes mellitus type 2 insulin-dependent. At discharge patient will continue with current medications of metformin 1000 mg 1 pill twice daily and Lantus 24 units at bedtime. Recommend to maintain blood sugar less than 140 fasting and less than 200 after meals. Further adjustment can be done by his PCP. Recommend to recheck hemoglobin A1c every 3 months to monitor his progress. This can be done with the help of his PCP. Recommend follow-up with PCP in 1 to 2 weeks to follow this. Patient will continue with his other medications including proair as needed for shortness of breath, allopurinol 100 mg daily, vitamin C 500 mg daily, vitamin B12 daily, Caltrate daily, docusate daily, tramadol 50 mg 3 times a day as needed for pain and trazodone 50 mg at bedtime. Vital Signs/Physical Exam: Temp Pulse Resp BP Pulse Ox 97.0 F 72 22 H 149/70 H 96 01/12/21 04:00 01/12/21 04:00 01/12/21 04:00 01/12/21 04:00 01/12/21 04:00 General: Alert, In no apparent distress, Oriented x3, Cooperative HEENT: Atraumatic Neck: Supple Respiratory: Clear to auscultation bilaterally, Normal air movement Cardiovascular: Normal pulses, Regular rate/rhythm Gastrointestinal: Normal bowel sounds, Soft and benign, Non-distended, No tenderness, No masses, No rebound, No guarding Musculoskeletal: No erythema, No tenderness, No warmth Integumentary: No tenderness/swelling Neurological: Normal speech, Normal strength at 5/5 x4 extr, Normal tone, Normal affect Laboratory Data at Discharge: WBC 10.00 K/uL (4.3-10.9) 01/11/21 14:00 Hgb 13.5 g/dL (13.6-17.9) L 01/11/21 14:00 Hct 40.9 % (39.6-49.0) 01/11/21 14:00 Plt Count 338 K/uL (152-406) 01/11/21 14:00 PT 11.6 SECONDS (9.5-12.5) 01/11/21 14:00 INR 1.01 01/11/21 14:00 Sodium 135 mmol/L (136-145) L 01/11/21 14:00 Potassium 3.4 mmol/L (3.5-5.1) L 01/11/21 14:00 BUN 13 mg/dL (7-18) 01/11/21 14:00 Creatinine 0.78 mg/dL (0.55-1.3) 01/11/21 14:00 Glucose 211 mg/dL (74-106) H 01/11/21 14:00 Magnesium 1.5 mg/dL (1.8-2.4) L 01/11/21 14:00 Total Bilirubin 0.3 mg/dL (0.2-1.0) 01/11/21 14:00 AST 10 U/L (15-37) L 01/11/21 14:00 ALT 14 U/L (12-78) 01/11/21 14:00 Alkaline Phosphatase 81 U/L (45-117) 01/11/21 14:00 Troponin I < 0.02 ng/mL (0.0-0.045) 01/12/21 04:51 Triglycerides 215 mg/dL (<150) H 01/11/21 21:00 Cholesterol 141 mg/dL (<200) 01/11/21 21:00 HDL Cholesterol 46 mg/dL (40-60) 01/11/21 21:00 Cholesterol/HDL Ratio 3.07 01/11/21 21:00 Home Medications: Allopurinol 1 tab PO DAILY 04/30/20 Amlodipine [Norvasc*] 10 mg PO DAILY 04/30/20 Aspirin [Aspirin EC 81 MG] 1 tab PO DAILY 04/30/20 Calcium Carbonate [Tums] 2 tab PO DAILY 04/30/20 Clopidogrel Bisulfate [Plavix*] 75 mg PO DAILY 04/30/20 Ergocalciferol (Vitamin D2) [Vitamin D2] 1 cap PO SEECOM 04/30/20 Furosemide [Lasix] 40 mg PO BID 04/30/20 Insulin Glargine,Hum.rec.anlog [Lantus] 24 units SQ BEDTIME 04/30/20 Isosorbide Mononitrate [Isosorbide Mononitrate ER] 1 tab PO DAILY 04/30/20 Lovastatin 40 mg PO BEDTIME 04/30/20 Metformin HCl 1 tab PO BIDWM 04/30/20 Metoprolol Tartrate 25 mg PO BID 04/30/20 Nitroglycerin 0.4 mg SL DAILYPRN PRN 04/30/20 Polyethyl Gly 3350 [Glycolax*] 17 gm PO Q48H 04/30/20 Trazodone [Desyrel*] 50 mg PO BEDTIME 04/30/20 glucagon HCL [Glucagon HCl] 1 mg IM PRN 04/30/20 lisinopriL [Lisinopril] 40 mg PO BEDTIME 04/30/20 Acetaminophen 650 mg PO Q8HP PRN 01/11/21 Albuterol Sulfate [Proair Digihaler] 2 puff IH Q4HP PRN 01/11/21 Ascorbic Acid [Vitamin C*] 500 mg PO DAILY 01/11/21 Calcium Carbonate/Vitamin D3 [Calcium 600-Vit D3 400 Tablet] 1 each PO DAILY 01/11/21 Cyanocobalamin (Vitamin B-12) [B-12] 1,000 mcg PO DAILY 01/11/21 Dextran 70/Hypromellose [Artificial Tears Drops] 2 gtt EACH EYE TID 01/11/21 Dextrose [Glucose Gel] 1 dose PO PRN 01/11/21 Docusate [Colace Cap*] 100 mg PO DAILY 01/11/21 Mag Hydrox/Al Hydrox/Simeth [Antacid Liquid] 30 ml PO Q8HP PRN 01/11/21 Menthol [Biofreeze] 1 appl TP Q12H 01/11/21 Pantoprazole Sodium [Protonix] 20 mg PO 1100 01/11/21 Tramadol HCl [Ultram] 50 mg PO TID 01/11/21 Trolamine Salicylate/Aloe Vera [Aspercreme 10% Cream] 1 appl TP BIDP PRN 01/11/21 Zinc 50 mg PO DAILY 01/11/21 Physician Discharge Instructions: Patient presented with chest pain. Patient with prior heart catheterization in April 2020 with angioplasty and stent placed to the circumflex. It was also noted at that time that he had a completely occluded LAD with collaterals from the RCA and circumflex system. Echo done at that time showed normal ejection fraction. Overnight patient did well. No chest pain noted. Cardiac enzymes unremarkable. Cardiology was consulted. Cardiology recommended cardiac stress test to further evaluate but this could not be performed due to his obesity. Cardiology recommended to follow-up as an outpatient. At discharge patient will continue with current medications of aspirin 81 mg daily, Plavix 25 mg daily, metoprolol 25 mg 1 pill twice daily, Norvasc 10 mg daily, lisinopril 40 mg daily, Lasix 40 mg 1 pill twice daily, and lovastatin 40 mg daily. Patient may take nitroglycerin as needed for chest pain. Recommend follow-up with card iology as an outpatient in 1 to 2 weeks to follow-up his hospitalization. Patient will return back to the snf. Recommend follow-up with PCP in 1 to 2 weeks to follow-up hospitalization. Patient with hypertension, chronic diastolic CHF, hyperlipidemia and PVD. Echocardiogram 05/13/2020 showed normal ejection fraction. As mentioned above patient will continue with metoprolol 25 mg 1 pill twice daily, Norvasc 10 mg daily, and lisinopril 40 mg daily. Recommend to maintain blood pressure less than 130/80. Further adjustment can be done by snf physician. For her CHF patient will continue with a 1500 cc/day fluid restriction and low-salt diet. Recommend to monitor weight daily. Patient will continue with Lasix 40 mg 1 pill twice daily. Further adjustment in medication may be required. This can be done with the help of cardiology or his PCP. As mentioned above patient will continue with lovastatin 40 mg daily. Patient with GERD. At discharge patient will continue with Protonix 20 mg daily. Patient with diabetes mellitus type 2 insulin-dependent. At discharge patient will continue with current medications of metformin 1000 mg 1 pill twice daily and Lantus 24 units at bedtime. Recommend to maintain blood sugar less than 140 fasting and less than 200 after meals. Further adjustment can be done by his PCP. Recommend to recheck hemoglobin A1c every 3 months to monitor his progress. This can be done with the help of his PCP. Recommend follow-up with PCP in 1 to 2 weeks to follow this. Patient will continue with his other medications including proair as needed for shortness of breath, allopurinol 100 mg daily, vitamin C 500 mg daily, vitamin B12 daily, Caltrate daily, docusate daily, tramadol 50 mg 3 times a day as needed for pain and trazodone 50 mg at bedtime. Diet: ADA Activity: Fall precautions Followup: Unknown,U [Primary Care Provider] - Time spent managing pt's care (in minutes): 55
[2021-01-12] MEDS: METOPROLOL TAR 25 MG TAB PO SCH ×4 (06:00→21:38)
[2021-01-12] MEDS ORDERED: REGADENOSON 0.4 MG/5 ML SYR IV ONE (08:09)
--- NOTE | 2021-01-12 08:24 | EKG ---
Test Date: 2021-01-11 Test Time: 13:59:30 Rail Director: TTR MEASUREMENT RESULTS: Intervals: Rate: 95 PA: QRSD: 146 QT: 396 QTc: 497 Model: P: PA: QRS: 66 T: 27 INTERPRETIVE STATEMENTS: afib Right bundle branch block Abnormal ECG Compared to ECG 04/29/2020 20:02:46 Atrial premature complex(es) no longer present Electronically Signed On 01-12-21 08:23:48 CDT by [place]
[2021-01-12] MEDS ORDERED: CYANOCOBALAMIN 1,000 MCG TAB PO SCH (09:00)
[2021-01-12] MEDS ORDERED: CLOPIDOGREL 75 MG TABLET PO SCH (09:00)
[2021-01-12] MEDS ORDERED: CALCIUM CARBONATE CHEW 500MG TAB PO SCH (09:00)
[2021-01-12] MEDS ORDERED: CALCIUM CARB 500MG/VIT D 200 IU TAB PO SCH (09:00)
[2021-01-12] MEDS ORDERED: ENOXAPARIN 40 MG/0.4 ML SQ SCH (09:00)
[2021-01-12] MEDS ORDERED: allopurinoL 100 MG TAB PO SCH (09:00)
[2021-01-12] MEDS ORDERED: AMLODIPINE 10 MG TAB PO SCH (09:00)
[2021-01-12] MEDS ORDERED: ISOSORBIDE MONO SR 60 MG TAB PO SCH (09:00)
[2021-01-12] MEDS ORDERED: ASCORBIC ACID 500 MG TABLET PO SCH (09:00)
[2021-01-12] MEDS ORDERED: FUROSEMIDE 40 MG TABLET PO SCH (09:00)
[2021-01-12] MEDS ORDERED: ASPIRIN EC 81 MG TAB PO SCH (09:00)
[2021-01-12] MEDS ORDERED: ASPIRIN 325 MG TAB PO SCH (09:00)
[2021-01-12] MEDS ORDERED: DOCUSATE NA 100 MG CAP PO SCH (09:00)
[2021-01-12] MEDS: METFORMIN HCL 500 MG TAB PO SCH ×2 (10:51→16:36)
[2021-01-12] MEDS: TRAMADOL HCL 50 MG TAB PO SCH ×3 (10:52→21:38)
[2021-01-12] MEDS ORDERED: PANTOPRAZOLE 40MG TABLET PO SCH (11:00)
--- NOTE | 2021-01-12 11:36 | CON ---
Date of Consultation: 01/12/[address] Davila on 01/11/2021. I saw the patient on 01/12/2021. Reason For Consultation: Chest pain. History Of Present Illness: Mr. Marcano is a 75-year-old male, who has a history of peripheral arter ial disease, status post left femoral-popliteal. He has a history of coronary artery disease. [place] terization in April 2020, did not end up in any intervention. He has a history of left fem-pop, go ut, diabetes, hypertension, dyslipidemia, chronic diastolic congestive heart failure, dementia, depre ssion, gastroesophageal reflux disease as well as morbid obesity. He came in with atypical chest trenton n, sharp stabbing left-sided. No nausea, vomiting, diaphoresis, PND, orthopnea, pedal edema, palpita tions, or syncope. Troponin is negative. EKG is unremarkable. Allergies: NONE. Review of Systems: Negative. Social History: Negative. Family History: Noncontributory. Medications: At home include lovastatin, metoprolol, metformin, lisinopril, Protonix, inhalers, Norv asc, aspirin, Plavix, Lasix, and insulin. Physical Examination: General: Morbidly obese. Vital Signs: Stable, afebrile. HEENT: Negative. Neck: Supple, no bruit. Chest: Clear. Cardiac: Revealed a regular rhythm and rate. No murmurs, gallops, or rubs. Abdomen: Obese. Extremities: Revealed no clubbing, cyanosis, or edema. Poor pulses distally. Skin: Dry and intact. Psych: Mentally, he was alert and oriented x3. Neurologic: He was nonfocal. Diagnostic Data: Basically was fairly unremarkable except for glucose of 261. Impression And Plan: Atypical chest pain in a patient with morbid obesity, coronary artery disease t hat is mild to moderate. April of 2020; negative CPKs, MBs, troponin, BNP, EKG and x-ray. I think another stress test is indicated. We will have him do that today and then make a further decision. He has an echocardiogram pending as well. His other problems include peripheral arterial disease, s tatus post left fem-pop that is stable. He also has a history of gout, diabetes, hypertension, dysli pidemia, chronic diastolic congestive heart failure, gastroesophageal reflux disease, depression, and dementia. All of these problems are stable. We will see what the echo and stress test shows before making further decisions. XAVIER/EVERETT Voice ID: [id number] Report ID: [id number]
[2021-01-12 20:49] VITALS: BP 135/84; TEMP 97.3
[2021-01-12] MEDS ORDERED: ATORVASTATIN 20 MG TAB PO SCH (21:00)
[2021-01-12] MEDS ORDERED: INSULIN GLARGINE 100 UNITS/ML SQ SCH (21:00)
[2021-01-12] MEDS ORDERED: JUVEN PACKET PO SCH (21:00)
[2021-01-12] MEDS ORDERED: lisinopriL 20 MG TAB PO SCH (21:00)
[2021-01-12] MEDS ORDERED: TRAZODONE 50 MG TABLET PO SCH (21:00)
[2021-01-12 21:31] VITALS: BMI 38.3
--- NOTE | 2021-01-13 08:13 | ECHO ---
HEIGHT: 6 ft 5 in WEIGHT: 323 lb 6.4 oz DATE OF STUDY: 01/12/[address]: Americo Ramos MD 2-DIMENSIONAL: YES M.MODE: YES DOPPLER: YES COLOR FLOW: YES TDS: NO PORTABLE: NO DEFINITY: NO BUBBLE STUDY: NO DIAGNOSIS: CHEST PAIN CARDIAC HISTORY: CATHERIZATION: SURGERY: PROSTHETIC VALVE: PACEMAKER: MEASUREMENTS (cm) DIASTOLIC (NORMALS) SYSTOLIC (NORMALS) IVSd 1.5 (0.6-1.2) LA Diam 4.2 (1.9-4.0) LVEF 55-60% LVIDd 4.8 (3.5-5.7) LVIDs 2.9 (2.0-3.5) %FS 39% LVPWd 1.4 (0.6-1.2) Ao Diam 3.1 (2.0-3.7) 2 DIMENSIONAL ASSESSMENT: RIGHT ATRIUM: NORMAL LEFT ATRIUM: NORMAL RIGHT VENTRICLE: NORMAL LEFT VENTRICLE: NORMAL TRICUSPID VALVE: NORMAL MITRAL VALVE: NORMAL PULMONIC VALVE: NORMAL AORTIC VALVE: NORMAL PERICARDIAL EFFUSION: NONE AORTIC ROOT: NORMAL LEFT VENTRICULAR WALL MOTION: NORMAL. DOPPLER/COLOR FLOW: TRACE OF AORTIC REGURGITATION. COMMENTS: NORMAL LEFT VENTRICULAR EJECTION FRACTION 55-60%. NORMAL WALL MOTION. DIASTOLIC DYSFUNCTION. TECHNOLOGIST: HARI PRIETO
== END 2021-01-12 22:00 ==
LOC: ER 13:33 → ERHOLD 17:17 → 2ND 19:42
PROVIDERS: ADMIT Hospitalist; ATTEND Family Medicine
DX: R07.89 Other chest pain (principal); I11.0 Hypertensive heart disease with heart failure; I50.32 Chronic diastolic (congestive) heart failure; I25.10 Atherosclerotic heart disease of native coronary artery without angina pectoris; Z95.5 Presence of coronary angioplasty implant and graft; E78.5 Hyperlipidemia, unspecified; Z20.822 Contact with and (suspected) exposure to COVID-19; E11.51 Type 2 diabetes mellitus with diabetic peripheral angiopathy without gangrene; K21.9 Gastro-esophageal reflux disease without esophagitis; E66.9 Obesity, unspecified; M10.9 Gout, unspecified; F03.90 Unspecified dementia, unspecified severity, without behavioral disturbance, psychotic disturbance, mood disturbance, and anxiety; F32.9 Major depressive disorder, single episode, unspecified; Z79.02 Long term (current) use of antithrombotics/antiplatelets; Z79.4 Long term (current) use of insulin
CPT/HCPCS: 36415; 71045; 80048; 80061; 80076; 82947; 83735; 83880; 84484; 85025; 85610; 93005; 93306; 99285; G0378; J1650; J1815; J2785; U0003

== ENCOUNTER 2021-03-19 19:39 | Inpatient (IN) | payer OTHER ==
--- OUTSIDE RECORDS SUMMARY | 2021-03-19 19:46 | XMS REPORT | Continuity of Care Document ---
:1945 Author Organization [facility] t Address [address] [place] [address] Care Team Providers Name Role Phone Echo [...] Date Problem Condition NURA U S - [place] Chest pain Problem MIGUELINA TU S [facility] [...] Active CHRISTU ALLERGY to [address] [facility] 00:00: Elizabe e 00 th Social History Social Habit Start Date Stop Date Quantity Comments Source Sex Assigned At 1945 [address] 00:00:00 00:00:00 [place] Smoking Status Start Date Stop Date Source Ex-smoker (finding) 2019-09-12 11:40:00 2019-09-12 11:40:00 [facility] [place] Medications Ordered Filled Start Stop Current Ordering [...] 400 Tablet) 600 [place] [address] (Vitamin Elizabe D3) [...] Source Body Temperature 2019-09-12 11:32:00 98.3 [degF] [facility] Heart Rate 2019-09-12 11:32:00 80 /min [facility] Respiratory rate 2019-09-12 11:32:00 18 /min [facility] BP Systolic 2019-09-12 11:32:00 164 mm[Hg] [facility] BP Diastolic 2019-09-12 11:32:00 78 mm[Hg] [facility] Weight 2019-09-12 00:15:00 335 [lb_av] [facility] BMI (Body Mass 2019-09-12 00:15:00 39.7 kg/m2 [facility]) [place] Body Temperature 2019-09-11 21:35:00 98.0 [degF] [facility] Heart Rate 2019-09-11 21:35:00 90 /min [facility] Respiratory rate 2019-09-11 21:35:00 20 /min [facility] [place] BP Systolic 2019-09-11 21:35:00 160 mm[Hg] [facility] [place] BP Diastolic 2019-09-11 21:35:00 70 mm[Hg] [facility] [place] Heart Rate 2019-09-11 20:42:00 90 /min [facility] - [place] Respiratory rate 2019-09-11 20:42:00 20 /min [facility] [place] BP Systolic 2019-09-11 20:42:00 160 mm[Hg] [facility] [place] BP Diastolic 2019-09-11 20:42:00 70 mm[Hg] [facility] - [place] Procedures Procedure Date / Time Performed Performing Clinician [facility] X-ray of chest, single 2019-09-12 00:00:[address] [facility] [address] [facility] [place] ECG 2019-09-12 00:00:[address] (electrocardiogram) [place] ECG 2019-09-11 00:00:[address] (electrocardiogram) [place] X-ray of chest, [facility] 2019-09-11 00:00:[address] [facility] [address] [facility] [place] Plan of Care Planned Activity Planned Date Details Comments Source Goal Patient referral [code = [facility] - [place] [id number] ] Instructions Chest Pain That Is Not [facility] [place] Caused by the Heart (DC) Instructions Heart Healthy Diet [facility] Instructions Preventing Falls in the [facility] Older Adult Instructions High Blood [facility] (DC) [facility] Inst[facility] Heart Disease in [facility] Diabetics (DC) Instructions [facility] Encounters Start End Encounter Admission Attending Care Care Encounter Source Date/Time Date/Time Type Type Clinicians Facility Department ID 2019-09-11 2019-09-12 Discharged BETTIE RYAN [id number] [facility] 23:29:00 17:26:[address] (obs) [place] Elizab e 2019-09-11 2019-09-11 Departed BETTIE RYAN [id number] [facility] 17:34:00 22:45:00 Emergency TELIZ [place] [address] Room Elizabe 2017-10-14 2017-10-14 Emergency E [facility] [id number] Medical 02:47:00 02:47:00 [facility] 2017-09-01 2017-09-01 Inpatient E [facility] [id number] Medical 23:54:00 23:54:00 [facility] Results Test Description Test Time Test Comments Results Result Comments Source BASIC METABOLIC PANEL 2020-11-07 04:32:00 Test Item Value Reference Range Interpretation Comme nts SODIUM (test code = NA) 139 mmol/L 136-145 N POTASSIUM (test code = K) 4.1 mmol/L 3.5-5.1 N CHLORIDE (test code = CL) 98.0 mmol/L 98-107 N CARBON DIOXIDE (test code = 32.0 mmol/L 21-32 N CO2) ANION GAP (test code = GAP) 13.1 10-20 N GLUCOSE (test code = GLU) 141 mg/dL 74-106 H BLOOD UREA NITROGEN (test 25 mg/dL 7-18 H code = BUN) GLOMERULAR FILTRATION RATE > 60 mL/min See_Comment E stimated GFR by using (test code = GFR) Modified M DRD formula.Chronic kidney disease is defined as either kidney d amageor GFR <60 mL/min/1.73 m2 for >3 months. [Automated mess age] The system which generated this result transmitted ref erence range: >=60. The refer ence range was not used to int erpret this result as kirstin l/abnormal. CREATININE (test code = 0.80 mg/dL 0.7-1.3 N CREAT) BUN/CREATININE RATIO (test 30.9 10-20 H code = BUN/CREA) CALCIUM (test code = CA) 9.2 mg/dL 8.5-10.1 N [id number] 13:18:33 Test Item Value Reference Range Interpretation Comments RBC Morph (test code = RBC As Indicated Normal A Morph) Anisocyte (test code = 1+ A Anisocyte) Hypochromia (test code = 1+ A Hypochromia) Microcyte (test code = 2+ A Microcyte) Differential Comment (test See Comment S lide reviewed code = Differential Comment) Plt Estimation (test code Decreased Normal A = Plt Estimation) XR Chest 1 View [id number] 11:25:11Patient: LINDA, NITO Date/Time01/07/2020 11:00 CDTReason for ExamCoughReportClinical dictation: Chest [...] MSigned (Electronic Signature): 01/07/2020 11:25 amComprehensive Metabolic [id number] 11:14:08 Test Item Value Reference Range Interpretation [...] = AST) 14 IntlUnit/L 10-34 Comprehensive Metabolic [id number] 11:14:08 Test Item Value Reference Range Interpretation [...] >60 mL/min/1.73 m2 N AA) Comprehensive Metabolic [id number] 11:14:08 Test Item Value Reference Range Interpretation [...] mL/min/1.73 m2 N eGFR Non-AA) POC Troponin [id number] 10:50:29 Test Item Value Reference Range Interpretation [...] , or invasive testin g.Serial sampling as jeanien ropriate is recommended to detect the temporalrise an d fall of troponin levels .For diagnostic purp oses, the Troponin I resu lts should be used inconju nction with other informati on such as EKG, CKMB, clinicalobserva tions, symptons, etc. Complete Blood Count with [id number] 10:47:17 Test Item Value Reference Range Interpretation [...] A N = Pos Count XN) Automated Hclabyoafwbk2925-09-81 10:47:17 Test Item Value Reference Range Interpretation Comments Neutro Auto (test code = Neutro Auto) 82.7 % N Lymph Auto (test code = Lymph Auto) 10.5 % N [place] Auto (test code = [place] Auto) 4.9 % N Eos, Auto (test code = Eos, Auto) 1.1 % N Basophil Auto (test code = Basophil 0.4 % N Auto) Neutro Absolute (test code = Neutro 7.0 x10 2.7-7.3 Absolute) Lymph Absolute (test code = Lymph 0.9 x10 0.8-3.5 Absolute) [place] Absolute (test code = [place] 0.4 x10 0.3-0.9 Absolute) Eos Absolute (test code = Eos 0.1 x10 0.0-0.3 Absolute) Baso Absolute (test code = Baso 0.0 x10 0.0-0.1 Absolute) IG [id number] 10:47:17 Test Item Value Reference Range Interpretation Comments IG (test code = IG) 0 % 0-5 IG Abs (test code = IG Abs) 0 x10 N POC [id number] 11:45:11 Test Item Value Reference Range Interpretation Comments Glucose POC (test 171 mg/dL 74-106 H POC Glucos e used on code = Glucose POC) critical ly ill patients is considered " off-label use" and has no t been cleared or appr rosa elena by the FDA. Altern ative testing methods should be considered i f the patient is crit ically ill. POC [id number] 06:07:12 Test Item Value Reference Range Interpretation Comments Glucose POC (test 114 mg/dL 74-106 H POC Glucos e used on code = Glucose POC) critical ly ill patients is considered " off-label use" and has no t been cleared or appr rosa elena by the FDA. Altern ative testing methods should be considered i f the patient is crit ically ill. POC [id number] 20:17:26 Test Item Value Reference Range Interpretation Comments Glucose POC (test 166 mg/dL 74-106 H POC Glucos e used on code = Glucose POC) critical ly ill patients is considered " off-label use" and has no t been cleared or appr rosa elena by the FDA. Altern ative testing methods should be considered i f the patient is crit ically ill. POC [id number] 16:41:29 Test Item Value Reference Range Interpretation Comments Glucose POC (test 134 mg/dL 74-106 H POC Glucos e used on code = Glucose POC) critical ly ill patients is considered " off-label use" and has no t been cleared or appr rosa elena by the FDA. Altern ative testing methods should be considered i f the patient is crit ically ill. POC [id number] 16:14:59 Test Item Value Reference Range Interpretation Comments Glucose POC (test 111 mg/dL 74-106 H POC Glucos e used on code = Glucose POC) critical ly ill patients is considered " off-label use" and has no t been cleared or appr rosa elena by the FDA. Altern ative testing methods should be considered i f the patient is crit ically ill. POC [id number] 06:02:12 Test Item Value Reference Range Interpretation Comments Glucose POC (test 113 mg/dL 74-106 H POC Glucos e used on code = Glucose POC) critical ly ill patients is considered " off-label use" and has no t been cleared or appr rosa elena by the FDA. Altern ative testing methods should be considered i f the patient is crit ically ill. POC [id number] 19:50:12 Test Item Value Reference Range Interpretation Comments Glucose POC (test 196 mg/dL 74-106 H POC Glucos e used on code = Glucose POC) critical ly ill patients is considered " off-label use" and has no t been cleared or appr rosa elena by the FDA. Altern ative testing methods should be considered i f the patient is crit ically ill. POC [id number] 17:11:12 Test Item Value Reference Range Interpretation Comments Glucose POC (test 141 mg/dL 74-106 H POC Glucos e used on code = Glucose POC) critical ly ill patients is considered " off-label use" and has no t been cleared or appr rosa elena by the FDA. Altern ative testing methods should be considered i f the patient is crit ically ill. POC [id number] 14:17:31 Test Item Value Reference Range Interpretation [...] crit ically ill. XR Chest 1 View [id number] 07:16:53Patient: NITO MCKEON Date/Time09/20/2019 20:05 CSTReason for [...] Nan (Electronic Signature): 09/21/2019 7:16 am Troponin [id number] 04:24:36 Test Item Value Reference Range Interpretation Comments Troponin-I (test 6.540 ng/mL 0.010-0.040 ctrb chip v an code = Troponin-I) rn09/21/19 20 04:24:30 ELEVATOR REPAIRER/lrj Magnesium [id number] 04:12:15 Test Item Value Reference Range Interpretation Comments Magnesium Level (test code = 1.3 mg/dL 1.6-2.6 L Magnesium Level) Troponin [id number] 03:12:34 Test Item Value Reference Range Interpretation Comments Troponin-I (test 5.590 ng/mL 0.010-0.040 ctrb chip v an code = Troponin-I) 09/21/19 03:12:28 [facility] Troponin [id number] 01:01:50 Test Item Value Reference Range Interpretation Comments Troponin-I (test 2.490 ng/mL 0.010-0.040 cteb chip v an code = Troponin-I) 09/21/19 01:01:44 [facility] T[facility]onin [id number] 21:34:15 Test Item Value Reference Range Interpretation Comments Troponin-I (test 0.133 ng/mL 0.010-0.040 ctrb chip v an code = Troponin-I) 09/20/19 21:34:09 [facility] Comprehensive Metabolic [id number] 21:11:01 Test Item Value Reference Range Interpretation [...] ALT (test code = ALT) 16 IntlUnit/L -78 AST (test code = AST) 15 IntlUnit/L 10-34 Creatine [id number] 21:11:01 Test Item Value Reference Range Interpretation Comments CK (test code = CK) 66 IntlUnit/L 39-308 Comprehensive Metabolic [id number] 21:11:01 Test Item Value Reference Range Interpretation [...] ALT (test code = ALT) 16 IntlUnit/L -78 AST (test code = AST) 15 IntlUnit/L 10-34 eGFR AA (test code = eGFR >60 mL/min/1.73 m2 N AA) Pro B Natriuretic [id number] 21:11:01 Test Item Value Reference Range Interpretation [...] - heart f ailure likely Comprehensive Metabolic [id number] 21:11:01 Test Item Value Reference Range Interpretation [...] m2 N eGFR Non-AA) Prothrombin Time and [id number] 20:56:02 Test Item Value Reference Range Interpretation Comments Prothrombin Time (test code = 10.5 seconds 9.2-12.0 Prothrombin Time) INR (test code = INR) 1.0 ratio 0.9-1.2 D-Dimer [id number] 20:56:02 Test Item Value Reference Range Interpretation [...] diagnos is of DVT or PEunlikely. Urinalysis [id number] 20:50:42 Test Item Value Reference Range Interpretation [...] 1-6 Hyal Cast) Urinalysis with Culture, if [id number] 20:50:42 Test Item Value Reference Range Interpretation [...] rule GL_SET_UA_MICRO _IND Complete Blood Count with Jbbjyudzpoxj8779-09-70 20:42:05 Test Item Value Reference Range Interpretation [...] (test code = Slide Auto Review) Automated Vtfnhmzbldgd0640-15-92 20:42:05 Test Item Value Reference Range Interpretation Comments Neutro Auto (test code = Neutro Auto) 87.4 % N Lymph Auto (test code = Lymph Auto) 7.4 % N [place] Auto (test code = [place] Auto) 4.1 % N Eos, Auto (test code = Eos, Auto) 0.4 % N Basophil Auto (test code = Basophil 0.7 % N Auto) Neutro Absolute (test code = Neutro 6.9 x10 2.7-7.3 Absolute) Lymph Absolute (test code = Lymph 0.6 x10 0.8-3.5 L Absolute) [place] Absolute (test code = [place] 0.3 x10 0.3-0.9 Absolute) Eos Absolute (test code = Eos 0.0 x10 0.0-0.3 Absolute) Baso Absolute (test code = Baso 0.1 x10 0.0-0.1 Absolute) Capillary whole blood glucose measurement by glucometer (mass/volume)2019-09-12 16:54:00 Test Item Value Reference Range Interpretation Comments Bedside Glucose (test code = 130 mg/dL 85325-7) [facility] or plasma glucose measurement (mass/volume) 2019-09-12 06:05:00 Test Item Value Reference Range Interpretation Comments Glucose Level (test code = 2345-7) 134 mg/dL [facility] or plasma calcium measurement (mass/volume) 2019-09-12 06:05:00 Test Item Value Reference Range Interpretation Comments Calcium Level (test code = 23567-4) 8.8 mg/dL [facility] or plasma total bilirubin measurement (mass/volume) 2019-09-12 06:05:00 Test Item Value Reference Range Interpretation Comments Total Bilirubin (test code = 0.4 mg/dL 1974-2) [facility] or plasma aspartate aminotransferase measurement (enzymatic activity/volume)2019-09-12 06:05:00 Test Item Value Reference Range Interpretation Comments Aspartate Amino Transf (AST/SGOT) (test 9 U/L code = 1920-8) [facility] or plasma alanine aminotransferase measurement (enzymatic activity/volume)2019-09-12 06:05:00 Test Item Value Reference Range Interpretation Comments Alanine Aminotransferase (ALT/SGPT) 8 U/L (test code = 1742-6) [facility] plasma protein measurement (mass/volume) 2019-09-12 06:05:00 Test Item Value Reference Range Interpretation Comments Total Protein (test code = 2885-2) 6.8 g/dL [facility] or plasma albumin measurement (mass/volume) 2019-09-12 06:05:00 Test Item Value Reference Range Interpretation Comments Albumin (test code = 1751-7) 3.5 g/dL [facility] or plasma alkaline phosphatase measurement (enzymatic activity/volume)2019-09-12 06:05:00 Test Item Value Reference Range Interpretation Comments Alkaline Phosphatase (test code = 59 U/L 6768-6) [facility]. [facility] or plasma cardiac troponin I measurement (mass/volume)2019-09-12 06:05:00 Test Item Value Reference Range Interpretation Comments Troponin I (test code = 61780-4) 0.01 ng/mL [facility] leukocyte count (number/volume)2019-09-12 06:05:00 Test Item Value Reference Range Interpretation Comments White Blood Count (test code = 6.4 10*3/uL 6690-2) [facility] automated count (number/volume) 2019-09-12 06:05:00 Test Item Value Reference Range Interpretation Comments Red Blood Count (test code = 3.40 10*6/uL 789-8) [facility] (mass/volume)2019-09-12 06:05:00 Test Item Value Reference Range Interpretation Comments Hemoglobin (test code = 718-7) 11.4 g/dL [facility] Elizabeth[facility] blood hematocrit (volume fraction)2019-09-12 06:05:00 Test Item Value Reference Range Interpretation Comments Hematocrit (test code = 4544-3) 37.2 % [facility] erythrocyte mean corpuscular volume (MCV) chznskehwhk5615-26-89 06:05:00 Test Item Value Reference Range Interpretation Comments Mean Corpuscular Volume (test code = 109 fL 787-2) [facility] Elizabeth[facility] erythrocyte mean corpuscular hemoglobin (mass per erythrocyte)2019-09-12 06:05:00 Test Item Value Reference Range Interpretation Comments Mean Corpuscular Hemoglobin (test 33.5 pg code = 785-6) [facility] ElizabethAutomated erythrocyte mean corpuscular hemoglobin concentration measurement (mass/hcl1794-86-32 06:05:00 Test Item Value Reference Range Interpretation Comments Mean Corpuscular Hemoglobin Concent 30.6 g/dL (test code = 786-4) [facility] erythrocyte distribution width [id number] 06:05:00 Test Item Value Reference Range Interpretation Comments Red Cell Distribution Width (test code 14.5 % = 788-0) [facility] ElizabethAutomated blood platelet count (count/volume)2019-09-12 06:05:00 Test Item Value Reference Range Interpretation Comments Platelet Count (test code = 232 10*3/uL 777-3) [facility] ElizabethAutomated blood platelet mean volume gmajsrmpcbp3415-07-42 06:05:00 Test Item Value Reference Range Interpretation Comments Mean Platelet Volume (test code = 9.6 68659-3) [facility] Elizabeth[facility] blood neutrophil count as percentage of total asrctijrvt2326-28-91 06:05:00 Test Item Value Reference Range Interpretation Comments Neutrophils (%) (Auto) (test code = 70 % 770-8) [facility] ElizabethAutomated blood immature granulocyte count as percentage of total zveuqwrrze4041-33-06 06:05:00 Test Item Value Reference Range Interpretation Comments Immature Granulocyte % (Auto) (test 1 % code = 56953-0) [facility] ElizabethAutom[facility] blood lymphocyte count as percentage of total fotwoadisk8417-66-19 06:05:00 Test Item Value Reference Range Interpretation Comments Lymphocytes (%) (Auto) (test code = 18 % 736-9) [facility] Elizabeth[facility] blood monocyte count as percentage of total bdzbsfvmrc2634-98-92 06:05:00 Test Item Value Reference Range Interpretation Comments Monocytes (%) (Auto) (test code = 9 % 5905-5) [facility] Elizabeth[facility] blood eosinophil count as percentage of total hbwfvslhyb6565-88-25 06:05:00 Test Item Value Reference Range Interpretation Comments Eosinophils (%) (Auto) (test code = 2 % 713-8) [facility] ElizabethAutom[facility] blood basophil count as percentage of total guspzvkkhd3943-10-60 06:05:00 Test Item Value Reference Range Interpretation Comments Basophils (%) (Auto) (test code = 1 % 706-2) [facility] ElizabethAutomated blood nucleated erythrocyte count as percentage of total tjtpwgcdha4207-04-81 06:05:00 Test Item Value Reference Range Interpretation Comments Nucleated Red Blood Cells % (test code 0.0 % = 71389-4) [facility] ElizabethAutomated blood neutrophil count (number/volume)2019-09-12 06:05:00 Test Item Value Reference Range Interpretation Comments Neutrophils # (Auto) (test code = 4.5 10*3/uL 751-8) [facility] ElizabethAutomated blood immature granulocyte count as percentage of total nmvhdzghhz0740-81-05 06:05:00 Test Item Value Reference Range Interpretation Comments Immature Granulocyte # (Auto) 0.0 10*3/uL (test code = 77449-5) [facility] ElizabethAutomated blood lymphocyte count (number/volume)2019-09-12 06:05:00 Test Item Value Reference Range Interpretation Comments Lymphocytes # (Auto) (test code = 1.2 10*3/uL 731-0) [facility] ElizabethBlood monocytes automated count (number/volume)2019-09-12 06:05:00 Test Item Value Reference Range Interpretation Comments Monocytes # (Auto) (test code = 0.6 10*3/uL 742-7) [facility] PernellthAutomated blood eosinophil evitx3417-95-25 06:05:00 Test Item Value Reference Range Interpretation Comments Eosinophils # (Auto) (test code = 0.1 10*3/uL 711-2) [facility] CarolynbethAutomated blood basophil count (number/volume)2019-09-12 06:05:00 Test Item Value Reference Range Interpretation Comments Basophils # (Auto) (test code = 0.0 10*3/uL 704-7) [facility] PernellthAutomated blood nucleated erythrocyte count (count/volume) 2019-09-12 06:05:00 Test Item Value Reference Range Interpretation Comments Nucleated Red Blood Cells # 0.00 10*3/uL (test code = 771-6) [facility] PernellthService comment [id number] 06:05:00 Test Item Value Reference Range Interpretation Comments Manual Differential (test code Scan RBC Morph = 8265-1) [facility] PernellthBlood anisocytosis detection by light zrtmfhcyah1003-48-22 06:05:00 Test Item Value Reference Range Interpretation Comments Anisocytosis (test code = 702-1) 2+ [facility] ElicarolinebethBlood macrocytes detection by light srinxjcajh5407-77-99 06:05:00 Test Item Value Reference Range Interpretation Comments Macrocytosis (test code = 738-5) 2+ [facility] ElizabethSerum or plasma sodium measurement (moles/volume) 2019-09-12 06:05:00 Test Item Value Reference Range Interpretation Comments Sodium Level (test code = 2951-2) 137 mmol/L [facility] ElizabethSerum or plasma potassium measurement (moles/volume) 2019-09-12 06:05:00 Test Item Value Reference Range Interpretation Comments Potassium Level (test code = 4.1 mmol/L 2823-3) [facility] ElizabethSerum or plasma chloride measurement (moles/volume) 2019-09-12 06:05:00 Test Item Value Reference Range Interpretation Comments Chloride Level (test code = 2075-0) 99 mmol/L [facility] ElizabethSerum or plasma total carbon dioxide measurement (moles/volume)2019-09-12 06:05:00 Test Item Value Reference Range Interpretation Comments Carbon Dioxide Level (test code = 27 mmol/L 2027-9) [facility] ElizabethSerum or plasma anion gap determination (moles/volume) 2019-09-12 06:05:00 Test Item Value Reference Range Interpretation Comments Anion Gap (test code = 51154-8) [address] [facility] ElizabethSerum or plasma urea nitrogen measurement (mass/volume) 2019-09-12 06:05:00 Test Item Value Reference Range Interpretation Comments Blood Urea Nitrogen (test code = 17 mg/dL 3094-0) [facility] ElizabethSerum or plasma creatinine measurement (mass/volume) 2019-09-12 06:05:00 Test Item Value Reference Range Interpretation Comments Creatinine (test code = 2160-0) 0.7 mg/dL [facility] ElizabethGFR estimate [id number] 06:05:00 Test Item Value Reference Range Interpretation Comments Estimat Glomerular Filtration Rate 118 (test code = 13986-9) [facility] ElizabethVenous whole blood sodium measurement (moles/volume) 2019-09-11 18:12:00 Test Item Value Reference Range Interpretation Comments Bedside Sodium (test code = 136 mmol/L 40771-8) [facility] ElizabethVenous whole blood potassium measurement (moles/volume) 2019-09-11 18:12:00 Test Item Value Reference Range Interpretation Comments Bedside Potassium (test code = 4.5 mmol/L 18896-2) [facility] whole blood chloride measurement (moles/volume) 2019-09-11 18:12:00 Test Item Value Reference Range Interpretation Comments Bedside Chloride (test code = 99 mmol/L 26056-6) [facility] whole blood total carbon dioxide measurement (moles/volume)2019-09-11 18:12:00 Test Item Value Reference Range Interpretation Comments Bedside Total CO2 (test code = 32.0 mmol/L 2026-) [facility] whole blood urea nitrogen (BUN) measurement (mass/volume)2019-09-11 18:12:00 Test Item Value Reference Range Interpretation Comments Bedside Blood Urea Nitrogen (test 18 mg/dL code = 35092-6) [facility] DelmyBlood creatinine measurement (mass/volume)2019-09-11 18:12:00 Test Item Value Reference Range Interpretation Comments Bedside Creatinine (test code = 0.5 mg/dL 70380-2) [facility] ElizabeVenous whole blood glucose measurement (mass/volume) 2019-09-11 18:12:00 Test Item Value Reference Range Interpretation Comments Bedside Glucose (test code = 136 mg/dL 57348-8) [facility]Whole blood ionized calcium measurement (moles/volume) 2019-09-11 18:12:00 Test Item Value Reference Range Interpretation Comments Bedside Whole Blood Ionized 0.99 mmol/L Calcium (test code = 1994-3) [facility] PernellthBlood anion [id number] 18:12:00 Test Item Value Reference Range Interpretation Comments Bedside Anion Gap (test code = 61992-7) 10 [facility] CarolynbethGFR estimate [id number] 18:12:00 Test Item Value Reference Range Interpretation Comments Estimat Glomerular Filtration Rate 174 (test code = 34865-8) [facility] DaysizamikaelVenous blood hemoglobin measurement (mass/volume) 2019-09-11 18:12:00 Test Item Value Reference Range Interpretation Comments Bedside Hemoglobin (test code = 13.3 g/dL 20030-1) [facility]Ven[facility] blood hematocrit (volume fraction)2019-09-11 18:12:00 Test Item Value Reference Range Interpretation Comments Bedside Hematocrit (test code = 39.0 % 77561-8) [facility] ElizabethVen[facility] whole blood sodium measurement (moles/volume) 2019-09-11 18:12:00 Test Item Value Reference Range Interpretation Comments Bedside Sodium (test code = 136 mmol/L 20466-4) [facility] potassium [facility] (moles/volume) 2019-09-11 18:12:00 Test Item Value Reference Range Interpretation Comments Bedside Potassium (test code = 4.5 mmol/L 01391-7) [facility] chloride measurement (moles/volume) 2019-09-11 18:12:00 Test Item Value Reference Range Interpretation Comments Bedside Chloride (test code = 99 mmol/L 63655-6) [facility] whole blood total carbon dioxide measurement (moles/volume)2019-09-11 18:12:00 Test Item Value Reference Range Interpretation Comments Bedside Total CO2 (test code = 32.0 mmol/L 2026-1) [facility] urea nitrogen (BUN) measurement (mass/volume)2019-09-11 18:12:00 Test Item Value Reference Range Interpretation Comments Bedside Blood Urea Nitrogen (test 18 mg/dL code = 38611-6) [place] [facility] creatinine measurement (mass/volume)2019-09-11 18:12:00 Test Item Value Reference Range Interpretation Comments Bedside Creatinine (test code = 0.5 mg/dL 36726-8) [facility] whole blood glucose measurement (mass/volume) 2019-09-11 18:12:00 Test Item Value Reference Range Interpretation Comments Bedside Glucose (test code = 136 mg/dL 71187-3) [facility] blood ionized calcium measurement (moles/volume) 2019-09-11 18:12:00 Test Item Value Reference Range Interpretation Comments Bedside Whole Blood Ionized 0.99 mmol/L Calcium (test code = 1994-3) [place] [facility] [place] [facility] anion [id number] 18:12:00 Test Item Value Reference Range Interpretation Comments Bedside Anion Gap (test code = 25318-8) 10 [facility] [id number] 18:12:00 Test Item Value Reference Range Interpretation Comments Estimat Glomerular Filtration Rate 174 (test code = 87709-3) [facility] blood hemoglobin measurement (mass/volume)2019-09-11 18:12:00 Test Item Value Reference Range Interpretation Comments Bedside Hemoglobin (test code = 13.3 g/dL 83199-1) [facility] blood hematocrit (volume fraction)2019-09-11 18:12:00 Test Item Value Reference Range Interpretation Comments Bedside Hematocrit (test code = 39.0 % 97666-1) [facility] I measurement (mass/volume) 2019-09-11 18:11:00 Test Item Value Reference Range Interpretation Comments Bedside Troponin I (test code = 0.01 ng/mL 57718-8) [facility] I measurement (mass/volume) 2019-09-11 18:11:00 Test Item Value Reference Range Interpretation Comments Bedside Troponin I (test code = 0.01 ng/mL 80427-4) [facility] leukocyte count (number/volume)2019-09-11 18:05:00 Test Item Value Reference Range Interpretation Comments White Blood Count (test code = 6.0 10*3/uL 6690-2) [facility] automated count (number/volume)2019-09-11 18:05:00 Test Item Value Reference Range Interpretation Comments Red Blood Count (test code = 3.56 10*6/uL 789-8) [facility] - . MaryBlood hemoglobin measurement (mass/volume)2019-09-11 18:05:00 Test Item Value Reference Range Interpretation Comments Hemoglobin (test code = 718-7) 12.2 g/dL [facility] hematocrit (volume fraction)2019-09-11 18:05:00 Test Item Value Reference Range Interpretation Comments Hematocrit (test code = 4544-3) 37.1 % [facility] - . MaryAutomated erythrocyte mean corpuscular volume (MCV) [id number] 18:05:00 Test Item Value Reference Range Interpretation Comments Mean Corpuscular Volume (test code = 104.2 fL 787-2) [facility] - . MaryAutomated erythrocyte mean corpuscular hemoglobin (mass per erythrocyte)2019-09-11 18:05:00 Test Item Value Reference Range Interpretation Comments Mean Corpuscular Hemoglobin (test 34.3 pg code = 785-6) [facility] erythrocyte mean corpuscular hemoglobin concentration measurement (mass/[id number] 18:05:00 Test Item Value Reference Range Interpretation Comments Mean Corpuscular Hemoglobin Concent 32.9 g/dL (test code = 786-4) [facility] - . MaryAutomated erythrocyte distribution width [id number] 18:05:00 Test Item Value Reference Range Interpretation Comments Red Cell Distribution Width (test code 14.3 % = 788-0) [facility] platelet count (count/volume)2019-09-11 18:05:00 Test Item Value Reference Range Interpretation Comments Platelet Count (test code = 263 10*3/uL 777-3) [facility]Autom[facility] platelet mean volume wojgyaeshwm6745-97-25 18:05:00 Test Item Value Reference Range Interpretation Comments Mean Platelet Volume (test code = 9.6 fL 79921-9) [facility] neutrophil count as percentage of total bpyqohivms7859-34-91 18:05:00 Test Item Value Reference Range Interpretation Comments Neutrophils (%) (Auto) (test code = 73 % 770-8) [facility] lymphocyte count as percentage of total wftpudgafk0851-99-07 18:05:00 Test Item Value Reference Range Interpretation Comments Lymphocytes (%) (Auto) (test code = 18 % 736-9) [facility] monocyte count as percentage of total lhzjvefevi9977-41-67 18:05:00 Test Item Value Reference Range Interpretation Comments Monocytes (%) (Auto) (test code = 7 % 5905-5) [facility] - HavelockAutomated blood eosinophil count as percentage of total cxpvzildyw1310-15-60 18:05:00 Test Item Value Reference Range Interpretation Comments Eosinophils (%) (Auto) (test code = 2 % 713-8) [facility] basophil count as percentage of total yaobhhueua3395-02-57 18:05:00 Test Item Value Reference Range Interpretation Comments Basophils (%) (Auto) (test code = 0 % 706-2) [facility] neutrophil count (number/volume)2019-09-11 18:05:00 Test Item Value Reference Range Interpretation Comments Neutrophils # (Auto) (test code = 4.4 10*3/uL 751-8) [facility] HospitalAutom[facility] blood lymphocyte count (number/volume)2019-09-11 18:05:00 Test Item Value Reference Range Interpretation Comments Lymphocytes # (Auto) (test code = 1.1 10*3/uL 731-0) [place] [facility] [place] [facility] monocytes automated count (number/volume)2019-09-11 18:05:00 Test Item Value Reference Range Interpretation Comments Monocytes # (Auto) (test code = 0.4 10*3/uL 742-7) [facility] eosinophil [id number] 18:05:00 Test Item Value Reference Range Interpretation Comments Eosinophils # (Auto) (test code = 0.1 10*3/uL 711-2) [facility] CenterAutunc hospitals [facility] campused blood basophil count (number/volume)2019-09-11 18:05:00 Test Item Value Reference Range Interpretation Comments Basophils # (Auto) (test code = 0.0 10*3/uL 704-7) [facility] CenterService comment [id number] 18:05:00 Test Item Value Reference Range Interpretation Comments Manual Differential (test code = Not Ind 8265-1) [facility] Center[facility] w/ Gram [id number] 12:11:08 Test Item Value Reference Range Interpretation Comments Final Report (test Normal Respiratory Pooja. code = Final Report) Gram Stain Report Gram Positive Cocci Rare (test code = Gram White Blood Cells Stain Report) POC [id number] 20:22:24 Test Item Value Reference Range Interpretation Comments Glucose POC (test 194 mg/dL 74-106 H POC Glucos e used on code = Glucose POC) critical ly ill patients is considered " off-label use" and has no t been cleared or appr rosa elena by the FDA. Altern ative testing methods should be considered i f the patient is crit ically ill. POC [id number] 17:03:13 Test Item Value Reference Range Interpretation [...] crit ically ill. XR Chest 1 View [id number] 15:13:52Patient: NITO MCKEON Date/Time08/31/201915:05 CSTReason for ExamHypoxiaReportEXAM: [...] crit ically ill. Respiratory Culture w/ Gram [id number] 09:44:49Normal Respiratory Pooja.POC Daxmnac1275-16-53 06:13:35 Test Item Value Reference Range Interpretation Comments Glucose POC (test 129 mg/dL 74-106 H POC Glucos e used on code = Glucose POC) critical ly ill patients is considered " off-label use" and has no t been cleared or appr rosa elena by the FDA. Altern ative testing methods should be considered i f the patient is crit ically ill. POC [id number] 22:29:51 Test Item Value Reference Range Interpretation Comments Glucose POC (test 210 mg/dL 74-106 H POC Glucos e used on code = Glucose POC) critical ly ill patients is considered " off-label use" and has no t been cleared or appr rosa elena by the FDA. Altern ative testing methods should be considered i f the patient is crit ically ill. POC [id number] 13:35:41 Test Item Value Reference Range Interpretation [...] crit ically ill. XR Chest 1 View [id number] 07:25:12Patient: NITO MCKEON Date/Time08/30/201907:11 CSTReason for ExamCongestionReportClinical [...] Hooks Gustavo MSigned (Electronic Signature): 08/30/20197:25 amPOC Clzlkoe4607-42-65 05:48:11 Test Item Value Reference Range Interpretation Comments Glucose POC (test 128 mg/dL 74-106 H POC Glucos e used on code = Glucose POC) critical ly ill patients is considered " off-label use" and has no t been cleared or appr rosa elena by the FDA. Altern ative testing methods should be considered i f the patient is crit ically ill. POC [id number] 23:52:47 Test Item Value Reference Range Interpretation Comments Glucose POC (test 221 mg/dL 74-106 H POC Glucos e used on code = Glucose POC) critical ly ill patients is considered " off-label use" and has no t been cleared or appr rosa elena by the FDA. Altern ative testing methods should be considered i f the patient is crit ically ill. POC [id number] 17:28:32 Test Item Value Reference Range Interpretation Comments Glucose POC (test 151 mg/dL 74-106 H POC Glucos e used on code = Glucose POC) critical ly ill patients is considered " off-label use" and has no t been cleared or appr rosa elena by the FDA. Altern ative testing methods should be considered i f the patient is crit ically ill. POC [id number] 12:33:23 Test Item Value Reference Range Interpretation Comments Glucose POC (test 229 mg/dL 74-106 H POC Glucos e used on code = Glucose POC) critical ly ill patients is considered " off-label use" and has no t been cleared or appr rosa elena by the FDA. Altern ative testing methods should be considered i f the patient is crit ically ill. POC [id number] 06:54:08 Test Item Value Reference Range Interpretation Comments Glucose POC (test 157 mg/dL 74-106 H POC Glucos e used on code = Glucose POC) critical ly ill patients is considered " off-label use" and has no t been cleared or appr rosa elena by the FDA. Altern ative testing methods should be considered i f the patient is crit ically ill. POC [id number] 22:26:48 Test Item Value Reference Range Interpretation Comments Glucose POC (test 200 mg/dL 74-106 H POC Glucos e used on code = Glucose POC) critical ly ill patients is considered " off-label use" and has no t been cleared or appr rosa elena by the FDA. Altern ative testing methods should be considered i f the patient is crit ically ill. POC [id number] 17:44:30 Test Item Value Reference Range Interpretation Comments Glucose POC (test 179 mg/dL 74-106 H POC Glucos e used on code = Glucose POC) critical ly ill patients is considered " off-label use" and has no t been cleared or appr rosa elena by the FDA. Altern ative testing methods should be considered i f the patient is crit ically ill. POC [id number] 12:52:21 Test Item Value Reference Range Interpretation Comments Glucose POC (test 131 mg/dL 74-106 H POC Glucos e used on code = Glucose POC) critical ly ill patients is considered " off-label use" and has no t been cleared or appr rosa elena by the FDA. Altern ative testing methods should be considered i f the patient is crit ically ill. Basic Metabolic [id number] 07:13:09 Test Item Value Reference Range Interpretation [...] 8.1 mg/dL 8.5-10.1 L Level) Basic Metabolic [id number] 07:13:09 Test Item Value Reference Range Interpretation [...] >60 mL/min/1.73 m2 N AA) Basic Metabolic [id number] 07:13:09 Test Item Value Reference Range Interpretation [...] N eGFR Non-AA) Complete Blood Count with Gfrlmgbpmkux6957-14-54 06:56:57 Test Item Value Reference Range Interpretation [...] = Slide Review) GL_SET_SLIDE _REVIEW_A UTO Automated Nsxxtustcfvk8805-73-86 06:56:57 Test Item Value Reference Range Interpretation Comments Neutro Auto (test code = Neutro Auto) 65.8 % N Lymph Auto (test code = Lymph Auto) 21.6 % N [place] Auto (test code = [place] Auto) 12.0 % N Eos, Auto (test code = Eos, Auto) 0.2 % N Basophil Auto (test code = Basophil 0.4 % N Auto) Neutro Absolute (test code = Neutro 2.6 x10 2.7-7.3 L Absolute) Lymph Absolute (test code = Lymph 0.9 x10 0.8-3.5 Absolute) [place] Absolute (test code = [place] 0.5 x10 0.3-0.9 Absolute) Eos Absolute (test code = Eos 0.0 x10 0.0-0.3 Absolute) Baso Absolute (test code = Baso 0.0 x10 0.0-0.1 Absolute) POC [id number] 05:55:21 Test Item Value Reference Range Interpretation Comments Glucose POC (test 118 mg/dL 74-106 H POC Glucos e used on code = Glucose POC) critical ly ill patients is considered " off-label use" and has no t been cleared or appr rosa elena by the FDA. Altern ative testing methods should be considered i f the patient is crit ically ill. POC [id number] 05:55:18 Test Item Value Reference Range Interpretation Comments Glucose POC (test 167 mg/dL 74-106 H POC Glucos e used on code = Glucose POC) critical ly ill patients is considered " off-label use" and has no t been cleared or appr rosa elena by the FDA. Altern ative testing methods should be considered i f the patient is crit ically ill. POC [id number] 12:26:55 Test Item Value Reference Range Interpretation Comments Glucose POC (test 163 mg/dL 74-106 H POC Glucos e used on code = Glucose POC) critical ly ill patients is considered " off-label use" and has no t been cleared or appr rosa elena by the FDA. Altern ative testing methods should be considered i f the patient is crit ically ill. POC [id number] 08:34:03 Test Item Value Reference Range Interpretation [...] is crit ically ill. Throat Culture Strep [id number] 07:39:56Streptococcus Group A screen negativeLactic Acid, Plasma (Venous)2019-08-26 23:57:09 Test Item Value Reference Range Interpretation Comments Lactic Acid, Plasma (Venous) (test 1.5 mmol/L 0.4-2.0 code = Lactic Acid, Plasma (Venous)) CT Angio Ngwbeqnda6384-06-83 18:37:21Patient: NITO MCKEON Date/Time08/26/201918:14 CSTReason for ExamDyspneaReportCTA [...] LSigned (Electronic Signature): 08/26/2019 6:37 pmPOC G3+ [id number] 13:35:54 Test Item Value Reference Range Interpretation [...] R Radial N Performing Site) Influenza A [id number] 12:53:57 Test Item Value Reference Range Interpretation Comments Influenza A Ag (test Positive Negative CTRB/PI PER LING code = Influenza A Ag) RN08/2019 12:53:54 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 Th erefore, testing specime ns from adults will oft en yield lower sensitivi ty than testing specime ns from children. Influenza B [id number] 12:53:57 Test Item Value Reference Range Interpretation Comments Influenza B Ag (test Negative Negative Childre n tend to shed code = Influenza B Ag) virus more abundantly and for longer period of time than ad ults. Therefore, test ing specimens from adults will often yiel d lower sensitivity tootie n testing specime ns from children. Streptococcus A Screen Rapid w/ Reflex [id number] 12:52:06 Test Item Value Reference Range Interpretation Comments Strep A Scn (test code = Strep A Negative Negative Scn) Prothrombin Time and [id number] 11:56:42 Test Item Value Reference Range Interpretation Comments Prothrombin Time (test code = 10.9 seconds 9.2-12.0 Prothrombin Time) INR (test code = INR) 1.0 ratio 0.9-1.2 Partial Thromboplastin [id number] 11:56:42 Test Item Value Reference Range Interpretation Comments Partial Thromboplastin 33.6 seconds 24.0-35.0 APTT Heparin Time (test code = Therapeuti c Range: Partial Thromboplastin 47.9- 80.4 seconds Time) D-Dimer Whzvjeugzhfu5898-05-05 11:56:42 Test Item Value Reference Range Interpretation [...] a diagnos is of DVT or PEunlikely. [id number] 11:55:52 Test Item Value Reference Range Interpretation Comments RBC Morph (test code = RBC As Indicated Normal A Morph) Anisocyte (test code = 1+ A Anisocyte) Hypochromia (test code = 1+ A Hypochromia) Macrocyte (test code = 2+ A Macrocyte) Differential Comment (test See Comment S lide reviewed code = Differential Comment) Plt Estimation (test code Normal Normal = Plt Estimation) Comprehensive Metabolic [id number] 11:46:11 Test Item Value Reference Range Interpretation [...] AST) 18 IntlUnit/L 10-34 Pro B Natriuretic [id number] 11:46:11 Test Item Value Reference Range Interpretation [...] - heart f ailure likely Comprehensive Metabolic [id number] 11:46:11 Test Item Value Reference Range Interpretation [...] >60 mL/min/1.73 m2 N AA) Comprehensive Metabolic [id number] 11:46:11 Test Item Value Reference Range Interpretation [...] N eGFR Non-AA) Complete Blood Count with Gncazbkoeamc7951-05-03 11:36:29 Test Item Value Reference Range Interpretation [...] code = Slide Smear N Review) Automated Fnppljpcqhuf8921-92-20 11:36:29 Test Item Value Reference Range Interpretation Comments Neutro Auto (test code = Neutro Auto) 68.0 % N Lymph Auto (test code = Lymph Auto) 19.0 % N [place] Auto (test code = [place] Auto) 12.1 % N Eos, Auto (test code = Eos, Auto) 0.2 % N Basophil Auto (test code = Basophil 0.7 % N Auto) Neutro Absolute (test code = Neutro 2.3 x10 2.7-7.3 L Absolute) Lymph Absolute (test code = Lymph 0.6 x10 0.8-3.5 L Absolute) [place] Absolute (test code = [place] 0.4 x10 0.3-0.9 Absolute) Eos Absolute (test code = Eos 0.0 x10 0.0-0.3 Absolute) Baso Absolute (test code = Baso 0.0 x10 0.0-0.1 Absolute) POC Troponin [id number] 11:26:15 Test Item Value Reference Range Interpretation [...] tions, symptons, etc. XR Chest 1 View [id number] 11:16:48Patient: NITO MCKEON Date/Time08/26/201910:56 CSTReason for ExamChest [...] James Arthur LSigned (Electronic Signature): 08/26/2019 11:16 qxFufhdjjuti3948-63-36 02:38:32 Test Item Value Reference Range Interpretation Comments RBC Morph (test code = RBC As Indicated Normal A Morph) Anisocyte (test code = 1+ A Anisocyte) Plt Estimation (test code = Plt Normal Normal Estimation) Prothrombin Time and [id number] 00:36:47 Test Item Value Reference Range Interpretation Comments Prothrombin Time (test code = 11.1 seconds 9.2-12.0 Prothrombin Time) INR (test code = INR) 1.1 ratio 0.9-1.2 Partial Thromboplastin [id number] 00:36:47 Test Item Value Reference Range Interpretation Comments Partial Thromboplastin 29.0 seconds 24.0-35.0 APTT Heparin Time (test code = Therapeuti c Range: Partial Thromboplastin 47.9- 80.4 seconds Time) Complete Blood Count with [id number] 00:27:34 Test Item Value Reference Range Interpretation [...] N Sl angel reviewed Slide Review) Automated Bllmwfctjhqk3310-09-95 00:27:34 Test Item Value Reference Range Interpretation Comments Neutro Auto (test code = Neutro Auto) 71.1 % N Lymph Auto (test code = Lymph Auto) 16.1 % N [place] Auto (test code = [place] Auto) 11.2 % N Eos, Auto (test code = Eos, Auto) 0.9 % N Basophil Auto (test code = Basophil 0.7 % N Auto) Neutro Absolute (test code = Neutro 6.4 x10 2.7-7.3 Absolute) Lymph Absolute (test code = Lymph 1.4 x10 0.8-3.5 Absolute) [place] Absolute (test code = [place] 1.0 x10 0.3-0.9 H Absolute) Eos Absolute (test code = Eos 0.1 x10 0.0-0.3 Absolute) Baso Absolute (test code = Baso 0.1 x10 0.0-0.1 Absolute) POC [id number] 11:40:15 Test Item Value Reference Range Interpretation Comments Glucose POC (test 135 mg/dL 74-106 H POC Glucos e used on code = Glucose POC) critical ly ill patients is considered " off-label use" and has no t been cleared or appr rosa elena by the FDA. Altern ative testing methods should be considered i f the patient is crit ically ill. Pzkmanpbjk7716-28-42 09:29:49 Test Item Value Reference Range Interpretation Comments RBC Morph (test code = RBC As Indicated Normal A Morph) Anisocyte (test code = 1+ A Anisocyte) Hypochromia (test code = 1+ A Hypochromia) Macrocyte (test code = 1+ A Macrocyte) Differential Comment (test See Comment S lide reviewed code = Differential Comment) Plt Estimation (test code Normal Normal = Plt Estimation) Basic Metabolic [id number] 08:32:12 Test Item Value Reference Range Interpretation [...] >60 mL/min/1.73 m2 N AA) Basic Metabolic [id number] 08:32:12 Test Item Value Reference Range Interpretation [...] mL/min/1.73 m2 N eGFR Non-AA) Basic Metabolic [id number] 08:32:12 Test Item Value Reference Range Interpretation [...] N eGFR Non-AA) Complete Blood Count with Pbefxemzqaxm2212-25-21 08:20:27 Test Item Value Reference Range Interpretation [...] code = Slide Smear N Review) Automated [id number] 08:20:27 Test Item Value Reference Range Interpretation Comments Neutro Auto (test code = Neutro Auto) 69.2 % N Lymph Auto (test code = Lymph Auto) 21.7 % N [place] Auto (test code = [place] Auto) 7.0 % N Eos, Auto (test code = Eos, Auto) 1.3 % N Basophil Auto (test code = Basophil 0.8 % N Auto) Neutro Absolute (test code = Neutro 5.0 x10 2.7-7.3 Absolute) Lymph Absolute (test code = Lymph 1.6 x10 0.8-3.5 Absolute) [place] Absolute (test code = [place] 0.5 x10 0.3-0.9 Absolute) Eos Absolute (test code = Eos 0.1 x10 0.0-0.3 Absolute) Baso Absolute (test code = Baso 0.1 x10 0.0-0.1 Absolute) POC [id number] 05:11:33 Test Item Value Reference Range Interpretation Comments Glucose POC (test 128 mg/dL 74-106 H POC Glucos e used on code = Glucose POC) critical ly ill patients is considered " off-label use" and has no t been cleared or appr rosa elena by the FDA. Altern ative testing methods should be considered i f the patient is crit ically ill. POC [id number] 21:57:36 Test Item Value Reference Range Interpretation Comments Glucose POC (test 135 mg/dL 74-106 H POC Glucos e used on code = Glucose POC) critical ly ill patients is considered " off-label use" and has no t been cleared or appr rosa elena by the FDA. Altern ative testing methods should be considered i f the patient is crit ically ill. POC [id number] 20:03:51 Test Item Value Reference Range Interpretation Comments Glucose POC (test 170 mg/dL 74-106 H POC Glucos e used on code = Glucose POC) critical ly ill patients is considered " off-label use" and has no t been cleared or appr rosa elena by the FDA. Altern ative testing methods should be considered i f the patient is crit ically ill. POC [id number] 11:56:43 Test Item Value Reference Range Interpretation Comments Glucose POC (test 167 mg/dL 74-106 H POC Glucos e used on code = Glucose POC) critical ly ill patients is considered " off-label use" and has no t been cleared or appr rosa elena by the FDA. Altern ative testing methods should be considered i f the patient is crit ically ill. POC [id number] 04:13:09 Test Item Value Reference Range Interpretation Comments Glucose POC (test 134 mg/dL 74-106 H POC Glucos e used on code = Glucose POC) critical ly ill patients is considered " off-label use" and has no t been cleared or appr rosa elena by the FDA. Altern ative testing methods should be considered i f the patient is crit ically ill. POC [id number] 20:37:07 Test Item Value Reference Range Interpretation Comments Glucose POC (test 165 mg/dL 74-106 H POC Glucos e used on code = Glucose POC) critical ly ill patients is considered " off-label use" and has no t been cleared or appr rosa elena by the FDA. Altern ative testing methods should be considered i f the patient is crit ically ill. POC [id number] 16:43:17 Test Item Value Reference Range Interpretation Comments Glucose POC (test 153 mg/dL 74-106 H POC Glucos e used on code = Glucose POC) critical ly ill patients is considered " off-label use" and has no t been cleared or appr rosa elena by the FDA. Altern ative testing methods should be considered i f the patient is crit ically ill. POC [id number] 11:49:57 Test Item Value Reference Range Interpretation Comments Glucose POC (test 153 mg/dL 74-106 H POC Glucos e used on code = Glucose POC) critical ly ill patients is considered " off-label use" and has no t been cleared or appr rosa elena by the FDA. Altern ative testing methods should be considered i f the patient is crit ically ill. POC [id number] 04:36:57 Test Item Value Reference Range Interpretation Comments Glucose POC (test 138 mg/dL 74-106 H POC Glucos e used on code = Glucose POC) critical ly ill patients is considered " off-label use" and has no t been cleared or appr rosa elena by the FDA. Altern ative testing methods should be considered i f the patient is crit ically ill. POC [id number] 21:01:31 Test Item Value Reference Range Interpretation Comments Glucose POC (test 192 mg/dL 74-106 H POC Glucos e used on code = Glucose POC) critical ly ill patients is considered " off-label use" and has no t been cleared or appr rosa elena by the FDA. Altern ative testing methods should be considered i f the patient is crit ically ill. POC Troponin [id number] 01:17:37 Test Item Value Reference Range Interpretation [...] EKG, CKMB, clinicalobserva tions, symptons, etc. Troponin [id number] 00:55:06 Test Item Value Reference Range Interpretation Comments Troponin-I (test 0.160 ng/mL 0.010-0.040 CTRB Manfred PENGRN/ER code = Troponin-I) 08/11/2019 00:54:57 ELEVATOR REPAIRER BY JEANNE [id number] 20:35:23 Test Item Value Reference Range Interpretation Comments RBC Morph (test code = RBC As Indicated Normal A Morph) Anisocyte (test code = 1+ A Anisocyte) Plt Estimation (test code = Plt Normal Normal Estimation) Creatine [id number] 20:35:18 Test Item Value Reference Range Interpretation Comments CK (test code = CK) 44 IntlUnit/L 39-308 Creatine Kinase MB [id number] 20:35:18 Test Item Value Reference Range Interpretation Comments CKMB (test code = CKMB) <1.0 ng/mL 0.5-3.6 CKMB % (test code = CKMB %) <2.3 % 0.0-5.0 Comprehensive Metabolic [id number] 20:35:17 Test Item Value Reference Range Interpretation [...] >60 mL/min/1.73 m2 N AA) Comprehensive Metabolic [id number] 20:35:17 Test Item Value Reference Range Interpretation [...] >60 mL/min/1.73 m2 N AA) Comprehensive Metabolic [id number] 20:35:17 Test Item Value Reference Range Interpretation [...] >60 mL/min/1.73 m2 N eGFR Non-AA) Lipase [id number] 20:34:45 Test Item Value Reference Range Interpretation Comments Lipase Level (test code = 81 IntlUnit/L 73-393 Lipase Level) Complete Blood Count with Souyhxfpyxiy7326-61-02 20:11:46 Test Item Value Reference Range Interpretation [...] code = Slide Smear N Review) Automated Rmktvjzbdcrm8795-94-97 20:11:46 Test Item Value Reference Range Interpretation Comments Neutro Auto (test code = Neutro Auto) 81.6 % N Lymph Auto (test code = Lymph Auto) 13.0 % N [place] Auto (test code = [place] Auto) 4.1 % N Eos, Auto (test code = Eos, Auto) 0.9 % N Basophil Auto (test code = Basophil 0.4 % N Auto) Neutro Absolute (test code = Neutro 6.2 x10 2.7-7.3 Absolute) Lymph Absolute (test code = Lymph 1.0 x10 0.8-3.5 Absolute) [place] Absolute (test code = [place] 0.3 x10 0.3-0.9 Absolute) Eos Absolute (test code = Eos 0.1 x10 0.0-0.3 Absolute) Baso Absolute (test code = Baso 0.0 x10 0.0-0.1 Absolute) POC Troponin [id number] 20:09:11 Test Item Value Reference Range Interpretation [...] tions, symptons, etc. XR Chest 1 View [id number] 19:51:28Patient: NITO MCKEON Date/Time08/10/2019 19:40 CSTReason for ExamChest painReportXR CHEST 1 VIEW FRONTALDIAGNOSIS: Chest painThe heart and mediastinum are stable. No consolidation or pleural fluid is evident. The right hemidiaphragm remains elevated.IMPRESSION: No active disease and no change since 04/20/2019. Final Dictated by:MD Ricky, Evan Alexandra DT/TM: 08/10/2019 7:50 pmSigned by: MD García Michael JackSigned(Electronic Signature): 08/10/2019 7:51 pmPOC [id number] 15:53:03 Test Item Value Reference Range Interpretation Comments Glucose POC (test 144 mg/dL 74-106 H POC Glucos e used on code = Glucose POC) critical ly ill patients is considered " off-label use" and has no t been cleared or appr rosa elena by the FDA. Altern ative testing methods should be considered i f the patient is crit ically ill. POC [id number] 11:06:10 Test Item Value Reference Range Interpretation Comments Glucose POC (test 167 mg/dL 74-106 H POC Glucos e used on code = Glucose POC) critical ly ill patients is considered " off-label use" and has no t been cleared or appr rosa elena by the FDA. Altern ative testing methods should be considered i f the patient is crit ically ill. POC [id number] 05:14:51 Test Item Value Reference Range Interpretation Comments Glucose POC (test 156 mg/dL 74-106 H POC Glucos e used on code = Glucose POC) critical ly ill patients is considered " off-label use" and has no t been cleared or appr rosa elena by the FDA. Altern ative testing methods should be considered i f the patient is crit ically ill. POC [id number] 21:48:46 Test Item Value Reference Range Interpretation Comments Glucose POC (test 203 mg/dL 74-106 H POC Glucos e used on code = Glucose POC) critical ly ill patients is considered " off-label use" and has no t been cleared or appr rosa elena by the FDA. Altern ative testing methods should be considered i f the patient is crit ically ill. POC [id number] 21:48:44 Test Item Value Reference Range Interpretation Comments Glucose POC (test 158 mg/dL 74-106 H POC Glucos e used on code = Glucose POC) critical ly ill patients is considered " off-label use" and has no t been cleared or appr rosa elena by the FDA. Altern ative testing methods should be considered i f the patient is crit ically ill. POC [id number] 21:48:40 Test Item Value Reference Range Interpretation Comments Glucose POC (test 139 mg/dL 74-106 H POC Glucos e used on code = Glucose POC) critical ly ill patients is considered " off-label use" and has no t been cleared or appr rosa elena by the FDA. Altern ative testing methods should be considered i f the patient is crit ically ill. Basic Metabolic [id number] 07:44:09 Test Item Value Reference Range Interpretation [...] Calcium 8.5 mg/dL 8.5-10.1 Level) Basic Metabolic [id number] 07:44:09 Test Item Value Reference Range Interpretation [...] >60 mL/min/1.73 m2 N AA) Basic Metabolic [id number] 07:44:09 Test Item Value Reference Range Interpretation [...] N eGFR Non-AA) Complete Blood Count with Oqemwhyvcfer5744-30-24 07:03:53 Test Item Value Reference Range Interpretation [...] = Slide Review) GL_SET_SLIDE _REVIEW_A UTO Automated [id number] 07:03:53 Test Item Value Reference Range Interpretation Comments Neutro Auto (test code = Neutro Auto) 70.7 % N Lymph Auto (test code = Lymph Auto) 18.5 % N [place] Auto (test code = [place] Auto) 6.7 % N Eos, Auto (test code = Eos, Auto) 3.3 % N Basophil Auto (test code = Basophil 0.8 % N Auto) Neutro Absolute (test code = Neutro 4.5 x10 2.7-7.3 Absolute) Lymph Absolute (test code = Lymph 1.2 x10 0.8-3.5 Absolute) [place] Absolute (test code = [place] 0.4 x10 0.3-0.9 Absolute) Eos Absolute (test code = Eos 0.2 x10 0.0-0.3 Absolute) Baso Absolute (test code = Baso 0.0 x10 0.0-0.1 Absolute) POC [id number] 05:46:14 Test Item Value Reference Range Interpretation Comments Glucose POC (test 144 mg/dL 74-106 H POC Glucos e used on code = Glucose POC) critical ly ill patients is considered " off-label use" and has no t been cleared or appr rosa elena by the FDA. Altern ative testing methods should be considered i f the patient is crit ically ill. POC [id number] 22:56:56 Test Item Value Reference Range Interpretation Comments Glucose POC (test 198 mg/dL 74-106 H POC Glucos e used on code = Glucose POC) critical ly ill patients is considered " off-label use" and has no t been cleared or appr rosa elena by the FDA. Altern ative testing methods should be considered i f the patient is crit ically ill. POC [id number] 19:19:36 Test Item Value Reference Range Interpretation Comments Glucose POC (test 145 mg/dL 74-106 H POC Glucos e used on code = Glucose POC) critical ly ill patients is considered " off-label use" and has no t been cleared or appr rosa elena by the FDA. Altern ative testing methods should be considered i f the patient is crit ically ill. POC [id number] 19:19:24 Test Item Value Reference Range Interpretation Comments Glucose POC (test 228 mg/dL 74-106 H POC Glucos e used on code = Glucose POC) critical ly ill patients is considered " off-label use" and has no t been cleared or appr rosa elena by the FDA. Altern ative testing methods should be considered i f the patient is crit ically ill. POC [id number] 19:19:23 Test Item Value Reference Range Interpretation Comments Glucose POC (test 143 mg/dL 74-106 H POC Glucos e used on code = Glucose POC) critical ly ill patients is considered " off-label use" and has no t been cleared or appr rosa elena by the FDA. Altern ative testing methods should be considered i f the patient is crit ically ill. Comprehensive Metabolic [id number] 08:12:19 Test Item Value Reference Range Interpretation [...] = AST) 23 IntlUnit/L 10-34 Comprehensive Metabolic [id number] 08:12:19 Test Item Value Reference Range Interpretation [...] eGFR >60 mL/min/1.73 m2 N AA) Creatine [id number] 08:12:19 Test Item Value Reference Range Interpretation Comments CK (test code = CK) 81 IntlUnit/L 39-308 Comprehensive Metabolic [id number] 08:12:19 Test Item Value Reference Range Interpretation [...] N eGFR Non-AA) Complete Blood Count with [id number] 07:14:37 Test Item Value Reference Range Interpretation [...] = Slide Review) GL_SET_SLIDE _REVIEW_A UTO Automated [id number] 07:14:37 Test Item Value Reference Range Interpretation Comments Neutro Auto (test code = Neutro Auto) 71.0 % N Lymph Auto (test code = Lymph Auto) 17.5 % N [place] Auto (test code = [place] Auto) 7.8 % N Eos, Auto (test code = Eos, Auto) 3.0 % N Basophil Auto (test code = Basophil 0.7 % N Auto) Neutro Absolute (test code = Neutro 5.9 x10 2.7-7.3 Absolute) Lymph Absolute (test code = Lymph 1.4 x10 0.8-3.5 Absolute) [place] Absolute (test code = [place] 0.6 x10 0.3-0.9 Absolute) Eos Absolute (test code = Eos 0.2 x10 0.0-0.3 Absolute) Baso Absolute (test code = Baso 0.1 x10 0.0-0.1 Absolute) Troponin [id number] 22:56:40 Test Item Value Reference Range Interpretation Comments Troponin-I (test 0.302 ng/mL 0.010-0.040 CTRB CHIP V JIL,RN/ER code = Troponin-I) 04/20/2019 22:56:35 CDT BY JEANNE POC Troponin [id number] 15:54:28 Test Item Value Reference Range Interpretation [...] CKMB, clinicalobserva tions, symptons, etc. CT Angio [id number] 13:24:30Patient: NITO MCKEON Date/Time04/20/2019 12:40 CDTReason for [...] lobe. Final Dictated by: MD Josse, Simone Carlsonictated DT/TM: 04/20/2019 1:09 pmSignedby: MD Josse, Simone [...] f the patient is crit ically ill. [id number] 12:01:44 Test Item Value Reference Range Interpretation Comments RBC Morph (test code = RBC As Indicated Normal A Morph) Anisocyte (test code = 1+ A Anisocyte) Plt Estimation (test code = Plt Normal Normal Estimation) Complete Blood Count with [id number] 11:57:15 Test Item Value Reference Range Interpretation [...] code = Slide Smear N Review) Automated [id number] 11:57:15 Test Item Value Reference Range Interpretation Comments Neutro Auto (test code = Neutro Auto) 80.5 % N Lymph Auto (test code = Lymph Auto) 12.9 % N [place] Auto (test code = [place] Auto) 4.1 % N Eos, Auto (test code = Eos, Auto) 1.8 % N Basophil Auto (test code = Basophil 0.7 % N Auto) Neutro Absolute (test code = Neutro 8.0 x10 2.7-7.3 H Absolute) Lymph Absolute (test code = Lymph 1.3 x10 0.8-3.5 Absolute) [place] Absolute (test code = [place] 0.4 x10 0.3-0.9 Absolute) Eos Absolute (test code = Eos 0.2 x10 0.0-0.3 Absolute) Baso Absolute (test code = Baso 0.1 x10 0.0-0.1 Absolute) Pro B Natriuretic [id number] 10:14:38 Test Item Value Reference Range Interpretation Comments NT-proBNP (test 167 pg/mL 0-125 H < 300 pg/ml - heart code = NT-proBNP) failure un likelyAge less than 50 years, > 450 pg/ml - heart f ailure lilkelyAge 50 - 75 years, > 900 pg/ml - h eart failure likelyA ge greater than 75 years, > 1800 pg/ml - heart f ailure likely Creatine [id number] 10:14:13 Test Item Value Reference Range Interpretation Comments CK (test code = CK) 81 IntlUnit/L 39-308 Creatine Kinase MB [id number] 10:14:13 Test Item Value Reference Range Interpretation Comments CKMB (test code = CKMB) <1.0 ng/mL 0.5-3.6 CKMB % (test code = CKMB %) <1.2 % 0.0-5.0 Comprehensive Metabolic [id number] 10:10:18 Test Item Value Reference Range Interpretation [...] = AST) 24 IntlUnit/L 10-34 Comprehensive Metabolic [id number] 10:10:18 Test Item Value Reference Range Interpretation [...] mL/min/1.73 N eGFR AA) m2 Comprehensive Metabolic [id number] 10:10:18 Test Item Value Reference Range Interpretation [...] code = eGFR Non-AA) m2 POC Troponin [id number] 09:53:00 Test Item Value Reference Range Interpretation [...] clinicalobserva tions, symptons, etc. Prothrombin Time and [id number] 09:52:09 Test Item Value Reference Range Interpretation Comments Prothrombin Time (test code = 10.6 seconds 9.2-12.0 Prothrombin Time) INR (test code = INR) 1.0 ratio 0.9-1.2 Partial Thromboplastin [id number] 09:52:09 Test Item Value Reference Range Interpretation Comments Partial Thromboplastin 22.0 seconds 24.0-35.0 L APTT Heparin Time (test code = Therapeuti c Range: Partial Thromboplastin 47.9- 80.4 seconds Time) D-Dimer [id number] 09:52:09 Test Item Value Reference Range Interpretation [...] DVT or PEunlikely. XR Chest 1 View [id number] 08:59:22Patient: NITO MCKEON Date/Time04/20/2019 08:53 CDTReason for [...] JulioSigned (Electronic Signature): 04/20/2019 8:59 amHemoglobin A1c [id number] 10:10:56 7.0 Prediabetes: 5.7 - 6.4 Diabetes: >6.4 Glycemic control for adults with diabetes: <7.0Performed At: [facility] [address] [place], [place] [id number] MD Ph:[phone] Glucose 2019-03-12 13:46:07 Test Item Value Reference [...] the patient is crit ically ill. Lipid [id number] 07:04:11 Test Item Value Reference Range Interpretation Comments Cholesterol Total (test code = 135 mg/dL 0-200 Cholesterol Total) Triglycerides (test code = 129 mg/dL 2-150 Triglycerides) HDL (test code = HDL) 40 mg/dL 45-65 L Chol/HDL (test code = Chol/HDL) 3 ratio 0-5 Lipid [id number] 07:04:11 Test Item Value Reference Range Interpretation [...] code = 3 ratio 0-5 Chol/HDL) POC [id number] 05:56:59 Test Item Value Reference Range Interpretation Comments Glucose POC (test 140 mg/dL 74-106 H POC Glucos e used on code = Glucose POC) critical ly ill patients is considered " off-label use" and has no t been cleared or appr rosa elena by the FDA. Altern ative testing methods should be considered i f the patient is crit ically ill. POC [id number] 20:55:24 Test Item Value Reference Range Interpretation Comments Glucose POC (test 132 mg/dL 74-106 H POC Glucos e used on code = Glucose POC) critical ly ill patients is considered " off-label use" and has no t been cleared or appr rosa elena by the FDA. Altern ative testing methods should be considered i f the patient is crit ically ill. POC [id number] 16:08:50 Test Item Value Reference Range Interpretation Comments Glucose POC (test 168 mg/dL 74-106 H POC Glucos e used on code = Glucose POC) critical ly ill patients is considered " off-label use" and has no t been cleared or appr rosa elena by the FDA. Altern ative testing methods should be considered i f the patient is crit ically ill. POC [id number] 10:29:45 Test Item Value Reference Range Interpretation Comments Glucose POC (test 141 mg/dL 74-106 H POC Glucos e used on code = Glucose POC) critical ly ill patients is considered " off-label use" and has no t been cleared or appr rosa elena by the FDA. Altern ative testing methods should be considered i f the patient is crit ically ill. Urine [id number] 09:19:47 Test Item Value Reference Range Interpretation [...] stuartii C Urine Added by GL_SET_CULT_RFLXComprehensive Metabolic [id number] 07:17:12 Test Item Value Reference Range Interpretation [...] = AST) 10 IntlUnit/L 10-34 Comprehensive Metabolic [id number] 07:17:12 Test Item Value Reference Range Interpretation [...] AST (test code = AST) 10 IntlUnit/L 34 eGFR AA (test code = eGFR >60 mL/min/1.73 m2 N AA) Comprehensive Metabolic [id number] 07:17:12 Test Item Value Reference Range Interpretation [...] N eGFR Non-AA) Complete Blood Count with Prtdbirzuivs5504-02-61 06:44:43 Test Item Value Reference Range Interpretation [...] = Slide Review) GL_SET_SLIDE _REVIEW_A UTO Automated [id number] 06:44:43 Test Item Value Reference Range Interpretation Comments Neutro Auto (test code = Neutro Auto) 73.3 % N Lymph Auto (test code = Lymph Auto) 15.9 % N [place] Auto (test code = [place] Auto) 8.1 % N Eos, Auto (test code = Eos, Auto) 2.1 % N Basophil Auto (test code = Basophil 0.6 % N Auto) Neutro Absolute (test code = Neutro 5.1 x10 2.7-7.3 Absolute) Lymph Absolute (test code = Lymph 1.1 x10 0.8-3.5 Absolute) [place] Absolute (test code = [place] 0.6 x10 0.3-0.9 Absolute) Eos Absolute (test code = Eos 0.1 x10 0.0-0.3 Absolute) Baso Absolute (test code = Baso 0.0 x10 0.0-0.1 Absolute) POC [id number] 05:49:49 Test Item Value Reference Range Interpretation Comments Glucose POC (test 129 mg/dL 74-106 H POC Glucos e used on code = Glucose POC) critical ly ill patients is considered " off-label use" and has no t been cleared or appr rosa elena by the FDA. Altern ative testing methods should be considered i f the patient is crit ically ill. Troponin [id number] 16:59:39 Test Item Value Reference Range Interpretation Comments Troponin-I (test 0.467 ng/mL 0.010-0.040 DENILSONB/ERIN KILGORE code = Troponin-I) RN/03/10/2 019 16:59:35 CDT/ST CT Angio [id number] 15:03:22Patient: NITO MCKEON Date/Time03/10/2019 14:46 CDTReason for [...] EKG, CKMB, clinicalobserva tions, symptons, etc. Lipase [id number] 11:47:20 Test Item Value Reference Range Interpretation Comments Lipase Level (test code = 95 IntlUnit/L 73-393 Lipase Level) Comprehensive Metabolic [id number] 11:46:17 Test Item Value Reference Range Interpretation [...] code = AST) 12 IntlUnit/L 10-34 Creatine [id number] 11:46:17 Test Item Value Reference Range Interpretation Comments CK (test code = CK) 34 IntlUnit/L 39-308 L Comprehensive Metabolic Hvduo6945-02-16 11:46:17 Test Item Value Reference Range Interpretation [...] mL/min/1.73 m2 N AA) Creatine Kinase MB [id number] 11:46:17 Test Item Value Reference Range Interpretation Comments CKMB (test code = CKMB) <1.0 ng/mL 0.5-3.6 CKMB % (test code = CKMB %) <2.9 % 0.0-5.0 Comprehensive Metabolic [id number] 11:46:17 Test Item Value Reference Range Interpretation [...] m2 N eGFR Non-AA) Pro B Natriuretic [id number] 11:43:17 Test Item Value Reference Range Interpretation Comments NT-proBNP (test 309 pg/mL 0-125 H < 300 pg/ml - heart code = NT-proBNP) failure un likelyAge less than 50 years, > 450 pg/ml - heart f ailure lilkelyAge 50 - 75 years, > 900 pg/ml - h eart failure likelyA ge greater than 75 years, > 1800 pg/ml - heart f ailure likely D-Dimer [id number] 11:26:15 Test Item Value Reference Range Interpretation [...] DVT or PEunlikely. Complete Blood Count with [id number] 11:20:22 Test Item Value Reference Range Interpretation [...] = Slide Review) GL_SET_SLIDE _REVIEW_A UTO Automated Yefwvazyzevh1146-69-71 11:20:22 Test Item Value Reference Range Interpretation Comments Neutro Auto (test code = Neutro Auto) 84.0 % N Lymph Auto (test code = Lymph Auto) 9.2 % N [place] Auto (test code = [place] Auto) 5.3 % N Eos, Auto (test code = Eos, Auto) 1.0 % N Basophil Auto (test code = Basophil 0.5 % N Auto) Neutro Absolute (test code = Neutro 7.5 x10 2.7-7.3 H Absolute) Lymph Absolute (test code = Lymph 0.8 x10 0.8-3.5 Absolute) [place] Absolute (test code = [place] 0.5 x10 0.3-0.9 Absolute) Eos Absolute (test code = Eos 0.1 x10 0.0-0.3 Absolute) Baso Absolute (test code = Baso 0.0 x10 0.0-0.1 Absolute) Urinalysis [id number] 11:18:53 Test Item Value Reference Range Interpretation [...] /LPF 1-6 Cast) Urinalysis with Culture, if [id number] 11:18:52 Test Item Value Reference Range Interpretation [...] Micro Ind?) rule GL_SET_UA_MICRO _IND POC Troponin [id number] 10:53:21 Test Item Value Reference Range Interpretation [...] tions, symptons, etc. XR Chest 1 View [id number] 10:02:21Patient: NITO MCKEON Date/Time03/10/2019 09:51 CDTReason for [...] February 16, 2019. Final Dictated by: MD Jacob, Rai LDictated DT/TM: 03/10/2019 10:00 amSigned by: MD James Arthur LSigned (Electronic Signature): 03/10/201910:02 amWound Culture w/ Gram [id number] 19:48:51 Test Item Value Reference Range Interpretation Comments Final Report (test See culture # code = Final Report) [id number] Gram Stain Report Many Gram Negative (test code = Gram Bacilli Many Gram Stain Report) Positive Cocci POC [id number] 11:05:31 Test Item Value Reference Range Interpretation Comments Glucose POC (test 248 mg/dL 74-106 H POC Glucos e used on code = Glucose POC) critical ly ill patients is considered " off-label use" and has no t been cleared or appr rosa elena by the FDA. Altern ative testing methods should be considered i f the patient is crit ically ill. POC [id number] 05:48:38 Test Item Value Reference Range Interpretation Comments Glucose POC (test 195 mg/dL 74-106 H POC Glucos e used on code = Glucose POC) critical ly ill patients is considered " off-label use" and has no t been cleared or appr rosa elena by the FDA. Altern ative testing methods should be considered i f the patient is crit ically ill. POC [id number] 21:28:20 Test Item Value Reference Range Interpretation Comments Glucose POC (test 230 mg/dL 74-106 H POC Glucos e used on code = Glucose POC) critical ly ill patients is considered " off-label use" and has no t been cleared or appr rosa elena by the FDA. Altern ative testing methods should be considered i f the patient is crit ically ill. Clostridium difficile [id number] 18:18:24 Test Item Value Reference Range Interpretation Comments CDIFF PCR (test NEGATIVE Negative Error 5006 P ost-run code = CDIFF PCR) analysis e rror Error 5006: [Toxin B] probe check failed. Probe c heck value of 470 for read ing number 1 was above the m aximum of 282 [id number] 616Error 5006 Post-run a nalysis error Error 500 6: [Toxin B] probe check joel led. Probe check value of 503 for reading number 3 was above the maximum of 282 [id number] POC [id number] 17:00:07 Test Item Value Reference Range Interpretation [...] crit ically ill. Wound Culture w/ Gram [id number] 13:52:35 Test Item Value Reference Range Interpretation [...] Cocci Many Gram Report) Negative Bacilli POC [id number] 12:56:36 Test Item Value Reference Range Interpretation Comments Glucose POC (test 196 mg/dL 74-106 H POC Glucos e used on code = Glucose POC) critical ly ill patients is considered " off-label use" and has no t been cleared or appr rosa elena by the FDA. Altern ative testing methods should be considered i f the patient is crit ically ill. POC [id number] 09:05:17 Test Item Value Reference Range Interpretation Comments Glucose POC (test 258 mg/dL 74-106 H POC Glucos e used on code = Glucose POC) critical ly ill patients is considered " off-label use" and has no t been cleared or appr rosa elena by the FDA. Altern ative testing methods should be considered i f the patient is crit ically ill. Vancomycin Level [id number] 07:12:17 Test Item Value Reference Range Interpretation Comments Vanco Tr (test code = Vanco Tr) 8.1 mcg/mL 10.0-20.0 L POC [id number] 00:54:01 Test Item Value Reference Range Interpretation [...] crit ically ill. Wound Culture w/ Gram [id number] 04:35:47 Test Item Value Reference Range Interpretation [...] Cocci Report) RT CALFWound Culture w/ Gram [id number] 04:33:46 Test Item Value Reference Range Interpretation [...] Staphylococcus simulans Heavy growth Proteus mirabilis POC [id number] 21:25:36 Test Item Value Reference Range Interpretation [...] crit ically ill. Wound Culture w/ Gram [id number] 23:57:56See culture # [id number] Urinalysis with Culture, if [id number] 17:21:15 Test Item Value Reference Range Interpretation [...] Ind?) rule GL_SET_UA_MICRO _IN D Comprehensive Metabolic [id number] 11:25:10 Test Item Value Reference Range Interpretation [...] = AST) 16 IntlUnit/L 10-34 Comprehensive Metabolic [id number] 11:25:10 Test Item Value Reference Range Interpretation [...] AST (test code = AST) 16 IntlUnit/L 34 eGFR AA (test code = eGFR >60 mL/min/1.73 m2 N AA) Comprehensive Metabolic [id number] 11:25:10 Test Item Value Reference Range Interpretation [...] N eGFR Non-AA) Complete Blood Count with [id number] 11:02:24 Test Item Value Reference Range Interpretation [...] (test code = Slide Auto Review) Automated [id number] 11:02:24 Test Item Value Reference Range Interpretation Comments Neutro Auto (test code = Neutro Auto) 71.7 % N Lymph Auto (test code = Lymph Auto) 16.8 % N [place] Auto (test code = [place] Auto) 10.2 % N Eos, Auto (test code = Eos, Auto) 0.7 % N Basophil Auto (test code = Basophil 0.6 % N Auto) Neutro Absolute (test code = Neutro 4.1 x10 2.7-7.3 Absolute) Lymph Absolute (test code = Lymph 1.0 x10 0.8-3.5 Absolute) [place] Absolute (test code = [place] 0.6 x10 0.3-0.9 Absolute) Eos Absolute (test code = Eos 0.0 x10 0.0-0.3 Absolute) Baso Absolute (test code = Baso 0.0 x10 0.0-0.1 Absolute) XR Chest 1 View [id number] 10:52:34Patient: NITO MCKEON Date/Time01/17/2019 10:42 CDTReason for [...] (Electronic Signature): 01/17/2019 10:52 amXR CHEST 1 [id number] 05:45:24XR CHEST 1 VIEWDIAGNOSIS: Cough and shortness of breathThe heart and mediastinum are stable. A possible left lower lobe opacityhas developed since 03/28/2013. This could represent atelectasis and/orpneumonia. The remainder the chest is clear.IMPRESSION: Possible left lower lobe opacity developing since 03/28/2013.CT SPINE, LUMBAR WO [id number] 07:21:51History: Fall 2 days ago with right [...] mA according to patient's size.XR HIP 2+V, UNI.[id number] 05:18:48 XR HIP 2+V, UNI.COMPLETE-RIGHTDIAGNOSIS: Right hip injury in a fallSevere osteoarthritis is present.No fracture or dislocation is seen.Vascular calcifications are evident.IMPRESSION: Osteoarthritis right hip.The radiographic findings were faxed to the ER at [address] Glaser.XR PELVIS 1-2 [id number] 05:17:44XR PELVIS 1-2 VIEWSDIAGNOSIS: Pelvic injury in a fallNo pelvic fracture is seen. Osteoarthritis is noted in each hip and thelumbar spine. Extensive vascular calcifications are evident.IMPRESSION: Osteoarthritis bilateral hips.CT SPINE, CERVICAL WO [id number] 19:48:14Information: Fall 2 days ago with neck [...] to patient's size.CT HEAD OR BRAIN WO [id number] 19:46:10Information: Fall 2 days ago with complaints [...] lowering techniques were used accor ding to ALARAprinciple.
--- NOTE | 2021-03-19 20:33 | RAD REPORT ---
EXAM DESCRIPTION: RAD - Chest Single View - 03/19/2021 8:22 pm CLINICAL HISTORY: SOB COMPARISON: Chest Single View dated 01/11/2021; Chest Single View dated 04/29/2020 FINDINGS: Patchy bilateral airspace disease, worse on the left. The heart size is within normal limi ts.No acute osseous abnormality. No significant pleural effusions or pneumothorax. IMPRESSION: Bilateral airspace disease concerning for multifocal pneumonia.
[2021-03-19 20:40] LABS: Absolute Lymphocytes (CBC) 0.6 K/uL (0.7-4.9); Basophils % 0.4 % (0-1.3); Hematocrit 49.5 % (39.6-49.0); Lymphocytes % 3.2 % (15.3-44.8); MPV 7.8 fL (7.6-11.3); Protime INR 1.22; RBC Red Blood Cell Count 4.91 M/uL (4.33-5.43)
[2021-03-19 21:16] LABS: Platelet Estimate ADEQ; White Blood Cell Scan OK (OK)
[2021-03-19 21:17] LABS: Blood Morphology Comment NOTED (NOT SEEN)
[2021-03-19 22:33] LABS: Albumin 2.7 g/dL (3.4-5.0); Bilirubin Direct 0.2 mg/dL (0-0.2); Bilirubin Total 0.4 mg/dL (0.2-1.0); Ferritin 344.5 ng/mL (26-388); Magnesium 1.5 mg/dL (1.8-2.4); Protein, Total 7.6 g/dL (6.4-8.2); Troponin (Emerg Dept Use Only) 0.02 ng/mL (0.0-0.045)
[2021-03-19 22:34] LABS: Potassium 2.8 mmol/L (3.5-5.1)
[2021-03-19] MEDS ORDERED: FAMOTIDINE 20 MG/2 ML VIAL IV ONE (23:37)
[2021-03-19] MEDS ORDERED: ONDANSETRON 4 MG/2 ML VIAL ONE (23:37)
[2021-03-19] MEDS ORDERED: NA CHLORIDE 0.9% 250 ML ONE (23:37)
[2021-03-19] MEDS ORDERED: AZITHROMYCIN 500 MG INJ IVPB ONE (23:37)
[2021-03-19] MEDS ORDERED: CEFTRIAXONE/SWI 1gm 1 GM/10 ML SYR ONE (23:38)
[2021-03-20] MEDS ORDERED: NA CHLORIDE 0.9% 1,000 ML ONE ×2 (00:12→02:50)
[2021-03-20] MEDS ORDERED: DIGOXIN 0.25 MG/ML AMP ONE (00:19)
--- NOTE | 2021-03-20 00:20 | EDPHYS ---
Physician Documentation [facility] Name: Hany Marcano Age: 75 yrs Sex: Male : 1945 Arrival Date: 03/19/2021 Time: 19:49 Bed 6 Private MD: ED Physician Arias Caldwell HPI: 03/19 20:05 This 75 yrs old Male presents to ER via EMS with complaints of Shortness of cp Breath. 20:05 The patient has shortness of breath at rest. Onset: The symptoms/episode began/occurred cp today. Duration: The symptoms are continuous, and are steadily getting worse. Associated signs and symptoms: Pertinent negatives: chest pain, fever. Patient presents to the emergency department via EMS with complaints of increasing shortness of breath. Patient is a long-term resident of [facility]. EMS reports patient tested positive for Covid recently. Patient currently on a nonrebreather mask to maintain oxygen sats at 100%. Historical: - Home Meds: 21:37 allopurinol 100 mg Oral tab 1 tab once daily [Active]; amlodipine 10 mg tab 1 tab once bs2 daily [Active]; aspirin 81 mg Oral TbEC 1 tab once daily [Active]; calcium with Vitamin D [Active]; cyanocobalamin (vitamin B-12) 1,000 mcg/mL injection soln 1 mL Q 2 WEEKS [Active]; Humalog Sub-Q Sliding scale ac and hs [Active]; isosorbide mononitrate 120 mg Oral Tb24 1 tab once daily [Active]; Lantus 100 unit/mL Sub-Q soln 24 unit nightly [Active]; Lasix 40 mg Oral tab 1 tab once daily [Active]; lisinopril 40 mg Oral tab 1 tab nightly [Active]; lovastatin 40 mg Oral tab 1 tab nightly [Active]; magnesium oxide 400 mg Oral cap twice a day [Active]; metformin 1,000 mg Oral TG24 1 tab 2 times per day [Active]; metoprolol tartrate 25 mg Oral tab 1 tab 2 times per day [Active]; MVI daily [Active]; nitroglycerin 0.4 mg SL subl 1 tab every 5 minutes [Active]; omeprazole 40 mg Oral cpDR 1 cap once daily [Active]; pioglitazone 30 mg Oral tab 1 tab once daily [Active]; Plavix 75 mg Oral tab 1 tab once daily [Active]; Silvadene 1 % Topical crea once daily [Active]; trazodone 50 mg Oral tab 1 tab nightly [Active]; Vitamin D Oral 64648 unit WEEKLY [Active]; - PMHx: 21:37 Allergic rhinitis; Angina; CAD; chest pain; CHF; Dementia; Depression; Diabetes - IDDM; bs2 GERD; Gout; Hyperlipidemia; insomnia; - Immunization history:: Adult Immunizations up to date, Client reports receiving the 2nd dose of the Covid vaccine, Date received: August 27, 2020 Client reports receiving the 1st dose of the Covid vaccine, August 06, 2020. - Social history:: Smoking status: unknown. ROS: 20:10 Constitutional: Negative for body aches, chills, fever, poor PO intake. cp 20:10 Eyes: Negative for injury, pain, redness, and discharge. cp 20:10 ENT: Negative for ear pain, sore throat, difficulty swallowing, difficulty handling secretions. 20:10 Cardiovascular: Negative for chest pain, palpitations. 20:10 Respiratory: Positive for shortness of breath, at rest. Negative for wheezing. 20:10 Abdomen/GI: Negative for abdominal pain, vomiting, diarrhea, constipation. 20:10 Neuro: Negative for altered mental status, headache. 20:10 All other systems are negative. Exam: 20:15 Constitutional: The patient appears alert, awake, non-diaphoretic, non-toxic, well cp developed, well nourished, obese, in obvious distress, moderately distressed. 20:15 Head/Face: Normocephalic, atraumatic. cp 20:15 Eyes: Periorbital structures: appear normal, Pupils: equal, round, and reactive to light and accomodation, Extraocular movements: intact throughout, Conjunctiva: normal, no exudate, no injection, Sclera: no appreciated abnormality, Lids and lashes: appear normal, bilaterally. 20:15 ENT: External ear(s): are unremarkable, Nose: is normal, Mouth: Lips: dry, Oral mucosa: moist, Posterior pharynx: Airway: no evidence of obstruction, patent. 20:15 Neck: ROM/movement: is normal, is supple, without pain, no range of motions limitations, no meningismus, no nuchal rigidity. 20:15 Chest/axilla: Inspection: normal, Palpation: is normal, no crepitus, no tenderness. 20:15 Cardiovascular: Rate: normal, Rhythm: irregular, Edema: ankle edema, that is mild, JVD: is not appreciated. 20:15 Respiratory: moderate respiratory distress is noted, Respirations: intercostal retractions, are absent, shallow respirations, that is moderate, Breath sounds: decreased breath sounds, that are moderate, throughout, stridor, is not appreciated, wheezing: is not appreciated. 20:15 Abdomen/GI: Inspection: obese Palpation: abdomen is soft and non-tender, in all quadrants. 20:15 Back: pain, is absent, ROM is normal. 20:15 Skin: cellulitis, is not appreciated, no rash present. 20:15 Neuro: Orientation: to person, situation, Mentation: able to follow commands, slow to respond. 23:35 ECG was reviewed by the Attending Physician. Vital Signs: 20:00 BP 125 / 96; Pulse 54; Resp 24; Temp 99.9(A); Pulse Ox 100% on Non-rebreather mask; bs2 Pain 6/10; 03/20 05:00 BP 163 / 90; Pulse 115; Resp 27 S; Pulse Ox 91% on 2 lpm NC; bb 06:00 BP 153 / 66; Pulse 111; Resp 21 S; Pulse Ox 94% on 2 lpm NC; bb 07:53 Weight 108.86 kg; Height 6 ft. 5 in. (195.58 cm); eb 07:53 Body Mass Index 28.46 (108.86 kg, 195.58 cm) eb MDM: 03/19 19:55 Patient medically screened. 03/20 01:30 Data reviewed: vital signs, nurses notes, lab test result(s), EKG, radiologic studies, cp plain films. 01:30 Antibiotic administration: Rocephin and Zithromax given. Response to treatment: the cp patient's symptoms have mildly improved after treatment. Physician consultation: Avery FARLEY was called at 00:30, was contacted at 00:30, regarding admission, to the telemetry unit. patient's condition. 03/19 19:55 Order name: Basic Metabolic Panel 03/19 19:55 Order name: CBC with Diff 03/19 19:55 Order name: LFT's 03/19 19:55 Order name: Magnesium 03/19 19:55 Order name: NT PRO-BNP 03/19 19:55 Order name: PT-INR; Complete Time: 21:13 03/19 19:55 Order name: Troponin (emerg Dept Use Only); Complete Time: 23:38 03/19 19:55 Order name: CRP; Complete Time: 23:38 03/19 23:40 Interpretation: Abnormal: C-REACTIVE PROT 215.00. 03/19 19:55 Order name: Ferritin; Complete Time: 23:38 03/19 19:55 Order name: Basic Metabolic Panel; Complete Time: 23:38 EDMS 03/19 23:41 Interpretation: Normal except: K 2.8; GLUC 254; BUN 34; CRE 1.58; GFR 43; CA 8.3. 03/19 19:55 Order name: CBC with Automated Diff; Complete Time: 23:38 EDMA 03/19 23:40 Interpretation: Normal except: WBC 19.90; HCT 49.5; MCV 100.9; RDW 16.1; [place]% 94.8; cp LYM% 3.2; MN% 1.6; NEUT A 18.8; LYMA 0.6. 03/19 19:55 Order name: Liver (Hepatic) Function; Complete Time: 23:38 EDMA 03/19 19:55 Order name: Magnesium; Complete Time: 23:38 EDMA 03/19 23:40 Interpretation: Abnormal: MG 1.5. 03/19 19:55 Order name: NT PRO-BNP; Complete Time: 23:38 EDMA 03/19 21:15 Order name: Lactate 03/19 21:15 Order name: Blood Culture Adult (2) 03/19 21:15 Order name: Procalcitonin; Complete Time: 02:38 03/19 21:15 Order name: Urine Microscopic Only 03/19 21:16 Order name: Lactate; Complete Time: 23:38 EDMS 03/19 23:41 Interpretation: Abnormal: LAC 2.2. 03/19 21:16 Order name: CBC Smear Scan; Complete Time: 23:38 EDMS 03/20 01:27 Order name: COVID-19/FLU A+B; Complete Time: 01:28 EDMS 03/20 04:58 Order name: Lactate Sepsis 2 HR Follow-up EDMA 03/20 06:57 Order name: CBC with Automated Diff EDMA 03/20 07:07 Order name: Lactate EDMA 03/20 07:13 Order name: Comprehensive Metabolic Panel [facility] 03/20 07:13 Order name: Phosphorus [facility] 03/20 07:13 Order name: C-Reactive Protein EDMA 03/19 19:55 Order name: XRAY Chest (1 view); Complete Time: 21:13 cp 03/19 19:55 Order name: EKG; Complete Time: 19:56 cp 03/19 19:55 Order name: Cardiac monitoring; Complete Time: 00:20 cp 03/19 19:55 Order name: EKG - Nurse/Tech; Complete Time: 00:20 cp 03/19 19:55 Order name: IV Saline Lock; Complete Time: 00:20 cp 03/19 19:55 Order name: Labs collected and sent; Complete Time: 00:20 cp 03/19 19:55 Order name: O2 Per Protocol; Complete Time: 00:19 cp 03/19 19:55 Order name: O2 Sat Monitoring; Complete Time: 00:19 cp 03/19 21:15 Order name: Urine Dipstick-Ancillary (obtain specimen); Complete Time: 03:31 cp 03/19 21:15 Order name: Cath; Complete Time: 03:31 cp 03/20 02:52 Order name: CONS Physician Consult [facility] 03/20 07:13 Order name: Magnesium [facility] 03/20 07:13 Order name: Ferritin [facility] 03/20 07:25 Order name: Procalcitonin [facility] 03/20 08:19 Order name: Glucose, Ancillary Testing [facility] 03/20 12:28 Order name: Glucose, Ancillary Testing EDMA EC/26 23:35 Rate is 151 beats/min. Rhythm is irregular. QRS interval is prolonged at 156 msec. QT cp interval is normal. T waves are Inverted in leads III, aVF, aVR. Interpreted by me. Reviewed by me. Administered Medications: 03/20 00:03 Drug: Pepcid (famotidine) 20 mg Route: IVP; Site: left wrist; bs2 03:30 Follow up: Response: No adverse reaction bs2 00:03 Drug: NS 0.9% 1000 ml Route: IV; Rate: 1 bolus; Site: left forearm; tl1 03:28 Follow up: IV Status: Completed infusion bs2 00:03 Drug: Digoxin 0.5 mg Route: IVP; Infused Over: 5 mins; Site: left forearm; tl1 03:28 Follow up: Response: No adverse reaction bs2 00:05 Drug: Zofran (Ondansetron) 4 mg Route: IVP; Site: left wrist; bs2 03:30 Follow up: Response: No adverse reaction bs2 00:09 CANCELLED (Duplicate Order): Rocephin (cefTRIAXone) 1 grams IV at calculated rate once; tl1 Given slow IV push per pharmacy instructions 00:09 Drug: Zithromax (azithromycin) 500 mg Route: IVPB; Infused Over: 1 hrs; Site: left tl1 forearm; 03:29 Follow up: IV Status: Completed infusion bs2 00:09 Drug: Rocephin (cefTRIAXone) 1 grams Route: IV; Rate: 10 bolus; Site: left forearm; tl1 03:28 Follow up: IV Status: Completed infusion bs2 02:30 Drug: Magnesium Sulfate 1 grams Route: IVPB; Infused Over: 1 hrs; Site: left wrist; bs2 03:30 Follow up: IV Status: Completed infusion bs2 02:30 Drug: Potassium Chloride 20 mEq Route: IV; Rate: calculated rate; Site: left upper arm; bs2 04:28 Follow up: IV Status: Completed infusion bs2 04:19 Drug: Lovenox (enoxaparin) 150 mg Route: Sub-Q; Site: right upper abdomen; bs2 04:20 Follow up: Response: No adverse reaction bs2 Disposition: 03:24 Co-signature as Attending Physician, Arias Caldwell MD I agree with the assessment and rn plan of care. Attestation: The patient's history, exam findings, diagnostics, and a summary of any interventions or procedures was reviewed in detail with Sebastián FARLEY. Disposition Summary: 03/20/21 00:19 Hospitalization Ordered Hospitalization Status: Inpatient Admission cp Provider: Avery Hay cp Condition: Fair cp Problem: new cp Symptoms: have improved cp Bed/Room Type: Standard cp Location: [facility] ER HOLD(03/20/21 02:53) tl1 Room Assignment: ERHOLD-(03/20/21 02:53) tl1 Diagnosis - Other pneumonia, unspecified organism cp - Chronic atrial fibrillation cp - SARS-associated coronavirus as the cause of diseases classified elsewhere cp - Hypokalemia cp Forms: - Medication Reconciliation Form cp - SBAR form cp Signatures: Dispatcher [employer] [facility] Arias Caldwell MD MD rn Lasagna, Tonya, RN RN tl1 Sebastián Randle PA PA cp Smith, Bridget, RN RN bs2 Corrections: (The following items were deleted from the chart) 03/19 23:41 23:40 Normal except: K 2.8; GLUC 254; BUN 34; CRE 1.58; GFR 43. cp cp 23:45 22:37 ACETAMINOPHEN+C.LAB.BRZ ordered. [facility] 03/20 00:09 03/19 19:55 CORONAVIRUS+MR.LAB.BRZ ordered. [facility] 03/20 00:09 03/19 21:15 Rocephin (cefTRIAXone) 1 grams IV at calculated rate once; Given slow IV tl1 push per pharmacy instructions ordered. 03/20 00:09 00:04 Rocephin (cefTRIAXone) 1 grams IV at calculated rate once; Given slow IV push per tl1 pharmacy instructions given. tl1 00:09 00:09 Rocephin (cefTRIAXone) 1 grams IV at calculated rate once; Given slow IV push per tl1 pharmacy instructions ordered. tl1 00:12 03/19 19:55 Influenza Screen (A \T\ B)+BA.LAB.BRZ ordered. [facility] 03/20 02:53 00:19 Telemetry/MedSurg (Inpatient) cp tl1 02:53 00:19 cp tl1
--- NOTE | 2021-03-20 00:20 | ER ---
Nurse's Notes [facility] Name: Hany Marcano Age: 75 yrs Sex: Male : 1945 Arrival Date: 03/19/2021 Time: 19:49 Bed 6 Private MD: Diagnosis: Other pneumonia, unspecified organism;Chronic atrial fibrillation;SARS-associated coronavirus as the cause of diseases classified elsewhere;Hypokalemia Presentation: 03/19 20:00 Chief complaint: EMS states: Covid positive, low O2 sat, cough, pt was in 70's on room bs2 air at half-way. Coronavirus screen: Client reports previous positive COVID test result. Ebola Screen: No symptoms or risks identified at this time. Initial Sepsis Screen: Does the patient meet any 2 criteria? RR > 20 per min. No. Patient's initial sepsis screen is negative. Does the patient have a suspected source of infection? No. Patient's initial sepsis screen is negative. Risk Assessment: Do you want to hurt yourself or someone else? Patient reports no desire to harm self or others. Onset of symptoms was March 19, 2021. 20:00 Method Of Arrival: EMS: [facility] bs2 20:00 Acuity: BREANNA 3 bs2 Triage Assessment: 21:37 General: Appears distressed, uncomfortable, obese, Behavior is cooperative. Pain: bs2 Complains of pain in abdomen Pain currently is 7 out of 10 on a pain scale. EENT: No signs and/or symptoms were reported regarding the EENT system. Neuro: Level of Consciousness is awake, obeys commands, confused, Oriented to person. Historical: - Home Meds: 21:37 allopurinol 100 mg Oral tab 1 tab once daily [Active]; amlodipine 10 mg tab 1 tab once bs2 daily [Active]; aspirin 81 mg Oral TbEC 1 tab once daily [Active]; calcium with Vitamin D [Active]; cyanocobalamin (vitamin B-12) 1,000 mcg/mL injection soln 1 mL Q 2 WEEKS [Active]; Humalog Sub-Q Sliding scale ac and hs [Active]; isosorbide mononitrate 120 mg Oral Tb24 1 tab once daily [Active]; Lantus 100 unit/mL Sub-Q soln 24 unit nightly [Active]; Lasix 40 mg Oral tab 1 tab once daily [Active]; lisinopril 40 mg Oral tab 1 tab nightly [Active]; lovastatin 40 mg Oral tab 1 tab nightly [Active]; magnesium oxide 400 mg Oral cap twice a day [Active]; metformin 1,000 mg Oral TG24 1 tab 2 times per day [Active]; metoprolol tartrate 25 mg Oral tab 1 tab 2 times per day [Active]; MVI daily [Active]; nitroglycerin 0.4 mg SL subl 1 tab every 5 minutes [Active]; omeprazole 40 mg Oral cpDR 1 cap once daily [Active]; pioglitazone 30 mg Oral tab 1 tab once daily [Active]; Plavix 75 mg Oral tab 1 tab once daily [Active]; Silvadene 1 % Topical crea once daily [Active]; trazodone 50 mg Oral tab 1 tab nightly [Active]; Vitamin D Oral 85382 unit WEEKLY [Active]; - PMHx: 21:37 Allergic rhinitis; Angina; CAD; chest pain; CHF; Dementia; Depression; Diabetes - IDDM; bs2 GERD; Gout; Hyperlipidemia; insomnia; - Immunization history:: Adult Immunizations up to date, Client reports receiving the 2nd dose of the Covid vaccine, Date received: August 27, 2020 Client reports receiving the 1st dose of the Covid vaccine, August 06, 2020. - Social history:: Smoking status: unknown. Screenin/27 04:30 Abuse screen: Denies threats or abuse. Nutritional screening: No deficits noted. bb Tuberculosis screening: No symptoms or risk factors identified. Fall Risk None identified. Assessment: 04:30 Reassessment: pt resting quietly, resp unlabored, IV site intact, patent, kelley bb catheter in place. 05:20 Reassessment: pt appears to be sleeping, eyes closed, resp unlabored. bb Vital Signs: 03/19 20:00 BP 125 / 96; Pulse 54; Resp 24; Temp 99.9(A); Pulse Ox 100% on Non-rebreather mask; bs2 Pain 6/10; 03/20 05:00 BP 163 / 90; Pulse 115; Resp 27 S; Pulse Ox 91% on 2 lpm NC; bb 06:00 BP 153 / 66; Pulse 111; Resp 21 S; Pulse Ox 94% on 2 lpm NC; bb 07:53 Weight 108.86 kg; Height 6 ft. 5 in. (195.58 cm); eb 07:53 Body Mass Index 28.46 (108.86 kg, 195.58 cm) eb ED Course: 03/19 19:49 Patient arrived in ED. bp1 19:53 Sebastián Randle PA is PHCP. cp 19:53 Arias Caldwell MD is Attending Physician. cp 20:15 Initial lab(s) drawn, by me, sent to lab. Inserted saline lock: 18 gauge in left jb4 forearm, using aseptic technique. Blood collected. 20:22 XRAY Chest (1 view) In Process Unspecified. EDMS 21:25 Bhavna James, RN is Primary Nurse. bs2 21:36 Triage completed. bs2 21:37 Arm band placed on right wrist. bs2 23:25 Notified Nurse Practitioner and/or Physician Sales And Service Officer of a critical lab result(s), bb lactate of 2.2 Sebastián FARLEY notified. 03/20 00:17 Avery Hay PA is Hospitalizing Provider. cp 00:20 NT PRO-BNP Sent. bs2 00:20 Magnesium Sent. bs2 00:20 LFT's Sent. bs2 00:20 Basic Metabolic Panel Sent. bs2 00:20 CBC with Diff Sent. bs2 02:00 Accessed peripheral vein via ultrasound, utilizing dynamic ultrasound technique using bb 20G Nexia IV catheter per hospital protocol. Clean \T\ dry. No blood return. Flushes easily. 03:31 Lactate Sent. bs2 04:30 Patient has correct armband on for positive identification. Bed in low position. Call bb light in reach. Side rails up X2. 06:42 No provider procedures requiring assistance completed. Patient admitted, IV remains in bb place. Administered Medications: 00:03 Drug: Pepcid (famotidine) 20 mg Route: IVP; Site: left wrist; bs2 03:30 Follow up: Response: No adverse reaction bs2 00:03 Drug: NS 0.9% 1000 ml Route: IV; Rate: 1 bolus; Site: left forearm; tl1 03:28 Follow up: IV Status: Completed infusion bs2 00:03 Drug: Digoxin 0.5 mg Route: IVP; Infused Over: 5 mins; Site: left forearm; tl1 03:28 Follow up: Response: No adverse reaction bs2 00:05 Drug: Zofran (Ondansetron) 4 mg Route: IVP; Site: left wrist; bs2 03:30 Follow up: Response: No adverse reaction bs2 00:09 CANCELLED (Duplicate Order): Rocephin (cefTRIAXone) 1 grams IV at calculated rate once; tl1 Given slow IV push per pharmacy instructions 00:09 Drug: Zithromax (azithromycin) 500 mg Route: IVPB; Infused Over: 1 hrs; Site: left tl1 forearm; 03:29 Follow up: IV Status: Completed infusion bs2 00:09 Drug: Rocephin (cefTRIAXone) 1 grams Route: IV; Rate: 10 bolus; Site: left forearm; tl1 03:28 Follow up: IV Status: Completed infusion bs2 02:30 Drug: Magnesium Sulfate 1 grams Route: IVPB; Infused Over: 1 hrs; Site: left wrist; bs2 03:30 Follow up: IV Status: Completed infusion bs2 02:30 Drug: Potassium Chloride 20 mEq Route: IV; Rate: calculated rate; Site: left upper arm; bs2 04:28 Follow up: IV Status: Completed infusion bs2 04:19 Drug: Lovenox (enoxaparin) 150 mg Route: Sub-Q; Site: right upper abdomen; bs2 04:20 Follow up: Response: No adverse reaction bs2 Outcome: 00:19 Decision to Hospitalize by Provider. cp 06:42 Admitted to ER Hold. Please see [facility] for further documentation. bb 06:42 Condition: stable 06:42 Instructed on the need for transfer. 13:38 Patient left the ED. Signatures: Dispatcher [employer] EDBillie Hernandez RN RN bb Di Conti RN RN tl1 Sebastián Randle PA PA cp Vielka Man RN RN Viral Rangel RN RN jb4 Delmy Lim Brittany bp1 Smith, Bridget, RN RN bs2 Corrections: (The following items were deleted from the chart) 00:09 00:04 Rocephin (cefTRIAXone) 1 grams IV at calculated rate in left forearm tl1 tl1
[2021-03-20] MEDS ORDERED: MAGNESIUM SULFATE 1 gm IVPB 1 GM/100 ML BAG IV ONE (00:34)
[2021-03-20] MEDS ORDERED: KCL 20 MEQ/100 mL IVPB 20 MEQ/100 ML BAG IV ONE ×2 (00:34→06:02)
[2021-03-20] MEDS ORDERED: METOPROLOL TARTRATE 5 MG/5 ML INJ IV ONE (01:12)
[2021-03-20 01:27] LABS: SARS-COV-2 RT PCR POSITIVE (NEGATIVE)
--- NOTE | 2021-03-20 03:16 | P.HP ---
Certification for Inpatient Patient admitted to: Inpatient With expected LOS: >2 Midnights Patient will require the following post-hospital care: None Practitioner: I am a practitioner with admitting privileges, knowledge of patient current condition, hospital course, and medical plan of care. Services: Services provided to patient in accordance with Admission requirements found in Title 42 Section 412.3 of the Code of Federal Regulations Patient History Date of Service: 03/20/21 Reason for admission: covid pneumonia History of Present Illness: Mr. Marcano is a 75 yo M with DM, CHF, CAD, chronic afib, HLD, GERD who is brought in from the [place] [facility] for cough and SOB and covid + diagnosis. He has received the vaccine. CXR shows bilateral airspace disease concerning for multifocal pneumonia. Patient is stable on NC. WBC 19.9, K 2.8, BUN 34, Cr 1.58, GFR 43, Glu 254, Lactate 2.2, Mg 1.5, CRP 215, BNP 9605. He received a fluid bolus, IV Mg and K+, ceftriaxone and azithromycin in the ED. He had an episode of afib with RVR that responded to IV metoprolol and digoxin. Allergies No Known Allergies Allergy (Unverified 04/29/20 23:08) Home Medications: Allopurinol 1 tab PO DAILY 04/30/20 Amlodipine [Norvasc*] 10 mg PO DAILY 04/30/20 Aspirin [Aspirin EC 81 MG] 1 tab PO DAILY 04/30/20 Calcium Carbonate [Tums] 2 tab PO DAILY 04/30/20 Clopidogrel Bisulfate [Plavix*] 75 mg PO DAILY 04/30/20 Ergocalciferol (Vitamin D2) [Vitamin D2] 1 cap PO SEECOM 04/30/20 Furosemide [Lasix] 40 mg PO BID 04/30/20 Insulin Glargine,Hum.rec.anlog [Lantus] 24 units SQ BEDTIME 04/30/20 Isosorbide Mononitrate [Isosorbide Mononitrate ER] 1 tab PO DAILY 04/30/20 Lovastatin 40 mg PO BEDTIME 04/30/20 Metformin HCl 1 tab PO BIDWM 04/30/20 Metoprolol Tartrate 25 mg PO BID 04/30/20 Nitroglycerin 0.4 mg SL DAILYPRN PRN 04/30/20 Polyethyl Gly 3350 [Glycolax*] 17 gm PO Q48H 04/30/20 Trazodone [Desyrel*] 50 mg PO BEDTIME 04/30/20 glucagon HCL [Glucagon HCl] 1 mg IM PRN 04/30/20 lisinopriL [Lisinopril] 40 mg PO BEDTIME 04/30/20 Acetaminophen 650 mg PO Q8HP PRN 01/11/21 Albuterol Sulfate [Proair Digihaler] 2 puff IH Q4HP PRN 01/11/21 Ascorbic Acid [Vitamin C*] 500 mg PO DAILY 01/11/21 Calcium Carbonate/Vitamin D3 [Calcium 600-Vit D3 400 Tablet] 1 each PO DAILY 01/11/21 Cyanocobalamin (Vitamin B-12) [B-12] 1,000 mcg PO DAILY 01/11/21 Dextran 70/Hypromellose [Artificial Tears Drops] 2 gtt EACH EYE TID 01/11/21 Dextrose [Glucose Gel] 1 dose PO PRN 01/11/21 Docusate [Colace Cap*] 100 mg PO DAILY 01/11/21 Mag Hydrox/Al Hydrox/Simeth [Antacid Liquid] 30 ml PO Q8HP PRN 01/11/21 Menthol [Biofreeze] 1 appl TP Q12H 01/11/21 Pantoprazole Sodium [Protonix] 20 mg PO 1100 01/11/21 Tramadol HCl [Ultram] 50 mg PO TID 01/11/21 Trolamine Salicylate/Aloe Vera [Aspercreme 10% Cream] 1 appl TP BIDP PRN 01/11/21 Zinc 50 mg PO DAILY 01/11/21 - Past Medical/Surgical History Diabetic: Yes -: Diabetes mellitus -: CHF -: GERD -: CAD with chronic angina -: Hyperlipidemia -: Depression -: Left fem-pop -: Left heart catheterization with left circumflex stent Psychosocial/ Personal History: longterm resident-[facility] - Family History Father -: Cancer Mother -: Heart disease - Social History Smoking Status: Former smoker Alcohol use: No CD- Drugs: No Caffeine use: Yes Place of Residence: Care Home Review of Systems is unable to be obtained General: Fever Respiratory: Cough, Shortness of Breath Physical Examination - Physical Exam General: Alert, In no apparent distress, Cooperative, Demented HEENT: Atraumatic, PERRLA, Mucous membr. moist/pink, EOMI, Sclerae nonicteric Neck: Supple, 2+ carotid pulse no bruit, No LAD, Without JVD or thyroid abnormality Respiratory: Diminished, Expiratory wheezes, Rhonchi/gurgles Cardiovascular: Normal S1 S2, No gallops, No rubs, No murmurs, Irregular heart rate/rhythm Capillary refill: <2 Seconds Gastrointestinal: Normal bowel sounds, No tenderness Musculoskeletal: No tenderness Neurological: Normal strength at 5/5 x4 extr, Normal tone, Sensation intact, Abnormal gait, Dementia Lymphatics: No axilla or inguinal lymphadenopathy - Studies Laboratory Data (last 24 hrs) 03/19/21 20:15: PT 14.1 H, INR 1.22 03/19/21 20:15: WBC 19.90 H, Hgb 16.2, Hct 49.5 H, Plt Count 329 03/19/21 20:15: Sodium 137, Potassium 2.8 L*, BUN 34 H, Creatinine 1.58 H, Glucose 254 H, Magnesium 1.5 L, Total Bilirubin 0.4, AST 14 L, ALT 10 L, Alkaline Phosphatase 62 Assessment and Plan - Problems (Diagnosis) (1) Pneumonia due to COVID-19 virus Current Visit: Yes Status: Acute (2) Hypokalemia Current Visit: Yes Status: Acute (3) Hypomagnesemia Current Visit: Yes Status: Acute (4) Leukocytosis Current Visit: Yes Status: Acute Qualifiers: Leukocytosis type: unspecified Qualified Code(s): D72.829 - Elevated white blood cell count, unspecified (5) Afib Current Visit: Yes Status: Chronic Qualifiers: Atrial fibrillation type: paroxysmal Qualified Code(s): I48.0 - Paroxysmal atrial fibrillation (6) DORIS (acute kidney injury) Current Visit: Yes Status: Acute (7) Congestive heart failure Current Visit: No Status: Chronic Qualifiers: Heart failure type: unspecified Heart failure chronicity: chronic Qualified Code(s): I50.9 - Heart failure, unspecified (8) Coronary artery disease Current Visit: No Status: Chronic Qualifiers: Coronary Disease-Associated Artery/Lesion type: bypass graft [place] vs. 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 use Diabetes mellitus complication status: with kidney complications Diabetes mellitus complication detail: with chronic kidney disease Chronic kidney disease stage 3 subtype: stage 3b (GFR 30-44) - Plan pulm consulted, RT consulted bedside swallow pending, if fails will make NPO and consult speech continue IV steroids, covid supplementation and ivermectin daily CRP, procal, and ferritin potassium and magnesium replacement will repeat BMP in the AM, will consult nephrology if worsening DORIS blood cultures pending, UA pending, repeat lactate IV metoprolol PRN, on telemetry accuchecks and sliding scale insulin resume home medications DVT ppx Discharge Plan: Care Home Plan to discharge in: 72 Hours - Advance Directives Does patient have a Living Will: No Does patient have a Durable POA for Healthcare: No - Code Status/Comfort Care Code Status Assessed: Yes (full code ) Critical Care: No Time Spent Managing Pts Care (In Minutes): 70
[2021-03-20] MEDS ORDERED: ENOXAPARIN 60 MG/0.6 ML SQ ONE ×2 (04:37→05:28)
[2021-03-20] MEDS ORDERED: ENOXAPARIN 100 MG/ML SYR SQ ONE ×2 (04:37→05:28)
[2021-03-20] MEDS ORDERED: MELATONIN 5 MG TABLET PO PRN (04:58)
[2021-03-20] MEDS ORDERED: MORPHINE 2 MG/ML SYR IV PRN (04:58)
[2021-03-20] MEDS ORDERED: BENZONATATE 100 MG CAP PO PRN (04:58)
[2021-03-20] MEDS ORDERED: METOPROLOL TARTRATE 5 MG/5 ML INJ IV PRN (04:58)
[2021-03-20] MEDS ORDERED: ACETAMINOPHEN 500 MG TAB PO PRN (04:58)
[2021-03-20] MEDS ORDERED: KCL 20 MEQ/100 mL IVPB 20 MEQ/100 ML BAG IV SCH (04:58)
[2021-03-20] MEDS ORDERED: IVERMECTIN 3 MG TABLET PO SCH ×2 (05:00→09:00)
[2021-03-20 05:16] LABS: Urine Amorphous Sediment 1+ /HPF (NONE SEEN); Urine Bacteria >50 /HPF (NONE SEEN); Urine Coarse Granular Casts 0-5 /LPF (NONE SEEN); Urine Mucus 2+ /HPF (NONE SEEN); Urine RBC <5 /HPF (NONE SEEN)
[2021-03-20] MEDS ORDERED: ONDANSETRON 4 MG/2 ML VIAL IV PRN (05:30)
[2021-03-20] MEDS ORDERED: NA CHLORIDE 0.9% 100 ML ONE (06:02)
[2021-03-20 06:47] LABS: Absolute Lymphocytes (CBC) 0.5 K/uL (0.7-4.9); Basophils % 0.4 % (0-1.3); Hematocrit 44.1 % (39.6-49.0); Lymphocytes % 3.4 % (15.3-44.8); MPV 8.2 fL (7.6-11.3); RBC Red Blood Cell Count 4.37 M/uL (4.33-5.43)
[2021-03-20 07:11] LABS: Albumin 2.3 g/dL (3.4-5.0); Bilirubin Total 0.3 mg/dL (0.2-1.0); Ferritin 353.2 ng/mL (26-388); Magnesium 1.7 mg/dL (1.8-2.4); Protein, Total 6.8 g/dL (6.4-8.2)
[2021-03-20 07:13] LABS: Potassium 2.7 mmol/L (3.5-5.1)
[2021-03-20] MEDS: INSULIN -REGULAR HUMAN 50 UNIT/0.5 ML ML SQ SCH ×2 (07:30→11:30)
[2021-03-20 08:19] VITALS: BMI 28.4
[2021-03-20] MEDS: ASCORBIC ACID 500 MG TABLET PO SCH ×2 (08:42→12:23)
[2021-03-20] MEDS ORDERED: ZINC SULFATE 220 MG CAP PO SCH (09:00)
[2021-03-20] MEDS ORDERED: VITAMIN D 1000 UNIT TAB PO SCH (09:00)
[2021-03-20] MEDS ORDERED: FUROSEMIDE 20 MG/ 2ML VIAL IV SCH (09:00)
[2021-03-20] MEDS ORDERED: METHYLPREDNISOLONE 125 MG INJ IV SCH (09:00)
[2021-03-20] MEDS ORDERED: FAMOTIDINE 20 MG TAB PO SCH (09:00)
[2021-03-20] MEDS ORDERED: THIAMINE HCL 100 MG TABLET PO SCH (09:00)
[2021-03-20] MEDS ORDERED: ASPIRIN EC 81 MG TAB PO SCH (09:00)
[2021-03-20] MEDS ORDERED: INSULIN -REGULAR HUMAN 50 UNIT/0.5 ML ML ONE ×2 (09:16→12:45)
[2021-03-20] MEDS ORDERED: METHYLPREDNISOLONE 125 MG INJ ONE (09:16)
[2021-03-20] MEDS ORDERED: FUROSEMIDE 20 MG/ 2ML VIAL ONE (09:16)
[2021-03-20] MEDS ORDERED: ONDANSETRON 4 MG/2 ML VIAL ONE (09:17)
[2021-03-20] MEDS ORDERED: MORPHINE 2 MG/ML SYR ONE (09:17)
[2021-03-20 12:07] VITALS: O2SAT 93
[2021-03-20 12:31] VITALS: BP 168/58; TEMP 97.7
--- NOTE | 2021-03-20 12:47 | P.DS ---
Admission Date: 03/20/21 Discharge Date: 03/20/21 Disposition: TRANSFER TO [facility] Discharge Condition: FAIR Reason for Admission: covid pneumonia - Problems (1) Acute respiratory failure with hypoxia Current Visit: Yes Status: Acute (2) Pneumonia due to COVID-19 virus Current Visit: Yes Status: Acute (3) Afib Current Visit: Yes Status: Chronic Qualifiers: Atrial fibrillation type: paroxysmal Qualified Code(s): I48.0 - Paroxysmal atrial fibrillation (4) Coronary artery disease Current Visit: No Status: Chronic Qualifiers: Coronary Disease-Associated Artery/Lesion type: bypass graft [place] vs. 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 He has received the COVID vaccine. CXR shows bilateral airspace disease concerning for multifocal pneumonia. Patient placed on NC. WBC 19.9, K 2.8, BUN 34, Cr 1.58, GFR 43, Glu 254, Lactate 2.2, Mg 1.5, CRP 215, BNP 9605. He received a fluid bolus, IV Mg and K+, ceftriaxone and azithromycin in the ED. He had an episode of afib with RVR that responded to IV metoprolol and digoxin. Patient admitted for further management. Hospital Course: Patient admitted to the medical floor and started on IV steroid, and vitamin supplementation. He was maintained on 2 L oxygen by nasal cannula. Patient appeared confused. UA suggested the presence of UTI. Urine culture is pending. Patient given a dose of IV Rocephin and Zithromax in the ED. He has been accepted for transfer to [facility]. Patient is clinically stable for transfer. Vital Signs/Physical Exam: Temp Pulse Resp BP Pulse Ox 97.7 F 106 H 24 H 168/58 H 95 03/20/21 12:00 03/20/21 12:00 03/20/21 12:00 03/20/21 12:00 03/20/21 12:00 General: In no apparent distress, Confused, Obese Neck: JVD not distended Respiratory: Diminished (Bilateral) Cardiovascular: Normal S1 S2, Edema (Bilateral lower extremities), Irregular heart rate/rhythm Gastrointestinal: Soft and benign, Non-distended Musculoskeletal: Other (Bilateral lower extremity swelling) Integumentary: Other (Bilateral lower extremity venostasis dermatitis and xerosis.) Neurological: Other (Confused. Moves all extremities spontaneously.) Laboratory Data at Discharge: WBC 16.10 K/uL (4.3-10.9) H D 03/20/21 06:36 Hgb 14.5 g/dL (13.6-17.9) 03/20/21 06:36 Hct 44.1 % (39.6-49.0) 03/20/21 06:36 Plt Count 303 K/uL (152-406) 03/20/21 06:36 PT 14.1 SECONDS (9.5-12.5) H 03/19/21 20:15 INR 1.22 03/19/21 20:15 Sodium 138 mmol/L (136-145) 03/20/21 06:36 Potassium 2.7 mmol/L (3.5-5.1) L* 03/20/21 06:36 BUN 39 mg/dL (7-18) H 03/20/21 06:36 Creatinine 1.66 mg/dL (0.55-1.3) H 03/20/21 06:36 Glucose 270 mg/dL (74-106) H 03/20/21 06:36 Phosphorus 3.0 mg/dL (2.5-4.9) 03/20/21 06:36 Magnesium 1.7 mg/dL (1.8-2.4) L 03/20/21 06:36 Total Bilirubin 0.3 mg/dL (0.2-1.0) 03/20/21 06:36 AST 9 U/L (15-37) L 03/20/21 06:36 ALT 10 U/L (12-78) L 03/20/21 06:36 Alkaline Phosphatase 57 U/L (45-117) 03/20/21 06:36 Home Medications: Allopurinol 1 tab PO DAILY 04/30/20 Amlodipine [Norvasc*] 10 mg PO DAILY 04/30/20 Aspirin [Aspirin EC 81 MG] 1 tab PO DAILY 04/30/20 Calcium Carbonate [Tums] 2 tab PO DAILY 04/30/20 Clopidogrel Bisulfate [Plavix*] 75 mg PO DAILY 04/30/20 Ergocalciferol (Vitamin D2) [Vitamin D2] 1 cap PO SEECOM 04/30/20 Furosemide [Lasix] 40 mg PO BID 04/30/20 Insulin Glargine,Hum.rec.anlog [Lantus] 24 units SQ BEDTIME 04/30/20 Isosorbide Mononitrate [Isosorbide Mononitrate ER] 1 tab PO DAILY 04/30/20 Lovastatin 40 mg PO BEDTIME 04/30/20 Metformin HCl 1 tab PO BIDWM 04/30/20 Metoprolol Tartrate 25 mg PO BID 04/30/20 Nitroglycerin 0.4 mg SL DAILYPRN PRN 04/30/20 Polyethyl Gly 3350 [Glycolax*] 17 gm PO Q48H 04/30/20 Trazodone [Desyrel*] 50 mg PO BEDTIME 04/30/20 glucagon HCL [Glucagon HCl] 1 mg IM PRN 04/30/20 lisinopriL [Lisinopril] 40 mg PO BEDTIME 04/30/20 Acetaminophen 650 mg PO Q8HP PRN 01/11/21 Albuterol Sulfate [Proair Digihaler] 2 puff IH Q4HP PRN 01/11/21 Calcium Carbonate/Vitamin D3 [Calcium 600-Vit D3 400 Tablet] 1 each PO DAILY 01/11/21 Cyanocobalamin (Vitamin B-12) [B-12] 1,000 mcg PO DAILY 01/11/21 Dextran 70/Hypromellose [Artificial Tears Drops] 2 gtt EACH EYE TID 01/11/21 Dextrose [Glucose Gel] 1 dose PO PRN 01/11/21 Docusate [Colace Cap*] 100 mg PO DAILY 01/11/21 Mag Hydrox/Al Hydrox/Simeth [Antacid Liquid] 30 ml PO Q8HP PRN 01/11/21 Menthol [Biofreeze] 1 appl TP Q12H 01/11/21 Pantoprazole Sodium [Protonix] 20 mg PO 1100 01/11/21 Tramadol HCl [Ultram] 50 mg PO TID 01/11/21 Trolamine Salicylate/Aloe Vera [Aspercreme 10% Cream] 1 appl TP BIDP PRN 01/11/21 Ascorbic Acid [Vitamin C*] 500 mg PO QID tablet 03/20/21 Benzonatate [Tessalon Perle*] 100 mg PO TID PRN cap 03/20/21 Cholecalciferol (Vitamin D3) [Vitamin D 1000 Iu Tab*] 4,000 unit PO DAILY tab 03/20/21 Insulin -Regular Human [Novolin -R*] See Protocol SQ ACHS ml 03/20/21 Thiamine HCl [Vitamin B-1*] 200 mg PO DAILY tablet 03/20/21 Zinc Sulfate [Zinc Sulfate*] 220 mg PO DAILY cap 03/20/21 Followup: Unknown,U [Primary Care Provider] - Time spent managing pt's care (in minutes): 38
[2021-03-20] MEDS ORDERED: ENOXAPARIN 40 MG/0.4 ML SQ SCH (17:00)
[2021-03-25] MEDS ORDERED: NA CHLORIDE 0.9% 500 ML ONE (16:58)
== END 2021-03-20 13:38 | disposition short-term general hospital (02) | DRG 177 ==
LOC: ER 19:39 → ERHOLD 03-20 04:57
PROVIDERS: ADMIT Internal Medicine; ATTEND Internal Medicine
DX: U07.1 COVID-19 (principal); J12.82 Pneumonia due to coronavirus disease 2019; J96.01 Acute respiratory failure with hypoxia; I48.20 Chronic atrial fibrillation, unspecified; N39.0 Urinary tract infection, site not specified; I13.0 Hypertensive heart and chronic kidney disease with heart failure and stage 1 through stage 4 chronic kidney disease, or unspecified chronic kidney disease; N17.9 Acute kidney failure, unspecified; I25.10 Atherosclerotic heart disease of native coronary artery without angina pectoris; E87.6 Hypokalemia; E83.42 Hypomagnesemia; I73.9 Peripheral vascular disease, unspecified; E11.22 Type 2 diabetes mellitus with diabetic chronic kidney disease; N18.32 Chronic kidney disease, stage 3b; I50.9 Heart failure, unspecified; K21.9 Gastro-esophageal reflux disease without esophagitis; E66.9 Obesity, unspecified; Z68.28 Body mass index [BMI] 28.0-28.9, adult; I87.2 Venous insufficiency (chronic) (peripheral)
CPT/HCPCS: 0240U; 36415; 71045; 80048; 80053; 80076; 81015; 82728; 82947; 83605; 83735; 83880; 84100; 84145; 84484; 85025; 85610; 86140; 87040; 87086; 87088; 92610; 93005; 94760; 96372; 99285; J0456; J0696; J1650; J1940; J2270; J2405; J2930; J3475; J3480; J7030; J7050

== ENCOUNTER 2021-03-25 13:16 | Emergency (ER) | payer OTHER ==
--- OUTSIDE RECORDS SUMMARY | 2021-03-25 13:26 | XMS REPORT | Continuity of Care Document ---
:1945 Author Organization [facility] t Address [address] [place] [address] Care Team Providers Name Role Phone TIFFANY CESAR Primary Care Physician Unavailable Fernanda SILVA Attending Clinician FERNANDA Attending Clinician Unavailable ADRIAN HENRY M.D. Attending Clinician Unavailable FERNANDA Admitting Clinician Unavailable ADRIAN HENRY M.D. Admitting Clinician Unavailable Payers Payer Name Policy Type Policy Number Effective Date Expiration Date S ource Problems Condition Condition Condition Status Onset Resolution Last Treating Co mments Source Name Details Category Date Date Treatment Clinician Date Pneumonia Pneumonia Disease Active [facility] - COVID-19 COVID-19 00:00: Medica l virus virus 00 Center Allergies, Adverse Reactions, Alerts This patient has no known allergies or adverse reactions. Social History Social Habit Start Date Stop Date Quantity Comments Source History [facility] - Alcohol Binge Medical [address] [facility] Sex Assigned At [facility] Exposure to Not sure [facility] - SARS[facility]CoV-2 (event) Medica l Center History [facility] - Alcohol Std Drinks Medica l Center Tobacco use and 2021-03-20 2021-03-[address] [facility] Leta kes - exposure 00:00:00 00:00:00 Medical Center Alcohol intake 2021-03-20 2021-03-[address] [facility] - 00:00:00 00:00:00 non-drinker Medical Cente r (finding) History SDOH 2021-03-20 2021-03-[address] [facility] - Alcohol Frequency 00:00:00 00:00:00 Medical Center Smoking Status Start Date Stop Date Source Never smoker [facility] Medications Ordered Filled Start Stop Current Ordering Indication Dosage Frequency Signature Comments Components Source Medication Medication Date Date Medication? Clinician (SIG) Name Name losartan 2021- Yes 25mg QD Take [address] [facility] (COZAAR) 25 03-25 09- tablet (25 L [facility] - MG tablet 00:00: 23:59 mg total) Me dical 00 :00 by mouth Center daily. allopurinoL Yes 100mg QD Take [address] (ZYLOPRIM) 8-31 mg by [facility] - 100 MG 18:54: mouth Medical tablet 27 daily. Center amLODIPine Yes 10mg QD Take [address] (NORVASC) 8-31 by mouth [facility] - 10 MG 18:54: daily. Medical tablet 27 [place] aspirin 81 Yes 81mg QD Take [address] MG EC 8-31 by mouth [facility] - tablet 18:54: daily. Medical [address] [place] [address] insulin Yes 24U QD Inject 24 [facility] glargine 8-31 Units [facility] - (LANTUS) 18:54: subcutaneo Med ical 100 unit/mL [address] [facility] injection nightly Use as directed . lovastatin Yes 40mg QD Take [address] (MEVACOR) 8-31 by mouth [facility] - 40 MG 18:54: nightly. Medical tablet 27 [place] metFORMIN Yes 1000mg Take 1,[address] [facility] (GLUCOPHAGE 8-31 mg by [facility] - ) 1000 MG 18:54: mouth 2 Medic al tablet 27 (two) Center times daily with breakfast and dinner. omeprazole Yes 40mg QD Take [address] (PriLOSEC) 8-31 by mouth [facility] - 40 MG 18:54: daily. Medical capsule 27 [place] pioglitazon Yes 30mg QD Take [address] [facility] (ACTOS) 8-31 by mouth [facility] - 30 MG 18:54: daily. Medical tablet 27 [place] traZODone Yes 50mg QD Take [address] (DESYREL) 8-31 by mouth [facility] - 50 MG 18:54: nightly. Medical tablet 27 Center isosorbide 2020- No 120mg QD Take [address] mononitrate 03-24-31 mg by [facility] - (IMDUR) 120 11:00: 00:00 mouth Medi kimi mg 24 hr 11 :00 daily. Center tablet lisinopriL 2020- No 40mg QD Take [address] [facility] (PRINIVIL,Z 03-24 by mouth Rajendra es - ESTRIL) 40 11:00: 00:00 nightly. Me dical MG tablet 11 :00 Center furosemide 2020- No 40mg QD Take [address] [facility] (LASIX) 40 03-24 by mouth Luke [facility] - MG tablet 11:00: 00:00 daily. Medic al 11 :00 Center metoprolol 2020- No 25mg Q.5D Take [address] tartrate 03-24 by mouth 2 Luke [facility] - (LOPRESSOR) 11:00: 00:00 (two) Medi kimi 25 MG 11 :00 times Center tablet daily. clopidogreL 2020- No 75mg QD Take [address] [facility] (PLAVIX) 75 03-24 by mouth Rajendra es - mg tablet 11:00: 00:00 daily. Medic al 11 :00 [place] furosemide Yes 20mg QD Take 0.[address] [facility] [facility] (LASIX) 40 03-24 tablets [facility] - MG tablet 00:00: (20 mg Medica l 00 total) by Center mouth daily. apixaban Yes 5mg Q.5D Take [address] [facility] [facility] (ELIQUIS) 5 03-24 tablet (5 Rajendra es - mg Tab 00:00: mg total) Medica l tablet 00 by mouth 2 Center (two) times daily. predniSONE 2020- Yes Take [address] [facility] (DELTASONE) 03-24 09-09 tablets Luke s - 20 MG 00:00: 23:59 (40 mg Medical tablet 00 :00 total) by Center mouth daily for 3 days, THEN 1 tablet (20 mg total) daily for 3 days, THEN 0.5 tablets (10 mg total) daily for 3 days. levoFLOXaci 2020- Yes 500mg QD Take [address] n 03-24 tablet [facility] - (LEVAQUIN) 00:00: 23:59 (500 mg Med ical 500 MG 00 :00 total) by Center tablet mouth daily for 5 days. Vital Signs Vital Name Observation Time Observation Value Comments Source Systolic blood 2021-03-24 15:22:00 155 mm[Hg] [facility] Diastolic blood 2021-03-24 15:22:00 88 mm[Hg] [facility] Heart rate 2021-03-24 15:22:00 93 /min [facility] Body temperature 2021-03-24 15:22:00 37.17 Zo [facility] Respiratory rate 2021-03-24 15:22:00 20 /min [facility] Oxygen saturation in 2021-03-24 15:22:00 95 /min [facility] Arterial blood by Medical Ce nter Pulse oximetry Body height 2021-03-20 17:00:00 195.6 cm [facility] Body weight 2021-03-20 17:00:00 108.86 kg [facility] BMI 2021-03-20 17:00:00 28.46 kg/m2 [facility] Procedures Procedure Date / Time Performed Performing Clinician Sara murdock POCT-GLUCOSE METER 2021-03-24 16:29:00 [facility] POCT-GLUCOSE METER 2021-03-24 11:37:00 [facility] CBC W/PLT COUNT & AUTO 2021-03-24 07:15:00 [facility] COMPREHENSIVE METABOLIC 2021-03-24 07:15:00 [facility] MAGNESIUM 2021-03-24 07:15:00 [facility] 2021-03-24 07:15:00 [facility] POCT-GLUCOSE METER 2021-03-24 04:21:00 [facility] POCT-GLUCOSE METER 2021-03-23 20:24:00 Fernanda [facility] POCT-GLUCOSE METER 2021-03-23 16:25:00 Monge [facility] POCT-GLUCOSE METER 2021-03-23 11:39:00 Fernanda [facility] XR CHEST 1 VIEW PORTABLE 2021-03-23 09:29:00 Venkatesh Balwindermonik mitchell [facility] / BEDSIDE Medical Center FERRITIN 2021-03-23 05:31:00 Fernanda [facility] LACTATE DEHYDROGENASE 2021-03-23 05:31:00 Monge [facility] (LDH) [facility] PROCALCITONIN 2021-03-23 05:31:00 Fernanda [facility] D-DIMER 2021-03-23 05:31:00 [facility] PROTHROMBIN TIME/INR 2021-03-23 05:31:00 Fernanda [facility] CBC W/PLT COUNT & AUTO 2021-03-23 05:31:00 Fernanda [facility] COMPREHENSIVE METABOLIC 2021-03-23 05:31:00 Fernanda [facility] MAGNESIUM 2021-03-23 05:31:00 Fernanda [facility] PHOSPHORUS 2021-03-23 05:31:00 [facility] POCT-GLUCOSE METER 2021-03-23 04:57:00 Fernanda [facility] POCT-GLUCOSE METER 2021-03-22 20:40:00 Fernanda [facility] POCT-GLUCOSE METER 2021-03-22 18:24:00 [facility] 2D ECHO W/ DOPPLER 2021-03-22 16:57:24 Tatiana Elliott [facility] (CW/PW/COLOR) '[facility] POCT-GLUCOSE METER 2021-03-22 12:13:00 Fernanda [facility] CBC W/PLT COUNT & AUTO 2021-03-22 05:51:00 Fernanda [facility] COMPREHENSIVE METABOLIC 2021-03-22 05:51:00 Fernanda [facility] MAGNESIUM 2021-03-22 05:51:00 Fernanda [facility] PHOSPHORUS 2021-03-22 05:51:00 Fernanda [facility] DIGOXIN LEVEL 2021-03-22 05:51:00 Tatiana Elliott [facility] POCT-GLUCOSE METER 2021-03-21 17:28:00 Fernanda [facility] POCT-GLUCOSE METER 2021-03-21 11:52:00 Fernanda [facility] CBC W/PLT COUNT & AUTO 2021-03-21 07:41:00 Fernanda [facility] POCT-GLUCOSE METER 2021-03-21 07:25:00 Fernanda [facility] COMPREHENSIVE METABOLIC 2021-03-21 06:09:00 Fernanda [facility] MAGNESIUM 2021-03-21 06:09:00 Fernanda [facility] PHOSPHORUS 2021-03-21 06:09:00 Fernanda [facility] C-REACTIVE PROTEIN 2021-03-21 06:09:00 [facility] PTH, INTACT 2021-03-21 06:08:00 Fernanda [facility] D-DIMER 2021-03-21 06:08:00 [facility] FERRITIN 2021-03-21 06:08:00 [facility] XR CHEST 1 VIEW PORTABLE 2021-03-21 05:36:00 [facility] / BEDSIDE Medical Center URINALYSIS WITH 2021-03-20 19:15:00 [facility] SODIUM, RANDOM URINE 2021-03-20 19:15:00 Monge, [facility] CREATININE, RANDOM URINE 2021-03-20 19:15:00 [facility] UREA NITROGEN, RANDOM 2021-03-20 19:15:00 [facility] URINE [facility] PROTEIN, RANDOM URINE 2021-03-20 19:15:00 [facility] URINALYSIS MICROSCOPIC 2021-03-20 19:15:00 [facility] S [facility] COMPREHENSIVE METABOLIC 2021-03-20 17:35:00 Monge [facility] PANEL [facility] B-TYPE NATRIURETIC FACTOR 2021-03-20 17:35:00 Monge [facility] (BNP) [facility] FERRITIN 2021-03-20 17:35:00 [facility] LACTATE DEHYDROGENASE 2021-03-20 17:35:00 [facility] ([facility]) [facility] PROCALCITONIN 2021-03-20 17:35:00 [facility] TROPONIN I 2021-03-20 17:35:00 [facility] D-DIMER 2021-03-20 17:35:00 [facility] PROTHROMBIN TIME/INR 2021-03-20 17:35:00 [facility] LACTIC ACID, VENOUS 2021-03-20 17:35:[address] [facility] FIBRINOGEN 2021-03-20 17:35:00 [facility] HEMOGLOBIN A1C 2021-03-20 17:35:00 [facility] POCT-GLUCOSE METER 2021-03-20 16:46:00 [facility] Plan of Care Planned Activity Planned Date Details Comments Source Future Scheduled 2021-03-25 INFLUENZA VACCINE (#1) [facility] Test 00:00:00 [code = INFLUENZA Medical Ce nter VACCINE (#1)] Future Scheduled 2020-07-25 DEPRESSION SCREENING [facility] Test 00:00:00 (12+) [code = Medical Center DEPRESSION SCREENING (12+)] Future Scheduled 2020-07-25 FALLS RISK SCREENING [facility] - Test 00:00:00 [code = FALLS RISK Medical C enter SCREENING] Future Scheduled 2012 PNEUMOCOCCAL 65+ YRS [facility] - Test 00:00:00 (1 of 1 - Medical Center [id number] PCV13) [code = PNEUMOCOCCAL 65+ YRS (1 of 1 - [id number] PCV13)] Future Scheduled 1997 SHINGLES VACCINES ([address] [facility] - Test 00:00:00 of 2) [code = SHINGLES Medic al Center VACCINES (1 of 2)] Future Scheduled 1966 DTAP/TDAP/TD VACCINES [facility] - Test 00:00:00 (1 - Tdap) [code = Medical C enter DTAP/TDAP/TD VACCINES (1 - Tdap)] Future Scheduled 1965 HEPATITIS C SCRE[facility]ING [facility] Test 00:00:00 [code = HEPATITIS C Medical Center SCREENING] Future Scheduled 1959 COVID-19 VACCINE (1) [facility] - Test 00:00:00 [code = COVID-[address] VACCINE (1)] Future Scheduled [address] [facility] [facility] - Test 00:00:00 malignant neoplasm of Medica l Center colon (procedure) [code = 843725347] Encounters Start End Encounter Admission Attending Care Care Encounter Source Date/Time Date/Time Type Type Clinicians Facility Department ID 2021-03-20 2021-03-24 Hospital [facility] [id number] 14:50:00 18:54:00 [facility]counter [facility] 2021-03-20 2021-03-[address] [facility] [id number] [facility]00 [facility] 2017-10-14 2017-10-14 Emergency E [facility] [id number] Medical 02:47:00 02:47:00 [facility] 2017-09-01 2017-09-01 Inpatient E [facility] [id number] Medical 23:54:00 23:54:00 [facility] Results Test Description Test Time Test Comments Results Result Comments Source POC-Glucose meter 2021-03-24 16:41:00 Test Item Value Reference Range Interpretation Comme nts POC-Glucose Meter (test code = 345 mg/dL 70-110 H : TESTED AT [facility] [address]) [place] [id number]: Squaring Machine Operator/Techni chu ID = [id number] for Esequiel, Ayin or Lab Interpretation (test code = Abnormal 65273-8) [facility] [id number] 16:41:00 Test Item Value Reference Range Interpretation Comments POC-GLUCOSE METER 345 mg/dL 70-110 H : TESTED A T [facility] [address] (BEAKER) ([facility], = 1538) [place] [id number]: Squaring Machine Operator/Techni chu ID = [id number] for Vikki Yanezr POCT-GLUCOSE [id number] 11:49:00 Test Item Value Reference Range Interpretation Comments POC-GLUCOSE METER 262 mg/dL 70-110 H : TESTED A T [facility] [address] (BEAKER) (test code [address] [facility], = 1538) [place] [id number] 478: Squaring Machine Operator/Techni chu ID = [id number] for Dane Yanezinor CBC with platelet count + automated [id number] 07:57:00 Test Item Value Reference Range Interpretation Comments WBC (test code = 6690-2) 9.2 See_Comment [A utomated message] The system Optensity generated this result transmitted ref erence range: 4.0 - 10 .0 K/L. The refe rence range was not u sed to interpret this result as normal/abnor mal. RBC (test code = 789-8) 4.39 See_Comment [Au tomated message] The system [employer] generated this result transmitted ref erence range: 4.20 - 5 .80 M/L. The refe rence range was not u sed to interpret this result as normal/abnor mal. MCHC (test code = 786-4) 31.7 See_Comment L [A utomated message] The system [employer] generated this result transmitted ref erence range: 32.0 - 3 6.0 GM/DL. The refe rence range was not u sed to interpret this result as normal/abnor mal. Hematocrit (test code = 44.5 % 36-50 4544-3) MCV (test code = 787-2) 101.4 fL 82-99 H MCH (test code = 785-6) 32.1 pg 27-33 RDW (test code = 788-0) 14.7 % 12-15 Platelets (test code = 306 See_Comment [Aut omated message] 777-3) The system [employer]ensity generated this result transmitted ref erence range: 150 - 43 0 K/CU MM. The referen ce range was not u sed to interpret this result as normal/abnor mal. MPV (test code = 10.6 fL 6-11.5 82022-8) nRBC (test code = 413) 0 See_Comment [Aut omated message] The system [employer] generated this result transmitted ref erence range: 0 - 0 /1 00 WBC. The refere nce range was not u sed to interpret this result as normal/abnor mal. % Neutros (test code = 91 % 429) % Lymphs (test code = 5 % 430) % Monos (test code = 3 % 431) % Eos (test code = 432) 0 % % Baso (test code = 437) 0 % # Neutros (test code = 8.33 See_Comment H [Aut omated message] 670) The system [employer] generated this result transmitted ref erence range: 1.80 - 8 .00 K/L. The refe rence range was not u sed to interpret this result as normal/abnor mal. # Lymphs (test code = 0.41 See_Comment L [Auto mated message] 414) The system [employer] generated this result transmitted ref erence range: 1.48 - 4 .50 K/L. The refe rence range was not u sed to interpret this result as normal/abnor mal. # Monos (test code = 0.26 See_Comment [Autom ated message] 415) The system [employer] generated this result transmitted ref erence range: 0.00 - 1 .30 K/L. The refe rence range was not u sed to interpret this result as normal/abnor mal. # Eos (test code = 416) 0.03 See_Comment [Au tomated message] The system Optensity generated this result transmitted ref erence range: 0.00 - 0 .50 K/L. The refe rence range was not u sed to interpret this result as normal/abnor mal. # Baso (test code = 417) 0.01 See_Comment [A utomated message] The system [employer]ensity generated this result transmitted ref erence range: 0.00 - 0 .20 K/L. The refe rence range was not u sed to interpret this result as normal/abnor mal. Immature 1 % 0-0 H Granulocytes-Relative (test code = 2801) Lab Interpretation (test Abnormal code = 45535-0) [facility] [id number] 07:57:00 Test Item Value Reference Range Interpretation Comments Total Counted (test code = 1351) WBC Morphology (test code = 487) Normal RBC Morphology (test code = 762) Normal Clumped Platelet (test code = 436) Present [facility] & AUTO [id number] 07:57:00 Test Item Value Reference Range Interpretation Comments WHITE BLOOD CELL COUNT (BEAKER) 9.2 K/ L 4.0-10.0 (test code = 775) RED BLOOD CELL COUNT (BEAKER) 4.39 M/ L 4.20-5.80 (test code = 761) HEMOGLOBIN (BEAKER) (test code = 14.1 GM/DL 13.0-16.8 410) HEMATOCRIT (BEAKER) (test code = 44.5 % 36.0-50.0 411) MEAN CORPUSCULAR VOLUME (BEAKER) 101.4 fL 82.0-99.0 H (test code = 753) MEAN CORPUSCULAR HEMOGLOBIN 32.1 pg 27.0-33.0 (BEAKER) (test code = 751) MEAN CORPUSCULAR HEMOGLOBIN CONC 31.7 GM/DL 32.0-36.0 L (BEAKER) (test code = 752) RED CELL DISTRIBUTION WIDTH 14.7 % 12.0-15.0 (BEAKER) (test code = 412) PLATELET COUNT (BEAKER) (test 306 K/CU MM 150-430 code = 756) MEAN PLATELET VOLUME (BEAKER) 10.6 fL 6.0-11.5 (test code = 754) NUCLEATED RED BLOOD CELLS 0 /100 WBC 0-0 (BEAKER) (test code = 413) NEUTROPHILS RELATIVE PERCENT 91 % (BEAKER) (test code = 429) LYMPHOCYTES RELATIVE PERCENT 5 % (BEAKER) (test code = 430) MONOCYTES RELATIVE PERCENT 3 % (BEAKER) (test code = 431) EOSINOPHILS RELATIVE PERCENT 0 % (BEAKER) (test code = 432) BASOPHILS RELATIVE PERCENT 0 % (BEAKER) (test code = 437) NEUTROPHILS ABSOLUTE COUNT 8.33 K/ L 1.80-8.00 H (BEAKER) (test code = 670) LYMPHOCYTES ABSOLUTE COUNT 0.41 K/ L 1.48-4.50 L (BEAKER) (test code = 414) MONOCYTES ABSOLUTE COUNT (BEAKER) 0.26 K/ L 0.00-1.30 (test code = 415) EOSINOPHILS ABSOLUTE COUNT 0.03 K/ L 0.00-0.50 (BEAKER) (test code = 416) BASOPHILS ABSOLUTE COUNT (BEAKER) 0.01 K/ L 0.00-0.20 (test code = 417) IMMATURE GRANULOCYTES-RELATIVE 1 % 0-0 H PERCENT (BEAKER) (test code = 2801) (MANUAL DIFFERENTIAL)2021-03-24 07:57:00 Test Item Value Reference Range Interpretation Comments TOTAL COUNTED (BEAKER) (test code = 1351) WBC MORPHOLOGY (BEAKER) (test code = Normal 487) RBC MORPHOLOGY (BEAKER) (test code = Normal 762) CLUMPED PLATELETS (BEAKER) (test code Present = 436) Comprehensive metabolic [id number] 07:46:00 Test Item Value Reference Interpretation Comments Range Protein, Total (test 6.5 See_Comment Specime n code = 2885-2) slightly hemolyzed [Automated message] The system which generated this result transmitted reference range : 6.0 - 8.5 gm/dL . The reference range was not used to interpret this result as normal/abnormal . Albumin (test code = 3.0 g/dL 3.5-5 [place] [address]-3) slightly hemolyzed Alkaline Phosphatase 49 U/L 30-115 (test code = 6768-6) Total Bilirubin 0.4 mg/dL 0.1-1.2 Specimen (test code = 1974-2) slightl y hemolyzed Sodium (test code = 145 meq/L 788-940 6438-2) Potassium (test code 4.6 meq/L 3.6-5.5 Specime n = 2823-3) slightly hemolyzed Chloride (test code 104 meq/L 98-106 = 2075-0) CO2 (test code = 29 meq/L 20-29 8-9) BUN (test code = 45 mg/dL 10-26 H 3094-0) Creatinine (test 0.87 mg/dL 0.5-1.2 Specimen code = 2160-0) slightly hemolyzed Glucose (test code = 286 mg/dL 70-110 H 2345-7) Calcium (test code = 9.1 mg/dL 8.5-10.5 62334-2) AST (test code = 12 U/L 5-40 Specimen 1920-8) slightly hemolyzed ALT (test code = 8 U/L 5-50 Specimen 1742-6) slightly hemolyzed EGFR (test code = 86 mL/min/1.73 [place] [address]-0) m NOT ACCURATE CREATININE CLEARANCE IN PREDICTING GLOMERULAR FILTRATION RATE . ESTIMATED GFR I S NOT APPLICABLE FOR DIALYSIS PATIENTS. LORNE (test code = Squaring Machine Operator ID - LORNE) DSENSONOperator ID - DSENSONOperator ID - DSENSONOperator ID - DSENSONOperator ID - DSENSONOperator ID - DSENSONOperator ID - DSENSONOperator ID - DSENSONOperator ID - DSENSONOperator ID - DSENSONOperator ID - DSENSONOperator ID - DSENSONOperator ID - DSENSONOperator ID - DSENSONOperator ID - DSENSONOperator ID - DSENSON Lab Interpretation Abnormal (test code = 21486-6) [facility] METABOLIC [id number] 07:46:00 Test Item Value Reference Range Interpretation Comments TOTAL PROTEIN 6.5 gm/dL 6.0-8.5 Specimen sligh tly (BEAKER) (test code = hemoly zed 770) ALBUMIN (BEAKER) 3.0 g/dL 3.5-5.0 L Specimen sl ightly (test code = 1145) hemolyzed ALKALINE PHOSPHATASE 49 U/L 30-115 (BEAKER) (test code = 346) BILIRUBIN TOTAL 0.4 mg/dL 0.1-1.2 Specimen sli ghtly (BEAKER) (test code = hemoly zed 377) SODIUM (BEAKER) (test 145 meq/L 135-148 code = 381) POTASSIUM (BEAKER) 4.6 meq/L 3.6-5.5 Specimen slightly (test code = 379) hemolyzed CHLORIDE (BEAKER) 104 meq/L 98-106 (test code = 382) CO2 (BEAKER) (test 29 meq/L 20-29 code = 355) BLOOD UREA NITROGEN 45 mg/dL 10-26 H (BEAKER) (test code = 354) CREATININE (BEAKER) 0.87 mg/dL 0.50-1.20 Specimen slightly (test code = 358) hemolyzed GLUCOSE RANDOM 286 mg/dL 70-110 H (BEAKER) (test code = 652) CALCIUM (BEAKER) 9.1 mg/dL 8.5-10.5 (test code = 697) AST (SGOT) (BEAKER) 12 U/L 5-40 Specimen slightly (test code = 353) hemolyzed ALT (SGPT) (BEAKER) 8 U/L 5-50 Specimen slightly (test code = 347) hemolyzed EGFR (BEAKER) (test 86 mL/min/1.73 ESTIMA GIOVANA GFR IS code = 1092) sq m NOT ACCURATE CREATININE CLEARANCE IN PREDICTING GLOMERULAR FILTRATION RATE . ESTIMATED GFR I S NOT APPLICABLE FOR DIALYSIS PATIEN TS. Squaring Machine Operator ID - DSENSONOperator ID - DSENSONOperator ID - DSENSONOperator ID - DSENSONOperator ID - DSENSONOperator ID - DSENSONOperator ID - DSENSONOperator ID - DSENSONOperator ID - DSENSONOperator ID - DSENSONOperator ID - DSENSONOperator ID - DSENSONOperator ID - DSENSONOperator ID - DSENSONOperatorID - DSENSONOperator ID - [id number] 07:44:00 Test Item Value Reference Range Interpretation Comments Magnesium (test code 1.9 mg/dL 1.5-3 Specime n = 26946-1) slightly hemolyzed LORNE (test code = Squaring Machine Operator ID - LORNE) DSENSONOperator ID - DSENSONOperator ID - DSENSONOperator ID - DSENSON Lab Interpretation Normal (test code = 41787-0) [facility] 07:44:00 Test Item Value Reference Range Interpretation Comments MAGNESIUM (BEAKER) 1.9 mg/dL 1.5-3.0 Specimen slightly (test code = 627) hemolyzed Squaring Machine Operator ID - DSENSONOperator ID - DSENSONOperator ID - DSENSONOperator ID - DSENSONPOCT-GLUCOSE [id number] 04:33:00 Test Item Value Reference Range Interpretation Comments POC-GLUCOSE METER 226 mg/dL 70-110 H : TESTED A T [facility] (BEAKER) ([facility], = 1538) [place] [address]: Squaring Machine Operator/Techni chu ID = [id number] for Lynette Deutsch POCT-GLUCOSE [id number] 20:36:00 Test Item Value Reference Range Interpretation Comments POC-GLUCOSE METER 281 mg/dL 70-110 H : TESTED A T [facility] (BEAKER) (test code [address] [facility], = 1538) [place] [address]: Squaring Machine Operator/Techni chu ID = [id number] for Lynette Deutsch POCT-GLUCOSE [id number] 16:36:00 Test Item Value Reference Range Interpretation Comments POC-GLUCOSE METER 259 mg/dL 70-110 H : TESTED A T [facility] [address] (BEAKER) (test code [address] [facility], = 1538) [place] [address]: Squaring Machine Operator/Techni chu ID = [id number] for Nam Yanez POCT-GLUCOSE [id number] 11:51:00 Test Item Value Reference Range Interpretation Comments POC-GLUCOSE METER 292 mg/dL 70-110 H : Notified RN/MD: TESTED (BEBENNY) (test code AT [facility] [address] = 1538) [place] [address]: Squaring Machine Operator/Techni chu ID = [id number] for Dane Yanezinor RAD, CHEST, 1 VIEW, NON [id number] 09:58:00Reason for exam:->[facility]na [facility] : 1945 Sex: MFINAL REPORT Chest, 1 view. History: Pneumonia. Comparison: 03/21/2021. IMPRESSION: There is persistent elevation of the right hemidiaphragm with associated right basilar atelectasis. Focal opacity noted within the left midlung on the prior examination appears less conspicuous on today's examination. There is no evidence for new focal consolidation, pneumothorax, or significant volume pleural effusion. The cardiomediastinal silhouette is stable in appearance. No acute osseous abnormality is identified. Signed: Refugio Hansenort Verified Date/Time: 03/23/2021 09:58:49 Reading Location: [facility] Radiology Reading Room XR chest 1 view portable / [id number] 09:58:00 Interface, External Ris In - 03/23/2021 10:01 AM CDTFINAL REPORT Chest, 1 view. History: Pneumonia. Comparison: 03/21/2021. IMPRESSION: There is persistent elevation of the righthemidiaphragm with associated right basilar atelectasis. Focal opacity noted within the left midlungon the prior examination appears less conspicuous on today's examination. There is no evidence for new focal consolidation, pneumothorax, or significant volume pleural effusion. The cardiomediastinal silhouette is stable in appearance. No acute osseous abnormality is identified. Signed: Refugio Hansen MDReport Verified Date/Time: 03/23/2021 09:58:49 Reading Location: [facility] Radiology [facility] [id number] 07:17:00 Test Item Value Reference Range Interpretation Comments TOTAL PROTEIN 6.1 gm/dL 6.0-8.5 (BEAKER) (test code = 770) ALBUMIN (BEAKER) 2.8 g/dL 3.5-5.0 L (test code = 1145) ALKALINE PHOSPHATASE 45 U/L 30-115 (BEAKER) (test code = 346) BILIRUBIN TOTAL 0.3 mg/dL 0.1-1.2 (BEAKER) (test code = 377) SODIUM (BEAKER) (test 147 meq/L 135-148 code = 381) POTASSIUM (BEAKER) 3.5 meq/L 3.6-5.5 L (test code = 379) CHLORIDE (BEAKER) 105 meq/L 98-106 (test code = 382) CO2 (BEAKER) (test 28 meq/L 20-29 code = 355) BLOOD UREA NITROGEN 60 mg/dL 10-26 H (BEAKER) (test code = 354) CREATININE (BEAKER) 1.22 mg/dL 0.50-1.20 H (test code = 358) GLUCOSE RANDOM 300 mg/dL 70-110 H (BEAKER) (test code = 652) CALCIUM (BEAKER) 8.8 mg/dL 8.5-10.5 (test code = 697) AST (SGOT) (BEAKER) 9 U/L 5-40 (test code = 353) ALT (SGPT) (BEAKER) 5 U/L 5-50 (test code = 347) EGFR (BEAKER) (test 58 mL/min/1.73 ESTIMA GIOVANA GFR IS code = 1092) sq m NOT ACCURATE CREATININE CLEARANCE IN PREDICTING GLOMERULAR FILTRATION RATE . ESTIMATED GFR I S NOT APPLICABLE FOR DIALYSIS PATIEN TS. Squaring Machine Operator ID - [id number] ID - [id number] ID - DONI84Pjajmrgd ID - [id number] ID - XNHJ87Ojzfpqyn ID - YPLD12Gjsoayjf ID - UDLE23Ecmtpkrs ID - UGJT60Wsipsscq ID - GWGZ30Uletmshm ID - GXKI75Ojltamvr ID - FYHS16Kucndiyb ID - FARH46Ekoufkdh ID - [id number] ID - WESL23Oielelup ID - ULRP94Uflfmooa ID - [id number] Echo W/Doppler(CW/PW/Color)2021-03-23 07:02:02Ejection FractionSLEH ECHO HEARTLAB OLGA CPACSInterface, External Ris In - 03/23/2021 7:02 AM C DTTransthoracic Echocardiography Report (TTE) Demographics Patient Name NITO MCKEON Date of Study 03/22/2021 Gender Male Visit Number [id number] Race Unknown Room Number 426Number Date of 1945 Referring Physician Age 75 year(s) 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 Physician Procedure Type of Study TTE procedure:2DECHO W DOPPLER( CW/PW/COLOR) (Routine) Indications:Suspected hypertensive heart disease.Clinical HistoryHTN, Gout, GERD, DM, CAD, CHF, COVIDHeight: 77 inches Weight: 108.41 kg (239 lbs) BSA: 2.41 m^2 BMI: 28.34kg/m^2HR: 67 bpm BP: 192/96 mmHg Summary Technically difficult study with poor endocardial delineation. Grossly normal LV systolic function with an estimated LVEF of 55-59%. Indeterminate left ventricular filling dynamics. Grossly normal RV size and systolic function. Cannot estimate PA systolic pressure due insufficient TR jet. No pericardial effusion. No previous study to compare from. Signature --------- Findings Left Ventricle Difficult to assess segmental wall motion; overall LV systolic function appears normal based on available views. The visual ejection fraction was estimated 55-59 %.Indeterminate left ventricular filling dynamics. Left Atrium LA is not well visualized, unable to estimate LA size. Right Ventricle The right ventricular chamber size and systolic function are within normal limits. Right Atrium RA size is indeterminate (not well seen). Aortic Valve The aortic valve is not well visualized. There is no aortic stenosis. There is no aortic regurgitation. Mitral Valve The mitral valve is not well visualized. Trace mitral regurgitation. Tricuspid Valve The tricuspid valve is not well visualized. Estimated peak systolic PA pressure is cannot be determin ed due to inadequate TR velocity signal . Pulmonic Valve No evidence of pulmonary regurgitation. Aorta Aortic root size (SInus of Valsalva diameter) isindeterminate (not well seen) . Pericardium No pericardial effusion is visualized. IVC/SVC/PA/PV/Pleural The inferior vena cava size is normal . Chambers/Structures Left Atrium LA Dimension: 4.66 cm Left Ventricle LVIDd: 4.85 cm LVEDV:110.12 ml LVIDs:3.61 cm LVESV:54.73 ml LV Septum Diastolic: 1.45 cm LV Septum Systolic: 2.16 cm LV Length: 8.01 cm LV PW Diastolic: 1.27 cm LV FS: 25.6 % LV PW Systolic: 2.31 cm LVOT Diameter: 2.17 cm LVEF: 50.3 % Right Atrium RA Systolic Pressure: 10 mmHg Right Ventricle RV Systolic Pressure: 17.29 mmHg Aorta Ao Root S of Lakia.: 3.89 cm Doppler/Quantitative Measurements Mitral Valve MV Peak E-Wave: 1.01 m/s MV Peak A-Wave: 0.27 m/s P1/2t: 55.7 msec E/A Ratio: 3.8 Peak Velocity: 1.07 m/s Peak Gradient: 4.12 mmHg Mean Velocity: 0.6 m/s Deceleration Time: 208.7 msec Mean Gradient: 1.7 mmHg Area (continuity): 2.9 cm^2 MV Area (PHT): 3.95 cm^2 MR Velocity: 1.02 m/s MV VTI: 25.12 cm MV Gaurav. Peak: Tissue Doppler E' Septal Velocity: 0.08 m/s E' Lateral Velocity: 0.14 m/s Aortic Valve Peak Velocity: 1.2 m/s Mean Velocity: 0.87 m/s Peak Gradient: 5.73 mmHg Mean Gradient: 3.29 mmHg AV Area (continuity): 3.08 cm^2 AV VTI: 23.63 cm Cusp Separation: 1.81 cm AV DVI: 0.83 LVOT Peak Velocity: 1.13 m/s Peak Gradient: 5.17 mmHg Mean Velocity: 0.73 m/s Mean Gradient: 2.51 mmHg LVOT Diameter: 2.17 cm LVOT VTI: 19.71 cm LVOT Area: 3.7 cm^2 LVOT SV:72.86 ml LVOT CO: 4.88 l/min LVOT CI: 2.02 l/min/m^2 Tricuspid Valve Estimated RVSP: 17.48 mmHg Estimated RAP: 10 mmHg TR Velocity: 1.35 m/s TR Gradient: 7.29 mmHg Pulmonic Valve Peak Velocity: 1.21 m/s Peak Gradient: 5.87 mmHg Estimated PASP: 17.29 mmHgMem[facility] GardenaMAGNESIUM2021-08-30 06:54:00 Test Item Value Reference Range Interpretation Comments MAGNESIUM (BEAKER) (test code = 2.3 mg/dL 1.5-3.0 627) Squaring Machine Operator ID - [id number] 06:51:00 Test Item Value Reference Range Interpretation Comments Phosphorus (test code = 2.3 mg/dL 2.5-4.5 L 2777-1) LORNE (test code = LORNE) Squaring Machine Operator ID - [id number] Lab Interpretation (test Abnormal code = 69036-4) [facility]PHOSPHORUS2021-08-30 06:51:00 Test Item Value Reference Range Interpretation Comments PHOSPHORUS (BEAKER) (test code = 2.3 mg/dL 2.5-4.5 L 604) Squaring Machine Operator ID - [id number] dehydrogenase (LDH)2021-03-23 06:50:00 Test Item Value Reference Range Interpretation Comments LDH (test code = 2532-0) 260 U/L 107-206 H LORNE (test code = LORNE) Squaring Machine Operator ID - [id number] ID - [id number] ID - [id number] ID - [id number] Lab Interpretation (test Abnormal code = 79103-3) [facility]aLACTATE DEHYDROGENASE (LDH)2021-03-23 06:50:00 Test Item Value Reference Range Interpretation Comments LACTATE DEHYDROGENASE (BEAKER) (test 260 U/L 107-206 H code = 635) Squaring Machine Operator ID - [id number] ID - [id number] ID - [id number] ID - [id number] [id number] 06:49:00 Test Item Value Reference Range Interpretation Comments Ferritin (test code = 319.60 ng/mL 22-322 2276-4) LORNE (test code = LORNE) Squaring Machine Operator ID - [id number] Lab Interpretation (test Normal code = 49774-0) [facility]ERRITIN2021-08-30 06:49:00 Test Item Value Reference Range Interpretation Comments FERRITIN (BEAKER) (test code = 319.60 ng/mL 22.00-322.00 361) Squaring Machine Operator ID - [id number] 06:31:00 Test Item Value Reference Range Interpretation Comments Procalcitonin (test code = 0.05 ng/mL <0.05 H 57660-2) LORNE (test code = LORNE) SEPSIS RISK (ng/mL)Low: 0.05-0.50Intermedi ate: 0.51-2.00High: >=2.01 Lab Interpretation (test Abnormal code = 31940-3) [facility]aPROCALCITONIN2021-08-30 06:31:00 Test Item Value Reference Range Interpretation Comments PROCALCITONIN (BEAKER) (test code 0.05 ng/mL <0.05 H = 3036) SEPSIS RISK (ng/mL)Low: 0.05-0.50Intermediate: 0.51-2.00High: >=2.01Prothrombin time/[id number] 06:15:00 Test Item Value Reference Interpretation Comments Range Protime (test code = 11.5 See_Comment Final 5902-2) Information (Auto Output) [Automated message] The system which generated this result transmitted reference range : 9.3 - 12.0 seconds. The reference range was not used to interpret this result as normal/abnormal . INR (test code = 1.04 See_Comment Final 6301-6) Information (Auto Output) [Automated message] The system which generated this result transmitted reference range : <=5.90. The reference range was not used to interpret this result as normal/abnormal . LORNE (test code = RECOMMENDED LORNE) COUMADIN/WARFARIN INR THERAPY RANGESSTANDARD DOSE: 2.0 - 3.0 Includes: PROPHYLAXIS for venous thrombosis, systemic embolization; TREATMENT for venous thrombosis and/or pulmonary embolus.HIGH RISK: Target INR is 2.5-3.5 for patients with mechanical heart valves. Lab Interpretation Normal (test code = 41048-5) [facility] [id number] 06:15:00 Test Item Value Reference Range Interpretation Comments D-Dimer, Quant (test 1.59 See_Comment H Final I nformation code = 29731-1) (Auto Output ) [Automated message] The system which generated this result transmitted reference range : <0.50 MG/L FEU. The reference range was not used to interpr et this result as normal/abnormal . LORNE (test code = REGARDING D-DIMER LORNE) RESULTS: The 98% NPV (Negative Predictive Value) for DVT/PE exclusion is 0.50 mg/L FEU as suggested by the crew team member and as approved by the FDA. Lab Interpretation Abnormal (test code = 50843-0) [facility] [id number] 06:15:00 Test Item Value Reference Range Interpretation Comments D-DIMER QUANTITATIVE 1.59 MG/L FEU <0.50 H Final Information (BEAKER) (test code = (Auto Output) 671) REGARDING D-DIMER RESULTS: The 98% NPV (Negative Predictive Value) for DVT/PE exclusion is 0.50 mg/LFEU as suggested by the crew team member and as approved by the FDA.PROTHROMBIN TIME/[id number] 06:15:00 Test Item Value Reference Range Interpretation Comments PROTIME (BEAKER) 11.5 seconds 9.3-12.0 Final Infor mation (test code = 759) (Auto Outp ut) INR (BEAKER) (test 1.04 See_Comment Final Inf ormation code = 370) (Auto Output) [Automated mess age] The system [employer] generated this result transmitted ref erence range: <=5.90. The reference range was not used to int erpret this result as normal/abnormal . RECOMMENDED COUMADIN/WARFARIN INR THERAPY RANGESSTANDARD DOSE: 2.0 - 3.0 Includes: PROPHYLAXIS forvenous thrombosis, systemic embolization; TREATMENT for venous thrombosis and/or pulmonary embolus.HIGH RISK: Target INR is 2.5-3.5 for patients with mechanical heart valves.CBC W/PLT COUNT & AUTO DIFFERENTIAL 2021-03-23 05:53:00 Test Item Value Reference Range Interpretation Comments WHITE BLOOD CELL COUNT (BEAKER) 7.5 K/ L 4.0-10.0 (test code = 775) RED BLOOD CELL COUNT (BEAKER) 4.07 M/ L 4.20-5.80 L (test code = 761) HEMOGLOBIN (BEAKER) (test code = 13.3 GM/DL 13.0-16.8 410) HEMATOCRIT (BEAKER) (test code = 42.2 % 36.0-50.0 411) MEAN CORPUSCULAR VOLUME (BEAKER) 103.7 fL 82.0-99.0 H (test code = 753) MEAN CORPUSCULAR HEMOGLOBIN 32.7 pg 27.0-33.0 (BEAKER) (test code = 751) MEAN CORPUSCULAR HEMOGLOBIN CONC 31.5 GM/DL 32.0-36.0 L (BEAKER) (test code = 752) RED CELL DISTRIBUTION WIDTH 14.9 % 12.0-15.0 (BEAKER) (test code = 412) PLATELET COUNT (BEAKER) (test 241 K/CU MM 150-430 code = 756) MEAN PLATELET VOLUME (BEAKER) 10.7 fL 6.0-11.5 (test code = 754) NUCLEATED RED BLOOD CELLS 0 /100 WBC 0-0 (BEAKER) (test code = 413) NEUTROPHILS RELATIVE PERCENT 93 % (BEAKER) (test code = 429) LYMPHOCYTES RELATIVE PERCENT 4 % (BEAKER) (test code = 430) MONOCYTES RELATIVE PERCENT 2 % (BEAKER) (test code = 431) EOSINOPHILS RELATIVE PERCENT 0 % (BEAKER) (test code = 432) BASOPHILS RELATIVE PERCENT 0 % (BEAKER) (test code = 437) NEUTROPHILS ABSOLUTE COUNT 6.95 K/ L 1.80-8.00 (BEAKER) (test code = 670) LYMPHOCYTES ABSOLUTE COUNT 0.28 K/ L 1.48-4.50 L (BEAKER) (test code = 414) MONOCYTES ABSOLUTE COUNT (BEAKER) 0.17 K/ L 0.00-1.30 (test code = 415) EOSINOPHILS ABSOLUTE COUNT 0.01 K/ L 0.00-0.50 (BEAKER) (test code = 416) BASOPHILS ABSOLUTE COUNT (BEAKER) 0.01 K/ L 0.00-0.20 (test code = 417) IMMATURE GRANULOCYTES-RELATIVE 1 % 0-0 H PERCENT (BEAKER) (test code = 2801) POCT-GLUCOSE [id number] 05:08:00 Test Item Value Reference Range Interpretation Comments POC-GLUCOSE METER 292 mg/dL 70-110 H : TESTED A T [facility] [address] (BEAKER) (test code [facility] [address] = 1538) [place] [address]: Squaring Machine Operator/Techni chu ID = [id number] for Lynette Deutsch POCT-GLUCOSE [id number] 20:51:00 Test Item Value Reference Range Interpretation Comments POC-GLUCOSE METER 277 mg/dL 70-110 H : TESTED A T [facility] [address] (BEAKER) ([facility] = [facility] [place] [address]: Squaring Machine Operator/Techni chu ID = [id number] for Lynette Deutsch POCT-GLUCOSE [id number] 18:56:00 Test Item Value Reference Range Interpretation Comments POC-GLUCOSE METER 265 mg/dL 70-110 H : TESTED A T [facility] [address] (BEAKER) (test code [facility] [facility] [place] [address]: Squaring Machine Operator/Techni chu ID = [id number] for Ama Harris POCT-GLUCOSE [id number] 12:24:00 Test Item Value Reference Range Interpretation Comments POC-GLUCOSE METER 312 mg/dL 70-110 H : TESTED A T [facility] [address] (BEAKER) (test code [facility] [facility] = 1538) [place] [address]: Squaring Machine Operator/Techni chu ID = [id number] for Shankar Dey COMPREHENSIVE METABOLIC [id number] 07:02:00 Test Item Value Reference Range Interpretation Comments TOTAL PROTEIN 6.7 gm/dL 6.0-8.5 (BEAKER) (test code = 770) ALBUMIN (BEAKER) 3.1 g/dL 3.5-5.0 L (test code = 1145) ALKALINE PHOSPHATASE 54 U/L 30-115 (BEAKER) (test code = 346) BILIRUBIN TOTAL 0.3 mg/dL 0.1-1.2 (BEAKER) (test code = 377) SODIUM (BEAKER) (test 146 meq/L 135-148 code = 381) POTASSIUM (BEAKER) 3.7 meq/L 3.6-5.5 (test code = 379) CHLORIDE (BEAKER) 104 meq/L 98-106 (test code = 382) CO2 (BEAKER) (test 27 meq/L 20-29 code = 355) BLOOD UREA NITROGEN 60 mg/dL 10-26 H (BEAKER) (test code = 354) CREATININE (BEAKER) 1.58 mg/dL 0.50-1.20 H (test code = 358) GLUCOSE RANDOM 256 mg/dL 70-110 H (BEAKER) (test code = 652) CALCIUM (BEAKER) 9.2 mg/dL 8.5-10.5 (test code = 697) AST (SGOT) (BEAKER) 9 U/L 5-40 (test code = 353) ALT (SGPT) (BEAKER) 6 U/L 5-50 (test code = 347) EGFR (BEAKER) (test 43 mL/min/1.73 ESTIMA GIOVANA GFR IS code = 1092) sq m NOT ACCURATE CREATININE CLEARANCE IN PREDICTING GLOMERULAR FILTRATION RATE . ESTIMATED GFR I S NOT APPLICABLE FOR DIALYSIS PATIEN TS. Squaring Machine Operator ID - [id number] ID - [id number] ID - DPLK89Fjoyfyeb ID - WUUJ31Xubnmjjn ID - XKRC38Ojxqgcmv ID - VXUI52Yfclhuvu ID - LEWB06Hszdwbed ID - UWIH71Mfwmmdba ID - YRUY75Nlempvvp ID - JQZR58Toggvjxs ID - YTDL34Tiszfhdb ID - VPII86Xxufznhd ID - WAFA36Btvfattf ID - HWJQ90Oywlcpux ID - NUIV64Rodsxmyk ID - [id number] 06:40:00 Test Item Value Reference Range Interpretation Comments MAGNESIUM (BEAKER) (test code = 1.8 mg/dL 1.5-3.0 627) Squaring Machine Operator ID - [id number] ID - [id number] ID - [id number] ID - [id number] 06:36:00 Test Item Value Reference Range Interpretation Comments PHOSPHORUS (BEAKER) (test code = 2.1 mg/dL 2.5-4.5 L 604) Squaring Machine Operator ID - [id number] [id number] 06:29:00 Test Item Value Reference Range Interpretation Comments Digoxin Lvl (test code = 1.53 ng/mL 0.8-2 19222-3) LORNE (test code = LORNE) Squaring Machine Operator ID - [id number] Lab Interpretation (test Normal code = 38529-8) [facility] [id number] 06:29:00 Test Item Value Reference Range Interpretation Comments DIGOXIN LEVEL (BEAKER) (test code 1.53 ng/mL 0.80-2.00 = 669) Squaring Machine Operator ID - [id number] W/PLT COUNT & AUTO [id number] 06:13:00 Test Item Value Reference Range Interpretation Comments WHITE BLOOD CELL COUNT (BEAKER) 11.2 K/ L 4.0-10.0 H (test code = 775) RED BLOOD CELL COUNT (BEAKER) 4.36 M/ L 4.20-5.80 (test code = 761) HEMOGLOBIN (BEAKER) (test code = 14.2 GM/DL 13.0-16.8 410) HEMATOCRIT (BEAKER) (test code = 45.2 % 36.0-50.0 411) MEAN CORPUSCULAR VOLUME (BEAKER) 103.7 fL 82.0-99.0 H (test code = 753) MEAN CORPUSCULAR HEMOGLOBIN 32.6 pg 27.0-33.0 (BEAKER) (test code = 751) MEAN CORPUSCULAR HEMOGLOBIN CONC 31.4 GM/DL 32.0-36.0 L (BEAKER) (test code = 752) RED CELL DISTRIBUTION WIDTH 14.7 % 12.0-15.0 (BEAKER) (test code = 412) PLATELET COUNT (BEAKER) (test 354 K/CU MM 150-430 code = 756) MEAN PLATELET VOLUME (BEAKER) 10.3 fL 6.0-11.5 (test code = 754) NUCLEATED RED BLOOD CELLS 0 /100 WBC 0-0 (BEAKER) (test code = 413) NEUTROPHILS RELATIVE PERCENT 95 % (BEAKER) (test code = 429) LYMPHOCYTES RELATIVE PERCENT 3 % (BEAKER) (test code = 430) MONOCYTES RELATIVE PERCENT 1 % (BEAKER) (test code = 431) EOSINOPHILS RELATIVE PERCENT 0 % (BEAKER) (test code = 432) BASOPHILS RELATIVE PERCENT 0 % (BEAKER) (test code = 437) NEUTROPHILS ABSOLUTE COUNT 10.62 K/ L 1.80-8.00 H (BEAKER) (test code = 670) LYMPHOCYTES ABSOLUTE COUNT 0.32 K/ L 1.48-4.50 L (BEAKER) (test code = 414) MONOCYTES ABSOLUTE COUNT (BEAKER) 0.15 K/ L 0.00-1.30 (test code = 415) EOSINOPHILS ABSOLUTE COUNT 0.00 K/ L 0.00-0.50 (BEAKER) (test code = 416) BASOPHILS ABSOLUTE COUNT (BEAKER) 0.02 K/ L 0.00-0.20 (test code = 417) IMMATURE GRANULOCYTES-RELATIVE 1 % 0-0 H PERCENT (BEAKER) (test code = 2801) POCT-GLUCOSE [id number] 17:43:00 Test Item Value Reference Range Interpretation Comments POC-GLUCOSE METER 291 mg/dL 70-110 H : TESTED A T [facility] (BEAKER) (test code [facility], = 1538) [facility] [address]: Squaring Machine Operator/Techni chu ID = [id number] for Shankar Dey POCT-GLUCOSE [id number] 12:04:00 Test Item Value Reference Range Interpretation Comments POC-GLUCOSE METER 227 mg/dL 70-110 H : Notified RN/MD: TESTED (BEAKER) (test code AT [facility] [address] [place] [address] = 1538) [facility] [address]: Squaring Machine Operator/Techni chu ID = [id number] for Callum Pettyisaias Urea Nitrogen, random [id number] 10:46:00 Test Item Value Reference Range Interpretation Comments Urea Nitrogen, Ur 475 mg/dL (test code = 3095-7) LORNE (test code = Reference Range: No LORNE) NormalsOperator ID - ISAIAH [facility] GardenaUREA NITROGEN, RANDOM [id number] 10:46:00 Test Item Value Reference Range Interpretation Comments UREA NITROGEN URINE (BEAKER) (test 475 mg/dL code = 538) Reference Range: No NormalsOperator ID - [id number] 08:14:00 Test Item Value Reference Range Interpretation Comments MAGNESIUM (BEAKER) (test code = 1.9 mg/dL 1.5-3.0 627) Squaring Machine Operator ID - [id number] ID - hupl02Uoncrgls ID - suft90Unbtqluf ID - [id number] COMPREHENSIVE METABOLIC [id number] 08:14:00 Test Item Value Reference Range Interpretation Comments TOTAL PROTEIN 6.7 gm/dL 6.0-8.5 (BEAKER) (test code = 770) ALBUMIN (BEAKER) 3.1 g/dL 3.5-5.0 L (test code = 1145) ALKALINE PHOSPHATASE 58 U/L 30-115 (BEAKER) (test code = 346) BILIRUBIN TOTAL 0.3 mg/dL 0.1-1.2 (BEAKER) (test code = 377) SODIUM (BEAKER) (test 142 meq/L 135-148 code = 381) POTASSIUM (BEAKER) 3.3 meq/L 3.6-5.5 L (test code = 379) CHLORIDE (BEAKER) 99 meq/L 98-106 (test code = 382) CO2 (BEAKER) (test 26 meq/L 20-29 code = 355) BLOOD UREA NITROGEN 50 mg/dL 10-26 H (BEAKER) (test code = 354) CREATININE (BEAKER) 1.83 mg/dL 0.50-1.20 H (test code = 358) GLUCOSE RANDOM 275 mg/dL 70-110 H (BEAKER) (test code = 652) CALCIUM (BEAKER) 9.2 mg/dL 8.5-10.5 (test code = 697) AST (SGOT) (BEAKER) 8 U/L 5-40 (test code = 353) ALT (SGPT) (BEAKER) 6 U/L 5-50 (test code = 347) EGFR (BEAKER) (test 36 mL/min/1.73 ESTIMA GIOVANA GFR IS code = 1092) sq m NOT ACCURATE CREATININE CLEARANCE IN PREDICTING GLOMERULAR FILTRATION RATE . ESTIMATED GFR I S NOT APPLICABLE FOR DIALYSIS PATIEN TS. Squaring Machine Operator ID - [id number] ID - guzc23Oluxngbq ID - swtf61Rwbeicwe ID - lwyj31Ajxcjoso ID - dner48Eyqozdbe ID - cgnu09Rmvpdagg ID - emzn23Qvhdwtsr ID - opot12Sxtmmihs ID - rnjn19Posdtlok ID - ongk44Ntscnmck ID - gwft64Sddijlvt ID - ehkw08Zeqkzlrs ID - sqss61Jlbxnmkb ID - uqrc76Lthpcrcw ID - nqgn32Pbfumnvr ID - fjed71A-Eibgrvsb [id number] 08:12:00 Test Item Value Reference Range Interpretation Comments CRP (test code = 676) 20.15 mg/dL 0-0.5 H LORNE (test code = LORNE) Squaring Machine Operator ID - [id number] Lab Interpretation (test Abnormal code = 85554-0) [facility]-REACTIVE [id number] 08:12:00 Test Item Value Reference Range Interpretation Comments C-REACTIVE PROTEIN (BEAKER) (test 20.15 mg/dL 0.00-0.50 H code = 676) Squaring Machine Operator ID - [id number] 08:10:00 Test Item Value Reference Range Interpretation Comments PHOSPHORUS (BEAKER) (test code = 2.7 mg/dL 2.5-4.5 604) Squaring Machine Operator ID - [id number] W/PLT COUNT & AUTO [id number] 07:55:00 Test Item Value Reference Range Interpretation Comments WHITE BLOOD CELL COUNT (BEAKER) 17.2 K/ L 4.0-10.0 H (test code = 775) RED BLOOD CELL COUNT (BEAKER) 4.39 M/ L 4.20-5.80 (test code = 761) HEMOGLOBIN (BEAKER) (test code = 14.2 GM/DL 13.0-16.8 410) HEMATOCRIT (BEAKER) (test code = 45.3 % 36.0-50.0 411) MEAN CORPUSCULAR VOLUME (BEAKER) 103.2 fL 82.0-99.0 H (test code = 753) MEAN CORPUSCULAR HEMOGLOBIN 32.3 pg 27.0-33.0 (BEAKER) (test code = 751) MEAN CORPUSCULAR HEMOGLOBIN CONC 31.3 GM/DL 32.0-36.0 L (BEAKER) (test code = 752) RED CELL DISTRIBUTION WIDTH 14.9 % 12.0-15.0 (BEAKER) (test code = 412) PLATELET COUNT (BEAKER) (test 339 K/CU MM 150-430 code = 756) MEAN PLATELET VOLUME (BEAKER) 10.4 fL 6.0-11.5 (test code = 754) NUCLEATED RED BLOOD CELLS 0 /100 WBC 0-0 (BEAKER) (test code = 413) NEUTROPHILS RELATIVE PERCENT 95 % (BEAKER) (test code = 429) LYMPHOCYTES RELATIVE PERCENT 3 % (BEAKER) (test code = 430) MONOCYTES RELATIVE PERCENT 2 % (BEAKER) (test code = 431) EOSINOPHILS RELATIVE PERCENT 0 % (BEAKER) (test code = 432) BASOPHILS RELATIVE PERCENT 0 % (BEAKER) (test code = 437) NEUTROPHILS ABSOLUTE COUNT 16.27 K/ L 1.80-8.00 H (BEAKER) (test code = 670) LYMPHOCYTES ABSOLUTE COUNT 0.50 K/ L 1.48-4.50 L (BEAKER) (test code = 414) MONOCYTES ABSOLUTE COUNT (BEAKER) 0.26 K/ L 0.00-1.30 (test code = 415) EOSINOPHILS ABSOLUTE COUNT 0.00 K/ L 0.00-0.50 (BEAKER) (test code = 416) BASOPHILS ABSOLUTE COUNT (BEAKER) 0.02 K/ L 0.00-0.20 (test code = 417) IMMATURE GRANULOCYTES-RELATIVE 1 % 0-0 H PERCENT (BEAKER) (test code = 2801) RAD, CHEST, 1 VIEW, NON [id number] 07:42:00Reason for exam:->PNAShould this be performed at the bedside?->Yes [facility] : 1945 Sex: MFINAL REPORT INDICATION: PNA COMPARISON: None TECHNIQUE: Single frontal view of the chest. FINDINGS: Lungs and pleura: Focal opacity within the left midlung concerning for focal pneumonia. Lungs are hypoinflated. No effusion.Heart and mediastinum: Normal heart size.Osseous structures: No acute abnormality.Other: None. IMPRESSION: No acute intrathoracic abnormality. Signed: Joselin Hopper Verified Date/Time: 03/21/2021 07:42:30 -GLUCOSE [id number] 07:37:00 Test Item Value Reference Range Interpretation Comments POC-GLUCOSE METER 284 mg/dL 70-110 H : TESTED A T SLSL 1317 (BEAKER) (test code AGUILAR [facility] [address], = 1538) [facility] 77 478: Squaring Machine Operator/Techni chu ID = [id number] for Ghada Petty PIQCQVAI1595-09-30 07:12:00 Test Item Value Reference Range Interpretation Comments FERRITIN (BEAKER) (test code = 590.80 ng/mL 22.00-322.00 H 361) Squaring Machine Operator ID - [id number], [id number] 07:07:00 Test Item Value Reference Range Interpretation Comments PTH (test code = 2731-8) 141.7 pg/mL 15-90 H LORNE (test code = LORNE) Squaring Machine Operator ID - [id number] Lab Interpretation (test Abnormal code = 35729-5) [facility] [id number] 07:07:00 Test Item Value Reference Range Interpretation Comments PARATHYROID HORMONE INTACT 141.7 pg/mL 15.0-90.0 H (BEAKER) (test code = 577) Squaring Machine Operator ID - [id number] 06:32:00 Test Item Value Reference Range Interpretation Comments D-DIMER QUANTITATIVE 1.23 MG/L FEU <0.50 H Final Information (BANNER) (test code = (Auto Output) 671) REGARDING D-DIMER RESULTS: The 98% NPV (Negative Predictive Value) for DVT/PE exclusion is 0.50 mg/LFEU as suggested by the crew team member and as approved by the FDA.[id number] 21:42:00 Test Item Value Reference Range Interpretation Comments FERRITIN (BEAKER) (test code = 500.40 ng/mL 22.00-322.00 H 361) Squaring Machine Operator ID - [id number] 20:01:00 Test Item Value Reference Range Interpretation Comments Hemoglobin A1C (test code 8.0 % 4.3-6.1 H = 4548-4) LORNE (test code = LORNE) Squaring Machine Operator ID - [id number] Lab Interpretation (test Abnormal code = 07086-3) [facility] [id number] 20:01:00 Test Item Value Reference Range Interpretation Comments HEMOGLOBIN A1C (BEAKER) (test code = 8.0 % 4.3-6.1 H 368) Squaring Machine Operator ID - [id number], random [id number] 19:55:00 Test Item Value Reference Range Interpretation Comments Protein, Urine (test code 112 mg/dL 0-14 H = 2888-6) LORNE (test code = LORNE) Squaring Machine Operator ID - [id number] ID - [id number] Lab Interpretation (test Abnormal code = 95390-0) [facility] RANDOM [id number] 19:55:00 Test Item Value Reference Range Interpretation Comments PROTEIN, URINE (BEAKER) (test code 112 mg/dL 0-14 H = 1569) Squaring Machine Operator ID - [id number] ID - [id number], random [id number] 19:41:00 Test Item Value Reference Range Interpretation Comments Creatinine, Ur 148.9 mg/dL (test code = 2161-8) LORNE (test code = Reference Range: No LORNE) NormalsOperator ID - [id number] [facility]aCREATININE, RANDOM [id number] 19:41:00 Test Item Value Reference Range Interpretation Comments CREATININE URINE (BEAKER) (test 148.9 mg/dL code = 375) Reference Range: No NormalsOperator ID - [id number], random [id number] 19:35:00 Test Item Value Reference Range Interpretation Comments Sodium Urine (test <14 meq/L code = 2955-3) LORNE (test code = Reference Range: No LORNE) NormalsOperator ID - [id number] [facility] [id number] 19:35:00 Test Item Value Reference Range Interpretation Comments SODIUM URINE (BEAKER) (test code = < meq/L 243) Reference Range: No NormalsOperator ID - [id number] Microscopic Only 2021-03-20 19:33:00 Test Item Value Reference Range Interpretation Comments RBC, UA (test code = >100 See_Comment [Autom ated message] 799-7) The system Optensity generated this result transmitted ref erence range: /HPF. Th e reference range was not used to int erpret this result as normal/abnormal . WBC, UA (test code = <5 See_Comment [Autom ated message] 61809-9) The system Optensity generated this result transmitted ref erence range: /HPF. Th e reference range was not used to int erpret this result as normal/abnormal . Bacteria, UA (test None Seen code = 88037-4) SQUAMOUS EPITHELIAL <5 See_Comment [Automa giovana message] (test code = 53279-2) The sy stem which generated this result transmitted ref erence range: /HPF. Th e reference range was not used to int erpret this result as normal/abnormal . Amorphous Crystals Occasional (test code = 12192-1) [facility] [id number] 19:33:00 Test Item Value Reference Range Interpretation Comments RBC UA-MANUAL (BEAKER) (test code >100 /HPF = 1659) WBC UA-MANUAL (BEAKER) (test code <5 /HPF = 1661) BACTERIA (BEAKER) (test code = None Seen 517) SQUAMOUS EPITHELIAL MANUAL <5 /HPF (BEAKER) (test code = 1663) AMORPHOUS CRYSTALS (BEAKER) (test Occasional code = 1584) Urinalysis with Microscopic If [id number] 19:20:00 Test Item Value Reference Range Interpretation Comments Color, UA (test code = 5778-6) Yellow Clarity, UA (test code = 5767-9) Cloudy Specific Zebulon, UA (test code = >=1.030 1.001-1.035 5811-5) pH, UA (test code = 5803-2) 5.5 5.0-8.0 Protein, UA (test code = 08129-7) 100 mg/dL Negative A Glucose, UA (test code = 365) Negative Negative Ketones, UA (test code = 2514-8) Negative Negative Bilirubin, UA (test code = 27314-0) Positive Negative A Blood, UA (test code = 49134-1) Large Negative A Nitrite, UA (test code = 5802-4) Positive Negative A Leukocytes, UA (test code = 5799-2) Trace Negative A Urobilinogen, UA (test code = 0.2 mg/dL 0.2-1 30862-4) Specimen Source (test code = 2795) Lab Interpretation (test code = Abnormal 52424-1) [facility] WITH MICROSCOPIC IF [id number] 19:20:00 Test Item Value Reference Range Interpretation Comments COLOR (BEAKER) (test code = 470) Yellow CLARITY (BEAKER) (test code = 469) Cloudy SPECIFIC GRAVITY UA (BEAKER) (test >= 1.001-1.035 code = 468) PH UA (BEAKER) (test code = 467) 5.5 5.0-8.0 PROTEIN UA (BEAKER) (test code = 100 mg/dL Negative A 464) GLUCOSE UA (BEAKER) (test code = Negative Negative 365) KETONES UA (BEAKER) (test code = Negative Negative 371) BILIRUBIN UA (BEAKER) (test code = Positive Negative A 462) BLOOD UA (BEAKER) (test code = 461) Large Negative A NITRITE UA (BEAKER) (test code = Positive Negative A 465) LEUKOCYTE ESTERASE UA (BEAKER) Trace Negative A (test code = 466) UROBILINOGEN UA (BEAKER) (test code 0.2 mg/dL 0.2-1.0 = 463) SOURCE(BEAKER) (test code = 2795) [id number] 18:07:00 Test Item Value Reference Range Interpretation Comments PROCALCITONIN (BEAKER) (test code 0.22 ng/mL <0.05 H = 3036) SEPSIS RISK (ng/mL)Low: 0.05-0.50Intermediate: 0.51-2.00High: >=2.01Troponin [id number] 18:02:00 Test Item Value Reference Range Interpretation Comments Troponin I (test code = 0.04 ng/mL 0-0.15 16520-6) LORNE (test code = LORNE) Troponin I (TnI) levels must be interpreted in the context of the presenting symptoms and the clinical findings. Elevated TnI levels indicate myocardial damage, but are not specific for ischemic heart disease. Elevated TnI levels are seen in patients with other cardiac conditions (including myocarditis and congestive heart failure), and slight TnI elevations occur in patients with other conditions, including sepsis, renal failure, acidosis, acute neurological disease, and persistent tachyarrhythmia.Opera tor ID - [id number] Lab Interpretation (test Normal code = 26933-0) [facility] [id number] 18:02:00 Test Item Value Reference Range Interpretation Comments TROPONIN I (BEAKER) (test code = 0.04 ng/mL 0.00-0.15 397) Troponin I (TnI) levels must be interpreted in the context of the presenting symptoms and the clinical findings. Elevated TnI levels indicate myocardial damage, but are not specific for ischemic heart disease. Elevated TnI levels are seen in patients with other cardiac conditions (including myocarditis and congestive heart failure), and slight TnI elevations occur in patients with other conditions, including sepsis, renal failure, acidosis, acute neurological disease, and persistent tachyarrhythmia.Squaring Machine Operator ID - [id number] METABOLIC [id number] 18:00:00 Test Item Value Reference Range Interpretation Comments TOTAL PROTEIN 6.4 gm/dL 6.0-8.5 (BEAKER) (test code = 770) ALBUMIN (BEAKER) 2.9 g/dL 3.5-5.0 L (test code = 1145) ALKALINE PHOSPHATASE 48 U/L 30-115 (BEAKER) (test code = 346) BILIRUBIN TOTAL 0.3 mg/dL 0.1-1.2 (BEAKER) (test code = 377) SODIUM (BEAKER) (test 140 meq/L 135-148 code = 381) POTASSIUM (BEAKER) 2.8 meq/L 3.6-5.5 L (test code = 379) CHLORIDE (BEAKER) 98 meq/L 98-106 (test code = 382) CO2 (BEAKER) (test 27 meq/L 20-29 code = 355) BLOOD UREA NITROGEN 44 mg/dL 10-26 H (BEAKER) (test code = 354) CREATININE (BEAKER) 1.72 mg/dL 0.50-1.20 H (test code = 358) GLUCOSE RANDOM 290 mg/dL 70-110 H (BEAKER) (test code = 652) CALCIUM (BEAKER) 8.7 mg/dL 8.5-10.5 (test code = 697) AST (SGOT) (BEAKER) 9 U/L 5-40 (test code = 353) ALT (SGPT) (BEAKER) 7 U/L 5-50 (test code = 347) EGFR (BEAKER) (test 39 mL/min/1.73 ESTIMA GIOVANA GFR IS code = 1092) sq m NOT ACCURATE CREATININE CLEARANCE IN PREDICTING GLOMERULAR FILTRATION RATE . ESTIMATED GFR I S NOT APPLICABLE FOR DIALYSIS PATIEN TS. Squaring Machine Operator ID - [id number] ID - [id number] ID - [id number] ID - [id number] ID - [id number] ID - [id number] ID - [id number] ID - [id number] ID - [id number] ID - [id number] ID - [id number] ID - [id number] ID - [id number] ID - [id number] ID - [id number] ID - [id number] Natriuretic Factor (BNP)2021-03-20 17:56:00 Test Item Value Reference Range Interpretation Comments BNP (test code = 06222-5) 100 pg/mL 0-100 LORNE (test code = LORNE) Squaring Machine Operator ID - [id number] Lab Interpretation (test Normal code = 24002-9) [facility] NAT[facility] FACTOR (BNP)2021-03-20 17:56:00 Test Item Value Reference Range Interpretation Comments B-TYPE NATRIURETIC PEPTIDE (BEAKER) 100 pg/mL 0-100 (test code = 700) Squaring Machine Operator ID - [id number] 17:55:00 Test Item Value Reference Range Interpretation Comments Fibrinogen (test code = 692 mg/dl 200-400 H Dorota l Information 3255-7) (Auto Output) Lab Interpretation (test Abnormal code = 52330-9) [facility]2021-08-27 17:55:00 Test Item Value Reference Range Interpretation Comments FIBRINOGEN LEVEL 692 mg/dl 200-400 H Final Infor mation (BEAKER) (test code = (Auto Output) 658) LACTATE DEHYDROGENASE (LDH)2021-03-20 17:53:00 Test Item Value Reference Range Interpretation Comments LACTATE DEHYDROGENASE (BEAKER) (test 216 U/L 107-206 H code = 635) Squaring Machine Operator ID - [id number] ID - [id number] ID - [id number] ID - [id number] 17:52:00 Test Item Value Reference Range Interpretation Comments D-DIMER QUANTITATIVE 1.23 MG/L FEU <0.50 H Final Information (MEETAKER) (test code = (Auto Output) 671) REGARDING D-DIMER RESULTS: The 98% NPV (Negative Predictive Value) for DVT/PE exclusion is 0.50 mg/LFEU as suggested by the crew team member and as approved by the FDA.PROTHROMBIN TIME/[id number] 17:52:00 Test Item Value Reference Range Interpretation Comments PROTIME (BEAKER) 12.5 seconds 9.3-12.0 H Final Infor mation (test code = 759) (Auto Outp ut) INR (BEAKER) (test 1.13 See_Comment Final Inf ormation code = 370) (Auto Output) [Automated mess age] The system Optensity generated this result transmitted ref erence range: <=5.90. The reference range was not used to int erpret this result as normal/abnormal . RECOMMENDED COUMADIN/WARFARIN INR THERAPY RANGESSTANDARD DOSE: 2.0 - 3.0 Includes: PROPHYLAXIS forvenous thrombosis, systemic embolization; TREATMENT for venous thrombosis and/or pulmonary embolus.HIGH RISK: Target INR is 2.5-3.5 for patients with mechanical heart valves.Lactic acid, [id number] 17:46:00 Test Item Value Reference Range Interpretation Comments Lactate, Venous (test code 1.46 mmol/L 0.5-2 = 3094) LORNE (test code = LORNE) Squaring Machine Operator ID - [id number] ID - [id number] ID - [id number] ID - [id number] Lab Interpretation (test Normal code = 86496-1) [facility] ACID, [id number] 17:46:00 Test Item Value Reference Range Interpretation Comments LACTATE BLOOD 1.46 mmol/L See_Comment [Automated me ssage] VENOUS (2) (BEAKER) The syst em which (test code = 2872) generated this result transmitted ref erence range: 0.50-<2. 00. The reference range was not used to interpr et this result as normal/abnormal . Squaring Machine Operator ID - [id number] ID - [id number] ID - [id number] ID - [id number]-NEIPROR [id number] 17:39:00 Test Item Value Reference Range Interpretation Comments POC-GLUCOSE METER 242 mg/dL 70-110 H : TESTED A T SLSL 1317 (BEAKER) (test code [address], = 1538) [facility] 77 478: Squaring Machine Operator/Techni chu ID = [id number] for Carrie Clark BASIC METABOLIC [id number] 04:32:00 Test Item Value Reference Range Interpretation Comments SODIUM (test code = 139 mmol/L 136-145 N NA) POTASSIUM (test code 4.1 mmol/L 3.5-5.1 N = K) CHLORIDE (test code = 98.0 mmol/L 98-107 N CL) CARBON DIOXIDE (test 32.0 mmol/L 21-32 N code = CO2) ANION GAP (test code 13.1 10-20 N = GAP) GLUCOSE (test code = 141 mg/dL 74-106 H GLU) BLOOD UREA NITROGEN 25 mg/dL 7-18 H (test code = BUN) GLOMERULAR FILTRATION > 60 mL/min See_Comment Estima giovana GFR by RATE (test code = using Bayron fied MDRD GFR) formula.Chronic kidney disease is defined as eith er kidney damageor GFR <60 mL/min/1.73 m2 for >3 months. [Automated mess age] The system whic h generated this result transmitted ref erence range: >=60. Th e reference range was not used to int erpret this result as normal/abnormal . CREATININE (test code 0.80 mg/dL 0.7-1.3 N = CREAT) BUN/CREATININE RATIO 30.9 10-20 H (test code = BUN/CREA) CALCIUM (test code = 9.2 mg/dL 8.5-10.1 N CA) [id number] 13:18:33 Test Item Value Reference Range Interpretation [...] = Plt Estimation) XR Chest 1 View Ytvhxqw7072-12-26 11:25:11Patient: NITO MCKEON Date/Time01/07/2020 11:00 CDTReason for [...] MSigned (Electronic Signature): 01/07/2020 11:25 amComprehensive Metabolic Nduvg1508-77-29 11:14:08 Test Item Value Reference Range Interpretation [...] ALT (test code = ALT) 14 IntlUnit/L -78 AST (test code = AST) 14 IntlUnit/L Comprehensive Metabolic [id number] 11:14:08 Test Item Value Reference Range Interpretation [...] AST (test code = AST) 14 IntlUnit/L 34 eGFR AA (test code = eGFR >60 mL/min/1.73 m2 N AA) Comprehensive Metabolic [id number] 11:14:08 Test Item Value Reference Range Interpretation [...] mL/min/1.73 m2 N eGFR Non-AA) POC Troponin [id number] 10:50:29 Test Item Value Reference Range Interpretation [...] tions, symptons, etc. Complete Blood Count with Zchtqdgwrpfh9697-81-32 10:47:17 Test Item Value Reference Range Interpretation [...] A N = Pos Count XN) Automated Ttqrvwawavue2859-30-43 10:47:17 Test Item Value Reference Range Interpretation Comments Neutro Auto (test code = Neutro Auto) 82.7 % N Lymph Auto (test code = Lymph Auto) 10.5 % N Cameron Auto (test code = Cameron Auto) 4.9 % N Eos, Auto (test code = Eos, Auto) 1.1 % N Basophil Auto (test code = Basophil 0.4 % N Auto) Neutro Absolute (test code = Neutro 7.0 x10 2.7-7.3 Absolute) Lymph Absolute (test code = Lymph 0.9 x10 0.8-3.5 Absolute) Cameron Absolute (test code = Cameron 0.4 x10 0.3-0.9 Absolute) Eos Absolute (test code = Eos 0.1 x10 0.0-0.3 Absolute) Baso Absolute (test code = Baso 0.0 x10 0.0-0.1 Absolute) IG [id number] 10:47:17 Test Item Value Reference Range Interpretation Comments IG (test code = IG) 0 % 0-5 IG Abs (test code = IG Abs) 0 x10 N POC Ctithdz8944-95-00 11:45:11 Test Item Value Reference Range Interpretation Comments Glucose POC (test 171 mg/dL 74-106 H POC Glucos e used on code = Glucose POC) critical ly ill patients is considered " off-label use" and has no t been cleared or appr rosa elena by the FDA. Altern ative testing methods should be considered i f the patient is crit ically ill. POC Ujgyabm1731-70-18 06:07:12 Test Item Value Reference Range Interpretation Comments Glucose POC (test 114 mg/dL 74-106 H POC Glucos e used on code = Glucose POC) critical ly ill patients is considered " off-label use" and has no t been cleared or appr rosa elena by the FDA. Altern ative testing methods should be considered i f the patient is crit ically ill. POC Wikrawv7034-00-02 20:17:26 Test Item Value Reference Range Interpretation Comments Glucose POC (test 166 mg/dL 74-106 H POC Glucos e used on code = Glucose POC) critical ly ill patients is considered " off-label use" and has no t been cleared or appr rosa elena by the FDA. Altern ative testing methods should be considered i f the patient is crit ically ill. POC [id number] 16:41:29 Test Item Value Reference Range Interpretation Comments Glucose POC (test 134 mg/dL 74-106 H POC Glucos e used on code = Glucose POC) critical ly ill patients is considered " off-label use" and has no t been cleared or appr rosa elena by the FDA. Altern ative testing methods should be considered i f the patient is crit ically ill. POC Ltdsbxp1496-06-08 16:14:59 Test Item Value Reference Range Interpretation Comments Glucose POC (test 111 mg/dL 74-106 H POC Glucos e used on code = Glucose POC) critical ly ill patients is considered " off-label use" and has no t been cleared or appr rosa elena by the FDA. Altern ative testing methods should be considered i f the patient is crit ically ill. POC Gaqwcmy5345-84-70 06:02:12 Test Item Value Reference Range Interpretation Comments Glucose POC (test 113 mg/dL 74-106 H POC Glucos e used on code = Glucose POC) critical ly ill patients is considered " off-label use" and has no t been cleared or appr rosa elena by the FDA. Altern ative testing methods should be considered i f the patient is crit ically ill. POC Chazjat7469-37-89 19:50:12 Test Item Value Reference Range Interpretation Comments Glucose POC (test 196 mg/dL 74-106 H POC Glucos e used on code = Glucose POC) critical ly ill patients is considered " off-label use" and has no t been cleared or appr rosa elena by the FDA. Altern ative testing methods should be considered i f the patient is crit ically ill. POC Woyzbgs7922-59-46 17:11:12 Test Item Value Reference Range Interpretation Comments Glucose POC (test 141 mg/dL 74-106 H POC Glucos e used on code = Glucose POC) critical ly ill patients is considered " off-label use" and has no t been cleared or appr rosa elena by the FDA. Altern ative testing methods should be considered i f the patient is crit ically ill. POC Hwqthte1152-24-29 14:17:31 Test Item Value Reference Range Interpretation [...] crit ically ill. XR Chest 1 View Lqnyraw2411-85-61 07:16:53Patient: NITO MCKEON Date/Time09/20/2019 20:05 CSTReason for ExamChest painReportChest single viewHISTORY: Mid chest painCOMPARISON: 08/31/2019TECHNIQUE: Portable AP view providedFINDINGS: Heart size and vascular markings within normal limits.Asymmetric elevation of the right hemidiaphragm unchanged. Linear atelectasis suspected in the left lung base. Bony thorax unchanged where visualized.IMPRESSION: No active cardiopulmonary process. Final Dictated by: MD Joana, Sheridanctzenon DT/TM: 09/21/2019 7:16 amSigned by: MD Joana, Nan (Electronic Signature): 09/21/2019 7:16 am Troponin [id number] 04:24:36 Test Item Value Reference Range Interpretation Comments Troponin-I (test 6.540 ng/mL 0.010-0.040 ctrb chip v an code = Troponin-I) 09/21/19 04:24:30 FLOWER GROWER/lrj Magnesium Ihojm3708-85-86 04:12:15 Test Item Value Reference Range Interpretation Comments Magnesium Level (test code = 1.3 mg/dL 1.6-2.6 L Magnesium Level) Troponin [id number] 03:12:34 Test Item Value Reference Range Interpretation Comments Troponin-I (test 5.590 ng/mL 0.010-0.040 ctrb chip v an code = Troponin-I) 09/21/19 03:12:28 FLOWER GROWER/lrj Troponin [id number] 01:01:50 Test Item Value Reference Range Interpretation Comments Troponin-I (test 2.490 ng/mL 0.010-0.040 cteb chip v an code = Troponin-I) 09/21/19 01:01:44 FLOWER GROWER/lrj Troponin [id number] 21:34:15 Test Item Value Reference Range Interpretation Comments Troponin-I (test 0.133 ng/mL 0.010-0.040 ctrb chip v an code = Troponin-I) 09/20/19 21:34:09 FLOWER GROWER/lrj Comprehensive Metabolic Nvbiw7548-19-53 21:11:01 Test Item Value Reference Range Interpretation [...] code = AST) 15 IntlUnit/L 10-34 Creatine Wpzcpt3423-58-23 21:11:01 Test Item Value Reference Range Interpretation Comments CK (test code = CK) 66 IntlUnit/L 39-308 Comprehensive Metabolic [id number] 21:11:01 Test Item Value Reference Range Interpretation [...] mL/min/1.73 m2 N AA) Pro B Natriuretic Qihyidu1745-55-51 21:11:01 Test Item Value Reference Range Interpretation [...] - heart f ailure likely Comprehensive Metabolic Fbikw1138-13-57 21:11:01 Test Item Value Reference Range Interpretation [...] m2 N eGFR Non-AA) Prothrombin Time and [id number] 20:56:02 Test Item Value Reference Range Interpretation Comments Prothrombin Time (test code = 10.5 seconds 9.2-12.0 Prothrombin Time) INR (test code = INR) 1.0 ratio 0.9-1.2 D-Dimer Goimrburylli0372-99-83 20:56:02 Test Item Value Reference Range Interpretation [...] diagnos is of DVT or PEunlikely. Urinalysis Ygggkuiwlip5828-86-48 20:50:42 Test Item Value Reference Range Interpretation [...] 1-6 Hyal Cast) Urinalysis with Culture, if qqojqkgyt1571-90-52 20:50:42 Test Item Value Reference Range Interpretation [...] rule GL_SET_UA_MICRO _IND Complete Blood Count with Kkaqiudxfgls7336-59-04 20:42:05 Test Item Value Reference Range Interpretation [...] (test code = Slide Auto Review) Automated Qjsbvasdqplb4351-87-34 20:42:05 Test Item Value Reference Range Interpretation Comments Neutro Auto (test code = Neutro Auto) 87.4 % N Lymph Auto (test code = Lymph Auto) 7.4 % N Cameron Auto (test code = Cameron Auto) 4.1 % N Eos, Auto (test code = Eos, Auto) 0.4 % N Basophil Auto (test code = Basophil 0.7 % N Auto) Neutro Absolute (test code = Neutro 6.9 x10 2.7-7.3 Absolute) Lymph Absolute (test code = Lymph 0.6 x10 0.8-3.5 L Absolute) Cameron Absolute (test code = Cameron 0.3 x10 0.3-0.9 Absolute) Eos Absolute (test code = Eos 0.0 x10 0.0-0.3 Absolute) Baso Absolute (test code = Baso 0.1 x10 0.0-0.1 Absolute) Respiratory Culture w/ Gram Sfftf5124-19-05 12:11:08 Test Item Value Reference Range Interpretation Comments Final Report (test Normal Respiratory Pooja. code = Final Report) Gram Stain Report Gram Positive Cocci Rare (test code = Gram White Blood Cells Stain Report) POC Dzafjhd0594-63-08 20:22:24 Test Item Value Reference Range Interpretation Comments Glucose POC (test 194 mg/dL 74-106 H POC Glucos e used on code = Glucose POC) critical ly ill patients is considered " off-label use" and has no t been cleared or appr rosa elena by the FDA. Altern ative testing methods should be considered i f the patient is crit ically ill. POC Ahjnpuc7879-84-32 17:03:13 Test Item Value Reference Range Interpretation [...] crit ically ill. XR Chest 1 View Dzmrsiu7940-75-99 15:13:52Patient: NITO MCKEON Date/Time08/31/201915:05 CSTReason for ExamHypoxiaReportEXAM: [...] crit ically ill. Respiratory Culture w/ Gram Svgpl5101-69-04 09:44:49Normal Respiratory Pooja.POC Fiejocc9362-83-01 06:13:35 Test Item Value Reference Range Interpretation Comments Glucose POC (test 129 mg/dL 74-106 H POC Glucos e used on code = Glucose POC) critical ly ill patients is considered " off-label use" and has no t been cleared or appr rosa elena by the FDA. Altern ative testing methods should be considered i f the patient is crit ically ill. POC [id number] 22:29:51 Test Item Value Reference Range Interpretation Comments Glucose POC (test 210 mg/dL 74-106 H POC Glucos e used on code = Glucose POC) critical ly ill patients is considered " off-label use" and has no t been cleared or appr rosa elena by the FDA. Altern ative testing methods should be considered i f the patient is crit ically ill. POC [id number] 13:35:41 Test Item Value Reference Range Interpretation [...] crit ically ill. XR Chest 1 View [id number] 07:25:12Patient: NITO MCKEON Date/Time08/30/201907:11 CSTReason for ExamCongestionReportClinical [...] base again noted. Final Dictated by: MD Neva, Steven SILVAictatedDT/TM: 08/30/2019 7:24 amSigned by: MD Hooks Gustavo MSigned (Electronic Signature): 08/30/20197:25 amPOC [id number] 05:48:11 Test Item Value Reference Range Interpretation Comments Glucose POC (test 128 mg/dL 74-106 H POC Glucos e used on code = Glucose POC) critical ly ill patients is considered " off-label use" and has no t been cleared or appr rosa elena by the FDA. Altern ative testing methods should be considered i f the patient is crit ically ill. POC [id number] 23:52:47 Test Item Value Reference Range Interpretation Comments Glucose POC (test 221 mg/dL 74-106 H POC Glucos e used on code = Glucose POC) critical ly ill patients is considered " off-label use" and has no t been cleared or appr rosa elena by the FDA. Altern ative testing methods should be considered i f the patient is crit ically ill. POC [id number] 17:28:32 Test Item Value Reference Range Interpretation Comments Glucose POC (test 151 mg/dL 74-106 H POC Glucos e used on code = Glucose POC) critical ly ill patients is considered " off-label use" and has no t been cleared or appr rosa elena by the FDA. Altern ative testing methods should be considered i f the patient is crit ically ill. POC [id number] 12:33:23 Test Item Value Reference Range Interpretation Comments Glucose POC (test 229 mg/dL 74-106 H POC Glucos e used on code = Glucose POC) critical ly ill patients is considered " off-label use" and has no t been cleared or appr rosa elena by the FDA. Altern ative testing methods should be considered i f the patient is crit ically ill. POC [id number] 06:54:08 Test Item Value Reference Range Interpretation Comments Glucose POC (test 157 mg/dL 74-106 H POC Glucos e used on code = Glucose POC) critical ly ill patients is considered " off-label use" and has no t been cleared or appr rosa elena by the FDA. Altern ative testing methods should be considered i f the patient is crit ically ill. POC [id number] 22:26:48 Test Item Value Reference Range Interpretation Comments Glucose POC (test 200 mg/dL 74-106 H POC Glucos e used on code = Glucose POC) critical ly ill patients is considered " off-label use" and has no t been cleared or appr rosa elena by the FDA. Altern ative testing methods should be considered i f the patient is crit ically ill. POC [id number] 17:44:30 Test Item Value Reference Range Interpretation Comments Glucose POC (test 179 mg/dL 74-106 H POC Glucos e used on code = Glucose POC) critical ly ill patients is considered " off-label use" and has no t been cleared or appr rosa elena by the FDA. Altern ative testing methods should be considered i f the patient is crit ically ill. POC [id number] 12:52:21 Test Item Value Reference Range Interpretation Comments Glucose POC (test 131 mg/dL 74-106 H POC Glucos e used on code = Glucose POC) critical ly ill patients is considered " off-label use" and has no t been cleared or appr rosa elena by the FDA. Altern ative testing methods should be considered i f the patient is crit ically ill. Basic Metabolic [id number] 07:13:09 Test Item Value Reference Range Interpretation [...] 8.1 mg/dL 8.5-10.1 L Level) Basic Metabolic [id number] 07:13:09 Test Item Value Reference Range Interpretation [...] >60 mL/min/1.73 m2 N AA) Basic Metabolic [id number] 07:13:09 Test Item Value Reference Range Interpretation [...] N eGFR Non-AA) Complete Blood Count with [id number] 06:56:57 Test Item Value Reference Range Interpretation [...] = Slide Review) GL_SET_SLIDE _REVIEW_A UTO Automated [id number] 06:56:57 Test Item Value Reference Range Interpretation Comments Neutro Auto (test code = Neutro Auto) 65.8 % N Lymph Auto (test code = Lymph Auto) 21.6 % N Cameron Auto (test code = Cameron Auto) 12.0 % N Eos, Auto (test code = Eos, Auto) 0.2 % N Basophil Auto (test code = Basophil 0.4 % N Auto) Neutro Absolute (test code = Neutro 2.6 x10 2.7-7.3 L Absolute) Lymph Absolute (test code = Lymph 0.9 x10 0.8-3.5 Absolute) Cameron Absolute (test code = Cameron 0.5 x10 0.3-0.9 Absolute) Eos Absolute (test code = Eos 0.0 x10 0.0-0.3 Absolute) Baso Absolute (test code = Baso 0.0 x10 0.0-0.1 Absolute) POC [id number] 05:55:21 Test Item Value Reference Range Interpretation Comments Glucose POC (test 118 mg/dL 74-106 H POC Glucos e used on code = Glucose POC) critical ly ill patients is considered " off-label use" and has no t been cleared or appr rosa elena by the FDA. Altern ative testing methods should be considered i f the patient is crit ically ill. POC [id number] 05:55:18 Test Item Value Reference Range Interpretation Comments Glucose POC (test 167 mg/dL 74-106 H POC Glucos e used on code = Glucose POC) critical ly ill patients is considered " off-label use" and has no t been cleared or appr rosa elena by the FDA. Altern ative testing methods should be considered i f the patient is crit ically ill. POC [id number] 12:26:55 Test Item Value Reference Range Interpretation Comments Glucose POC (test 163 mg/dL 74-106 H POC Glucos e used on code = Glucose POC) critical ly ill patients is considered " off-label use" and has no t been cleared or appr roas elena by the FDA. Altern ative testing methods should be considered i f the patient is crit ically ill. POC [id number] 08:34:03 Test Item Value Reference Range Interpretation [...] is crit ically ill. Throat Culture Strep [id number] 07:39:56Streptococcus Group A screen negativeLactic Acid, Plasma (Venous)2019-08-26 23:57:09 Test Item Value Reference Range Interpretation Comments Lactic Acid, Plasma (Venous) (test 1.5 mmol/L 0.4-2.0 code = Lactic Acid, Plasma (Venous)) CT Angio [id number] 18:37:21Patient: NITO MCKEON Date/Time08/26/201918:14 CSTReason for ExamDyspneaReportCTA [...] LSigned (Electronic Signature): 08/26/2019 6:37 pmPOC G3+ [id number] 13:35:54 Test Item Value Reference Range Interpretation [...] R Radial N Performing Site) Influenza A [id number] 12:53:57 Test Item Value Reference Range Interpretation Comments Influenza A Ag (test Positive Negative CTRB/PI PER LING code = Influenza A Ag) RN08/2019 12:53:54 FLOWER GROWER/STChildren tend to shed virus more abundantly and for longer period o f time than adults. Th erefore, testing specime ns from adults will oft en yield lower sensitivi ty than testing specime ns from children. Influenza B [id number] 12:53:57 Test Item Value Reference Range Interpretation Comments Influenza B Ag (test Negative Negative Childre n tend to shed code = Influenza B Ag) virus more abundantly and for longer period of time than ad ults. Therefore, test ing specimens from adults will often yiel d lower sensitivity tootie n testing specime ns from children. Streptococcus A Screen Rapid w/ Reflex [id number] 12:52:06 Test Item Value Reference Range Interpretation Comments Strep A Scn (test code = Strep A Negative Negative Scn) Prothrombin Time and [id number] 11:56:42 Test Item Value Reference Range Interpretation Comments Prothrombin Time (test code = 10.9 seconds 9.2-12.0 Prothrombin Time) INR (test code = INR) 1.0 ratio 0.9-1.2 Partial Thromboplastin [id number] 11:56:42 Test Item Value Reference Range Interpretation Comments Partial Thromboplastin 33.6 seconds 24.0-35.0 APTT Heparin Time (test code = Therapeuti c Range: Partial Thromboplastin 47.9- 80.4 seconds Time) D-Dimer Uzlzvauxqaeb3020-07-05 11:56:42 Test Item Value Reference Range Interpretation [...] a diagnos is of DVT or PEunlikely. [id number] 11:55:52 Test Item Value Reference Range Interpretation Comments RBC Morph (test code = RBC As Indicated Normal A Morph) Anisocyte (test code = 1+ A Anisocyte) Hypochromia (test code = 1+ A Hypochromia) Macrocyte (test code = 2+ A Macrocyte) Differential Comment (test See Comment S lide reviewed code = Differential Comment) Plt Estimation (test code Normal Normal = Plt Estimation) Comprehensive Metabolic [id number] 11:46:11 Test Item Value Reference Range Interpretation [...] AST) 18 IntlUnit/L 10-34 Pro B Natriuretic [id number] 11:46:11 Test Item Value Reference Range Interpretation [...] - heart f ailure likely Comprehensive Metabolic [id number] 11:46:11 Test Item Value Reference Range Interpretation [...] >60 mL/min/1.73 m2 N AA) Comprehensive Metabolic [id number] 11:46:11 Test Item Value Reference Range Interpretation [...] N eGFR Non-AA) Complete Blood Count with [id number] 11:36:29 Test Item Value Reference Range Interpretation [...] code = Slide Smear N Review) Automated [id number] 11:36:29 Test Item Value Reference Range Interpretation Comments Neutro Auto (test code = Neutro Auto) 68.0 % N Lymph Auto (test code = Lymph Auto) 19.0 % N Cameron Auto (test code = Cameron Auto) 12.1 % N Eos, Auto (test code = Eos, Auto) 0.2 % N Basophil Auto (test code = Basophil 0.7 % N Auto) Neutro Absolute (test code = Neutro 2.3 x10 2.7-7.3 L Absolute) Lymph Absolute (test code = Lymph 0.6 x10 0.8-3.5 L Absolute) Cameron Absolute (test code = Cameron 0.4 x10 0.3-0.9 Absolute) Eos Absolute (test code = Eos 0.0 x10 0.0-0.3 Absolute) Baso Absolute (test code = Baso 0.0 x10 0.0-0.1 Absolute) POC Troponin [id number] 11:26:15 Test Item Value Reference Range Interpretation [...] tions, symptons, etc. XR Chest 1 View Ancgptj1843-04-48 11:16:48Patient: NITO MCKEON Date/Time08/26/201910:56 CSTReason for ExamChest [...] James Arthur LSigned (Electronic Signature): 08/26/2019 11:16 [id number] 02:38:32 Test Item Value Reference Range Interpretation Comments RBC Morph (test code = RBC As Indicated Normal A Morph) Anisocyte (test code = 1+ A Anisocyte) Plt Estimation (test code = Plt Normal Normal Estimation) Prothrombin Time and [id number] 00:36:47 Test Item Value Reference Range Interpretation Comments Prothrombin Time (test code = 11.1 seconds 9.2-12.0 Prothrombin Time) INR (test code = INR) 1.1 ratio 0.9-1.2 Partial Thromboplastin [id number] 00:36:47 Test Item Value Reference Range Interpretation Comments Partial Thromboplastin 29.0 seconds 24.0-35.0 APTT Heparin Time (test code = Therapeuti c Range: Partial Thromboplastin 47.9- 80.4 seconds Time) Complete Blood Count with [id number] 00:27:34 Test Item Value Reference Range Interpretation [...] N Sl angel reviewed Slide Review) Automated [id number] 00:27:34 Test Item Value Reference Range Interpretation Comments Neutro Auto (test code = Neutro Auto) 71.1 % N Lymph Auto (test code = Lymph Auto) 16.1 % N Cameron Auto (test code = Cameron Auto) 11.2 % N Eos, Auto (test code = Eos, Auto) 0.9 % N Basophil Auto (test code = Basophil 0.7 % N Auto) Neutro Absolute (test code = Neutro 6.4 x10 2.7-7.3 Absolute) Lymph Absolute (test code = Lymph 1.4 x10 0.8-3.5 Absolute) Cameron Absolute (test code = Cameron 1.0 x10 0.3-0.9 H Absolute) Eos Absolute (test code = Eos 0.1 x10 0.0-0.3 Absolute) Baso Absolute (test code = Baso 0.1 x10 0.0-0.1 Absolute) POC [id number] 11:40:15 Test Item Value Reference Range Interpretation Comments Glucose POC (test 135 mg/dL 74-106 H POC Glucos e used on code = Glucose POC) critical ly ill patients is considered " off-label use" and has no t been cleared or appr rosa elena by the FDA. Altern ative testing methods should be considered i f the patient is crit ically ill. [id number] 09:29:49 Test Item Value Reference Range Interpretation Comments RBC Morph (test code = RBC As Indicated Normal A Morph) Anisocyte (test code = 1+ A Anisocyte) Hypochromia (test code = 1+ A Hypochromia) Macrocyte (test code = 1+ A Macrocyte) Differential Comment (test See Comment S lide reviewed code = Differential Comment) Plt Estimation (test code Normal Normal = Plt Estimation) Basic Metabolic [id number] 08:32:12 Test Item Value Reference Range Interpretation [...] >60 mL/min/1.73 m2 N AA) Basic Metabolic [id number] 08:32:12 Test Item Value Reference Range Interpretation [...] mL/min/1.73 m2 N eGFR Non-AA) Basic Metabolic [id number] 08:32:12 Test Item Value Reference Range Interpretation [...] N eGFR Non-AA) Complete Blood Count with Danpahtajpsl8758-78-10 08:20:27 Test Item Value Reference Range Interpretation [...] code = Slide Smear N Review) Automated [id number] 08:20:27 Test Item Value Reference Range Interpretation Comments Neutro Auto (test code = Neutro Auto) 69.2 % N Lymph Auto (test code = Lymph Auto) 21.7 % N Cameron Auto (test code = Cameron Auto) 7.0 % N Eos, Auto (test code = Eos, Auto) 1.3 % N Basophil Auto (test code = Basophil 0.8 % N Auto) Neutro Absolute (test code = Neutro 5.0 x10 2.7-7.3 Absolute) Lymph Absolute (test code = Lymph 1.6 x10 0.8-3.5 Absolute) Cameron Absolute (test code = Cameron 0.5 x10 0.3-0.9 Absolute) Eos Absolute (test code = Eos 0.1 x10 0.0-0.3 Absolute) Baso Absolute (test code = Baso 0.1 x10 0.0-0.1 Absolute) POC [id number] 05:11:33 Test Item Value Reference Range Interpretation Comments Glucose POC (test 128 mg/dL 74-106 H POC Glucos e used on code = Glucose POC) critical ly ill patients is considered " off-label use" and has no t been cleared or appr rosa elena by the FDA. Altern ative testing methods should be considered i f the patient is crit ically ill. POC [id number] 21:57:36 Test Item Value Reference Range Interpretation Comments Glucose POC (test 135 mg/dL 74-106 H POC Glucos e used on code = Glucose POC) critical ly ill patients is considered " off-label use" and has no t been cleared or appr rosa elena by the FDA. Altern ative testing methods should be considered i f the patient is crit ically ill. POC [id number] 20:03:51 Test Item Value Reference Range Interpretation Comments Glucose POC (test 170 mg/dL 74-106 H POC Glucos e used on code = Glucose POC) critical ly ill patients is considered " off-label use" and has no t been cleared or appr rosa elena by the FDA. Altern ative testing methods should be considered i f the patient is crit ically ill. POC [id number] 11:56:43 Test Item Value Reference Range Interpretation Comments Glucose POC (test 167 mg/dL 74-106 H POC Glucos e used on code = Glucose POC) critical ly ill patients is considered " off-label use" and has no t been cleared or appr rosa elena by the FDA. Altern ative testing methods should be considered i f the patient is crit ically ill. POC [id number] 04:13:09 Test Item Value Reference Range Interpretation Comments Glucose POC (test 134 mg/dL 74-106 H POC Glucos e used on code = Glucose POC) critical ly ill patients is considered " off-label use" and has no t been cleared or appr rosa elena by the FDA. Altern ative testing methods should be considered i f the patient is crit ically ill. POC [id number] 20:37:07 Test Item Value Reference Range Interpretation Comments Glucose POC (test 165 mg/dL 74-106 H POC Glucos e used on code = Glucose POC) critical ly ill patients is considered " off-label use" and has no t been cleared or appr rosa elena by the FDA. Altern ative testing methods should be considered i f the patient is crit ically ill. POC [id number] 16:43:17 Test Item Value Reference Range Interpretation Comments Glucose POC (test 153 mg/dL 74-106 H POC Glucos e used on code = Glucose POC) critical ly ill patients is considered " off-label use" and has no t been cleared or appr rosa elena by the FDA. Altern ative testing methods should be considered i f the patient is crit ically ill. POC [id number] 11:49:57 Test Item Value Reference Range Interpretation Comments Glucose POC (test 153 mg/dL 74-106 H POC Glucos e used on code = Glucose POC) critical ly ill patients is considered " off-label use" and has no t been cleared or appr rosa elena by the FDA. Altern ative testing methods should be considered i f the patient is crit ically ill. POC [id number] 04:36:57 Test Item Value Reference Range Interpretation Comments Glucose POC (test 138 mg/dL 74-106 H POC Glucos e used on code = Glucose POC) critical ly ill patients is considered " off-label use" and has no t been cleared or appr rosa elena by the FDA. Altern ative testing methods should be considered i f the patient is crit ically ill. POC [id number] 21:01:31 Test Item Value Reference Range Interpretation Comments Glucose POC (test 192 mg/dL 74-106 H POC Glucos e used on code = Glucose POC) critical ly ill patients is considered " off-label use" and has no t been cleared or appr rosa elena by the FDA. Altern ative testing methods should be considered i f the patient is crit ically ill. POC Troponin [id number] 01:17:37 Test Item Value Reference Range Interpretation [...] EKG, CKMB, clinicalobserva tions, symptons, etc. Troponin [id number] 00:55:06 Test Item Value Reference Range Interpretation Comments Troponin-I (test 0.160 ng/mL 0.010-0.040 CTRB Manfred PENG,RN/ER code = Troponin-I) 08/11/2019 00:54:57 FLOWER GROWER BY JEANNE AlmarazSjuafmrour7542-89-29 20:35:23 Test Item Value Reference Range Interpretation Comments RBC Morph (test code = RBC As Indicated Normal A Morph) Anisocyte (test code = 1+ A Anisocyte) Plt Estimation (test code = Plt Normal Normal Estimation) Creatine Ymukpp3445-08-03 20:35:18 Test Item Value Reference Range Interpretation Comments CK (test code = CK) 44 IntlUnit/L 39-308 Creatine Kinase MB [id number] 20:35:18 Test Item Value Reference Range Interpretation Comments CKMB (test code = CKMB) <1.0 ng/mL 0.5-3.6 CKMB % (test code = CKMB %) <2.3 % 0.0-5.0 Comprehensive Metabolic [id number] 20:35:17 Test Item Value Reference Range Interpretation [...] >60 mL/min/1.73 m2 N AA) Comprehensive Metabolic [id number] 20:35:17 Test Item Value Reference Range Interpretation [...] >60 mL/min/1.73 m2 N AA) Comprehensive Metabolic [id number] 20:35:17 Test Item Value Reference Range Interpretation [...] >60 mL/min/1.73 m2 N eGFR Non-AA) Lipase [id number] 20:34:45 Test Item Value Reference Range Interpretation Comments Lipase Level (test code = 81 IntlUnit/L 73-393 Lipase Level) Complete Blood Count with Wjytphpyqozd2422-11-90 20:11:46 Test Item Value Reference Range Interpretation [...] code = Slide Smear N Review) Automated [id number] 20:11:46 Test Item Value Reference Range Interpretation Comments Neutro Auto (test code = Neutro Auto) 81.6 % N Lymph Auto (test code = Lymph Auto) 13.0 % N Cameron Auto (test code = Cameron Auto) 4.1 % N Eos, Auto (test code = Eos, Auto) 0.9 % N Basophil Auto (test code = Basophil 0.4 % N Auto) Neutro Absolute (test code = Neutro 6.2 x10 2.7-7.3 Absolute) Lymph Absolute (test code = Lymph 1.0 x10 0.8-3.5 Absolute) Cameron Absolute (test code = Cameron 0.3 x10 0.3-0.9 Absolute) Eos Absolute (test code = Eos 0.1 x10 0.0-0.3 Absolute) Baso Absolute (test code = Baso 0.0 x10 0.0-0.1 Absolute) POC Troponin [id number] 20:09:11 Test Item Value Reference Range Interpretation [...] tions, symptons, etc. XR Chest 1 View [id number] 19:51:28Patient: NITO MCKEON Date/Time08/10/2019 19:40 CSTReason for ExamChest painReportXR CHEST 1 VIEW FRONTALDIAGNOSIS: Chest painThe heart and mediastinum are stable. No consolidation or pleural fluid is evident. The right hemidiaphragm remains elevated.IMPRESSION: No active disease and no change since 04/20/2019. Final Dictated by:MD García Michael JackDictated DT/TM: 08/10/2019 7:50 pmSigned by: MD García Michael JackSigned(Electronic Signature): 08/10/2019 7:51 pmPOC [id number] 15:53:03 Test Item Value Reference Range Interpretation Comments Glucose POC (test 144 mg/dL 74-106 H POC Glucos e used on code = Glucose POC) critical ly ill patients is considered " off-label use" and has no t been cleared or appr rosa elena by the FDA. Altern ative testing methods should be considered i f the patient is crit ically ill. POC [id number] 11:06:10 Test Item Value Reference Range Interpretation Comments Glucose POC (test 167 mg/dL 74-106 H POC Glucos e used on code = Glucose POC) critical ly ill patients is considered " off-label use" and has no t been cleared or appr rosa elena by the FDA. Altern ative testing methods should be considered i f the patient is crit ically ill. POC [id number] 05:14:51 Test Item Value Reference Range Interpretation Comments Glucose POC (test 156 mg/dL 74-106 H POC Glucos e used on code = Glucose POC) critical ly ill patients is considered " off-label use" and has no t been cleared or appr rosa elena by the FDA. Altern ative testing methods should be considered i f the patient is crit ically ill. POC [id number] 21:48:46 Test Item Value Reference Range Interpretation Comments Glucose POC (test 203 mg/dL 74-106 H POC Glucos e used on code = Glucose POC) critical ly ill patients is considered " off-label use" and has no t been cleared or appr rosa elena by the FDA. Altern ative testing methods should be considered i f the patient is crit ically ill. POC [id number] 21:48:44 Test Item Value Reference Range Interpretation Comments Glucose POC (test 158 mg/dL 74-106 H POC Glucos e used on code = Glucose POC) critical ly ill patients is considered " off-label use" and has no t been cleared or appr rosa elena by the FDA. Altern ative testing methods should be considered i f the patient is crit ically ill. POC [id number] 21:48:40 Test Item Value Reference Range Interpretation Comments Glucose POC (test 139 mg/dL 74-106 H POC Glucos e used on code = Glucose POC) critical ly ill patients is considered " off-label use" and has no t been cleared or appr rosa elena by the FDA. Altern ative testing methods should be considered i f the patient is crit ically ill. Basic Metabolic [id number] 07:44:09 Test Item Value Reference Range Interpretation [...] Calcium 8.5 mg/dL 8.5-10.1 Level) Basic Metabolic [id number] 07:44:09 Test Item Value Reference Range Interpretation [...] >60 mL/min/1.73 m2 N AA) Basic Metabolic [id number] 07:44:09 Test Item Value Reference Range Interpretation [...] N eGFR Non-AA) Complete Blood Count with Pribghzbpczl9980-10-62 07:03:53 Test Item Value Reference Range Interpretation [...] = Slide Review) GL_SET_SLIDE _REVIEW_A UTO Automated [id number] 07:03:53 Test Item Value Reference Range Interpretation Comments Neutro Auto (test code = Neutro Auto) 70.7 % N Lymph Auto (test code = Lymph Auto) 18.5 % N Cameron Auto (test code = Cameron Auto) 6.7 % N Eos, Auto (test code = Eos, Auto) 3.3 % N Basophil Auto (test code = Basophil 0.8 % N Auto) Neutro Absolute (test code = Neutro 4.5 x10 2.7-7.3 Absolute) Lymph Absolute (test code = Lymph 1.2 x10 0.8-3.5 Absolute) Cameron Absolute (test code = Cameron 0.4 x10 0.3-0.9 Absolute) Eos Absolute (test code = Eos 0.2 x10 0.0-0.3 Absolute) Baso Absolute (test code = Baso 0.0 x10 0.0-0.1 Absolute) POC [id number] 05:46:14 Test Item Value Reference Range Interpretation Comments Glucose POC (test 144 mg/dL 74-106 H POC Glucos e used on code = Glucose POC) critical ly ill patients is considered " off-label use" and has no t been cleared or appr rosa elena by the FDA. Altern ative testing methods should be considered i f the patient is crit ically ill. POC [id number] 22:56:56 Test Item Value Reference Range Interpretation Comments Glucose POC (test 198 mg/dL 74-106 H POC Glucos e used on code = Glucose POC) critical ly ill patients is considered " off-label use" and has no t been cleared or appr rosa elena by the FDA. Altern ative testing methods should be considered i f the patient is crit ically ill. POC [id number] 19:19:36 Test Item Value Reference Range Interpretation Comments Glucose POC (test 145 mg/dL 74-106 H POC Glucos e used on code = Glucose POC) critical ly ill patients is considered " off-label use" and has no t been cleared or appr rosa elena by the FDA. Altern ative testing methods should be considered i f the patient is crit ically ill. POC [id number] 19:19:24 Test Item Value Reference Range Interpretation Comments Glucose POC (test 228 mg/dL 74-106 H POC Glucos e used on code = Glucose POC) critical ly ill patients is considered " off-label use" and has no t been cleared or appr rosa elena by the FDA. Altern ative testing methods should be considered i f the patient is crit ically ill. POC [id number] 19:19:23 Test Item Value Reference Range Interpretation Comments Glucose POC (test 143 mg/dL 74-106 H POC Glucos e used on code = Glucose POC) critical ly ill patients is considered " off-label use" and has no t been cleared or appr rosa elena by the FDA. Altern ative testing methods should be considered i f the patient is crit ically ill. Comprehensive Metabolic [id number] 08:12:19 Test Item Value Reference Range Interpretation [...] = AST) 23 IntlUnit/L 10-34 Comprehensive Metabolic [id number] 08:12:19 Test Item Value Reference Range Interpretation [...] eGFR >60 mL/min/1.73 m2 N AA) Creatine [id number] 08:12:19 Test Item Value Reference Range Interpretation Comments CK (test code = CK) 81 IntlUnit/L 39-308 Comprehensive Metabolic [id number] 08:12:19 Test Item Value Reference Range Interpretation [...] N eGFR Non-AA) Complete Blood Count with Xnftwieffmzu1927-21-83 07:14:37 Test Item Value Reference Range Interpretation [...] = Slide Review) GL_SET_SLIDE _REVIEW_A UTO Automated Jwdlkmouzuwz7301-37-50 07:14:37 Test Item Value Reference Range Interpretation Comments Neutro Auto (test code = Neutro Auto) 71.0 % N Lymph Auto (test code = Lymph Auto) 17.5 % N Cameron Auto (test code = Cameron Auto) 7.8 % N Eos, Auto (test code = Eos, Auto) 3.0 % N Basophil Auto (test code = Basophil 0.7 % N Auto) Neutro Absolute (test code = Neutro 5.9 x10 2.7-7.3 Absolute) Lymph Absolute (test code = Lymph 1.4 x10 0.8-3.5 Absolute) Cameron Absolute (test code = Cameron 0.6 x10 0.3-0.9 Absolute) Eos Absolute (test code = Eos 0.2 x10 0.0-0.3 Absolute) Baso Absolute (test code = Baso 0.1 x10 0.0-0.1 Absolute) Troponin [id number] 22:56:40 Test Item Value Reference Range Interpretation Comments Troponin-I (test 0.302 ng/mL 0.010-0.040 CTRB KARLY LEY,RN/ER code = Troponin-I) 04/20/2019 22:56:35 CDT BY JEANNE POC Troponin [id number] 15:54:28 Test Item Value Reference Range Interpretation [...] CKMB, clinicalobserva tions, symptons, etc. CT Angio Kkqsqidaq4136-68-57 13:24:30Patient: NITO MCKEON Date/Time04/20/2019 12:40 CDTReason for [...] DT/TM: 04/20/2019 1:09 pmSignedby: MD Josse, Simone Bowen (Electronic Signature): 04/20/2019 1:24 pmPOC Glucose 2019-04-20 [...] f the patient is crit ically ill. Hxltldljjz5583-96-30 12:01:44 Test Item Value Reference Range Interpretation Comments RBC Morph (test code = RBC As Indicated Normal A Morph) Anisocyte (test code = 1+ A Anisocyte) Plt Estimation (test code = Plt Normal Normal Estimation) Complete Blood Count with Rifchwfhddcm2913-00-05 11:57:15 Test Item Value Reference Range Interpretation [...] code = Slide Smear N Review) Automated Yerfzbtjepfz2903-32-63 11:57:15 Test Item Value Reference Range Interpretation Comments Neutro Auto (test code = Neutro Auto) 80.5 % N Lymph Auto (test code = Lymph Auto) 12.9 % N Cameron Auto (test code = Cameron Auto) 4.1 % N Eos, Auto (test code = Eos, Auto) 1.8 % N Basophil Auto (test code = Basophil 0.7 % N Auto) Neutro Absolute (test code = Neutro 8.0 x10 2.7-7.3 H Absolute) Lymph Absolute (test code = Lymph 1.3 x10 0.8-3.5 Absolute) Cameron Absolute (test code = Cameron 0.4 x10 0.3-0.9 Absolute) Eos Absolute (test code = Eos 0.2 x10 0.0-0.3 Absolute) Baso Absolute (test code = Baso 0.1 x10 0.0-0.1 Absolute) Pro B Natriuretic [id number] 10:14:38 Test Item Value Reference Range Interpretation Comments NT-proBNP (test 167 pg/mL 0-125 H < 300 pg/ml - heart code = NT-proBNP) failure un likelyAge less than 50 years, > 450 pg/ml - heart f ailure lilkelyAge 50 - 75 years, > 900 pg/ml - h eart failure likelyA ge greater than 75 years, > 1800 pg/ml - heart f ailure likely Creatine [id number] 10:14:13 Test Item Value Reference Range Interpretation Comments CK (test code = CK) 81 IntlUnit/L 39-308 Creatine Kinase MB [id number] 10:14:13 Test Item Value Reference Range Interpretation Comments CKMB (test code = CKMB) <1.0 ng/mL 0.5-3.6 CKMB % (test code = CKMB %) <1.2 % 0.0-5.0 Comprehensive Metabolic [id number] 10:10:18 Test Item Value Reference Range Interpretation [...] AST (test code = AST) 24 IntlUnit/L Comprehensive Metabolic [id number] 10:10:18 Test Item Value Reference Range Interpretation [...] mL/min/1.73 N eGFR AA) m2 Comprehensive Metabolic [id number] 10:10:18 Test Item Value Reference Range Interpretation [...] code = eGFR Non-AA) m2 POC Troponin [id number] 09:53:00 Test Item Value Reference Range Interpretation [...] clinicalobserva tions, symptons, etc. Prothrombin Time and [id number] 09:52:09 Test Item Value Reference Range Interpretation Comments Prothrombin Time (test code = 10.6 seconds 9.2-12.0 Prothrombin Time) INR (test code = INR) 1.0 ratio 0.9-1.2 Partial Thromboplastin Ijfs1020-40-09 09:52:09 Test Item Value Reference Range Interpretation Comments Partial Thromboplastin 22.0 seconds 24.0-35.0 L APTT Heparin Time (test code = Therapeuti c Range: Partial Thromboplastin 47.9- 80.4 seconds Time) D-Dimer Tjxfaggvouab7510-32-95 09:52:09 Test Item Value Reference Range Interpretation [...] DVT or PEunlikely. XR Chest 1 View Oqmsvwy3751-90-38 08:59:22Patient: NITO MCKEON Date/Time04/20/2019 08:53 CDTReason for [...] JulioSigned (Electronic Signature): 04/20/2019 8:59 amHemoglobin A1c [id number] 10:10:56 7.0 Prediabetes: 5.7 - 6.4 Diabetes: >6.4 Glycemic control for adults with diabetes: <7.0Performed At: [facility] [id number] MD Ph:[phone] Glucose 2019-03-12 13:46:07 Test Item Value Reference [...] the patient is crit ically ill. Lipid [id number] 07:04:11 Test Item Value Reference Range Interpretation Comments Cholesterol Total (test code = 135 mg/dL 0-200 Cholesterol Total) Triglycerides (test code = 129 mg/dL 2-150 Triglycerides) HDL (test code = HDL) 40 mg/dL 45-65 L Chol/HDL (test code = Chol/HDL) 3 ratio 0-5 Lipid Ypfmg2059-76-08 07:04:11 Test Item Value Reference Range Interpretation [...] code = 3 ratio 0-5 Chol/HDL) POC [id number] 05:56:59 Test Item Value Reference Range Interpretation Comments Glucose POC (test 140 mg/dL 74-106 H POC Glucos e used on code = Glucose POC) critical ly ill patients is considered " off-label use" and has no t been cleared or appr rosa elena by the FDA. Altern ative testing methods should be considered i f the patient is crit ically ill. POC Dghazhn1608-72-07 20:55:24 Test Item Value Reference Range Interpretation Comments Glucose POC (test 132 mg/dL 74-106 H POC Glucos e used on code = Glucose POC) critical ly ill patients is considered " off-label use" and has no t been cleared or appr rosa elena by the FDA. Altern ative testing methods should be considered i f the patient is crit ically ill. POC Ciqqbov6503-08-95 16:08:50 Test Item Value Reference Range Interpretation Comments Glucose POC (test 168 mg/dL 74-106 H POC Glucos e used on code = Glucose POC) critical ly ill patients is considered " off-label use" and has no t been cleared or appr rosa elena by the FDA. Altern ative testing methods should be considered i f the patient is crit ically ill. POC [id number] 10:29:45 Test Item Value Reference Range Interpretation Comments Glucose POC (test 141 mg/dL 74-106 H POC Glucos e used on code = Glucose POC) critical ly ill patients is considered " off-label use" and has no t been cleared or appr rosa elena by the FDA. Altern ative testing methods should be considered i f the patient is crit ically ill. Urine Kprotky7860-29-14 09:19:47 Test Item Value Reference Range Interpretation [...] stuartii C Urine Added by GL_SET_CULT_RFLXComprehensive Metabolic Nqgop0545-97-24 07:17:12 Test Item Value Reference Range Interpretation [...] = AST) 10 IntlUnit/L 10-34 Comprehensive Metabolic [id number] 07:17:12 Test Item Value Reference Range Interpretation [...] >60 mL/min/1.73 m2 N AA) Comprehensive Metabolic Feqyu1243-40-15 07:17:12 Test Item Value Reference Range Interpretation [...] N eGFR Non-AA) Complete Blood Count with Mphrvpgebrcx9839-90-31 06:44:43 Test Item Value Reference Range Interpretation [...] = Slide Review) GL_SET_SLIDE _REVIEW_A UTO Automated Rbvrtqjanthw8000-38-80 06:44:43 Test Item Value Reference Range Interpretation Comments Neutro Auto (test code = Neutro Auto) 73.3 % N Lymph Auto (test code = Lymph Auto) 15.9 % N Cameron Auto (test code = Cameron Auto) 8.1 % N Eos, Auto (test code = Eos, Auto) 2.1 % N Basophil Auto (test code = Basophil 0.6 % N Auto) Neutro Absolute (test code = Neutro 5.1 x10 2.7-7.3 Absolute) Lymph Absolute (test code = Lymph 1.1 x10 0.8-3.5 Absolute) Cameron Absolute (test code = Cameron 0.6 x10 0.3-0.9 Absolute) Eos Absolute (test code = Eos 0.1 x10 0.0-0.3 Absolute) Baso Absolute (test code = Baso 0.0 x10 0.0-0.1 Absolute) POC Kimgzms8535-06-38 05:49:49 Test Item Value Reference Range Interpretation Comments Glucose POC (test 129 mg/dL 74-106 H POC Glucos e used on code = Glucose POC) critical ly ill patients is considered " off-label use" and has no t been cleared or appr rosa elena by the FDA. Altern ative testing methods should be considered i f the patient is crit ically ill. Troponin [id number] 16:59:39 Test Item Value Reference Range Interpretation Comments Troponin-I (test 0.467 ng/mL 0.010-0.040 DENILSONB/ERIN KILGORE code = Troponin-I) RN/ 019 16:59:35 CDT/ST CT Angio [id number] 15:03:22Patient: NITO MCKEON Date/Time03/10/2019 14:46 CDTReason for [...] EKG, CKMB, clinicalobserva tions, symptons, etc. Lipase Fmcdr0010-12-53 11:47:20 Test Item Value Reference Range Interpretation Comments Lipase Level (test code = 95 IntlUnit/L 73-393 Lipase Level) Comprehensive Metabolic Rafrk1924-15-99 11:46:17 Test Item Value Reference Range Interpretation [...] code = AST) 12 IntlUnit/L 10-34 Creatine Qjerne1394-09-43 11:46:17 Test Item Value Reference Range Interpretation Comments CK (test code = CK) 34 IntlUnit/L 39-308 L Comprehensive Metabolic Ovdpg2211-10-08 11:46:17 Test Item Value Reference Range Interpretation [...] mL/min/1.73 m2 N AA) Creatine Kinase MB saeesbqb9953-09-45 11:46:17 Test Item Value Reference Range Interpretation Comments CKMB (test code = CKMB) <1.0 ng/mL 0.5-3.6 CKMB % (test code = CKMB %) <2.9 % 0.0-5.0 Comprehensive Metabolic [id number] 11:46:17 Test Item Value Reference Range Interpretation [...] m2 N eGFR Non-AA) Pro B Natriuretic [id number] 11:43:17 Test Item Value Reference Range Interpretation Comments NT-proBNP (test 309 pg/mL 0-125 H < 300 pg/ml - heart code = NT-proBNP) failure un likelyAge less than 50 years, > 450 pg/ml - heart f ailure lilkelyAge 50 - 75 years, > 900 pg/ml - h eart failure likelyA ge greater than 75 years, > 1800 pg/ml - heart f ailure likely D-Dimer [id number] 11:26:15 Test Item Value Reference Range Interpretation [...] DVT or PEunlikely. Complete Blood Count with Ccizpvgwhnog2372-09-49 11:20:22 Test Item Value Reference Range Interpretation [...] = Slide Review) GL_SET_SLIDE _REVIEW_A UTO Automated Ykjruzljrzsn1877-74-42 11:20:22 Test Item Value Reference Range Interpretation Comments Neutro Auto (test code = Neutro Auto) 84.0 % N Lymph Auto (test code = Lymph Auto) 9.2 % N Cameron Auto (test code = Cameron Auto) 5.3 % N Eos, Auto (test code = Eos, Auto) 1.0 % N Basophil Auto (test code = Basophil 0.5 % N Auto) Neutro Absolute (test code = Neutro 7.5 x10 2.7-7.3 H Absolute) Lymph Absolute (test code = Lymph 0.8 x10 0.8-3.5 Absolute) Cameron Absolute (test code = Cameron 0.5 x10 0.3-0.9 Absolute) Eos Absolute (test code = Eos 0.1 x10 0.0-0.3 Absolute) Baso Absolute (test code = Baso 0.0 x10 0.0-0.1 Absolute) Urinalysis Kxvppzxjlds0720-12-54 11:18:53 Test Item Value Reference Range Interpretation [...] /LPF 1-6 Cast) Urinalysis with Culture, if kimdaoswd9707-23-50 11:18:52 Test Item Value Reference Range Interpretation [...] Micro Ind?) rule GL_SET_UA_MICRO _IND POC Troponin [id number] 10:53:21 Test Item Value Reference Range Interpretation [...] tions, symptons, etc. XR Chest 1 View Lyjzeei9824-91-87 10:02:21Patient: NITO MCKEON Date/Time03/10/2019 09:51 CDTReason for [...] (Electronic Signature): 03/10/201910:02 amWound Culture w/ Gram [id number] 19:48:51 Test Item Value Reference Range Interpretation Comments Final Report (test See culture # code = Final Report) [id number] Gram Stain Report Many Gram Negative (test code = Gram Bacilli Many Gram Stain Report) Positive Cocci POC [id number] 11:05:31 Test Item Value Reference Range Interpretation Comments Glucose POC (test 248 mg/dL 74-106 H POC Glucos e used on code = Glucose POC) critical ly ill patients is considered " off-label use" and has no t been cleared or appr rosa elena by the FDA. Altern ative testing methods should be considered i f the patient is crit ically ill. POC Fxlyunc8588-24-99 05:48:38 Test Item Value Reference Range Interpretation Comments Glucose POC (test 195 mg/dL 74-106 H POC Glucos e used on code = Glucose POC) critical ly ill patients is considered " off-label use" and has no t been cleared or appr rosa elena by the FDA. Altern ative testing methods should be considered i f the patient is crit ically ill. POC [id number] 21:28:20 Test Item Value Reference Range Interpretation Comments Glucose POC (test 230 mg/dL 74-106 H POC Glucos e used on code = Glucose POC) critical ly ill patients is considered " off-label use" and has no t been cleared or appr rosa elena by the FDA. Altern ative testing methods should be considered i f the patient is crit ically ill. Clostridium difficile [id number] 18:18:24 Test Item Value Reference Range Interpretation Comments CDIFF PCR (test NEGATIVE Negative Error 5006 P ost-run code = CDIFF PCR) analysis e rror Error 5006: [Toxin B] probe check failed. Probe c heck value of 470 for read ing number 1 was above the m aximum of 282 [id number] 5006 Post-run a nalysis error Error 500 6: [Toxin B] probe check joel led. Probe check value of 503 for reading number 3 was above the maximum of 282 [id number] POC [id number] 17:00:07 Test Item Value Reference Range Interpretation [...] crit ically ill. Wound Culture w/ Gram Lxpzh7201-07-75 13:52:35 Test Item Value Reference Range Interpretation [...] Cocci Many Gram Report) Negative Bacilli POC [id number] 12:56:36 Test Item Value Reference Range Interpretation Comments Glucose POC (test 196 mg/dL 74-106 H POC Glucos e used on code = Glucose POC) critical ly ill patients is considered " off-label use" and has no t been cleared or appr rosa elena by the FDA. Altern ative testing methods should be considered i f the patient is crit ically ill. POC Xhgqguo6178-18-13 09:05:17 Test Item Value Reference Range Interpretation Comments Glucose POC (test 258 mg/dL 74-106 H POC Glucos e used on code = Glucose POC) critical ly ill patients is considered " off-label use" and has no t been cleared or appr rosa elena by the FDA. Altern ative testing methods should be considered i f the patient is crit ically ill. Vancomycin Level Igsafs2193-32-13 07:12:17 Test Item Value Reference Range Interpretation Comments Vanco Tr (test code = Vanco Tr) 8.1 mcg/mL 10.0-20.0 L POC Zjdokug3644-40-06 00:54:01 Test Item Value Reference Range Interpretation [...] crit ically ill. Wound Culture w/ Gram Mpfjf9418-27-31 04:35:47 Test Item Value Reference Range Interpretation [...] Cocci Report) RT CALFWound Culture w/ Gram [id number] 04:33:46 Test Item Value Reference Range Interpretation [...] Staphylococcus simulans Heavy growth Proteus mirabilis POC Qxgases7774-77-34 21:25:36 Test Item Value Reference Range Interpretation [...] crit ically ill. Wound Culture w/ Gram Sqkwb1971-73-44 23:57:56See culture # [id number] Urinalysis with Culture, if ekagfvwjh5160-58-58 17:21:15 Test Item Value Reference Range Interpretation [...] Ind?) rule GL_SET_UA_MICRO _IN D Comprehensive Metabolic Fmtxg9988-34-31 11:25:10 Test Item Value Reference Range Interpretation [...] = AST) 16 IntlUnit/L 10-34 Comprehensive Metabolic Xdymn0920-99-05 11:25:10 Test Item Value Reference Range Interpretation [...] >60 mL/min/1.73 m2 N AA) Comprehensive Metabolic Txsey3966-43-30 11:25:10 Test Item Value Reference Range Interpretation [...] N eGFR Non-AA) Complete Blood Count with Koedkimfzajh7938-52-91 11:02:24 Test Item Value Reference Range Interpretation [...] (test code = Slide Auto Review) Automated Xasbcrzesexn4803-43-72 11:02:24 Test Item Value Reference Range Interpretation Comments Neutro Auto (test code = Neutro Auto) 71.7 % N Lymph Auto (test code = Lymph Auto) 16.8 % N Cameron Auto (test code = Cameron Auto) 10.2 % N Eos, Auto (test code = Eos, Auto) 0.7 % N Basophil Auto (test code = Basophil 0.6 % N Auto) Neutro Absolute (test code = Neutro 4.1 x10 2.7-7.3 Absolute) Lymph Absolute (test code = Lymph 1.0 x10 0.8-3.5 Absolute) Cameron Absolute (test code = Cameron 0.6 x10 0.3-0.9 Absolute) Eos Absolute (test code = Eos 0.0 x10 0.0-0.3 Absolute) Baso Absolute (test code = Baso 0.0 x10 0.0-0.1 Absolute) XR Chest 1 View Hgxvqds2038-43-47 10:52:34Patient: NITO MCKEON Date/Time01/17/2019 10:42 CDTReason for [...] (Electronic Signature): 01/17/2019 10:52 amXR CHEST 1 [id number] 05:45:24XR CHEST 1 VIEWDIAGNOSIS: Cough and shortness of breathThe heart and mediastinum are stable. A possible left lower lobe opacityhas developed since 03/28/2013. This could represent atelectasis and/orpneumonia. The remainder the chest is clear.IMPRESSION: Possible left lower lobe opacity developing since 03/28/2013.CT SPINE, LUMBAR WO QEYJKMDG6853-06-04 07:21:51History: Fall 2 days ago with right [...] mA according to patient's size.XR HIP 2+V, UNI.HGYQVQIU-YJMXD1531-54-09 05:18:48 XR HIP 2+V, UNI.COMPLETE-RIGHTDIAGNOSIS: Right hip injury in a fallSevere osteoarthritis is present.No fracture or dislocation is seen.Vascular calcifications are evident.IMPRESSION: Osteoarthritis right hip.The radiographic findings were faxed to the ER at [address] Glaser.XR PELVIS 1-2 [id number] 05:17:44XR PELVIS 1-2 VIEWSDIAGNOSIS: Pelvic injury in a fallNo pelvic fracture is seen. Osteoarthritis is noted in each hip and thelumbar spine. Extensive vascular calcifications are evident.IMPRESSION: Osteoarthritis bilateral hips.CT SPINE, CERVICAL WO [id number] 19:48:14Information: Fall 2 days ago with neck [...] to patient's size.CT HEAD OR BRAIN WO [id number] 19:46:10Information: Fall 2 days ago with complaints [...]
--- NOTE | 2021-03-25 14:21 | RAD REPORT ---
EXAM DESCRIPTION: RAD - Chest Single View - 03/25/2021 1:54 pm CLINICAL HISTORY: COVID +;Cough COMPARISON: March 19 TECHNIQUE: AP portable chest image was obtained 03/25/2021 1:54 pm . FINDINGS: Lung volumes are very low. Patient's right hemidiaphragm elevation is again noted. Infiltr ate changes in the lower left lung field seen on the prior study have improved. No progressive left h emithorax finding. Upper right lung field not clearly different from comparison. Right base and retro diaphragmatic lung base difficult to compare. Trachea is midline. Heart and vasculature are normal. No measurable pleural effusion and no pneumothorax. No acute bony abnormality seen. No acute aortic f indings suspected. IMPRESSION: Lower left lung field pneumonia changes seen March 19 have mostly cleared. No new or progressive lung field finding. Right base assessment is limited due to shallow inspiration and right hemidiaphragm elevation.
[2021-03-25 15:07] LABS: Absolute Lymphocytes (CBC) 0.5 K/uL (0.7-4.9); Basophils % 0.1 % (0-1.3); Hematocrit 46.5 % (39.6-49.0); Lymphocytes % 2.4 % (15.3-44.8); MPV 8.3 fL (7.6-11.3); RBC Red Blood Cell Count 4.52 M/uL (4.33-5.43)
[2021-03-25 15:29] LABS: BUN Blood Urea Nitrogen 41 mg/dL (7-18); Bicarbonate 40 mmol/L (21-32); Ferritin 324.4 ng/mL (26-388); Glucose Level 339 mg/dL (74-106); Potassium 3.8 mmol/L (3.5-5.1); Sodium Level 146 mmol/L (136-145)
--- NOTE | 2021-03-25 17:17 | RAD REPORT ---
EXAM DESCRIPTION: CT - Chest For Pe Angio - 03/25/2021 4:59 pm CLINICAL HISTORY: COVID, hypoxemia COMPARISON: Chest Single View dated 03/25/2021 TECHNIQUE: Dynamically enhanced 3 mm thick images of the chest were obtained during administration o f approximately 150mL Isovue 370 IV contrast. Coronal and oblique MIP reconstruction images were gene rated and reviewed. Exam utilizes a protocol to evaluate the pulmonary arterial tree. All CT scans are performed using dose optimization technique as appropriate and may include automated exposure control or mA/KV adjustment according to patient size. FINDINGS: No pulmonary emboli are identified. The aorta as imaged shows no acute or suspicious finding. No pericardial thickening or effusion. Left lung field shows very minimal patchy ground-glass opacities scattered in both lobes. There is a more dense consolidation involving the majority the right lower lobe. Patchy right middle lobe opacif ication is present with minimal opacification inferior aspect of the right lower lobe. There is near complete occlusion of the right mainstem bronchus with the upper middle and lower lobe bronchi occlud ed or mostly occluded. No cavitation or mass lesion. No pleural effusion or pleural thickening. No mediastinal or hilar suspicious masses. No chest wall masses or abnormal axillary lymphadenopathy. IMPRESSION: No pulmonary emboli identified. Near complete consolidation of the right lower lobe with areas of right middle and right upper lobe c onsolidation. Patchy airspace opacification present in the left lung field. Given the provided history COVID-19 pneumonia would be the primary consideration. This is a less typi kimi presentation. Infectious/ inflammatory debris fills and occludes or mostly occludes the right mainstem bronchus and all 3 lobar bronchi.
--- NOTE | 2021-03-25 18:17 | EDPHYS ---
Physician Documentation [facility] Name: Hany Marcano Age: 75 yrs Sex: Male : 1945 Arrival Date: 03/25/2021 Time: 13:25 Bed 10 Private MD: ED Physician Arias Caldwell HPI: 03/25 13:32 This 75 yrs old Male presents to ER via Unassigned with complaints of Low O2, rn cough. 13:32 The patient or guardian reports cough, that is intermittent, described as mild, with no rn sputum. Onset: The symptoms/episode began/occurred at an unknown time. Severity of symptoms: At their worst the symptoms were moderate, in the emergency department the symptoms have improved. Modifying factors: The symptoms are alleviated by nothing, the symptoms are aggravated by nothing. Associated signs and symptoms: Pertinent negatives: chest pain, fever. The patient has experienced a previous episode. The patient has been recently been admitted at [facility]. Patient sent back from longterm for low oxygen. Patient recently admitted for Covid pneumonia and sent home on oxygen but longterm states lower than it was. EMS states that there oxygen on the current oxygen patient was at was actually up to 94% at times. Patient seems to have a wet cough that when coughs and clears oxygen saturation improves. No other intervention by EMS. Patient appears better than when I admitted him to the hospital last week.. Historical: - Allergies: 13:45 No Known Allergies; kg - Home Meds: 13:45 allopurinol 100 mg Oral tab 1 tab once daily [Active]; amlodipine 10 mg tab 1 tab once kg daily [Active]; aspirin 81 mg Oral TbEC 1 tab once daily [Active]; calcium with Vitamin D [Active]; cyanocobalamin (vitamin B-12) 1,000 mcg/mL injection soln 1 mL Q 2 WEEKS [Active]; Humalog Sub-Q Sliding scale ac and hs [Active]; isosorbide mononitrate 120 mg Oral Tb24 1 tab once daily [Active]; Lantus 100 unit/mL Sub-Q soln 24 unit nightly [Active]; Lasix 40 mg Oral tab 1 tab once daily [Active]; lisinopril 40 mg Oral tab 1 tab nightly [Active]; lovastatin 40 mg Oral tab 1 tab nightly [Active]; magnesium oxide 400 mg Oral cap twice a day [Active]; metformin 1,000 mg Oral TG24 1 tab 2 times per day [Active]; metoprolol tartrate 25 mg Oral tab 1 tab 2 times per day [Active]; nitroglycerin 0.4 mg SL subl 1 tab every 5 minutes [Active]; MVI daily [Active]; omeprazole 40 mg Oral cpDR 1 cap once daily [Active]; pioglitazone 30 mg Oral tab 1 tab once daily [Active]; Plavix 75 mg Oral tab 1 tab once daily [Active]; Silvadene 1 % Topical crea once daily [Active]; trazodone 50 mg Oral tab 1 tab nightly [Active]; Vitamin D Oral 44218 unit WEEKLY [Active]; - PMHx: 13:45 Allergic rhinitis; Angina; CAD; chest pain; CHF; Dementia; Depression; Diabetes - IDDM; kg GERD; Gout; Hyperlipidemia; insomnia; ME; - Immunization history:: Adult Immunizations up to date, Unknown. - Social history:: Smoking status: unknown. - Family history:: not pertinent. - Hospitalizations: : The patient was recently seen at [facility]. ROS: 13:32 Constitutional: Negative for fever, chills, and weight loss, Eyes: Negative for injury, rn pain, redness, and discharge, ENT: Negative for injury, pain, and discharge, Neck: Negative for injury, pain, and swelling, Cardiovascular: Negative for chest pain, palpitations, and edema, Respiratory: Positive for cough Abdomen/GI: Negative for abdominal pain, nausea, vomiting, diarrhea, and constipation, Back: Negative for injury and pain, : Negative for injury, bleeding, discharge, and swelling, MS/Extremity: Negative for injury and deformity, Skin: Negative for injury, rash, and discoloration, Neuro: Negative for headache, numbness, tingling, and seizure. Exam: 13:32 Constitutional: Obese male, no acute distress, with upper airway sounds that clear rn with coughing. Head/Face: Normocephalic, atraumatic. Eyes: Periorbital areas with no swelling, redness, or edema. ENT: No stridor Cardiovascular: Regular rate and rhythm. No pulse deficits. Respiratory: Mild tachypnea, diminished at bases Abdomen/GI: Soft, non-tender Skin: Warm, dry MS/ Extremity: Pulses equal, no cyanosis. Neurovascular intact. Full, normal range of motion. Equal circumference. Neuro: Awake and alert, GCS 15 17:15 ECG was reviewed by the Attending Physician. rn Vital Signs: 13:44 BP 144 / 60; Temp 98.3(A); Weight 145.15 kg (R); Height 6 ft. 5 in. (195.58 cm) (R); kg 14:30 BP 105 / 55; Pulse 88; Resp 21; Pulse Ox 93% on 4 lpm NC; kg 15:30 BP 115 / 57; Pulse 92; Resp 20; Pulse Ox 96% on 4 lpm NC; kg 16:30 BP 136 / 62; Pulse 71; Resp 22; Pulse Ox 93% on 4 lpm NC; kg 17:30 BP 139 / 66; Pulse 91; Resp 22; Pulse Ox 92% on 4 lpm NC; kg 18:30 BP 138 / 72; Pulse 87; Resp 22; Pulse Ox 92% on 4 lpm NC; kg 13:44 Body Mass Index 37.95 (145.15 kg, 195.58 cm) kg MDM: 13:26 Patient medically screened. rn 16:05 Differential Diagnosis: Bronchitis Upper Respiratory Infection Viral Syndrome Pneumonia rn Other Covid, Covid pneumonia. 16:06 Data reviewed: vital signs, nurses notes, old medical records, lab test result(s), EKG, rn radiologic studies, plain films, and as a result, I will discharge patient. 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 Interpretation: acceptable. Test interpretation: by ED physician or midlevel provider: ECG, plain radiologic studies, Chest x-ray shows improvement of Covid pneumonia. Counseling: I had a detailed discussion with the patient and/or guardian regarding: the historical points, exam findings, and any diagnostic results supporting the discharge/admit diagnosis, lab results, radiology results, the need for outpatient follow up, to return to the emergency department if symptoms worsen or persist or if there are any questions or concerns that arise at home. Response to treatment: the patient's symptoms have mildly improved after treatment, and as a result, I will discharge patient. Special discussion: I discussed with the patient/guardian in detail that at this point there is no indication for admission to the hospital. It is understood, however, that if the symptoms persist or worsen the patient needs to return immediately for re-evaluation. ED course: Patient's x-ray actually shows improvement of Covid pneumonia, was discharged home on oxygen and currently on 4 L is 96%, no indication for readmission as patient was just discharged. Will DC back to longterm.. 17:40 ED course: Attempting transfer to [facility] given patient's Covid status. Chest x-ray rn showed clearing of Covid pneumonia and improvement but did not explain patient's increased oxygen requirement. CT chest ordered to rule out PE, was negative for PE but shows large amount of debris occluding right mainstem bronchus as well as lobar bronchi. Per Dr. Davila, [facility] reserving beds for Covid patients with low oxygen requirements.. 18:15 ED course: Accepted for transfer to [facility]. rn 03/25 13:31 Order name: Ferritin; Complete Time: 16:05 rn 03/25 13:31 Order name: CBC with Diff rn 03/25 13:31 Order name: XRAY Chest (1 view); Complete Time: 14:30 rn 03/25 13:31 Order name: Basic Metabolic Panel; Complete Time: 16:05 rn 03/25 13:31 Order name: CRP; Complete Time: 16:05 rn 03/25 16:08 Order name: CT Chest For PE Angio; Complete Time: 17:21 rn 03/25 13:31 Order name: IV Start; Complete Time: 15:11 rn 03/25 13:31 Order name: Oxygen Per Protocol; Complete Time: 13:48 rn 03/25 13:31 Order name: O2 Sat Monitoring; Complete Time: 13:48 rn 03/25 13:32 Order name: EKG; Complete Time: 13:32 rn 03/25 13:32 Order name: EKG - Nurse/Tech; Complete Time: 14:09 rn EC:15 Rate is 96 beats/min. Rhythm is irregularly irregular. QRS [place] is Normal. QRS interval rn is prolonged at 142 msec. QT interval is normal. No Q waves. T waves are Normal. No ST changes noted. Clinical impression: Atrial Fibrillation. Interpreted by me. Reviewed by me. Administered Medications: 16:45 Drug: NS 0.9% 500 ml Route: IV; Rate: bolus; Site: right wrist; kg 17:50 Follow up: Response: No adverse reaction; IV Status: Completed infusion; IV Intake: kg 500ml Disposition Summary: 03/25/21 18:16 Transfer Ordered Transfer Location: [facility] rn Reason: Higher level of care rn Condition: Stable rn Problem: new rn Symptoms: are unchanged rn Accepting Physician: Dr. Garvey(03/25/21 19:52) cyndi Diagnosis - Pneumonia due to SARS-associated coronavirus rn - Hypoxemia rn - Dyspnea, unspecified rn Forms: - Medication Reconciliation Form rn - SBAR form rn Signatures: Dispatcher [employer] Billie Barnett RN RN bb Arias Caldwell MD MD rn Graham, Kristen, RN RN kg Corrections: (The following items were deleted from the chart) 18:30 18:16 Dr. Coe rn rn 19:52 18:30 Dr. Garvey rn bb
--- NOTE | 2021-03-25 18:17 | ER ---
Nurse's Notes [facility] [place] Name: Hany Marcano Age: 75 yrs Sex: Male : 1945 Arrival Date: 03/25/2021 Time: 13:25 Bed 10 Private MD: Diagnosis: Pneumonia due to SARS-associated coronavirus;Hypoxemia;Dyspnea, unspecified Presentation: 03/25 13:37 Chief complaint: EMS states: Was called out for 02 being bellow 90% but since being kg with him his 02 has been 96%-97% on 4L. Coronavirus screen: Client denies travel out of the [place] in the last 14 days. At this time, unable to obtain information related to travel outside the [place] Client presents with at least one sign or symptom that may indicate coronavirus-19. Standard/surgical mask placed on the client. Provider contacted for isolation considerations. Client reports previous positive COVID test result. Ebola Screen: Patient negative for fever greater than or equal to 101.5 degrees Fahrenheit, and additional compatible Ebola Virus Disease symptoms Patient denies exposure to infectious person. Patient denies travel to an Ebola-affected area in the 21 days before illness onset. 13:37 Method Of Arrival: EMS: [facility] kg 13:37 Acuity: BREANNA 3 ss Triage Assessment: 13:45 General: Appears in no apparent distress. Behavior is calm, cooperative, quiet. Pain: kg Denies pain. Historical: - Allergies: 13:45 No Known Allergies; kg - Home Meds: 13:45 allopurinol 100 mg Oral tab 1 tab once daily [Active]; amlodipine 10 mg tab 1 tab once kg daily [Active]; aspirin 81 mg Oral TbEC 1 tab once daily [Active]; calcium with Vitamin D [Active]; cyanocobalamin (vitamin B-12) 1,000 mcg/mL injection soln 1 mL Q 2 WEEKS [Active]; Humalog Sub-Q Sliding scale ac and hs [Active]; isosorbide mononitrate 120 mg Oral Tb24 1 tab once daily [Active]; Lantus 100 unit/mL Sub-Q soln 24 unit nightly [Active]; Lasix 40 mg Oral tab 1 tab once daily [Active]; lisinopril 40 mg Oral tab 1 tab nightly [Active]; lovastatin 40 mg Oral tab 1 tab nightly [Active]; magnesium oxide 400 mg Oral cap twice a day [Active]; metformin 1,000 mg Oral TG24 1 tab 2 times per day [Active]; metoprolol tartrate 25 mg Oral tab 1 tab 2 times per day [Active]; nitroglycerin 0.4 mg SL subl 1 tab every 5 minutes [Active]; MVI daily [Active]; omeprazole 40 mg Oral cpDR 1 cap once daily [Active]; pioglitazone 30 mg Oral tab 1 tab once daily [Active]; Plavix 75 mg Oral tab 1 tab once daily [Active]; Silvadene 1 % Topical crea once daily [Active]; trazodone 50 mg Oral tab 1 tab nightly [Active]; Vitamin D Oral 04558 unit WEEKLY [Active]; - PMHx: 13:45 Allergic rhinitis; Angina; CAD; chest pain; CHF; Dementia; Depression; Diabetes - IDDM; kg GERD; Gout; Hyperlipidemia; insomnia; PA; - Immunization history:: Adult Immunizations up to date, Unknown. - Social history:: Smoking status: unknown. - Family history:: not pertinent. - Hospitalizations: : The patient was recently seen at [facility]. Screenin:34 Abuse screen: Denies threats or abuse. Denies injuries from another. Nutritional kg screening: No deficits noted. Tuberculosis screening: No symptoms or risk factors identified. Fall Risk None identified. Assessment: 14:00 General: Appears in no apparent distress. Behavior is calm, cooperative, quiet. Pain: kg Denies pain. Neuro: Level of Consciousness is awake, alert, obeys commands, confused, Oriented to person. Cardiovascular: Heart tones Rhythm is atrial fibrillation. Respiratory: Airway is patent Trachea midline Respiratory effort is even, labored, shallow, Respiratory pattern is regular, tachypnea Ventilator assessment: Breath sounds with crackles bilaterally. Breath sounds are diminished Breath sounds with rales Breath sounds with rhonchi bilaterally. GI: No deficits noted. : Castelan catheter present from facility. Vital Signs: 13:44 BP 144 / 60; Temp 98.3(A); Weight 145.15 kg (R); Height 6 ft. 5 in. (195.58 cm) (R); kg 14:30 BP 105 / 55; Pulse 88; Resp 21; Pulse Ox 93% on 4 lpm NC; kg 15:30 BP 115 / 57; Pulse 92; Resp 20; Pulse Ox 96% on 4 lpm NC; kg 16:30 BP 136 / 62; Pulse 71; Resp 22; Pulse Ox 93% on 4 lpm NC; kg 17:30 BP 139 / 66; Pulse 91; Resp 22; Pulse Ox 92% on 4 lpm NC; kg 18:30 BP 138 / 72; Pulse 87; Resp 22; Pulse Ox 92% on 4 lpm NC; kg 13:44 Body Mass Index 37.95 (145.15 kg, 195.58 cm) kg ED Course: 13:25 Patient arrived in ED. ss 13:26 Arias Caldwell MD is Attending Physician. rn 13:30 Inserted saline lock: 22 gauge in right wrist, using aseptic technique. ,using aseptic kg technique. By Severino GAMBLE Blood collected. 13:36 Carrie Mora, TYE is Primary Nurse. kg 13:44 Arm band placed on right wrist. kg 13:48 XRAY Chest (1 view) Sent. kg 13:54 XRAY Chest (1 view) In Process Unspecified. EDMS 15:02 Triage completed. ss 15:26 CRP Sent. kg 15:26 Basic Metabolic Panel Sent. kg 15:26 Ferritin Sent. kg 15:34 Patient has correct armband on for positive identification. kg 15:38 No provider procedures requiring assistance completed. kg 16:58 CT Chest For PE Angio In Process Unspecified. EDMS 17:40 initiated transfer to [facility]. bd 18:22 pt accepted in transfer to [facility] by dr Garvey, admin approval given bd by Raymundo Cooney. 18:45 Report given to Traci GAMBLE [facility]. kg Administered Medications: 16:45 Drug: NS 0.9% 500 ml Route: IV; Rate: bolus; Site: right wrist; kg 17:50 Follow up: Response: No adverse reaction; IV Status: Completed infusion; IV Intake: kg 500ml Intake: 17:50 IV: 500ml; Total: 500ml. kg Outcome: 18:16 ER care complete, transfer ordered by . rn 18:45 Transferred by ground EMS to [facility], Transfer form completed. kg 18:45 Transferred 18:45 Condition: stable 18:45 Instructed on the need for transfer. 19:52 Patient left the ED. bb Signatures: Dispatcher [employer] EDMS Sabrina Avalos Brenda, RN RN bb Arias Caldwell MD MD rn Smirch, Shelby, RN RN ss Carrie Mora RN RN kg
[2021-03-25 20:02] VITALS: TEMP 98.3
[2021-03-25 20:08] VITALS: O2SAT 92
[2021-03-25 20:10] VITALS: BP 138/72
[2021-03-25 22:02] LABS: Blood Morphology Comment NOT SEEN (NOT SEEN); Platelet Estimate ADEQ; White Blood Cell Scan OK (OK)
== END 2021-03-25 19:52 | disposition short-term general hospital (02) ==
LOC: ER 13:16
DX: U07.1 COVID-19 (principal); J12.82 Pneumonia due to coronavirus disease 2019; R06.00 Dyspnea, unspecified; I50.9 Heart failure, unspecified; F03.90 Unspecified dementia, unspecified severity, without behavioral disturbance, psychotic disturbance, mood disturbance, and anxiety; E11.9 Type 2 diabetes mellitus without complications; I25.2 Old myocardial infarction; Z79.4 Long term (current) use of insulin; Z79.01 Long term (current) use of anticoagulants; Z79.82 Long term (current) use of aspirin
CPT/HCPCS: 93005; 85025; 80048; 36415; 82728; 86140; 71275; 71045; 96360; 99285; Q9967